=== PATIENT | male | born 1960 | race Caucasian/White ===

== ENCOUNTER 2020-05-03 20:36 | Inpatient (IN) ==
[2020-05-03] MEDS ORDERED: HYDROmorphone INJ 0.5 MG/0.5 ML SYR IV STA (21:33)
[2020-05-03] MEDS ORDERED: ONDANSETRON INJ 2 MG/ML 2 ML VIAL IV STA (21:33)
[2020-05-03] MEDS ORDERED: SODIUM CHLORIDE 0.9% 1000ML 1,000 ML IV ONE (21:33)
[2020-05-03 21:46] LABS: Appearance Urine Clear (Clear); Bilirubin Urine Negative (Negative); Blood Urine Negative (Negative); Color Urine Yellow; Glucose Urine UA 3+ (Negative); Ketones Urine Negative (Negative); Leukocyte Esterase Urine Negative (Negative); Nitrite Urine Negative (Negative); Protein Urine Negative (Negative); Specific Gravity Urine 1.018 (1.000-1.030); Urobilinogen Urine Negative (Negative)
[2020-05-03 21:47] LABS: Basophils # (auto) 0.02 K/uL (0-0.2); Basophils % (auto) 0.2 %; Eosinophils # (auto) 0.05 K/uL (0-0.5); Eosinophils % (auto) 0.5 %; Hematocrit (blood only) 40.2 % (42-52); Immature Granulocytes # (auto) 0.03 K/uL (0.00-0.02); Immature Granulocytes % (auto) 0.3 %; Lymphocytes # (auto) 0.85 K/uL (1.2-3.4); Lymphocytes % (auto) 7.7 %; Mean Corpuscular Hgb Conc 34.8 g/dL (32-36); Mean Corpuscular Volume 88.9 fL (80-100); Mean Platelet Volume 11.6 fL (7.4-10.4); Monocytes # (auto) 1.09 K/uL (0.11-0.59); Monocytes % (auto) 9.9 %; Neutrophils # (auto) 8.93 K/uL (1.4-6.5); Neutrophils % (auto) 81.4 %; Platelet Count 243 K/uL (130-400); RDW Coefficient of Variation 12.8 % (11.5-14.5); RDW Standard Deviation 41.5 fL (36.4-46.3); Red Blood Count 4.52 M/uL (4.7-6.1); White Blood Count 10.97 K/uL (4.8-10.8)
[2020-05-03 21:54] LABS: Albumin Level 3.6 gm/dl (3.4-5.0); BUN Creatinine Ratio 7.9 (10-20); Calcium 8.9 mg/dl (8.5-10.1); Creatinine Clr Calc Pharmacy 57.6 ml/min; Est GFR (African American) 40.9; Est GFR (Non-African American) 35.3; Potassium 3.7 mmol/L (3.5-5.1)
[2020-05-03 21:57] LABS: Albumin Globulin Ratio 0.8 (0.9-2); Bilirubin,Total 0.6 mg/dl (0.2-1); Globulin 4.6 gm/dl (2.5-4.0); Total Protein 8.2 gm/dl (6.4-8.2)
--- NOTE | 2020-05-03 22:27 | Emergency Department Note ---
History of Present Illness General Chief complaint: Abdominal Pain Time Seen by Provider: 05/03/20 21:26 History of Present Illness Maximum Pain Intensity: 6 59-year-old male who presents to emergency department for evaluation of persistent left lower quadrant abdominal pain that has been intermittent for the past 3 weeks, and now has become progressively more steady over the past 3 days. The patient reports that he has had some recent constipation, and did take a laxative today that provided decent stool output. The patient reports that his pain has persisted. The patient has had nausea without vomiting. He denies fever or chills. He has noticed some swelling of the abdomen. He denies any significant pain radiating into the back. He denies history of GI disease. He has not had a colonoscopy in the past. He denies any urinary symptoms. The patient was transported to the emergency department via [facility] ambulance, and received a total of fentanyl 175 mcg and Zofran 4 mg IVP en route. On my exam, the patient rated his discomfort a 6 out of 10. Home Medications Medication Instructions Recorded Confirmed Type epinephrine 0.3 mg IM ONCE PRN #1 ea 03/22/18 05/03/20 Rx Allergies Allergy/AdvReac Type Severity Reaction Status Date / Time bee venom protein (honey bee) Allergy Unknown ANAPHYLAXIS Verified 05/03/20 21:05 Past Med/Surg History Medical History (Updated 05/04/20 @ 00:19 by Troy Pastrana) BPH (benign prostatic hypertrophy) Cyst, epididymis Surgical History Previous back surgery Family History Other Family history of diabetes mellitus Social History Smoking Status: Current some day smoker Preferred Language: Pakistani Feels Safe at Home: Yes Review of Systems 10 system review was performed and was negative except for pertinent positives and negatives as indicated in history of present illness Physical Exam Vital Signs Vital Signs - 24 hr 05/03/20 20:45 05/03/20 21:38 05/03/20 22:00 Temperature 37.4 C Temperature Source Oral Pulse Rate 79 72 Pulse Rate from SpO2 Sensor 71 Respiratory Rate 16 17 Blood Pressure 181/97 H 184/103 H Blood Pressure Mean 125 130 Pulse Oximetry 88 L 99 97 Oxygen Delivery Method Room Air Room Air Nasal Cannula Oxygen Flow Rate 4 Sepsis Recent Fever Within 48 Hours No Sepsis New/Unexplained Change in Mental Status N/A Sepsis Action Taken by Nursing No Action Required 05/03/20 22:59 05/03/20 23:00 05/03/20 23:30 Temperature Temperature Source Pulse Rate 71 67 73 Pulse Rate from SpO2 Sensor 72 67 71 Respiratory Rate 16 15 16 Blood Pressure 174/95 H 179/96 H 204/111 H Blood Pressure Mean 121 123 142 Pulse Oximetry 98 98 98 Oxygen Delivery Method Nasal Cannula Nasal Cannula Nasal Cannula Oxygen Flow Rate 4 4 4 Sepsis Recent Fever Within 48 Hours Sepsis New/Unexplained Change in Mental Status Sepsis Action Taken by Nursing 05/04/20 00:00 Temperature Temperature Source Pulse Rate 73 Pulse Rate from SpO2 Sensor 73 Respiratory Rate 21 Blood Pressure 166/82 H Blood Pressure Mean 110 Pulse Oximetry 99 Oxygen Delivery Method Nasal Cannula Oxygen Flow Rate 4 Sepsis Recent Fever Within 48 Hours Sepsis New/Unexplained Change in Mental Status Sepsis Action Taken by Nursing CONSTITUTIONAL: Obese male in moderate discomfort. Patient does not appear toxic. HEENT: Normocephalic, atraumatic. Pupils equal, round and reactive. No scleral icterus or conjunctival injection. Mucous membranes are not dry. NECK: Full active range of motion without discomfort. LYMPHATICS: No cervical chain adenopathy. RESPIRATORY: Clear to auscultation bilaterally with no wheezing, crackles, rhonchi or stridor. CARDIOVASCULAR: Regular rate and rhythm with no murmurs, rubs or gallops. GASTROINTESTINAL: Bowel sounds present in all quadrants. Patient has notable abdominal guarding and rebound of the left abdomen region. The abdomen is protuberant and hypertympanic to palpation. No fluid wave appreciated. Negative McBurney's point tenderness. Negative CVA tenderness. MUSCULOSKELETAL: Full range of motion of all joints without discomfort. INTEGUMENTARY: No rash or other significant dermatologic conditions noted. HEMATOLOGIC: No ecchymosis or petechiae. PSYCHIATRIC: Positive affect. NEUROLOGIC: No focal neurologic deficits noted. Course Course Patient history and physical exam were performed. Nurses notes were reviewed. Vital signs were reviewed, showing an elevated blood pressure of 181/97. The patient is otherwise afebrile and not tachycardic. O2 saturation was 88% on room air. The patient did not require any additional O2 supplementation, with repeat O2 saturation of 99%. IV access was established, and labs were drawn. The patient was hydrated with a liter normal saline, and administered IV Dilaudid and Zofran. Review of labs shows a mild leukocytosis with white count of 10.97 with left shift and bandemia. Review of additional labs shows a mild hyponatremia of 133, creatinine 2.02 and glucose of 265. LFTs, total bilirubin and lipase are normal. Urinalysis shows 3+ glucosuria without evidence for infection or hematuria. Noncontrast CT of the abdomen and pelvis shows a large heterogenous prostate with significantly distended bladder and evidence for obstructive uropathy with hydroureteronephrosis. Findings were discussed with Dr. Song, ED attending physician, as well as the patient. The patient then admitted that he has had difficulty with urination for quite some time, and has noticed inability to urinate over the past few days. A Navarrete catheter was recommended, and was successfully inserted. After approximately 850 cc of urine was drained, the Navarrete catheter was clamped. Given his current discomfort and acute kidney injury, I did recommend observation status, and hopefully urology consultation in the morning. The patient was in agreement. The case was then discussed with Dr. Shira murguia, [facility], who evaluated the patient. Please see her dictation for further treatment and final disposition. Administered Medications Discontinued Medications Hydromorphone HCl (Hydromorphone Inj 0.5 Mg/0.5 Ml Syr) 0.5 mg IV NOW STA Stop: 05/03/20 21:34 Last Admin: 05/03/20 21:43 Dose: 0.5 mg Documented by: [id number] Hydromorphone HCl (Hydromorphone Inj 0.5 Mg/0.5 Ml Syr) 0.5 mg IV NOW STA Stop: 05/04/20 00:11 Last Admin: 05/04/20 00:18 Dose: 0.5 mg Documented by: [id number] Sodium Chloride (Nss 1000ml) 1,000 mls @ 999 mls/hr IV .Q1H1M ONE Stop: 05/03/20 22:33 Last Infusion: 05/03/20 22:56 Dose: 0 mls/hr Documented by: [id number] Admin: 05/03/20 21:41 Dose: 999 mls/hr Documented by: [id number] Ondansetron HCl (Ondansetron Inj 2 Mg/Ml 2 Ml Vial) 4 mg IV NOW STA Stop: 05/03/20 21:34 Last Admin: 05/03/20 21:42 Dose: 4 mg Documented by: [id number] Medical Decision Making Medical Records Attestation: I reviewed the patient's medical records. Home Medications Current Medication List: was personally reviewed by me Laboratory Data Attestation: I reviewed the patient's lab results. Result diagrams: 05/03/20 20:50 05/03/20 20:50 Lab Results 05/03/20 05/03/20 05/03/20 Range/Units 20:50 20:50 20:50 WBC 10.97 H (4.8-10.8) K/uL RBC 4.52 L (4.7-6.1) M/uL Hgb 14.0 (14.0-18.0) g/dL Hct 40.2 L (42-52) % MCV 88.9 (80-100) fL MCH 31.0 (25-34) pg MCHC 34.8 (32-36) g/dL RDW Std Deviation 41.5 (36.4-46.3) fL RDW Coeff of Marc 12.8 (11.5-14.5) % Plt Count 243 (130-400) K/uL MPV 11.6 H (7.4-10.4) fL Immature Gran % (Auto) 0.3 % Neut % (Auto) 81.4 % Lymph % (Auto) 7.7 % [place] % (Auto) 9.9 % Eos % (Auto) 0.5 % Baso % (Auto) 0.2 % Neut # (Auto) 8.93 H (1.4-6.5) K/uL Lymph # (Auto) 0.85 L (1.2-3.4) K/uL [place] # (Auto) 1.09 H (0.11-0.59) K/uL Eos # (Auto) 0.05 (0-0.5) K/uL Baso # (Auto) 0.02 (0-0.2) K/uL Immature Gran # (Auto) 0.03 H (0.00-0.02) K/uL Sodium 133 L (136-145) mmol/L Potassium 3.7 (3.5-5.1) mmol/L Chloride 102 (98-107) mmol/L Carbon Dioxide 24 (21-32) mmol/L Anion Gap 7.0 (3-11) BUN 16 (7-18) mg/dl Creatinine 2.02 H (0.6-1.4) mg/dl Est Cr Clr Drug Dosing 57.6 ml/min Est GFR ( Amer) 40.9 Est GFR (Non-Af Amer) 35.3 BUN/Creatinine Ratio 7.9 L (10-20) Glucose 265 H (70-99) mg/dl Calcium 8.9 (8.5-10.1) mg/dl Total Bilirubin 0.6 (0.2-1) mg/dl AST 13 L (15-37) U/L ALT 23 (12-78) U/L Alkaline Phosphatase 102 (45-117) U/L Total Protein 8.2 (6.4-8.2) gm/dl Albumin 3.6 (3.4-5.0) gm/dl Globulin 4.6 H (2.5-4.0) gm/dl Albumin/Globulin Ratio 0.8 L (0.9-2) Lipase 230 (73-393) U/L Urine Color Yellow Urine Appearance Clear (Clear) Urine pH 5.0 (4.5-7.5) Ur Specific [place] 1.018 (1.000-1.030) Urine Protein Negative (Negative) Urine Glucose (UA) 3+ H (Negative) Urine Ketones Negative (Negative) Urine Blood Negative (Negative) Urine Nitrite Negative (Negative) Urine Bilirubin Negative (Negative) Urine Urobilinogen Negative (Negative) Ur Leukocyte Esterase Negative (Negative) Urine WBC (Auto) (0-5) /hpf Urine RBC (Auto) (0-4) /hpf U Hyaline Cast (Auto) (0-5) /lpf U Epithel Cells (Auto) (0-5) /lpf Urine Bacteria (Auto) (Negative) COVID-19 Eval Order 05/03/20 05/04/20 Range/Units 23:48 00:19 WBC (4.8-10.8) K/uL RBC (4.7-6.1) M/uL Hgb (14.0-18.0) g/dL Hct (42-52) % MCV (80-100) fL MCH (25-34) pg MCHC (32-36) g/dL RDW Std Deviation (36.4-46.3) fL RDW Coeff of Marc (11.5-14.5) % Plt Count (130-400) K/uL MPV (7.4-10.4) fL Immature Gran % (Auto) % Neut % (Auto) % Lymph % (Auto) % [place] % (Auto) % Eos % (Auto) % Baso % (Auto) % Neut # (Auto) (1.4-6.5) K/uL Lymph # (Auto) (1.2-3.4) K/uL [place] # (Auto) (0.11-0.59) K/uL Eos # (Auto) (0-0.5) K/uL Baso # (Auto) (0-0.2) K/uL Immature Gran # (Auto) (0.00-0.02) K/uL Sodium (136-145) mmol/L Potassium (3.5-5.1) mmol/L Chloride (98-107) mmol/L Carbon Dioxide (21-32) mmol/L Anion Gap (3-11) BUN (7-18) mg/dl Creatinine (0.6-1.4) mg/dl Est Cr Clr Drug Dosing ml/min Est GFR ( Amer) Est GFR (Non-Af Amer) BUN/Creatinine Ratio (10-20) Glucose (70-99) mg/dl Calcium (8.5-10.1) mg/dl Total Bilirubin (0.2-1) mg/dl AST (15-37) U/L ALT (12-78) U/L Alkaline Phosphatase (45-117) U/L Total Protein (6.4-8.2) gm/dl Albumin (3.4-5.0) gm/dl Globulin (2.5-4.0) gm/dl Albumin/Globulin Ratio (0.9-2) Lipase (73-393) U/L Urine Color Yellow Urine Appearance Clear (Clear) Urine pH 5.0 (4.5-7.5) Ur Specific [place] 1.016 (1.000-1.030) Urine Protein Negative (Negative) Urine Glucose (UA) 3+ H (Negative) Urine Ketones Negative (Negative) Urine Blood Trace H (Negative) Urine Nitrite Negative (Negative) Urine Bilirubin Negative (Negative) Urine Urobilinogen Negative (Negative) Ur Leukocyte Esterase Negative (Negative) Urine WBC (Auto) 1-5 (0-5) /hpf Urine RBC (Auto) 0-4 (0-4) /hpf U Hyaline Cast (Auto) 1-5 (0-5) /lpf U Epithel Cells (Auto) 0-5 (0-5) /lpf Urine Bacteria (Auto) Negative (Negative) COVID-19 Eval Order Covid19 IDNow Replaced by [facility] Imaging Data Attestation: I personally reviewed and interpreted this imaging study as follows: My Impression: My interpretation of a noncontrast CT of the abdomen and pelvis shows significant bladder distention with obstructive uropathy with hydroureteronephrosis. A large heterogenous prostate is also noted. No obvious evidence for appendicitis, diverticulitis or ureteral calculi. [facility] report was also reviewed with concurrence. Local radiologist report is pending. Blood Pressure Blood Pressure Findings: Elevated blood pressure MDM Narrative Patient presents to emergency department for evaluation of abdominal pain. The patient admits that he has had difficulty urinating now for quite some time, and has been unable to do so over the past few days. CT imaging does show evidence for a markedly distended bladder with a large heterogenous prostate, likely the cause of his obstructive uropathy. Urinalysis does not show evidence for infection. The patient does have an acute kidney injury from the obstructive uropathy. The patient has a mild leukocytosis without fever. CT imaging does not show evidence for appendicitis, diverticulitis, bowel obstruction or free air. Impression & Plan Enlarged prostate with urinary obstruction, Acute kidney injury Discharge Plan Visit Data Chief Complaint: Abdominal Pain ED Provider: Alhaji Song ED Midlevel Provider: Troy Pastrana Discharge Problem: Enlarged prostate with urinary obstruction, Acute kidney injury Forms Stand Alone Forms: My [facility] Prescriptions Prescriptions: No Action epinephrine 0.3 mg/0.3 mL auto-injector 0.3 mg IM ONCE PRN (Reason: allergy symptoms) Qty: 1 RF: 1
[2020-05-04 00:10] LABS: Appearance Urine Clear (Clear); Bacteria Urine Automated Negative (Negative); Bilirubin Urine Negative (Negative); Blood Urine Trace (Negative); Color Urine Yellow; Epithelial Cell Urine Auto 0-5 /lpf (0-5); Glucose Urine UA 3+ (Negative); Ketones Urine Negative (Negative); Leukocyte Esterase Urine Negative (Negative); Nitrite Urine Negative (Negative); Protein Urine Negative (Negative); RBC Urine Automated 0-4 /hpf (0-4); Specific Gravity Urine 1.016 (1.000-1.030); Urobilinogen Urine Negative (Negative)
[2020-05-04] MEDS ORDERED: HYDROmorphone INJ 0.5 MG/0.5 ML SYR IV STA (00:10)
--- NOTE | 2020-05-04 01:23 | History & Physical Report ---
Date of Service May 04, 2020 Assessment & Plan Admission and Anticipated Discharge Date Admission Date: 59 yo M w/ pMHx. of Diabetes, BPH presenting with lower abdominal pain and found to have distended bladder consistent with obstructive uropathy; also found to be hypoxic with COVID exposure and 4 days of cough concerning for COVID-19 infection. Obstructive uropathy due to BPH, appears to be chronic with acute worsening CT with findings on STAT rad of: distended bladder, large heterogenous prostate, inguinal hernia, diverticula w/o diverticulitis - Navarrete placed with significant diuresis, consider clamping Navarrete if blood press ure drops - replacing fluid with LR 125 ml/H - Urology consulted - pain control with Dilaudid PRN Acute hypoxic respiratory distress potentially due to COVID-19 infection vs. other viral or bacterial infection of his lungs vs. chronic lung disease vs. obesity hypoventilation worsened due to current abdominal distension - slightly elevated WBC, normal HR, afebrile - initial COVID test negative, ordered PCR - COVID precautions - CXR to help differentiate cause - if CXR and PCR are negative, could consider discontinuing precautions Diabetes mellitus II, - A1C ordered - started on sliding scale with 10 BID of Lantus - continue to follow blood sugar discharge planning - consulted case management for discharge planning given patient does not have a PCP and has untreated diabetes and BPH - discussed going back to [facility] for management of his chronic conditions including diabetes Code: full Diet: CC w/ DMII DVT prophylaxis: Heparin History of Present Illness Chief Complaint: abdominal pain Primary Care Provider: NO PCP Mr. Kingsley Harding (Bob) is here for lower abdominal pain. His pain started 3 months ago and has been progressively worsening. He rated his pain a 15/10 prior to coming to the ER. He has had pain like this before that he related to a "bad prostate", he explained that he had seen urologist approximately 5 years ago. He was started on medication at that time but did not feel that they were working for him so he stopped them. Mr. Harding is not on oxygen at home. He denies any shortness of breath. He explained that he though the had COVID a week ago. He was around his "boy" who was positive and assumed he had COVID but recovered from it. He had a dry cough for four days that has since resolved. He does not have any other symptoms. He had diarrhea but relates that to laxatives he took for what he thought was constipation. Mr. Harding stated that he has diabetes but has not taken any medication for this. He tried to modify his diet, but noted that this has not worked well either. He does not have a PCP but did previously go to [facility] although at the time he was busy and couldn't make it to all of the follow up appointments. Allergies Allergy/AdvReac Type Severity Reaction Status Date / Time bee venom protein (honey bee) Allergy Unknown ANAPHYLAXIS Verified 05/03/20 21:05 Home Medications Medication Instructions Recorded Confirmed Type epinephrine 0.3 mg IM ONCE PRN #1 ea 03/22/18 05/03/20 Rx Past Med/Surg History Medical History BPH (benign prostatic hypertrophy) Cyst, epididymis Surgical History Previous back surgery Family History Other Family history of diabetes mellitus Social History Smoking Status: Never smoker Do You Dip or Chew Tobacco: Yes; Hx Alcohol Use: Yes Hx Substance Use: Yes Last Used Substance: Days (ago) Last Used Substance Other:: marijuana 1 day ago Preferred Language: Italian Communication Ability: Effective [employer] Lines[employer] Required: No Beliefs That Will Affect Care: None Current Living Situation: Alone Other Information That Helps Us Care for You: No Feels Safe at Home: Yes Safety Concerns: Feels Safe At This Time Assistive Devices: None Assistive Devices Comment: reading glasses Review of Systems Constitutional: no fever and no chills Respiratory: no cough, no hemoptysis and no sputum production Cardiovascular: no chest pain Gastrointestinal: + abdominal pain, + bloating and + diarrhea/loose stools; no nausea, no vomiting and no constipation Physical Exam Constitutional: WD/WN, vitals as above + obese Eyes: PERRL, conjunctivae normal, anicteric sclerae ENMT: external ear and nose normal, oropharynx normal Neck: normal visual inspection Respiratory: normal respiratory effort, lungs clear to auscultation - able to speak in full sentences - no acute respiratory distress Cardiovascular: RRR, no murmur, no edema - distant heart sounds Gastrointestinal (Abdomen): - distended abdomen - soft - no guarding - suprapubic area exquisitely tender to palpation Skin: no rashes, warm and dry Neurologic: no focal motor deficits Psychiatric: A+Ox3, euthymic affect Results & Data Results & Data ([facility]) Vital Signs (Past 12 Hours) Vital Signs Temp Pulse Resp BP Pulse Ox 05/04/20 01:02 70 14 161/91 H 98 05/04/20 00:30 73 18 167/94 H 98 05/04/20 00:00 73 21 166/82 H 99 05/03/20 23:30 73 16 204/111 H 98 05/03/20 23:00 67 15 179/96 H 98 05/03/20 22:59 71 16 174/95 H 98 05/03/20 22:00 72 17 184/103 H 97 05/03/20 21:38 99 05/03/20 20:45 37.4 C 79 16 181/97 H 88 L CBC Results Results Complete Blood Count Results: RBC 4.29 M/uL (4.7-6.1) L 05/04/20 WBC 7.71 K/uL (4.8-10.8) 05/04/20 Hgb 13.1 g/dL (14.0-18.0) L 05/04/20 Hct 37.8 % (42-52) L 05/04/20 Plt Count 247 K/uL (130-400) 05/04/20 Chemistry (BMP) Results BMP Results: Sodium 137 mmol/L (136-145) 05/04/20 Potassium 3.7 mmol/L (3.5-5.1) 05/04/20 Chloride 106 mmol/L (98-107) 05/04/20 BUN 14 mg/dl (7-18) 05/04/20 Creatinine 1.44 mg/dl (0.6-1.4) H 05/04/20 Glucose 253 mg/dl (70-99) H 05/04/20 Supervising Physician Co-Signing Physician Notes Patient seen and examined, chart reviewed, case discussed with Dr. Collins and I agree with his assessment and plan as above. Briefly, patient is a 59yo male presenting with lower abdominal pain. Found with bladder distention, urinary retention. On exam he is afebrile, HTN, otherwise stable, NAD Abd - +BS, soft, distended, tender in lower abdomen without rebound/guarding. Navarrete in place with 1000mL urine Labs and images reviewed. Assessment/Plan: Maintain Navarrete IVF Urology consultation Resident Activity Tracking Resident Involvement: Resident Care Provided Care Provided: Adult Hospital Medicine
[2020-05-04 01:49] LABS: Influenza A virus by PCR Negative (Neg); Influenza B virus by PCR Negative (Neg); RSV by PCR Negative (Neg); SARS CoV2 RNA(COVID-19) InHosp NEGATIVE (Negative)
[2020-05-04] MEDS ORDERED: PNEUMOCOCCAL POLYSACCHARIDES 25 MCG/0.5 ML VIAL/SYR IM ONE (03:22)
[2020-05-04] MEDS ORDERED: PNEUMOCOCCAL ADMINISTRATION CHARGE ONE (03:22)
[2020-05-04] MEDS ORDERED: INFLUENZA ADMINISTRATION CHARGE ONE (03:22)
[2020-05-04] MEDS ORDERED: INFLUENZA VIRUS QUAD VACCINE 0.5 ML SYR IM ONE (03:22)
[2020-05-04] MEDS ORDERED: GLUCOSE 40% GEL 15 GM TUBE PO PRN (03:25)
[2020-05-04] MEDS ORDERED: CARBOHYDRATES FOR HYPOGLYCEMIA PO PRN (03:25)
[2020-05-04] MEDS ORDERED: ACETAMINOPHEN 325 MG TAB PO PRN (03:25)
[2020-05-04] MEDS ORDERED: GLUCAGON FOR INJ 1 MG VIAL SQ PRN (03:25)
[2020-05-04] MEDS ORDERED: GLUCOSE 10 TABS/TUBE PO PRN (03:25)
[2020-05-04] MEDS ORDERED: DEXTROSE 50% 50 ML SYRINGE IV PRN (03:25)
[2020-05-04] MEDS ORDERED: POLYETHYLENE (MIRALAX) 17 GM PACK PO PRN (03:25)
[2020-05-04] MEDS: LACTATED RINGER'S 1,000 ML IV SCH ×3 (04:08→21:07)
[2020-05-04] MEDS: HEPARIN SOD 5,000 UNIT/0.5 ML VIAL SQ SCH ×3 (06:58→21:47)
[2020-05-04 07:14] LABS: Basophils # (auto) 0.01 K/uL (0-0.2); Basophils % (auto) 0.1 %; Eosinophils # (auto) 0.09 K/uL (0-0.5); Eosinophils % (auto) 1.2 %; Hematocrit (blood only) 37.8 % (42-52); Hemoglobin 13.1 g/dL (14.0-18.0); Immature Granulocytes # (auto) 0.01 K/uL (0.00-0.02); Immature Granulocytes % (auto) 0.1 %; Lymphocytes # (auto) 1.38 K/uL (1.2-3.4); Lymphocytes % (auto) 17.9 %; Mean Corpuscular Hemoglobin 30.5 pg (25-34); Mean Corpuscular Hgb Conc 34.7 g/dL (32-36); Mean Corpuscular Volume 88.1 fL (80-100); Mean Platelet Volume 10.8 fL (7.4-10.4); Monocytes # (auto) 0.83 K/uL (0.11-0.59); Monocytes % (auto) 10.8 %; Neutrophils # (auto) 5.39 K/uL (1.4-6.5); Neutrophils % (auto) 69.9 %; Platelet Count 247 K/uL (130-400); RDW Standard Deviation 41.3 fL (36.4-46.3); Red Blood Count 4.29 M/uL (4.7-6.1); White Blood Count 7.71 K/uL (4.8-10.8)
[2020-05-04 07:22] LABS: Estimated Average Glucose 289 mg/dl; Hemoglobin A1C 11.7 % (4.5-5.6)
[2020-05-04 07:31] LABS: BUN Creatinine Ratio 9.8 (10-20); Calcium 8.6 mg/dl (8.5-10.1); Creatinine Clr Calc Pharmacy 77.8 ml/min; Est GFR (African American) 61.6; Est GFR (Non-African American) 53.1; Potassium 3.7 mmol/L (3.5-5.1)
--- NOTE | 2020-05-04 07:32 | Urology Consultation ---
Date of Consultation May 04, 2020 Assessment & Plan (1) Enlarged prostate with urinary obstruction: -Maintain Navarrete catheter for the present time. Follow serial labs pain particular attention the patient's creatinine Recommend checking a PSA level May be prudent to initiate the patient on medication such as Flomax to improve his urination ATTENDING NOTE: Assessed patient. Independently interviewed, evaluated, and examined. Patient had severe retention and catheter placement. Is currently dealing with gross hematuria after catheter placement likely due to over distention of bladder. Did have bilateral hydronephrosis. Agree with above. Plan outpatient followup with catheter removal in 7-10 days. Keep flomax. Okay to discharge when stable and improved. Will need scope in office at some point and workup. History of Present Illness Reason for Consultation: Obstructive uropathy Attending Physician: Shira Freeman, History of Present Illness This is a 59-year-old male who presented to [facility] emergency department secondary to distended bladder as well as lower abdominal discomfort. The patient notes that for the past several months he has had a great difficulty urinating. He notes that when he goes to void urine merely dribbles out of his urethra. He notes that after he does this he feels as though his bladder is not empty. Looking back he notes over the past several months he has had decreased force of stream of urine. He has also had difficulty initiating urination.I asked the patient if he had any surgical procedures in the past to resolve this problem which he denied. He also notes he does not take any medications for this problem. Because of his symptoms he presented to the emergency department. CT scan of his abdomen and pelvis showed that he had an enlarged prostate. He had a Navarrete catheter placed with a diuresis of a large volume of urine and since this modality was initiated the patient notes he has had marked improvement of his symptoms. He also had labs drawn in the emergency department where his hemoglobin is noted be 13.1. His platelets and white blood cell count were noted to be within normal range. His creatinine was noted to be elevated at 2.0. He did have a Covid test performed which was negative At the time of my exam he is resting comfortably in bed in no distress. Allergies Allergy/AdvReac Type Severity Reaction Status Date / Time bee venom protein (honey bee) Allergy Unknown ANAPHYLAXIS Verified 05/03/20 21:05 Home Medications Medication Instructions Recorded Confirmed Type epinephrine 0.3 mg IM ONCE PRN #1 ea 03/22/18 05/03/20 Rx Patient History Medical History BPH (benign prostatic hypertrophy) Cyst, epididymis Surgical History Previous back surgery Family History Other Family history of diabetes mellitus Social History Smoking Status: Never smoker Do You Dip or Chew Tobacco: Yes; Hx Alcohol Use: Yes Hx Substance Use: Yes Last Used Substance: Days (ago) Last Used Substance Other:: marijuana 1 day ago Preferred Language: Bolivian Communication Ability: Effective Nurse Wound Care Required: No Beliefs That Will Affect Care: None Current Living Situation: Alone Other Information That Helps Us Care for You: No Feels Safe at Home: Yes Safety Concerns: Feels Safe At This Time Assistive Devices: Oxygen - Continuous Assistive Devices Comment: reading glasses Review of Systems Constitutional: no fever and no chills Eyes: no diplopia Ear, Nose, Mouth, Throat: no ear pain Respiratory: + cough and + dyspnea Cardiovascular: no chest pain Gastrointestinal: + abdominal pain (Lower abdomen) Genitourinary: + difficulty urinating, + urinary hesitancy and + decreased u rination Musculoskeletal: no back pain Integumentary: no rash Neurologic: no localized weakness Physical Exam Constitutional: well developed and well nourished; no acute distress Eyes: no conjunctival abnormality ENMT: Ears: no hearing impairment Neck: trachea midline Respiratory: normal respiratory effort; no respiratory distress and no labored breathing Cardiovascular: Rate/Rhythm: regular rate and regular rhythm Gastrointestinal (Abdomen): Percussion/Palpation: abdomen soft; abdomen nontender Musculoskeletal: No calf tenderness Skin: no rashes, warm and dry Neurologic: moves all extremities Psychiatric: A+Ox3, euthymic affect Genitourinary: Navarrete catheter is in place. There is blood-tinged urine noted in the collection bag Results & Data ([facility]) Vital Signs (Past 12 Hours) Vital Signs Temp Pulse Pulse Resp BP BP BP 05/04/20 07:17 36.5 C 61 16 146/84 H 03/20/21 03:00 36.5 C 16 176/104 H 05/04/20 02:00 66 14 160/99 H 05/04/20 01:30 66 12 155/101 H 05/04/20 01:02 70 14 161/91 H 05/04/20 00:30 73 18 167/94 H 05/04/20 00:00 73 21 166/82 H 05/03/20 23:30 73 16 204/111 H 05/03/20 23:00 67 15 179/96 H 05/03/20 22:59 71 16 174/95 H 05/03/20 22:00 72 17 184/103 H 05/03/20 21:38 05/03/20 20:45 37.4 C 79 16 181/97 H Pulse Ox 05/04/20 07:17 97 05/04/20 03:00 96 05/04/20 02:00 95 05/04/20 01:30 96 05/04/20 01:02 98 05/04/20 00:30 98 05/04/20 00:00 99 05/03/20 23:30 98 05/03/20 23:00 98 05/03/20 22:59 98 05/03/20 22:00 97 05/03/20 21:38 99 05/03/20 20:45 88 L PG Care Time/CCT Total # of Minutes Spent Total Time Spent with Patient: Total time spent is greater than 50% in coordination of care (as documented) at patient's floor/unit and/or counseling patient: Coding Level of Care Code 77549 Inpt Consult Level 5 Diagnoses Enlarged prostate with urinary obstruction N40.1; N13.8
--- NOTE | 2020-05-04 08:17 | CT Scan Report ---
ABDOMEN AND PELVIS CT WITHOUT CONTRAST CT DOSE: 1972.82 mGy.cm HISTORY: Left lower quadrant abdominal pain. TECHNIQUE: Multiaxial CT images of the abdomen and pelvis were performed without contrast. A dose lo wering technique was utilized adhering to the principles of ALARA. COMPARISON STUDY: Abdomen and pelvis CT 06/23/2013. FINDINGS: Calcified granuloma within the right lower lobe. L4-5 posterior decompression fusion with p edicle screws and rods. No pneumoperitoneum. No pneumatosis. The unenhanced liver, gallbladder, splee n, adrenal glands, and pancreas are unremarkable. No retroperitoneal lymphadenopathy. Normal caliber abdominal aorta. No evidence for bowel obstruction. There is a fluid-filled colon. A few colonic dive rticula. No evidence for acute diverticulitis. Normal appendix. There is mild to moderate bilateral p erinephric edema which has progressed. There is mild bilateral hydroureteronephrosis. This is seconda ry to the severely distended and thick-walled bladder with adjacent inflammatory change. There is enl arged prostate gland measuring 8 cm. Trace pelvic free fluid. IMPRESSION: 1. Severely distended bladder demonstrating a thickened wall and surrounding fat stranding suggestive of a superimposed cystitis. This could be due to an outlet obstruction given the enlarged prostate g land. Catheterization recommended for decompression. 2. Mild bilateral hydronephrosis likely secondary to the distended bladder. 3. Fluid-filled colon. This can be seen in the setting of a gastroenteritis. ACT 112: Negative or not required by law. Electronically signed by: Salvador Rodriguez M.D. 05/04/2020 8:16 AM
[2020-05-04] MEDS: INSULIN GLARGINE SOLOSTAR 100 UNITS/ML 3 ML PEN SQ SCH ×2 (08:37→20:50)
[2020-05-04] MEDS: INSULIN ASPART 100 UNITS/ML 3 ML PEN SC SCH ×4 (08:38→20:48)
--- NOTE | 2020-05-04 08:43 | XRay Report ---
XR chest 1V portable CLINICAL HISTORY: hypoxia COMPARISON STUDY: 10/13/2015 FINDINGS: The heart is mildly enlarged. There is no failure. There is no focal pulmonary consolidatio n. There are no pleural effusions.[ IMPRESSION: No active disease in the chest. ACT 112: Negative or not required by law. Electronically signed by: Jerome Huber M.D. 05/04/2020 8:42 AM
[2020-05-04] MEDS ORDERED: TAMSULOSIN HCL 0.4 MG CAP PO ONE (10:03)
--- NOTE | 2020-05-04 10:10 | Electrocardiogram Report ---
Test Reason : Blood Pressure : / mmHG Vent. Rate : 069 BPM Atrial Rate : 069 BPM P-R Int : 186 ms QRS Dur : 094 ms QT Int : 392 ms P-R-T Axes : 058 031 028 degrees QTc Int : 420 ms Normal sinus rhythm RSR' or QR pattern in V1 suggests right ventricular conduction delay Otherwise normal ECG When compared with ECG of 13-OCT-2015 16:16, No significant change was found Confirmed by Alvarez Singer ([id number]) on 05/04/2020 10:10:25 AM Referred By: REFERRED SELF Confirmed By:Alvarez Singer
[2020-05-04] MEDS: cefTRIAXone SODIUM 2,000 MG in DEXTROSE 5% 50 ML IV SCH (17:51)
[2020-05-04 18:06] LABS: Appearance Urine Cloudy (Clear); Bacteria Urine Automated Negative (Negative); Bilirubin Urine Negative (Negative); Blood Urine 3+ (Negative); Color Urine Orange; Epithelial Cell Urine Auto >30 /lpf (0-5); Glucose Urine UA Trace (Negative); Ketones Urine Negative (Negative); Leukocyte Esterase Urine Trace (Negative); Nitrite Urine Negative (Negative); Protein Urine 3+ (Negative); RBC Urine Automated >30 /hpf (0-4); Specific Gravity Urine 1.015 (1.000-1.030); Urobilinogen Urine Negative (Negative); WBC Urine Automated >30 /hpf (0-5); pH Urine 5.5 (4.5-7.5)
[2020-05-04 18:37] LABS: Mucus Urine Present (None Prsent)
[2020-05-04] MEDS: SODIUM CHLORIDE 0.9% 1000ML 1,000 ML IV SCH (20:41)
[2020-05-04] MEDS: POTASSIUM CHLORIDE CRTAB 20 MEQ TABCR PO SCH (21:01)
[2020-05-04] MEDS: HYDROmorphone INJ 0.5 MG/0.5 ML SYR IV PRN (21:46)
--- NOTE | 2020-05-04 22:42 | Hospitalist Progress Note ---
Date of Service May 04, 2020 Assessment & Plan (1) Enlarged prostate with urinary obstruction: Start flomax. Continue roberts. High concern for prostatitis given his severe scrotal/perineal/lower abdominal pain. Check PSA. Send urine culture. Start rocephin 2mg IV daily. Appreciate urology consultation. (2) Acute kidney injury: 2nd obstruction. Improving. Having copious post-obstructive diuresis. Increase fluids to 175cc/hr given his size to match UOP. BMP in am. (3) Morbid obesity with BMI of 40.0-44.9, adult: BMI 40.9 (4) Diabetes mellitus type 2, uncontrolled: Lantus 10 units BID. Novolog correction/carb coverage. A1c noted. DM education. (5) Prostatitis: Suspected. Check PSA in am. Send urine culture. Flomax. Roberts. Start rocephin 2gm daily. (6) Recent URI: Resolved 1-2 weeks ago. Doubt it was COVID, but will check COVID serum ab's in am. COVID PCR x 2 negative at time of admission. (7) DVT prophylaxis: heparin 7500 units TID Admission and Anticipated Discharge Date Admission Date: May 04, 2020 Subjective patient c/o penile pain where the roberts enters the urethra. he has minimal amount of discharge. he is quite uncomfortable just sitting in the chair -- hurts in scrotal and perineal region as well as lower abdomen. feels bloated/distended. eating ok. had a subjective fever 1-2 weeks ago along with fatigue, runny nose, and cough. all of those symptoms are gone. no dyspnea. son was sick with similar symptoms. neither got tested for COVID. Review of Systems Constitutional: no fever and no chills Respiratory: no cough, no dyspnea, no dyspnea on exertion and no wheezing Cardiovascular: no chest pain Gastrointestinal: + abdominal pain; no vomiting Genitourinary: + as per Subjective / HPI, + dysuria and + penile discharge; no flank pain Physical Exam Constitutional: + acute distress (uncomfortable due to penile pain ) and + morbidly obese; no altered mental status ENMT: external ear and nose normal, oropharynx normal Respiratory: normal respiratory effort, lungs clear to auscultation Cardiovascular: Rate/Rhythm: regular rate and regular rhythm Heart Sounds: normal S1 and normal S2; no murmur Vessels: posterior tibial pulses present and dorsalis pedis pulses present; no JVD Extremities: no edema Gastrointestinal (Abdomen): Inspection/Auscultation: + abdomen distended and normal bowel sounds Percussion/Palpation: + abdomen tender (suprapubic tenderness to palpation ) Psychiatric: A+Ox3, euthymic affect Genitourinary: buried penis, minimal amount of purulent discharge from urethral orifice Results & Data Results & Data ([facility]) Vital Signs (Past 12 Hours) Vital Signs Temp Pulse Resp BP Pulse Ox 05/04/20 22:26 36.9 C 73 18 166/72 H 97 05/04/20 15:08 36.5 C 76 16 149/76 H 97 Laboratory Results Laboratory Results - last 24 hr 05/03/20 05/04/20 05/04/20 23:48 00:19 00:19 WBC RBC Hgb Hct MCV MCH MCHC RDW Std Deviation RDW Coeff of Marc Plt Count MPV Immature Gran % (Auto) Neut % (Auto) Lymph % (Auto) Todd % (Auto) Eos % (Auto) Baso % (Auto) Neut # (Auto) Lymph # (Auto) Todd # (Auto) Eos # (Auto) Baso # (Auto) Immature Gran # (Auto) Sodium Potassium Chloride Carbon Dioxide Anion Gap BUN Creatinine Est Cr Clr Drug Dosing Est GFR ( Amer) Est GFR (Non-Af Amer) BUN/Creatinine Ratio Glucose POC Glucose Estimat Average Glucose Hemoglobin A1c Calcium Urine Color Yellow Urine Appearance Clear Urine pH 5.0 Ur Specific [place] 1.016 Urine Protein Negative Urine Glucose (UA) 3+ H Urine Ketones Negative Urine Blood Trace H Urine Nitrite Negative Urine Bilirubin Negative Urine Urobilinogen Negative Ur Leukocyte Esterase Negative Urine WBC (Auto) 1-5 Urine RBC (Auto) 0-4 U Hyaline Cast (Auto) 1-5 U Epithel Cells (Auto) 0-5 Urine Bacteria (Auto) Negative Ur Renal Epithelial Cell Urine Mucus COVID-19 Eval Order Covid19 [facility] SARS-CoV-2 (PCR) Hepatitis C Ab Screen Influenza Type A (PCR) Influenza Type B (PCR) RSV (RT-PCR) SARS-CoV-2, RNA, NAAT NEGATIVE 05/04/20 05/04/20 05/04/20 00:59 00:59 06:29 WBC RBC Hgb Hct MCV MCH MCHC RDW Std Deviation RDW Coeff of Marc Plt Count MPV Immature Gran % (Auto) Neut % (Auto) Lymph % (Auto) Todd % (Auto) Eos % (Auto) Baso % (Auto) Neut # (Auto) Lymph # (Auto) Todd # (Auto) Eos # (Auto) Baso # (Auto) Immature Gran # (Auto) Sodium Potassium Chloride Carbon Dioxide Anion Gap BUN Creatinine Est Cr Clr Drug Dosing Est GFR ( Amer) Est GFR (Non-Af Amer) BUN/Creatinine Ratio Glucose POC Glucose Estimat Average Glucose Hemoglobin A1c Calcium Urine Color Urine Appearance Urine pH Ur Specific [place] Urine Protein Urine Glucose (UA) Urine Ketones Urine Blood Urine Nitrite Urine Bilirubin Urine Urobilinogen Ur Leukocyte Esterase Urine WBC (Auto) Urine RBC (Auto) U Hyaline Cast (Auto) U Epithel Cells (Auto) Urine Bacteria (Auto) Ur Renal Epithelial Cell Urine Mucus COVID-19 Eval Order CovFluRsv at [facility] SARS-CoV-2 (PCR) NEGATIVE Hepatitis C Ab Screen Neg Influenza Type A (PCR) Negative Influenza Type B (PCR) Negative RSV (RT-PCR) Negative SARS-CoV-2, RNA, NAAT 05/04/20 05/04/20 05/04/20 06:29 06:29 06:29 WBC 7.71 RBC 4.29 L Hgb 13.1 L Hct 37.8 L MCV 88.1 MCH 30.5 MCHC 34.7 RDW Std Deviation 41.3 RDW Coeff of Marc 13.0 Plt Count 247 MPV 10.8 H Immature Gran % (Auto) 0.1 Neut % (Auto) 69.9 Lymph % (Auto) 17.9 Todd % (Auto) 10.8 Eos % (Auto) 1.2 Baso % (Auto) 0.1 Neut # (Auto) 5.39 Lymph # (Auto) 1.38 Todd # (Auto) 0.83 H Eos # (Auto) 0.09 Baso # (Auto) 0.01 Immature Gran # (Auto) 0.01 Sodium 137 Potassium 3.7 Chloride 106 Carbon Dioxide 24 Anion Gap 7.0 BUN 14 Creatinine 1.44 H D Est Cr Clr Drug Dosing 77.8 Est GFR ( Amer) 61.6 Est GFR (Non-Af Amer) 53.1 BUN/Creatinine Ratio 9.8 L Glucose 253 H POC Glucose Estimat Average Glucose 289 Hemoglobin A1c 11.7 H Calcium 8.6 Urine Color Urine Appearance Urine pH Ur Specific [place] Urine Protein Urine Glucose (UA) Urine Ketones Urine Blood Urine Nitrite Urine Bilirubin Urine Urobilinogen Ur Leukocyte Esterase Urine WBC (Auto) Urine RBC (Auto) U Hyaline Cast (Auto) U Epithel Cells (Auto) Urine Bacteria (Auto) Ur Renal Epithelial Cell Urine Mucus COVID-19 Eval Order SARS-CoV-2 (PCR) Hepatitis C Ab Screen Influenza Type A (PCR) Influenza Type B (PCR) RSV (RT-PCR) SARS-CoV-2, RNA, NAAT 05/04/20 05/04/20 05/04/20 12:17 17:10 17:35 WBC RBC Hgb Hct MCV MCH MCHC RDW Std Deviation RDW Coeff of Marc Plt Count MPV Immature Gran % (Auto) Neut % (Auto) Lymph % (Auto) Todd % (Auto) Eos % (Auto) Baso % (Auto) Neut # (Auto) Lymph # (Auto) Todd # (Auto) Eos # (Auto) Baso # (Auto) Immature Gran # (Auto) Sodium Potassium Chloride Carbon Dioxide Anion Gap BUN Creatinine Est Cr Clr Drug Dosing Est GFR ( Amer) Est GFR (Non-Af Amer) BUN/Creatinine Ratio Glucose POC Glucose 275 H 226 H Estimat Average Glucose Hemoglobin A1c Calcium Urine Color [place] Urine Appearance Cloudy A Urine pH 5.5 Ur Specific [place] 1.015 Urine Protein 3+ H Urine Glucose (UA) Trace H Urine Ketones Negative Urine Blood 3+ H Urine Nitrite Negative Urine Bilirubin Negative Urine Urobilinogen Negative Ur Leukocyte Esterase Trace H Urine WBC (Auto) >30 H Urine RBC (Auto) >30 H U Hyaline Cast (Auto) 1-5 U Epithel Cells (Auto) >30 H Urine Bacteria (Auto) Negative Ur Renal Epithelial Cell Not Reportable Urine Mucus Present A COVID-19 Eval Order SARS-CoV-2 (PCR) Hepatitis C Ab Screen Influenza Type A (PCR) Influenza Type B (PCR) RSV (RT-PCR) SARS-CoV-2, RNA, NAAT 05/04/20 20:28 WBC RBC Hgb Hct MCV MCH MCHC RDW Std Deviation RDW Coeff of Marc Plt Count MPV Immature Gran % (Auto) Neut % (Auto) Lymph % (Auto) Todd % (Auto) Eos % (Auto) Baso % (Auto) Neut # (Auto) Lymph # (Auto) Todd # (Auto) Eos # (Auto) Baso # (Auto) Immature Gran # (Auto) Sodium Potassium Chloride Carbon Dioxide Anion Gap BUN Creatinine Est Cr Clr Drug Dosing Est GFR ( Amer) Est GFR (Non-Af Amer) BUN/Creatinine Ratio Glucose POC Glucose 184 H Estimat Average Glucose Hemoglobin A1c Calcium Urine Color Urine Appearance Urine pH Ur Specific [place] Urine Protein Urine Glucose (UA) Urine Ketones Urine Blood Urine Nitrite Urine Bilirubin Urine Urobilinogen Ur Leukocyte Esterase Urine WBC (Auto) Urine RBC (Auto) U Hyaline Cast (Auto) U Epithel Cells (Auto) Urine Bacteria (Auto) Ur Renal Epithelial Cell Urine Mucus COVID-19 Eval Order SARS-CoV-2 (PCR) Hepatitis C Ab Screen Influenza Type A (PCR) Influenza Type B (PCR) RSV (RT-PCR) SARS-CoV-2, RNA, NAAT PG Care Time/CCT Total # of Minutes Spent Total Time Spent with Patient: Total time spent is greater than 50% in coordination of care (as documented) at patient's floor/unit and/or counseling patient: Coding Level of Care Code 01754 Subseq Hosp Care Lvl 3 Diagnoses Enlarged prostate with urinary obstruction N40.1; N13.8 Acute kidney injury N17.9 Morbid obesity with BMI of 40.0-44.9, adult E66.01; Z68.41 Diabetes mellitus type 2, uncontrolled E11.65 Prostatitis N41.9 Recent URI J06.9 DVT prophylaxis Z29.9
[2020-05-05] MEDS: SODIUM CHLORIDE 0.9% 1000ML 1,000 ML IV SCH ×3 (02:20→18:05)
--- NOTE | 2020-05-05 04:33 | Billing Data ---
Date of Service May 04, 2020 Coding Level of Care Code 88831 Initial Inpt Care Lvl 2
[2020-05-05] MEDS: HYDROmorphone INJ 0.5 MG/0.5 ML SYR IV PRN ×2 (05:23→17:20)
[2020-05-05] MEDS: HEPARIN SOD 5,000 UNIT/0.5 ML VIAL SQ SCH ×3 (05:24→21:12)
[2020-05-05 06:48] LABS: BUN Creatinine Ratio 10.5 (10-20); Calcium 8.1 mg/dl (8.5-10.1); Creatinine Clr Calc Pharmacy 120.5 ml/min; Est GFR (African American) 104.5; Est GFR (Non-African American) 90.2; Potassium 3.8 mmol/L (3.5-5.1)
[2020-05-05 06:52] LABS: Prostate Specific Antigen 46.3 ng/ml (0-4)
[2020-05-05] MEDS: INSULIN GLARGINE SOLOSTAR 100 UNITS/ML 3 ML PEN SQ SCH ×2 (08:39→21:01)
[2020-05-05] MEDS: INSULIN ASPART 100 UNITS/ML 3 ML PEN SC SCH ×4 (08:40→21:03)
[2020-05-05] MEDS: POTASSIUM CHLORIDE CRTAB 20 MEQ TABCR PO SCH ×2 (08:41→20:33)
[2020-05-05] MEDS: TAMSULOSIN HCL 0.4 MG CAP PO SCH (08:42)
[2020-05-05 08:43] LABS: CoV2 Total Antibody Negative (Negative)
[2020-05-05] MEDS: cefTRIAXone SODIUM 2,000 MG in DEXTROSE 5% 50 ML IV SCH (08:45)
[2020-05-05] MEDS ORDERED: HYDROmorphone INJ 0.5 MG/0.5 ML SYR IV PRN (18:03)
--- NOTE | 2020-05-05 18:41 | XRay Report ---
XR KUB/Abdomen 1 view CLINICAL HISTORY: Severe abdominal pain COMPARISON STUDY: No previous studies for comparison. FINDINGS: There is no pathologic bowel dilatation. There are postsurgical changes present within the lumbar spine. There is a calcified right lower lobe pulmonary granuloma IMPRESSION: Nonobstructive bowel gas pattern. ACT 112: Negative or not required by law. Electronically signed by: Jerome Huber M.D. 05/05/2020 6:39 PM
[2020-05-05] MEDS ORDERED: bisacodyL 5 MG TABEC PO ONE (19:04)
--- NOTE | 2020-05-05 19:57 | Hospitalist Progress Note ---
Date of Service May 05, 2020 Assessment & Plan (1) Enlarged prostate with urinary obstruction: Severe BPH with high suspicion for prostatitis. BPH leading to urinary retention and obstruction. Started flomax yesterday. Continue roberts. Urine cx negative but often is negative in setting of prostatitis. Thus, continue rocephin 2mg IV daily. Appreciate urology consultation. Elevated PSA - see below. (2) Acute kidney injury: 2nd obstruction. Resolved. Cr 0.9 today. Maintain roberts. Stop fluids. Had copious post-obstructive diuresis since admission. (3) Morbid obesity with BMI of 40.0-44.9, adult: BMI 40.9 (4) Diabetes mellitus type 2, uncontrolled: Lantus 10 units BID. Novolog correction/carb coverage. A1c of 11.7 noted. DM education requested. (5) Prostatitis: The location of his pain, the markedly elevated PSA - all in setting of severe BPH - are concerning for prostatitis. Urine cx is negative but can be neg in setting of prostatitis. Continue IV rocephin. At discharge would use oral cephalosporin; Rx for 4 weeks. Defer on rectal exam - suspect it would cause severe pain. Maintain roberts. Pain meds. Will add toradol 30mg IV x 3 doses for addidtional pain relief now that creatinine is normal. Appreciate urology assistance. (6) Recent URI: Resolved 1-2 weeks ago. COVID PCR x 2 negative at time of admission. COVID serum ab's negative - certainly IgM can be falsely negative this soon after the illness, but still highly unlikely he had COVID. (7) Elevated PSA: 46.3 Suspect SEVERE BPH and concern for prostatitis have contributed to elevated PSA. No TOLU done to exclude a nodule. No prior h/o prostate cancer. Treat for prostatitis. Treat BPH. Urology to follow. (8) Constipation: KUB x-ray today with copious stool. miralax BID dulcolax PO x 1 now then start senna in am in addition to miralax (9) DVT prophylaxis: heparin 7500 units TID given morbid obesity making slow/steady progress can d/c home w/ roberts once pain is controlled and off IV meds Admission and Anticipated Discharge Date Admission Date: May 04, 2020 Subjective continues with severe pain from his scrotum all the way towards the rectum. also with suprapubic pain. where catheter enters the urethra he also has pain in that location. eating fine. no fevers. c/o constipation for several months associated with firm, hard stool and straining. Review of Systems Constitutional: no fever, no fatigue and no anorexia Respiratory: no dyspnea and no dyspnea on exertion Cardiovascular: no chest pain Gastrointestinal: as per Subjective / HPI and + abdominal pain; no nausea and no vomiting Physical Exam Constitutional: + acute distress (uncomfortable due to penile pain ) and + morbidly obese; no altered mental status ENMT: external ear and nose normal, oropharynx normal Respiratory: normal respiratory effort, lungs clear to auscultation Cardiovascular: Rate/Rhythm: regular rate and regular rhythm Heart Sounds: normal S1 and normal S2; no murmur Vessels: posterior tibial pulses present and dorsalis pedis pulses present; no JVD Extremities: no edema Gastrointestinal (Abdomen): Inspection/Auscultation: + abdomen distended and normal bowel sounds Percussion/Palpation: + abdomen tender (suprapubic tenderness to palpation ) Psychiatric: A+Ox3, euthymic affect Genitourinary: + external exam abnormal (Buried penis; tenderness to palpation where roberts enters urethra ) Results & Data Results & Data ([facility]) Vital Signs (Past 12 Hours) Vital Signs Temp Pulse Resp BP Pulse Ox 05/05/20 14:41 36.6 C 73 17 137/75 96 Laboratory Results Laboratory Results - last 24 hr 05/04/20 05/05/20 05/05/20 20:28 06:06 06:06 Sodium 137 Potassium 3.8 Chloride 106 Carbon Dioxide 26 Anion Gap 5.0 BUN 10 Creatinine 0.93 D Est Cr Clr Drug Dosing 120.5 Est GFR ( Amer) 104.5 Est GFR (Non-Af Amer) 90.2 BUN/Creatinine Ratio 10.5 Glucose 148 H POC Glucose 184 H Calcium 8.1 L Prostate Specific Ag 46.300 H SARS-CoV-2 IgG & IgM Ab Negative 05/05/20 05/05/20 05/05/20 08:07 12:00 16:41 Sodium Potassium Chloride Carbon Dioxide Anion Gap BUN Creatinine Est Cr Clr Drug Dosing Est GFR ( Amer) Est GFR (Non-Af Amer) BUN/Creatinine Ratio Glucose POC Glucose 134 H 183 H 110 H Calcium Prostate Specific Ag SARS-CoV-2 IgG & IgM Ab urine cx neg PG Care Time/CCT Total # of Minutes Spent Total Time Spent with Patient: Total time spent is greater than 50% in coordination of care (as documented) at patient's floor/unit and/or counseling patient: Coding Level of Care Code 93429 Subseq Hosp Care Lvl 3 Diagnoses Enlarged prostate with urinary obstruction N40.1; N13.8 Acute kidney injury N17.9 Morbid obesity with BMI of 40.0-44.9, adult E66.01; Z68.41 Diabetes mellitus type 2, uncontrolled E11.65 Prostatitis N41.9 Recent URI J06.9 Elevated PSA R97.20 Constipation K59.00 DVT prophylaxis Z29.9
[2020-05-05] MEDS: POLYETHYLENE (MIRALAX) 17 GM PACK PO SCH ×2 (20:24→22:09)
[2020-05-05] MEDS: KETOROLAC 30 MG/ML VIAL IV SCH (20:25)
[2020-05-06] MEDS: KETOROLAC 30 MG/ML VIAL IV SCH ×2 (01:45→07:35)
[2020-05-06] MEDS: HEPARIN SOD 5,000 UNIT/0.5 ML VIAL SQ SCH ×3 (06:16→20:56)
[2020-05-06 06:32] LABS: BUN Creatinine Ratio 13.2 (10-20); Calcium 8.1 mg/dl (8.5-10.1); Creatinine Clr Calc Pharmacy 140.1 ml/min; Est GFR (African American) 114.1; Est GFR (Non-African American) 98.5; Potassium 3.9 mmol/L (3.5-5.1)
[2020-05-06] MEDS: POTASSIUM CHLORIDE CRTAB 20 MEQ TABCR PO SCH ×2 (07:35→20:56)
[2020-05-06] MEDS: TAMSULOSIN HCL 0.4 MG CAP PO SCH (07:35)
[2020-05-06] MEDS: POLYETHYLENE (MIRALAX) 17 GM PACK PO SCH ×2 (07:36→20:56)
[2020-05-06] MEDS: SENNA 8.6 MG TAB PO SCH (08:00)
[2020-05-06] MEDS: cefTRIAXone SODIUM 2,000 MG in DEXTROSE 5% 50 ML IV SCH (08:01)
[2020-05-06] MEDS: INSULIN ASPART 100 UNITS/ML 3 ML PEN SC SCH ×4 (08:29→21:04)
[2020-05-06] MEDS: INSULIN GLARGINE SOLOSTAR 100 UNITS/ML 3 ML PEN SQ SCH ×2 (08:29→21:00)
--- NOTE | 2020-05-06 09:33 | Hospitalist Progress Note ---
Date of Service May 06, 2020 Assessment & Plan (1) Enlarged prostate with urinary obstruction: * Severe BPH with high suspicion for prostatitis. PSA 46.3 * BPH leading to urinary retention and obstruction. * Placement of roberts -- continue at d/c * Started flomax 05/04 -- continue at d/c. * Urology consulted -- f/u with them in 7-10 days * Urine cx negative but often is negative in setting of prostatitis. * Thus, continue rocephin 2mg IV daily -- transition to PO x 4 week course (2) Acute kidney injury: * 2nd obstruction. * Resolved. * Cr 0.8 today. * Maintain roberts. * Stopped fluids previously * Had copious post-obstructive diuresis since admission. (3) Morbid obesity with BMI of 40.0-44.9, adult: * BMI 40.9 (4) Diabetes mellitus type 2, uncontrolled: * Lantus 10 units BID. * Novolog correction/carb coverage. * A1c of 11.7 noted -- discussed with patient * DM education requested * Plans to start metformin 500mg BID at discharge * No PCP and was provided info from CM regarding [facility] (5) Prostatitis: * The location of his pain, the markedly elevated PSA - all in setting of severe BPH - are concerning for prostatitis. * Urine cx is negative but can be neg in setting of prostatitis. * Continue IV rocephin. * At discharge would use oral cephalosporin; Rx for 4 weeks. * Defer on rectal exam - suspect it would cause severe pain. * Maintain roberts. * Pain meds -- added toradol 30mg IV x 3 doses for additional pain relief now that creatinine is normal -- HELPED and didn't need 3rd dose reported * Appreciate urology assistance. (6) Recent URI: * Resolved 1-2 weeks ago. * COVID PCR x 2 negative at time of admission. * COVID serum ab's negative - certainly IgM can be falsely negative this soon after the illness, but still highly unlikely he had COVID. (7) Elevated PSA: * 46.3 * Suspect SEVERE BPH and concern for prostatitis have contributed to elevated PSA. * No TOLU done to exclude a nodule. * No prior h/o prostate cancer. * Treat for prostatitis. * Treat BPH. * Urology to follow. (8) Constipation: * KUB x-ray with copious stool. * miralax BID * dulcolax PO x 1 * Senna started this morning * Add mag citrate if no BM * Continue to monitor -- likely worsening pain this afternoon (9) DVT prophylaxis: * heparin 7500 units TID given morbid obesity * making slow/steady progress Dispo: can d/c home w/ roberts once pain is controlled and off IV meds --> d/c hopefully tomorrow Will need f/u with [facility] as patient without PCP Admission and Anticipated Discharge Date Admission Date: May 04, 2020 Supervising Physician Co-Signing Physician Notes PA Supervision Note: I did not personally see or examine the patient today, but I verified all kendall points of KAMILLA Casillas's assessment and plan with the following exceptions/additions: None Subjective Patient evaluated this afternoon. Rectal pain significantly improved this morning but worsened this afternoon as he is attempting to have a BM. Pain from perineal region. Took senna this morning with the miralax so he was holding off on the mag citrate as ordered this morning. Discussed elevated PSA and continuing abx for 4 weeks for prostatitis and continuing roberts at discharge. Patient agreeable to current plan and will continue to monitor until +BM. Continues to pass. No fever, chills, chest pain, shortness of breath, abdominal pain, nausea at this time. Plans for d/c in AM if pain remains controlled once he has bowel movement. Was getting up to take a walk to help with BM as I was leaving room. Review of Systems Review of Systems: All systems reviewed & are unremarkable except as noted in HPI & below Physical Exam Constitutional: well developed, well nourished and + morbidly obese; no acute distress, no altered mental status and + uncomfortable (uncomfortable due to penile pain , improved) Eyes: + anicteric sclerae and PERRL ENMT: external ear and nose normal, oropharynx normal Neck: normal visual inspection and trachea midline Respiratory: normal respiratory effort, lungs clear to auscultation normal respiratory effort; no respiratory distress and no labored breathing Cardiovascular: RRR, no murmur, no edema Rate/Rhythm: regular rate and regular rhythm Heart Sounds: normal S1 and normal S2; no murmur Vessels: posterior tibial pulses present and dorsalis pedis pulses present; no JVD Extremities: no edema Gastrointestinal (Abdomen): Inspection/Auscultation: + abdomen distended and normal bowel sounds Percussion/Palpation: + abdomen tender (suprapubic tenderness to palpation ) and abdomen soft Skin: no rashes, warm and dry Neurologic: moves all extremities; no focal motor deficits Psychiatric: A+Ox3, euthymic affect Genitourinary: + external exam abnormal (Buried penis; tenderness to palpation where roberts enters urethra ) Results & Data Results & Data ([facility]) Vital Signs (Past 12 Hours) Vital Signs Temp Pulse Resp BP BP Pulse Ox 05/06/20 07:24 36.5 C 60 16 132/80 97 05/05/20 22:41 36.9 C 69 20 130/73 96 Laboratory Results 05/06/20 05/06/20 05/05/20 Range/Units 08:07 05:43 20:37 Sodium 135 L (136-145) mmol/L Potassium 3.9 (3.5-5.1) mmol/L Chloride 104 (98-107) mmol/L Carbon Dioxide 27 (21-32) mmol/L Anion Gap 4.0 (3-11) BUN 11 (7-18) mg/dl Creatinine 0.80 (0.6-1.4) mg/dl Est Cr Clr Drug Dosing 140.1 ml/min Est GFR ( Amer) 114.1 Est GFR (Non-Af Amer) 98.5 BUN/Creatinine Ratio 13.2 (10-20) Glucose 126 H (70-99) mg/dl POC Glucose 125 H 206 H (70-99) mg/dl Calcium 8.1 L (8.5-10.1) mg/dl 05/05/20 05/05/20 Range/Units 16:41 12:00 Sodium (136-145) mmol/L Potassium (3.5-5.1) mmol/L Chloride (98-107) mmol/L Carbon Dioxide (21-32) mmol/L Anion Gap (3-11) BUN (7-18) mg/dl Creatinine (0.6-1.4) mg/dl Est Cr Clr Drug Dosing ml/min Est GFR ( Amer) Est GFR (Non-Af Amer) BUN/Creatinine Ratio (10-20) Glucose (70-99) mg/dl POC Glucose 110 H 183 H (70-99) mg/dl Calcium (8.5-10.1) mg/dl PG Care Time/CCT Total # of Minutes Spent Total Time Spent with Patient: Total time spent is greater than 50% in coordination of care (as documented) at patient's floor/unit and/or counseling patient: Coding Level of Care Code 48380 Subseq Hosp Care Lvl 2 Diagnoses Enlarged prostate with urinary obstruction N40.1; N13.8 Acute kidney injury N17.9 Morbid obesity with BMI of 40.0-44.9, adult E66.01; Z68.41 Diabetes mellitus type 2, uncontrolled E11.65 Prostatitis N41.9 Recent URI J06.9 Elevated PSA R97.20 Constipation K59.00 DVT prophylaxis Z29.9
[2020-05-06] MEDS ORDERED: MAGNESIUM CITRATE 296 ML/BTL PO ONE (11:48)
[2020-05-06] MEDS ORDERED: KETOROLAC 30 MG/ML VIAL IV PRN (14:14)
[2020-05-06] MEDS: oxyCODONE HCL IR 5 MG TAB (IMMEDIATE RELEASE) PO PRN (20:54)
[2020-05-07] MEDS: HEPARIN SOD 5,000 UNIT/0.5 ML VIAL SQ SCH ×3 (05:43→21:17)
[2020-05-07] MEDS: SENNA 8.6 MG TAB PO SCH (08:30)
[2020-05-07] MEDS: POTASSIUM CHLORIDE CRTAB 20 MEQ TABCR PO SCH ×2 (08:31→20:54)
[2020-05-07] MEDS: TAMSULOSIN HCL 0.4 MG CAP PO SCH (08:31)
[2020-05-07] MEDS: INSULIN GLARGINE SOLOSTAR 100 UNITS/ML 3 ML PEN SQ SCH ×2 (08:34→20:53)
[2020-05-07] MEDS: INSULIN ASPART 100 UNITS/ML 3 ML PEN SC SCH ×4 (08:35→20:52)
[2020-05-07] MEDS: cefTRIAXone SODIUM 2,000 MG in DEXTROSE 5% 50 ML IV SCH (08:49)
[2020-05-07] MEDS: POLYETHYLENE (MIRALAX) 17 GM PACK PO SCH ×2 (08:50→20:53)
[2020-05-07 10:37] LABS: BUN Creatinine Ratio 6.7 (10-20); Creatinine Clr Calc Pharmacy 98.3 ml/min; Est GFR (African American) 81.7; Est GFR (Non-African American) 70.5; Potassium 4.5 mmol/L (3.5-5.1)
[2020-05-07] MEDS ORDERED: KETOROLAC TROMETHAMINE 10 MG TABLET PO PRN (10:40)
[2020-05-07] MEDS ORDERED: MAGNESIUM CITRATE 296 ML/BTL PO ONE (12:00)
--- NOTE | 2020-05-07 12:29 | XRay Report ---
KUB HISTORY: Acute generalized abdominal pain with distention abd distention, constipation COMPARISON: KUB 05/05/2020, CT abdomen and pelvis 05/03/2020 FINDINGS: Bowel gas pattern is nonobstructive. Colonic stool volume appears to be mild and within nor mal limits. Calcified granuloma of the right lung base. No renal calculi. No ureteral calculi. No pn eumoperitoneum or pneumatosis. Posterior rm and screw fusion with discectomy changes at L4-L5. Lucen cy surrounding the L4 pedicle screws may reflect hardware loosening. No fracture. IMPRESSION: Nonobstructive bowel gas pattern. ACT 112: Negative or not required by law. The above report was generated using voice recognition software. It may contain grammatical, syntax o r spelling errors. Electronically signed by: Mickey Frost M.D. 05/07/2020 12:28 PM
[2020-05-07] MEDS: LIDOCAINE 2% JELLY 5 ML TUBE EXT PRN (14:21)
[2020-05-07] MEDS: diazePAM 2 MG TABLET PO PRN (22:07)
[2020-05-08] MEDS: HEPARIN SOD 5,000 UNIT/0.5 ML VIAL SQ SCH ×3 (05:56→21:59)
--- NOTE | 2020-05-08 08:21 | Hospitalist Progress Note ---
Date of Service Late entry for May 07, 2020 Assessment & Plan (1) Enlarged prostate with urinary obstruction: * Severe BPH with high suspicion for prostatitis. PSA 46.3 * BPH leading to urinary retention and obstruction. * Placement of roberts -- continue at d/c * Started flomax 05/04 -- continue at d/c. * Urology consulted -- f/u with them in 7-10 days * Urine cx negative but often is negative in setting of prostatitis. * Thus, continue rocephin 2mg IV daily -- transition to PO x 4 week course --> transitioning toomorrow (2) Acute kidney injury: * 2nd obstruction. * Resolved. * Cr up to 1.14 and encouraged to push oral fluids * Maintain roberts. * Stopped fluids previously * Had copious post-obstructive diuresis since admission. (3) Morbid obesity with BMI of 40.0-44.9, adult: * BMI 40.9 (4) Diabetes mellitus type 2, uncontrolled: * Lantus 10 units BID. * Novolog correction/carb coverage. * A1c of 11.7 noted -- discussed with patient * DM education requested * Plans to start metformin 500mg BID at discharge * No PCP and was provided info from CM regarding [facility] (5) Prostatitis: * The location of his pain, the markedly elevated PSA - all in setting of severe BPH - are concerning for prostatitis. * Urine cx is negative but can be neg in setting of prostatitis. * Continue IV rocephin. * At discharge would use oral cephalosporin; Rx for 4 weeks. * Defer on rectal exam - suspect it would cause severe pain. * Maintain roberts. * Pain meds -- added toradol 30mg IV x 3 doses for additional pain relief now that creatinine is normal -- HELPED and didn't need 3rd dose reported * Appreciate urology assistance. (6) Recent URI: * Resolved 1-2 weeks ago. * COVID PCR x 2 negative at time of admission. * COVID serum ab's negative - certainly IgM can be falsely negative this soon after the illness, but still highly unlikely he had COVID. (7) Elevated PSA: * 46.3 * Suspect SEVERE BPH and concern for prostatitis have contributed to elevated PSA. * No TOLU done to exclude a nodule. * No prior h/o prostate cancer. * Treat for prostatitis. * Treat BPH. * Urology to follow. (8) Constipation: * KUB x-ray with copious stool. * miralax BID * dulcolax PO x 1 * Senna started this morning * Add mag citrate added with small BM --> repeated today and will continue to monitor (9) DVT prophylaxis: * heparin 7500 units TID given morbid obesity * making slow/steady progress Valium x 1 added to sleep/spasm discomfort Dispo: can d/c home w/ roberts once pain is controlled and off IV meds --> d/c hopefully tomorrow Will need f/u with [facility] as patient without PCP Admission and Anticipated Discharge Date Admission Date: May 04, 2020 Supervising Physician Co-Signing Physician Notes PA Supervision Note: I did not personally see or examine the patient today, but I verified all kendall points of KAMILLA Casillas's assessment and plan with the following exceptions/additions: None Subjective Patient evaluated in morning. Stil with rectal pain. Did not get much sleep. Small BM but will try extra mag citrate and add something for pain. No fever, chills, chest pain, shortness of breath at this time. Review of Systems Review of Systems: All systems reviewed & are unremarkable except as noted in HPI & below Physical Exam Constitutional: well developed, well nourished and + morbidly obese; no acute distress, no altered mental status and + uncomfortable (uncomfortable due to penile pain , improved) Eyes: + anicteric sclerae and PERRL ENMT: external ear and nose normal, oropharynx normal Neck: normal visual inspection and trachea midline Respiratory: normal respiratory effort, lungs clear to auscultation normal respiratory effort; no respiratory distress and no labored breathing Cardiovascular: RRR, no murmur, no edema Rate/Rhythm: regular rate and regular rhythm Heart Sounds: normal S1 and normal S2; no murmur Vessels: posterior tibial pulses present and dorsalis pedis pulses present; no JVD Extremities: no edema Gastrointestinal (Abdomen): Inspection/Auscultation: + abdomen distended and normal bowel sounds Percussion/Palpation: + abdomen tender (suprapubic tenderness to palpation ) and abdomen soft Skin: no rashes, warm and dry Neurologic: moves all extremities; no focal motor deficits Psychiatric: A+Ox3, euthymic affect Genitourinary: + external exam abnormal (Buried penis; tenderness to palpation where roberts enters urethra ) Results & Data Results & Data ([facility]) Vital Signs (Past 12 Hours) Vital Signs Temp Pulse Pulse Resp BP Pulse Ox Pulse Ox 05/08/20 03:36 67 93 05/07/20 23:05 36.6 C 82 24 153/70 H 95 05/07/20 22:00 95 H 97 Laboratory Results 05/07/20 05/07/20 05/07/20 Range/Units 20:50 17:16 12:02 Sodium (136-145) mmol/L Potassium (3.5-5.1) mmol/L Chloride (98-107) mmol/L Carbon Dioxide (21-32) mmol/L Anion Gap (3-11) BUN (7-18) mg/dl Creatinine (0.6-1.4) mg/dl Est Cr Clr Drug Dosing ml/min Est GFR ( Amer) Est GFR (Non-Af Amer) BUN/Creatinine Ratio (10-20) Glucose (70-99) mg/dl POC Glucose 203 H 97 165 H (70-99) mg/dl Calcium (8.5-10.1) mg/dl 05/07/20 05/07/20 Range/Units 09:48 08:29 Sodium 132 L (136-145) mmol/L Potassium 4.5 D (3.5-5.1) mmol/L Chloride 101 (98-107) mmol/L Carbon Dioxide 26 (21-32) mmol/L Anion Gap 5.0 (3-11) BUN 8 (7-18) mg/dl Creatinine 1.14 D (0.6-1.4) mg/dl Est Cr Clr Drug Dosing 98.3 ml/min Est GFR ( Amer) 81.7 Est GFR (Non-Af Amer) 70.5 BUN/Creatinine Ratio 6.7 L (10-20) Glucose 237 H (70-99) mg/dl POC Glucose 133 H (70-99) mg/dl Calcium 9.0 (8.5-10.1) mg/dl PG Care Time/CCT Total # of Minutes Spent Total Time Spent with Patient: Total time spent is greater than 50% in coordination of care (as documented) at patient's floor/unit and/or counseling patient: Coding Level of Care Code 55719 Subseq Hosp Care Lvl 2 Diagnoses Enlarged prostate with urinary obstruction N40.1; N13.8 Acute kidney injury N17.9 Morbid obesity with BMI of 40.0-44.9, adult E66.01; Z68.41 Diabetes mellitus type 2, uncontrolled E11.65 Prostatitis N41.9 Recent URI J06.9 Elevated PSA R97.20 Constipation K59.00 DVT prophylaxis Z29.9
--- NOTE | 2020-05-08 08:25 | Hospitalist Progress Note ---
Date of Service May 08, 2020 Assessment & Plan (1) Enlarged prostate with urinary obstruction: * Severe BPH with high suspicion for prostatitis. PSA 46.3 * BPH leading to urinary retention and obstruction. * Placement of roberts -- continue at d/c * Started flomax 05/04 -- continue at d/c. * Urology consulted -- f/u with them in 7-10 days * Urine cx negative but often is negative in setting of prostatitis. * Thus, continue rocephin 2mg IV daily --->continuing IV while inpatient with plans for PO x 4 weeks at d/c * UO acceptable, making good urine * Cr stable at 0.88 * Will have Urology re-eval patient due to continued pain, increased rectal discomfort (2) Acute kidney injury: * 2nd obstruction. * Resolved. * Cr back to baseline, 0.88 * Maintain roberts as above * Stopped fluids previously * Had copious post-obstructive diuresis since admission. (3) Morbid obesity with BMI of 40.0-44.9, adult: * BMI 40.9 (4) Diabetes mellitus type 2, uncontrolled: * Lantus 10 units BID. * Novolog correction/carb coverage. * A1c of 11.7 noted -- discussed with patient * DM education requested * Plans to start metformin 500mg BID at discharge --> per pharmacy rec Metformin XR 500mg daily with increase to BID if tolerated * No PCP and was provided info from CM regarding [facility] (5) Prostatitis: * The location of his pain, the markedly elevated PSA - all in setting of severe BPH - are concerning for prostatitis. * Urine cx is negative but can be neg in setting of prostatitis. * Continue IV rocephin for now as above * At discharge would use oral cephalosporin; Rx for 4 weeks. * Defer on rectal exam - suspect it would cause severe pain. * Maintain roberst. * Pain meds -- added toradol 30mg IV x 3 doses for additional pain relief now that creatinine is normal -- HELPED and didn't need 3rd dose reported * Utilized dilaudid and oral pain medications on 05/08 --?help with possible BD suppositories --> will ask Urology for re-eval * Appreciate urology assistance. (6) Recent URI: * Resolved 1-2 weeks ago. * COVID PCR x 2 negative at time of admission. * COVID serum ab's negative - certainly IgM can be falsely negative this soon after the illness, but still highly unlikely he had COVID. (7) Elevated PSA: * 46.3 * Suspect SEVERE BPH and concern for prostatitis have contributed to elevated PSA. * No TOLU done to exclude a nodule. * No prior h/o prostate cancer. * Treat for prostatitis. * Treat BPH. * Urology to re-eval today as above and will need f/u at discharge (8) Constipation: * KUB x-ray with copious stool. * miralax BID * dulcolax PO x 1 * Senna started * Add mag citrate x2 with multiple BMs * Continue bowel regimen * KUB with non-obstructive pattern * Continue to monitor (9) DVT prophylaxis: * heparin 7500 units TID given morbid obesity * making slow/steady progress Valium x 1 added to sleep/spasm discomfort -- addition dose today at request of patient ADRIANA * -- Suspected, poor sleep reported * --Overnight Pox with need for supplemental O2 HS --> discussed with CM and working on MA# * Will order for tonight while inpatient * Need formal sleep study outpatient -- will need f/u with [facility] as patient without insurance Back Pain * hx lumbar surgery by Dr Sofia * KUB with concerning for loosening hardware * Will obtain Lumbar CT -- consult based on results if needed Abdominal Pain * -- likely combination of constipation/prostatitis/back pain * --Lumbar CT as above * -- Will repeat Abd imaging * -- Stool studies -- patient reports family "genetic condition" that affects bowels and had uncle whom people thought were crazy and considered a bowel obstruction but was not. Denied knowing UC or Crohns. * Consider f/u with GI at d/c or sooner based on CT AP Dispo: continued inpatient stay Admission and Anticipated Discharge Date Admission Date: May 04, 2020 Supervising Physician Co-Signing Physician Notes KAMILLA Supervision Note: I did not personally see or examine the patient today, but I verified all kendall points of KAMILLA Casillas's assessment and plan with the following exceptions/additions: None Subjective Patient evaluated this morning. Increased low back pain today compared to usual. Hx back surgery by Dr. Sofia who "fucked my back up" and "is a lan support specialist". Discussed loosening of hardware on KUB yesterday and will obtain back imaging. Also with increased abdominal pain this morning despite multiple small bowel movements. Some liquid and some smaller formed stool. No blood. He does report family history of unknown name, genetic disorder, that affects bowels and did not occur in relatives until later in life. Will repeat abd imaging as well and obtain stool studies. Discussed overnight pulse ox - will discuss with CM -- they are awaiting MA number but if obtained and attempt getting covered with services at discharge. No fevr, chills, chest pain, shortness of breath, nausea reported. Did not get good sleep last night ---will order trazodone for tonight. Also discussed with have Urology re-eval about possible further medications to help with prostatic discomfort. Questions//concerns addressed at this time. Review of Systems Review of Systems: All systems reviewed & are unremarkable except as noted in HPI & below Physical Exam Constitutional: well developed, well nourished and + morbidly obese; no acute distress, no altered mental status and + uncomfortable (uncomfortable due to back/rectal pain, worsening) Eyes: + anicteric sclerae and PERRL ENMT: external ear and nose normal, oropharynx normal Neck: normal visual inspection and trachea midline Respiratory: normal respiratory effort, lungs clear to auscultation normal respiratory effort; no respiratory distress and no labored breathing Cardiovascular: RRR, no murmur, no edema Rate/Rhythm: regular rate and regular rhythm Heart Sounds: normal S1 and normal S2; no murmur Vessels: posterior tibial pulses present and dorsalis pedis pulses present; no JVD Extremities: no edema Gastrointestinal (Abdomen): Inspection/Auscultation: + abdomen distended and normal bowel sounds Percussion/Palpation: + abdomen tender (suprapubic tenderness to palpation ); no guarding and abdomen not rigid Musculoskeletal: no cyanosis or clubbing, extremities motor strength 5/5 Skin: no rashes, warm and dry Neurologic: moves all extremities; no focal motor deficits Psychiatric: Orientation: alert and oriented x 3 Speech: + loud speech Affect: + irritable affect Genitourinary: + external exam abnormal (Buried penis; tenderness to palpation where roberts enters urethra ) Results & Data Results & Data ([facility]) Vital Signs (Past 12 Hours) Vital Signs Temp Pulse Pulse Resp BP BP Pulse Ox 05/08/20 08:20 36.4 C L 64 18 144/85 H 94 05/08/20 03:36 67 05/07/20 23:05 36.6 C 82 24 153/70 H 95 05/07/20 22:00 95 H Pulse Ox 05/08/20 08:20 05/08/20 03:36 93 05/07/20 23:05 05/07/20 22:00 97 Laboratory Results 05/08/20 05/08/20 05/07/20 Range/Units 08:30 08:14 20:50 Sodium 136 (136-145) mmol/L Potassium 4.1 (3.5-5.1) mmol/L Chloride 104 (98-107) mmol/L Carbon Dioxide 30 (21-32) mmol/L Anion Gap 1.0 L (3-11) BUN 11 (7-18) mg/dl Creatinine 0.88 (0.6-1.4) mg/dl Est Cr Clr Drug Dosing 127.4 ml/min Est GFR ( Amer) 109.7 Est GFR (Non-Af Amer) 94.7 BUN/Creatinine Ratio 12.1 (10-20) Glucose 161 H (70-99) mg/dl POC Glucose 174 H 203 H (70-99) mg/dl Calcium 8.6 (8.5-10.1) mg/dl 05/07/20 05/07/20 Range/Units 17:16 12:02 Sodium (136-145) mmol/L Potassium (3.5-5.1) mmol/L Chloride (98-107) mmol/L Carbon Dioxide (21-32) mmol/L Anion Gap (3-11) BUN (7-18) mg/dl Creatinine (0.6-1.4) mg/dl Est Cr Clr Drug Dosing ml/min Est GFR ( Amer) Est GFR (Non-Af Amer) BUN/Creatinine Ratio (10-20) Glucose (70-99) mg/dl POC Glucose 97 165 H (70-99) mg/dl Calcium (8.5-10.1) mg/dl Diagnostic Findings KUB HISTORY: Acute generalized abdominal pain with distention abd distention, constipation COMPARISON: KUB 05/05/2020, CT abdomen and pelvis 05/03/2020 FINDINGS: Bowel gas pattern is nonobstructive. Colonic stool volume appears to be mild and within normal limits. Calcified granuloma of the right lung base. No renal calculi. No ureteral calculi. No pneumoperitoneum or pneumatosis. Posterior rm and screw fusion with discectomy changes at L4-L5. Lucency surrounding the L4 pedicle screws may reflect hardware loosening. No fracture. IMPRESSION: Nonobstructive bowel gas pattern. PG Care Time/CCT Total # of Minutes Spent Total Time Spent with Patient: Total time spent is greater than 50% in coordination of care (as documented) at patient's floor/unit and/or counseling patient: Coding Level of Care Code 35877 Subseq Hosp Care Lvl 3 Diagnoses Enlarged prostate with urinary obstruction N40.1; N13.8 Acute kidney injury N17.9 Morbid obesity with BMI of 40.0-44.9, adult E66.01; Z68.41 Diabetes mellitus type 2, uncontrolled E11.65 Prostatitis N41.9 Recent URI J06.9 Elevated PSA R97.20 Constipation K59.00 DVT prophylaxis Z29.9
[2020-05-08] MEDS: POTASSIUM CHLORIDE CRTAB 20 MEQ TABCR PO SCH ×2 (09:00→21:58)
[2020-05-08] MEDS: SENNA 8.6 MG TAB PO SCH (09:00)
[2020-05-08] MEDS: TAMSULOSIN HCL 0.4 MG CAP PO SCH (09:01)
[2020-05-08] MEDS: POLYETHYLENE (MIRALAX) 17 GM PACK PO SCH ×2 (09:01→21:58)
[2020-05-08] MEDS: INSULIN ASPART 100 UNITS/ML 3 ML PEN SC SCH ×4 (09:04→21:57)
[2020-05-08] MEDS: INSULIN GLARGINE SOLOSTAR 100 UNITS/ML 3 ML PEN SQ SCH ×2 (09:06→21:58)
[2020-05-08 09:14] LABS: BUN Creatinine Ratio 12.1 (10-20); Calcium 8.6 mg/dl (8.5-10.1); Creatinine Clr Calc Pharmacy 127.4 ml/min; Est GFR (African American) 109.7; Est GFR (Non-African American) 94.7; Potassium 4.1 mmol/L (3.5-5.1)
[2020-05-08] MEDS: cefTRIAXone SODIUM 2,000 MG in DEXTROSE 5% 50 ML IV SCH (10:21)
[2020-05-08] MEDS ORDERED: diazePAM 2 MG TABLET PO ONE (11:02)
[2020-05-08] MEDS ORDERED: OPTIRAY 320 100ml IV ONE (12:55)
--- NOTE | 2020-05-08 13:11 | CT Scan Report ---
CT abd pelvis IV con only CLINICAL HISTORY: Diffuse abdominal and back pain COMPARISON STUDY: May 03, 2020 TECHNIQUE: The patient was scanned in a dynamic helical fashion during intravenous administration of 94 cc of Optiray 320 A dose lowering technique was utilized adhering to the principles of ALARA. CT DOSE: FINDINGS: Lower chest: There is a calcified right lower lobe granuloma. There are calcified mediastinal lymph n odes. There are no significant pleural effusions. Liver: The contrast-enhanced liver is normal in size, contour, and attenuation. There is no intrahepa tic biliary ductal dilatation. The hepatic veins and portal veins are patent. Gallbladder: Contracted Spleen: Normal in size and attenuation. Pancreas: Unremarkable. Adrenal glands: Unremarkable. Kidneys: No solid renal masses are visualized. There is bilateral hydronephrosis and hydroureter. No obstructing calculi are visualized. Bowel: There are no transition zones to indicate bowel obstruction. There is no evidence of acute div erticulitis. The appendix appears normal. Peritoneum: There is no intraperitoneal free air or abdominal ascites. There are small fat-containing inguinal hernias. Vasculature: The abdominal aorta is normal in course and caliber. Adenopathy: None. Pelvic viscera: There is marked prostatomegaly. There is marked bladder wall thickening with perivesi eddie stranding. Clinical correlation with regards to a cystitis is recommended. There is an indwelling Navarrete catheter. Skeletal structures: Postsurgical changes are present within the lumbar spine. IMPRESSION: 1. No evidence of bowel obstruction. No evidence of free air 2. Normal appendix. No evidence of acute diverticulitis 3. Persistent bilateral hydronephrosis and hydroureter. No obstructing calculi identified 4. Marked bladder wall thickening and perivesical stranding. Clinical correlation with regards to a c ystitis is recommended 5. Marked prostatomegaly 6. Small fat-containing bilateral inguinal hernias ACT 112: Negative or not required by law. Electronically signed by: Jerome Huber M.D. 05/08/2020 1:09 PM
--- NOTE | 2020-05-08 13:18 | CT Scan Report ---
CT lumbar spine w con CT DOSE: 1730.02 mGy.cm CLINICAL HISTORY: Low back and abdominal pain. TECHNIQUE: Helical images were acquired in the transverse plane. Sagittal and coronal reformatted roib ges were acquired. Images were acquired following administration of 94 cc of Optiray 320 A dose lower ing technique was utilized adhering to the principles of ALARA. COMPARISON STUDY: MRI performed December 2009, x-ray performed June 2014 FINDINGS: There is a transitional vertebra. The numbering scheme utilized assumes that the first nonrib-bearing vertebra is L1. L1-2 level: There is a minor circumferential disc bulge. There is no significant spinal or foraminal stenosis L2-3 level: There is a mild circumferential disc bulge. There is mild spinal stenosis. There is no si gnificant foraminal narrowing L 3-4 level: There is circumferential disc bulge. There is mild spinal stenosis. There is facet joint arthropathy. L4-5 level: There are postsurgical changes of discectomy and interbody fusion. There is posterior ped icle screw fixation. There are postlaminectomy changes. There is no significant spinal stenosis. Ther e is mild right-sided foraminal narrowing. L5-S1 level: There is a circumferential disc bulge. There is no significant spinal stenosis. There is mild bilateral foraminal narrowing. No acute fractures are visualized. There are no pathologically enhancing masses. IMPRESSION: 1. No acute fractures or traumatic subluxations 2. Postsurgical and degenerative change. Multilevel mild spinal stenosis. ACT 112: Negative or not required by law. Electronically signed by: Jerome Huber M.D. 05/08/2020 1:16 PM
[2020-05-08] MEDS: LIDOCAINE 2% JELLY 5 ML TUBE EXT PRN (13:20)
--- NOTE | 2020-05-08 13:39 | Urology Progress Note ---
Date of Service May 08, 2020 Assessment & Plan (1) Enlarged prostate with urinary obstruction: -Asked to reevaluate patient today due to rectal pain -Plan of care reviewed with Dr. Bui -Continue roberts catheter -Will plan for outpatient follow-up with urology for voiding trial and cy stoscopy -Recommend 4 weeks of antibiotics for suspected prostatitis -If rectal pain is problematic, consider GI consult. -Thank you for allowing us to participate in the acute care of Mr. Harding. Brooke dawnadriana reconsult us with additional questions, concerns or changes in patient status. Admission and Anticipated Discharge Date Admission Date: May 04, 2020 Subjective Pt evaluated this afternoon at bedside. Awake, alert, no acute distress. Patient reports rectal pain, states this has been ongoing for >2 years. He reports prior evaluation of rectal pain with no findings. Roberts catheter intact, draining clear, yellow urine. Also having occasional bladder spasms. Having issues with constipation, on bowel regimen per primary team. Review of Systems Constitutional: as per Subjective / HPI Gastrointestinal: as per Subjective / HPI Genitourinary: + as per Subjective / HPI Physical Exam Constitutional: well developed and well nourished; no acute distress Respiratory: normal respiratory effort and able to speak in complete sentences Gastrointestinal (Abdomen): Inspection/Auscultation: abdomen normal to inspection Neurologic: awake Psychiatric: Orientation: alert, oriented x 3 and cooperative Genitourinary: Roberts catheter intact Results & Data ([facility]) Vital Signs (Past 12 Hours) Vital Signs Temp Pulse Pulse Resp BP Pulse Ox Pulse Ox 05/08/20 08:20 36.4 C L 64 18 144/85 H 94 05/08/20 03:36 67 93 PG Care Time/CCT Total # of Minutes Spent Total Time Spent with Patient: Total time spent is greater than 50% in coordination of care (as documented) at patient's floor/unit and/or counseling patient: Coding Level of Care Code 86658 Subseq Hosp Care Lvl 2 Diagnoses Enlarged prostate with urinary obstruction N40.1; N13.8
[2020-05-08] MEDS ORDERED: NITROGLYCERIN 2% 7.5 INCH, AQUAPHOR 67.5 GM, BARCODE IDENTIFIER 1 EA EXT ONE (13:48)
[2020-05-08] MEDS: oxyCODONE HCL IR 5 MG TAB (IMMEDIATE RELEASE) PO PRN ×2 (15:44→22:13)
[2020-05-08 23:13] LABS: Appearance Urine Cloudy (Clear); Bacteria Urine Automated Negative (Negative); Bilirubin Urine Negative (Negative); Blood Urine 2+ (Negative); Color Urine Yellow; Glucose Urine UA Negative (Negative); Ketones Urine Negative (Negative); Leukocyte Esterase Urine Negative (Negative); Nitrite Urine Negative (Negative); Protein Urine 1+ (Negative); RBC Urine Automated 0-4 /hpf (0-4); Specific Gravity Urine 1.009 (1.000-1.030); Urobilinogen Urine Negative (Negative)
[2020-05-08] MEDS: diazePAM 2 MG TABLET PO PRN (23:25)
[2020-05-09] MEDS: HEPARIN SOD 5,000 UNIT/0.5 ML VIAL SQ SCH (05:45)
[2020-05-09 06:20] LABS: Basophils # (auto) 0.03 K/uL (0-0.2); Basophils % (auto) 0.6 %; Eosinophils # (auto) 0.33 K/uL (0-0.5); Eosinophils % (auto) 6.7 %; Hematocrit (blood only) 35.4 % (42-52); Hemoglobin 12.2 g/dL (14.0-18.0); Immature Granulocytes # (auto) 0.02 K/uL (0.00-0.02); Immature Granulocytes % (auto) 0.4 %; Lymphocytes % (auto) 36.7 %; Mean Corpuscular Hemoglobin 30.4 pg (25-34); Mean Corpuscular Hgb Conc 34.5 g/dL (32-36); Mean Corpuscular Volume 88.3 fL (80-100); Mean Platelet Volume 10.4 fL (7.4-10.4); Monocytes # (auto) 0.51 K/uL (0.11-0.59); Monocytes % (auto) 10.4 %; Neutrophils # (auto) 2.21 K/uL (1.4-6.5); Neutrophils % (auto) 45.2 %; Platelet Count 304 K/uL (130-400); RDW Coefficient of Variation 12.5 % (11.5-14.5); RDW Standard Deviation 40.4 fL (36.4-46.3); Red Blood Count 4.01 M/uL (4.7-6.1)
[2020-05-09 07:05] LABS: Albumin Globulin Ratio 0.7 (0.9-2); Albumin Level 2.7 gm/dl (3.4-5.0); BUN Creatinine Ratio 12.6 (10-20); Bilirubin,Total 0.2 mg/dl (0.2-1); Calcium 8.7 mg/dl (8.5-10.1); Creatinine Clr Calc Pharmacy 116.8 ml/min; Est GFR (African American) 100.6; Est GFR (Non-African American) 86.8; Globulin 4.1 gm/dl (2.5-4.0); Potassium 4.2 mmol/L (3.5-5.1); Total Protein 6.8 gm/dl (6.4-8.2)
[2020-05-09] MEDS: POTASSIUM CHLORIDE CRTAB 20 MEQ TABCR PO SCH (09:08)
[2020-05-09] MEDS: POLYETHYLENE (MIRALAX) 17 GM PACK PO SCH (09:09)
[2020-05-09] MEDS: INSULIN GLARGINE SOLOSTAR 100 UNITS/ML 3 ML PEN SQ SCH (09:09)
[2020-05-09] MEDS: TAMSULOSIN HCL 0.4 MG CAP PO SCH (09:10)
[2020-05-09] MEDS: SENNA 8.6 MG TAB PO SCH (09:11)
[2020-05-09] MEDS: cefTRIAXone SODIUM 2,000 MG in DEXTROSE 5% 50 ML IV SCH (09:19)
--- NOTE | 2020-05-09 09:22 | Hospitalist Progress Note ---
Date of Service May 09, 2020 Assessment & Plan Admission and Anticipated Discharge Date Admission Date: May 04, 2020 Results & Data Results & Data ([facility]) Vital Signs (Past 12 Hours) Vital Signs Temp Pulse Pulse Resp BP BP Pulse Ox 05/09/20 07:39 36.7 C 57 L 16 134/78 95 05/09/20 04:37 65 162/82 H 05/09/20 01:12 97 05/08/20 22:22 36.7 C 77 18 167/89 H 95 Laboratory Results 05/09/20 05/09/20 05/09/20 Range/Units 08:09 05:35 05:35 WBC 4.90 (4.8-10.8) K/uL RBC 4.01 L (4.7-6.1) M/uL Hgb 12.2 L (14.0-18.0) g/dL Hct 35.4 L (42-52) % MCV 88.3 (80-100) fL MCH 30.4 (25-34) pg MCHC 34.5 (32-36) g/dL RDW Std Deviation 40.4 (36.4-46.3) fL RDW Coeff of Marc 12.5 (11.5-14.5) % Plt Count 304 (130-400) K/uL MPV 10.4 (7.4-10.4) fL Immature Gran % (Auto) 0.4 % Neut % (Auto) 45.2 % Lymph % (Auto) 36.7 % Gila % (Auto) 10.4 % Eos % (Auto) 6.7 % Baso % (Auto) 0.6 % Neut # (Auto) 2.21 (1.4-6.5) K/uL Lymph # (Auto) 1.80 (1.2-3.4) K/uL Gila # (Auto) 0.51 (0.11-0.59) K/uL Eos # (Auto) 0.33 (0-0.5) K/uL Baso # (Auto) 0.03 (0-0.2) K/uL Immature Gran # (Auto) 0.02 (0.00-0.02) K/uL Sodium 136 (136-145) mmol/L Potassium 4.2 (3.5-5.1) mmol/L Chloride 105 (98-107) mmol/L Carbon Dioxide 28 (21-32) mmol/L Anion Gap 3.0 (3-11) BUN 12 (7-18) mg/dl Creatinine 0.96 (0.6-1.4) mg/dl Est Cr Clr Drug Dosing 116.8 ml/min Est GFR ( Amer) 100.6 Est GFR (Non-Af Amer) 86.8 BUN/Creatinine Ratio 12.6 (10-20) Glucose 169 H (70-99) mg/dl POC Glucose 124 H (70-99) mg/dl Calcium 8.7 (8.5-10.1) mg/dl Total Bilirubin 0.2 (0.2-1) mg/dl AST 58 H (15-37) U/L ALT 69 (12-78) U/L Alkaline Phosphatase 96 (45-117) U/L Total Protein 6.8 (6.4-8.2) gm/dl Albumin 2.7 L (3.4-5.0) gm/dl Globulin 4.1 H (2.5-4.0) gm/dl Albumin/Globulin Ratio 0.7 L (0.9-2) Specimen Hemolysis Urine Color Urine Appearance (Clear) Urine pH (4.5-7.5) Ur Specific [place] (1.000-1.030) Urine Protein (Negative) Urine Glucose (UA) (Negative) Urine Ketones (Negative) Urine Blood (Negative) Urine Nitrite (Negative) Urine Bilirubin (Negative) Urine Urobilinogen (Negative) Ur Leukocyte Esterase (Negative) Urine WBC (Auto) (0-5) /hpf Urine RBC (Auto) (0-4) /hpf U Hyaline Cast (Auto) (0-5) /lpf U Epithel Cells (Auto) (0-5) /lpf Urine Bacteria (Auto) (Negative) 05/08/20 05/08/20 05/08/20 Range/Units 23:00 20:35 17:06 WBC (4.8-10.8) K/uL RBC (4.7-6.1) M/uL Hgb (14.0-18.0) g/dL Hct (42-52) % MCV (80-100) fL MCH (25-34) pg MCHC (32-36) g/dL RDW Std Deviation (36.4-46.3) fL RDW Coeff of Marc (11.5-14.5) % Plt Count (130-400) K/uL MPV (7.4-10.4) fL Immature Gran % (Auto) % Neut % (Auto) % Lymph % (Auto) % Gila % (Auto) % Eos % (Auto) % Baso % (Auto) % Neut # (Auto) (1.4-6.5) K/uL Lymph # (Auto) (1.2-3.4) K/uL Gila # (Auto) (0.11-0.59) K/uL Eos # (Auto) (0-0.5) K/uL Baso # (Auto) (0-0.2) K/uL Immature Gran # (Auto) (0.00-0.02) K/uL Sodium (136-145) mmol/L Potassium (3.5-5.1) mmol/L Chloride (98-107) mmol/L Carbon Dioxide (21-32) mmol/L Anion Gap (3-11) BUN (7-18) mg/dl Creatinine (0.6-1.4) mg/dl Est Cr Clr Drug Dosing ml/min Est GFR ( Amer) Est GFR (Non-Af Amer) BUN/Creatinine Ratio (10-20) Glucose (70-99) mg/dl POC Glucose 148 H 242 H (70-99) mg/dl Calcium (8.5-10.1) mg/dl Total Bilirubin (0.2-1) mg/dl AST (15-37) U/L ALT (12-78) U/L Alkaline Phosphatase (45-117) U/L Total Protein (6.4-8.2) gm/dl Albumin (3.4-5.0) gm/dl Globulin (2.5-4.0) gm/dl Albumin/Globulin Ratio (0.9-2) Specimen Hemolysis Urine Color Yellow Urine Appearance Cloudy A (Clear) Urine pH 5.0 (4.5-7.5) Ur Specific [place] 1.009 (1.000-1.030) Urine Protein 1+ H (Negative) Urine Glucose (UA) Negative (Negative) Urine Ketones Negative (Negative) Urine Blood 2+ H (Negative) Urine Nitrite Negative (Negative) Urine Bilirubin Negative (Negative) Urine Urobilinogen Negative (Negative) Ur Leukocyte Esterase Negative (Negative) Urine WBC (Auto) 1-5 (0-5) /hpf Urine RBC (Auto) 0-4 (0-4) /hpf U Hyaline Cast (Auto) 5-10 H (0-5) /lpf U Epithel Cells (Auto) 10-20 H (0-5) /lpf Urine Bacteria (Auto) Negative (Negative) 05/08/20 Range/Units 12:12 WBC (4.8-10.8) K/uL RBC (4.7-6.1) M/uL Hgb (14.0-18.0) g/dL Hct (42-52) % MCV (80-100) fL MCH (25-34) pg MCHC (32-36) g/dL RDW Std Deviation (36.4-46.3) fL RDW Coeff of Marc (11.5-14.5) % Plt Count (130-400) K/uL MPV (7.4-10.4) fL Immature Gran % (Auto) % Neut % (Auto) % Lymph % (Auto) % Gila % (Auto) % Eos % (Auto) % Baso % (Auto) % Neut # (Auto) (1.4-6.5) K/uL Lymph # (Auto) (1.2-3.4) K/uL Gila # (Auto) (0.11-0.59) K/uL Eos # (Auto) (0-0.5) K/uL Baso # (Auto) (0-0.2) K/uL Immature Gran # (Auto) (0.00-0.02) K/uL Sodium (136-145) mmol/L Potassium (3.5-5.1) mmol/L Chloride (98-107) mmol/L Carbon Dioxide (21-32) mmol/L Anion Gap (3-11) BUN (7-18) mg/dl Creatinine (0.6-1.4) mg/dl Est Cr Clr Drug Dosing ml/min Est GFR ( Amer) Est GFR (Non-Af Amer) BUN/Creatinine Ratio (10-20) Glucose (70-99) mg/dl POC Glucose 126 H (70-99) mg/dl Calcium (8.5-10.1) mg/dl Total Bilirubin (0.2-1) mg/dl AST (15-37) U/L ALT (12-78) U/L Alkaline Phosphatase (45-117) U/L Total Protein (6.4-8.2) gm/dl Albumin (3.4-5.0) gm/dl Globulin (2.5-4.0) gm/dl Albumin/Globulin Ratio (0.9-2) Specimen Hemolysis Urine Color Urine Appearance (Clear) Urine pH (4.5-7.5) Ur Specific [place] (1.000-1.030) Urine Protein (Negative) Urine Glucose (UA) (Negative) Urine Ketones (Negative) Urine Blood (Negative) Urine Nitrite (Negative) Urine Bilirubin (Negative) Urine Urobilinogen (Negative) Ur Leukocyte Esterase (Negative) Urine WBC (Auto) (0-5) /hpf Urine RBC (Auto) (0-4) /hpf U Hyaline Cast (Auto) (0-5) /lpf U Epithel Cells (Auto) (0-5) /lpf Urine Bacteria (Auto) (Negative) PG Care Time/CCT Total # of Minutes Spent Total Time Spent with Patient: Total time spent is greater than 50% in coordination of care (as documented) at patient's floor/unit and/or counseling patient: Coding
[2020-05-09] MEDS: INSULIN ASPART 100 UNITS/ML 3 ML PEN SC SCH (10:05)
[2020-05-09 10:42] LABS: Thyroid Stimulating Hormone 3.34 uIu/ml (0.300-4.500)
--- NOTE | 2020-05-09 11:04 | Gastrointestinal Consultation ---
Date of Consultation May 09, 2020 Assessment & Plan (1) Rectal pain: Patient reports improvement/near resolution of symptoms this morning. Discussed the nature of prostatitis and impact on defecation. -Okay to continue Miralax on d/c 1-2 times daily if needed. Okay to use Colace 100 mg BID. Patient denies previous history of chronic constipation, so once prostatitis resolves he may not need to take a bowel regimen routinely. -64 oz water daily -High fiber diet -Discussed with patient that he is overdue for colorectal cancer screening. Advised him to address as an outpatient, once acute urological issues improve. Supervising Physician Co-Signing Physician Notes Agree with LIDIA Soares as above Patient was discharged to home prior to my evaluation. History of Present Illness Reason for Consultation: Rectal pain Attending Physician: Belén Fairchild MD History of Present Illness Patient is a 59 yo male with a PMH of DM2, morbid obesity, chronic back issues, BPH, & inguinal hernia who is hospitalized with prostatitis with urinary obstruction. GI has been consulted for rectal pain. The patient notes that over the past several months, he has noted worsening urinary symptoms. He notes that he progressively began noting that his bowel frequency was decreasing. Since admission, he has been treated for prostatitis under the guidance of urology and will be on antibiotics for [address] abdomen/pelvis on 05/08 was unremarkable from a GI standpoint. Abdominal xray on 05/07 indicates that stool burden is within expected limits. He reports he was given Miralax & Magnesium Citrate. He notes that though this made him have loose stool, it did not change his rectal pain. He notes that today, however, he feels improved and is ready to go home. He has never had a screening colonoscopy. He reports a vague story about a re lative with a bowel obstruction requiring surgery and isn't really sure if this was something others in the family had as well. He reports he wouldn't be able to find out any more family history because his uncles have since . He denies any rectal bleeding. No further complaints at this time. Allergies Allergy/AdvReac Type Severity Reaction Status Date / Time bee venom protein (honey bee) Allergy Unknown ANAPHYLAXIS Verified 05/03/20 21:05 Home Medications Medication Instructions Recorded Confirmed Type epinephrine 0.3 mg IM ONCE PRN #1 ea 03/22/18 05/03/20 Rx cephalexin 500 mg PO QID 24 Days #96 cap 05/07/20 Rx metformin [Glucophage XR] 500 mg PO BID #60 tab 05/07/20 Rx polyethylene glycol 3350 [Miralax] 17 g PO DAILY PRN 7 Days ea 05/07/20 Rx sennosides [Senokot] 17.2 mg PO QAM 30 Days #60 tab 05/07/20 Rx tamsulosin 0.4 mg PO QAM #30 cap 05/07/20 Rx finasteride 5 mg PO DAILY #30 tab 05/09/20 Rx nitroglycerin 1 inch [place] BID 7 Days #30 g 05/09/20 Rx oxycodone 5 mg PO Q6H PRN #10 cap 05/09/20 Rx Patient History Medical History (Updated 05/09/20 @ 11:10 by Sherine Santacruz PA-C) BPH (benign prostatic hypertrophy) Cyst, epididymis Surgical History Previous back surgery Family History Other Family history of diabetes mellitus Social History Smoking Status: Never smoker Hx Alcohol Use: Yes Hx Substance Use: Yes Last Used Substance: Days (ago) Last Used Substance Other:: marijuana 1 day ago Preferred Language: Bulgarian Communication Ability: Effective Teacher Lip Reading Required: No Beliefs That Will Affect Care: None Current Living Situation: Alone Feels Safe at Home: Yes Assistive Devices: None Review of Systems Constitutional: no fever and no chills Respiratory: no cough and no dyspnea Cardiovascular: no chest pain Gastrointestinal: rectal pain improved; Now with loose stools after laxatives Integumentary: no problem reported Physical Exam Constitutional: well developed and well nourished Neck: normal visual inspection Respiratory: normal respiratory effort Cardiovascular: Extremities: no edema Gastrointestinal (Abdomen): normal bowel sounds, soft, nontender, no hepatosplenomegaly Musculoskeletal: Head/Neck/Chest: normocephalic Psychiatric: A+Ox3, euthymic affect Results & Data ([facility]) Vital Signs (Past 12 Hours) Vital Signs Temp Pulse Pulse Resp BP BP Pulse Ox 05/09/20 07:39 36.7 C 57 L 16 134/78 95 05/09/20 04:37 65 162/82 H 05/09/20 01:12 97 PG Care Time/CCT Total # of Minutes Spent Total Time Spent with Patient: Total time spent is greater than 50% in coordination of care (as documented) at patient's floor/unit and/or counseling patient: Coding Level of Care Code 44530 Inpt Consult Level 4 Diagnoses Rectal pain K62.89
--- NOTE | 2020-05-09 12:41 | Discharge Summary ---
Date of Service May 09, 2020 Admission HPI Per Admitting Provider Mr. Kingsley Harding (Bob) is here for lower abdominal pain. His pain started 3 months ago and has been progressively worsening. He rated his pain a 15/10 prior to coming to the ER. He has had pain like this before that he related to a "bad prostate", he explained that he had seen urologist approximately 5 years ago. He was started on medication at that time but did not feel that they were working for him so he stopped them. Mr. Harding is not on oxygen at home. He denies any shortness of breath. He explained that he though the had COVID a week ago. He was around his "boy" who was positive and assumed he had COVID but recovered from it. He had a dry cough for four days that has since resolved. He does not have any other symptoms. He had diarrhea but relates that to laxatives he took for what he thought was c onstipation. Mr. Harding stated that he has diabetes but has not taken any medication for this. He tried to modify his diet, but noted that this has not worked well either. He does not have a PCP but did previously go to [facility] although at the time he was busy and couldn't make it to all of the follow up appointments. Admission Exam Per Admitting Provider Constitutional: WD/WN, vitals as above + obese Eyes: PERRL, conjunctivae normal, anicteric sclerae ENMT: external ear and nose normal, oropharynx normal Neck: normal visual inspection Respiratory: normal respiratory effort, lungs clear to auscultation - able to speak in full sentences - no acute respiratory distress Cardiovascular: RRR, no murmur, no edema - distant heart sounds Gastrointestinal (Abdomen): - distended abdomen - soft - no guarding - suprapubic area exquisitely tender to palpation Skin: no rashes, warm and dry Neurologic: no focal motor deficits Psychiatric: A+Ox3, euthymic affect Principal Diagnosis Enlarged prostate with outlet obstruction, suspected prostatitis Discharge Exam Constitutional well developed, well nourished, + morbidly obese and comfortable; no acute distress and no altered mental status Eyes + anicteric sclerae and PERRL ENMT external ear and nose normal, oropharynx normal Mallampati Class: III Neck normal visual inspection and trachea midline thick neck Respiratory normal respiratory effort, lungs clear to auscultation no respiratory distress and no labored breathing Cardiovascular Rate/Rhythm: regular rate and regular rhythm Heart Sounds: normal S1 and normal S2; no murmur Vessels: posterior tibial pulses present and dorsalis pedis pulses present; no JVD Extremities: no edema Gastrointestinal (Abdomen) Inspection/Auscultation: normal bowel sounds Percussion/Palpation: + abdomen tender (suprapubic (decreased)); no guarding and abdomen not rigid obese Musculoskeletal no cyanosis or clubbing, extremities motor strength 5/5 lumbar incision well healed, non-tender Skin no rashes, warm and dry Neurologic moves all extremities; no focal motor deficits Psychiatric Orientation: alert and oriented x 3 Speech: + loud speech Genitourinary + external exam abnormal (Buried penis; Price catheter present with yellow urine draining) Pt continued to decline TOLU Discharge Data Allergies Allergy/AdvReac Type Severity Reaction Status Date / Time bee venom protein (honey bee) Allergy Severe ANAPHYLAXIS Verified 05/14/20 19:36 grape Allergy Severe Anaphylaxis Verified 05/14/20 19:36 Consultations 05/04/20 00:13 ED Decision to Admit Stat 05/04/20 03:25 Consult Urology Routine 05/08/20 13:46 Consult Gastroenterology Routine Ordered Studies 05/03/20 21:59 CT abd pelvis wo con Urgent 05/05 KUB 05/07 KUB 05/08/20 11:58 CT abd pelvis IV con only Urgent CT lumbar spine w con Urgent Diabetes Follow up Diabetes Follow-up Needed for HgbA1c >9% Hospital Course (1) Enlarged prostate with urinary obstruction: * Severe enlarged prostate with high suspicion for prostatitis. PSA 46.3 * enlarged prostate leading to urinary retention and obstruction. * Urology consulted * IVF provided, pain control electrolyte replacement * Placement of price -- continued at d/c at to have f/u with Urology in 7-10 days * Started flomax 05/04 and continued at discharge in addition to finasteride daily to help intermodal customer service * Urine cx negative but often is negative in setting of prostatitis. * Continued rocephin 2mg IV daily while inpatient and transitioned to Keflex QID for 4 weeks * UO acceptable --> documented 22L fluid. Cr elevated to 2 on admission, and now normal 0.8. * GI consulted for rectal pain --> ?prostalgia fugax vs other. Rec bowel regimen and will need colonoscopy screening outpatient. * I sent rx for topical nitro to use if patient agreeable --> discussed prior to discharge * will need Urology f/u and will need prostate biopsy Discharged with pain medication (short course), Flomax, Finasteride, Keflex x 4 weeks Pt without insurance --> CM assisted patient in applying for MA and provided information for [facility] (2) Acute kidney injury: * 2nd obstruction. * Resolved. * Cr back to baseline * Maintain price as above * Had copious post-obstructive diuresis since admission. (3) Morbid obesity with BMI of 40.0-44.9, adult: * BMI 40.9 (4) Diabetes mellitus type 2, uncontrolled: * Lantus 10 units BID. * Novolog correction/carb coverage. * A1c of 11.7 noted -- discussed with patient * Sent rx for Metformin XR 500mg BID and instructed patient he could try daily and then increase to 500mg BID. He states he plans on additionally making dietary changes as well. * To have f/u with [facility] for further management/treatment (5) Prostatitis: * The location of his pain, the markedly elevated PSA - all in setting of severe enlarged prostate - are concerning for prostatitis. * Urine cx is negative but can be neg in setting of prostatitis. * Continued IV rocephin with transition to keflex for total 4 weeks at discharge * Patient declined TOLU * Pain controlled with opiates and toradol initially once Cr stabilized * Given rx for topical nitro rectal to use for spasm/sphincter issues whch he reports have been occurring for previous 2 years * Urology as above with plans for follow up (6) Recent URI: * Resolved 1-2 weeks ago. * COVID PCR x 2 negative at time of admission. * COVID serum ab's negative - certainly IgM can be falsely negative this soon after the illness, but still highly unlikely he had COVID. (7) Elevated PSA: * 46.3 * Suspect SEVERE BPH vs prostate CA and concern for prostatitis have contributed to elevated PSA. * No TOLU done to exclude a nodule. * No prior h/o prostate cancer. * Treat for prostatitis/BPH as above Will likely need further evaluation/biopsy to r/o malignancy in future (8) Constipation: * KUB x-ray with copious stool. From pain medication and not ambulating much initially * Rigorous bowel regimen with miralax, dulcolax, senna, and mag citrate with resolution in constipation. KUBs without obstructive pattern and improved * Instructed to continue bowel regimen at discharge and increase fluids to prevent constipation (9) DVT prophylaxis: * heparin 7500 units TID given morbid obesity ADRIANA * -- Suspected, poor sleep reported * --Overnight Pox with need for supplemental O2 HS --> discussed with CM and w orking on MA# * Patient declined overnight oxygen --> will need continued discussion with provider once established with CV. Discussed poor sleep and benefits from CPAP as well as consequences like HTN/etc from on controlled sleep apnea Back Pain * hx lumbar surgery by Dr Sofia * KUB with concerning for loosening hardware * Lumbar Spine CT without acute findings, does note some bulging discs which are chronic and patient states he wouldn't want further eval/intervention at this time * Pain better controlled prior to discharge Abdominal Pain * likely combination of constipation/prostatitis/back pain * Lumbar CT as above * Repeat CTAP with continued b/l hydro (suspect some time to resolve given size of prostate), no stones. Continued bladder wall thickening and perivesical stranding --> will need f/u with Urology as above for both BPH and bladder * Small b/l inguinal hernias noted but no evidence of strangulation/incarceration * -- Stool studies -- patient reports family "genetic condition" that affects bowels and had uncle whom people thought were crazy and considered a bowel obstruction but was not. Denied knowing UC or Crohns. * Stool studies pending at discharge * GI consulted --> rec'd bowel regimen and colonoscopy screening at discharge Patient feeling better on day of discharge and comfortable with maintaining price at discharge and will have follow up with Urology. Medications sent as above. No insurance and CM assisted with contacting [facility] and provided all info for our community hospital resources. MA number obtained: MA # is [id number] Total Time Total Time Spent Total Time Spent (In Minutes): 80 Discharge Plan Discharge Items Patient Disposition: Home - Self-Care Reason For Visit: OBSTRUCTIVE UROPATHY Discharge Diagnosis: Obstructive Uropathy Goals: You have been hospitalized for an acute medical problem. During your stay at [facility], we have made an effort to correct the problem that brought you to the hospital while keeping you as comfortable as possible. Medications were used to bring your condition under control and your discharge instructions will include directions for any medications you should take after leaving the hospital. Please make sure you see your Primary Care Provider as part of your follow up plan. Activity: Resume your previous activity Non-emergency contact: Primary Care Provider and Urologist Call non-emergency contact if: you have any medication questions, your symptoms worsen and your pain is concerning for you Follow-up/Referrals: Shawn Brock, [Physician] - 05/22/20 8:45 am (1 week re: BPH, price, elevated PSA CAMACHO WILL TALK TO HIS NURSES TO SEE IF THEY CAN SEE HIM SOONER; THE OFFICE WILL CALL PATIENT IF THAT'S POSSIBLE) PCP,NO [Primary Care Provider] - Diet: Carb Consistent or DM2 Addtl Attending Provider Instructions: You have been hospitalized for abdominal pain. You were found to have a severely enlarged prostate and a PSA was checked which was also elevated. This can be because of it being enlarged but is also concerning for malignancy and will need follow up with Urology for further evaluation as an outpatient. You have had a Price placed and this will remain in place until follow up next week with Urology. You are to continue Flomax once daily to help with symptoms. Urology may add on additional medications at follow up. You have also been sent a prescription for proscar (finasteride). This will help to shrink the size of the prostate but takes several weeks to begin to see effects. You have been continued on antibiotics for suspected prostatitis and this will continue for a total of 4 weeks of treatment. You have been sent a prescription for Keflex 500mg to be taken FOUR TIMES DAILY. Your A1c was also found to be elevated and you are considered diabetic. You have been sent prescription for Metformin to take 500mg by mouth twice daily. This may be increased as needed for better control once repeat A1c in three months obtained to see how your levels have been effected by treatment. It is also strongly encouraged to watch your dietary intake and increase activity/exercise. You have been given a prescription for pain medication to take as needed for breakthrough pain but should utilize Tylenol for all non-severe pain. You can take occasional ibuprofen but this should be avoided to avoid worsening kidney function which has remained stable. You can continue over the counter Miralax and Colace as needed for constipation as constipation can worsen your pain. Please continue to drink lots of water and increase your dietary fiber. You have also been sent topical nitroglycerin to use to your rectum for discomfort if you would like to try. Case management has sent your information to [place] for application of assistance. You have been provided information for [place] [facility] and should contact them about getting an appointment to establish care. You should further discuss underlying sleep apnea as this can also lead to other intermodal customer service complications and may help with your sleeping if treated. You will need to have follow up with Urology in 1 week. You will also need to have follow up with GI in the future for colonoscopy once this acute prostatitis is improved. Please return to the emergency department with any worsening pain, chest pain, shortness of breath, bleeding, or for any other symptoms that are concerning for you. It has been a pleasure being a part of the medical team providing for you while you have been in the hospital. Take care! Pending Studies at Discharge: No Stand-Alone Forms: My [facility], Opioid Pain Management Medications and DC Order Prescriptions: New tamsulosin 0.4 mg Capsule 0.4 mg PO QAM Qty: 30 RF: 0 sennosides [Senokot] 8.6 mg Tablet 17.2 mg PO QAM 30 Days Qty: 60 RF: 0 metformin [Glucophage XR] 500 mg tablet extended release 24 hr 500 mg PO BID Qty: 60 RF: 0 cephalexin 500 mg capsule 500 mg PO QID 24 Days Qty: 96 RF: 0 finasteride 5 mg tablet 5 mg PO DAILY Qty: 30 RF: 0 nitroglycerin 0.4 % (w/w) ointment 1 inch CA BID 7 Days Qty: 30 RF: 0 oxycodone 5 mg capsule 5 mg PO Q6H PRN (Reason: pain) Qty: 10 RF: 0 No Action epinephrine 0.3 mg/0.3 mL auto-injector 0.3 mg IM ONCE PRN (Reason: Allergic Reaction) RF: 0 Discharge Orders: Discharge Order (Routine); Ordered 05/09/20 Ordered By: Opal Beauchamp/Other Patient Handouts: High Blood Sugar (Hyperglycemia), Hypoglycemia (Low Blood Sugar), Managing Type 2 Diabetes, 5 Steps for Eating Healthier, Managing Diabetes: The A1C Test Admission Data Admit Date/Time: 05/04/20 01:36 Attending Provider: Tussey,Belén B. Admit Provider: Rupert Collins Primary Care Provider: PCP,NO Other Providers: Rupert Collins ; Shawn Brock ; Baron,Zackary Sheldon Other Interventions: Discharge Summary Assessment (RN) Last Done: 05/09/20 12:29 Supervising Physician Co-Signing Physician Notes PA Supervision Note: I personally saw and examined the patient. I verified all kendall points and agree with KAMILLA Casillas with the following exceptions and/or additions: Pt feeling much better, pain controlled, Price in place, ready for dc. Denies CP or SOB. Vitals reviewed NAD,obese RRR no mgr CTAB no wcr Abd +BS soft NT ND Ext no edema SKin no rashes 59 yo male here with urinary retention, enlarged prostate, suspected prostatitis -continue abx, prostate meds as above, Price. Close f/[facility] Urology and will need TURP and prostate biopsy Coding Level of Care Code D/C Day Management >30 mins Diagnoses Enlarged prostate with urinary obstruction N40.1; N13.8 Acute kidney injury N17.9 Morbid obesity with BMI of 40.0-44.9, adult E66.01; Z68.41 Diabetes mellitus type 2, uncontrolled E11.65 Prostatitis N41.9 Recent URI J06.9 Elevated PSA R97.20 Constipation K59.00 DVT prophylaxis Z29.9
[2020-05-09] MEDS: oxyCODONE HCL IR 5 MG TAB (IMMEDIATE RELEASE) PO PRN (13:42)
== END 2020-05-09 14:36 | disposition home or self-care (01) | DRG 726 ==
LOC: ED 20:36 → 3W 05-04 01:36 → SUATTDRO 05-04 01:36 → 3W 05-04 02:41

== ENCOUNTER 2020-06-10 07:34 | Observation (INO) ==
--- NOTE | 2020-05-31 10:29 | Anesthesiology Consultation ---
Date of Service May 31, 2020 Assessment & Plan (1) Encounter for pre-operative examination: Chart Review Chart Review: Acceptable Risk for Surgery (pending preop Covid testing results ) and Patient NOT seen in Pre Admission Testing - Check BSG AM DOS. Will repeat PRP DOS secondary to hyponatremia on 05/14/20 labs Per nursing assessment May 30, 2020, patient denies any recent travel. No known Covid infection in the past 90 days. No known Covid positive contacts or Covid related symptoms. Pt aware of need of preop Covid testing and will follow up with surgeon's office= will await results. Pt admitted to [facility] from 05/04/20 to 05/09/20= admitted for enlarged prostate with outlet obstruction, suspected prostatitis. Urology consulted. Navarrete placed/medication started. Treated with antibiotics. Patient without insurance centimeters assisted patient in applying for MA provided information for [facility]. AKIsecondary to obstructionresolved. Diabetesuncontrolledmanaged on insulin while admitted. Patient discharged on Metformin and discussed dietary changes. Will follow up with [facility] for further management. Recent URIresolved. Covid negative x2 while admitted. OSAsuspected, poor sleep reported. Patient declined overnight oxygenwe will need to discuss when established with primary care provider. Decompressive laminectomy, PSF L4-5 12/25/09= Mujica #3 unable, with MAC #3 Grade IV view. Easy mask vent. Atraumtic. No other anesthesia issues noted per anesthesia record. History Surgery Operation Date: 06/10/20 07:15 Proposed Procedures p Transurethral Resection Prostate - Shawn Brock, Height/Weight Height: 6 ft Weight: 132.903 kg Allergies Allergy/AdvReac Type Severity Reaction Status Date / Time bee venom protein (honey bee) Allergy Severe ANAPHYLAXIS Verified 05/30/20 16:36 grape Allergy Severe Anaphylaxis Verified 05/30/20 16:36 Medications Home Medications Medication Instructions Recorded Confirmed Last Taken metformin [Glucophage XR] 500 mg PO BID #60 tab 05/07/20 05/30/20 05/14/20 08:00 tamsulosin 0.4 mg PO QAM #30 cap 05/07/20 05/30/20 05/14/20 epinephrine 0.3 mg IM ONCE PRN 05/14/20 05/30/20 Unknown ciprofloxacin HCl 500 mg tablet 500 mg PO BID #40 tab 05/22/20 05/30/20 Unknown finasteride 5 mg PO QAM 05/30/20 05/30/20 Unknown Past Medical History Medical History BPH (benign prostatic hypertrophy) DDD (degenerative disc disease) DM type 2 (diabetes mellitus, type 2) NIDDM Nocturnal hypoxia reports he was told his oxygen saturation dropped into the 70s while sleeping during his hospital stay 04/2020 [place] Per 05/09/20 Discharge Summary: ADRIANA suspected, poor sleep reported. Overnight pulse ox with need for supplemental O2 HS- pt declined overnight O2- pt will need to follow up as outpatient Umbilical hernia Past Family History Family History Aunt History of anesthesia reaction "I had an aunt that from anesthesia." -- pt unable to provide specifics; unsure of MH, PD diagnosis; pt denies personal hx of issues with anesthesia Other Family history of diabetes mellitus Past Surgical History Surgical History History of lumbar surgery History of wisdom tooth extraction Social History Smoking Status: Never smoker tobacco type: smokeless tobacco Do You Dip or Chew Tobacco: Yes (1 can every 4-5 days) Hx Alcohol Use: No alcohol intake frequency: a few times a month Hx Substance Use: Yes substance use type: marijuana Last Used Substance: Days (ago) Lab Results Anesthesia Preop Results Results Anesthesia Widget: WBC 10.16 K/uL (4.8-10.8) 05/14/20 Hgb 13.7 g/dL (14.0-18.0) L 05/14/20 Hct 38.8 % (42-52) L 05/14/20 Plt 304 K/uL (130-400) 05/14/20 Na 131 mmol/L (136-145) L 05/14/20 K 3.7 mmol/L (3.5-5.1) 05/14/20 Cl 99 mmol/L (98-107) 05/14/20 CO2 24 mmol/L (21-32) 05/14/20 BUN 20 mg/dl (7-18) H 05/14/20 Creat 1.27 mg/dl (0.6-1.4) 05/14/20 Glucose Level 182 mg/dl (70-99) H 05/14/20 TSH 3.340 uIu/ml (0.300-4.500) 05/09/20 HA1c 11.7 % (4.5-5.6) H 05/04/20 Urine Color Yellow 05/14/20 Urine Appearance Clear (Clear) 05/14/20 Urine pH 5.0 (4.5-7.5) 05/14/20 Urine Specific [place] 1.013 (1.000-1.030) 05/14/20 Urine Protein Negative (Negative) 05/14/20 Urine Glucose (UA) 3+ (Negative) H 05/14/20 Urine Ketones Negative (Negative) 05/14/20 Urine Blood 2+ (Negative) H 05/14/20 Urine Nitrite Negative (Negative) 05/14/20 Urine Bilirubin Negative (Negative) 05/14/20 Urine Urobilinogen Negative (Negative) 05/14/20 Urine Leukocyte Esterase Negative (Negative) 05/14/20 Urine WBC (Auto) 1-5 /hpf (0-5) 05/14/20 Urine RBC (Auto) 0-4 /hpf (0-4) 05/14/20 Urine Hyaline Casts (Auto) 1-5 /lpf (0-5) 05/14/20 Urine Epithelial Cells (Auto) 10-20 /lpf (0-5) H 05/14/20 Urine Bacteria (Auto) Negative (Negative) 05/14/20 Lab Comments: Surgeon's office made aware of elevated Hgb A1C results - will leave to surgeon's discretion on how to proceed Testing Electrocardiogram Date: 05/03/20 Findings: + NSR @ (69 bpm) RSR' or QR pattern in V1 suggest right ventricular conduction delay. Otherwise normal EKG. When compared to EKG from October 13, 2015no significant changes found per cardio. Chest X-Ray Date: 05/04/20 Findings: + NAD and + cardiomegaly (Mild)
[~2020-06-10 07:34] MED LIST: LR 15ML/HR IV SCH
[2020-06-10] MEDS ORDERED: MoRPHine SULFATE 2 MG/ML CARP IV PRN (08:28)
[2020-06-10] MEDS ORDERED: BELLADONNA/OPIUM SUPP 60 MG SUPP PR PRN (08:28)
[2020-06-10] MEDS ORDERED: MoRPHine SULFATE 4 MG/ML 1 ML CARP\\VIAL IV PRN (08:28)
[2020-06-10] MEDS ORDERED: PHENAZOPYRIDINE HCL 200 MG TAB PO PRN (08:28)
--- NOTE | 2020-06-10 08:28 | History & Physical Bridge Note ---
Date of Service June 10, 2020 History & Physical Bridge Note I have examined the patient, reviewed the History & Physical and in the interval since the performance of the History & Physical I have noted the following changes of clinical significance: no changes noted
[2020-06-10] MEDS ORDERED: EPINEPHrine ADULT AUTO-INJECT 0.3 MG SYR IM PRN (08:34)
[2020-06-10 09:15] LABS: BUN Creatinine Ratio 15.3 (10-20); Calcium 9.3 mg/dl (8.5-10.1); Creatinine Clr Calc Pharmacy 121.9 ml/min; Est GFR (African American) 103.2; Potassium 3.9 mmol/L (3.5-5.1)
[2020-06-10] MEDS ORDERED: fentaNYL citrate 100 MCG/2 ML VIAL ONE ×3 (09:50→14:29)
[2020-06-10] MEDS ORDERED: MIDAZOLAM HCL 1 MG/ML 2ML VIAL ONE (09:50)
[2020-06-10] MEDS ORDERED: ROCURONIUM BROMIDE 10 MG/ML 5 ML VIAL IV ONE (10:47)
[2020-06-10] MEDS ORDERED: PROPOFOL IV EMULSION 10 MG/ML 20 ML VIAL IV ONE (10:47)
[2020-06-10] MEDS ORDERED: LIDOCAINE HCL 2% 2 ML VIAL/AMP(20MG/ML) INFIL ONE (10:47)
[2020-06-10] MEDS ORDERED: SUCCINYLCHOLINE 100MG/5ML SYR IV ONE (10:47)
[2020-06-10] MEDS ORDERED: ONDANSETRON INJ 2 MG/ML 2 ML VIAL ONE ×2 (10:47→14:29)
[2020-06-10] MEDS ORDERED: PHENYLEPHRINE HCL 10 MG/ML VIAL ONE (11:26)
[2020-06-10] MEDS ORDERED: BELLADONNA/OPIUM SUPP 60 MG SUPP PR ONE (13:09)
--- NOTE | 2020-06-10 13:15 | Operative Report ---
PG Post Operative Report Pre & Post Diagnosis Operation Date: 06/10/20 09:50 Pre-Op Diagnosis: Elevated Prostate Specific Antigen, Acute Urinary Retention Post-Op Diagnosis: Elevated Prostate Specific Antigen, Acute Urinary Retention I identified the patient and participated in the time-out.: Yes Procedure Operation Date: 06/10/20 09:50 Actual Procedures p Transurethral Resection Prostate(Not Applicable) - Shawn Brock DO Surgeon Shawn Brock, II, DO First Calender Worker None Estimated Blood Loss 30 Findings Consistent with Post-Op Diagnosis Massive Prostate with obstruction. Large median lobes with severe projection of prostate lateral lobes into bladder. Multiple pockets of purulent material. Specimens Prostate adenoma. Drains [address] 24Fr Catheter Anesthesia Type General Complications none Disposition Disposition: Recovery Room Indications Patient with obstruction due to prostate enlargement. Risks and benefits discussed at length. Description of Procedure Patient was consented and brought back to the operating room. Patient was placed under anesthesia in the supine position and moved to the dorsal lithotomy position. Patient was prepped and draped in the regular sterile fashion. A time out was completed. A 30degree Cystoscope was placed into the bladder and the entire bladder was examined. The UO's were identified as well as the bladder neck, trigone, dome, and the other important landmarks. The prostatic urethra and large lobes/adenoma was assessed and the veru and bladder neck identified and area/size was assessed. The prostate was found to be massive and easily bleeding from large varicosity. The resection scope was placed and the fine bipolar loop was selected. Starting at the 5 and 7 o'clock positions, a channel was created from bladder neck to the veru. This improved flow. The left and right lateral lobes were resected from the bladder neck to region near the veru starting at the 1 and 11 o'clock and moving towards the channel. A severe amount of prostate at the bladder neck at the anterior portion caused some issues through the process due to obstruction of flow, bleeding, and irrigating. These were then resected and allowed better access to the irrigation. The Specimen was removed and sent for analysis. The resection bed and any b leeding areas were fulgurated/cauterized and the entire area inspected. All bleeding was controlled. The bladder was inspected a final time. The bladder was emptied and irrigated. All specimen and debris was removed. The scope was removed with the bladder partially full. A catheter was placed and balloon elevated and overfilled. This was easily irrigated. The patient was cleaned, aroused from anesthesia, and transferred to the pacu in stable condition having tolerated the procedure well with no complications. I was present and participated in all aspects of the procedure. The patient will be monitored in the PACU until transferred. Monitor patient overnight and plan to maintain catheter for likely 2 weeks. I attest to the content of the Intraoperative Record and any orders documented therein. Any exceptions are noted below.
[2020-06-10] MEDS ORDERED: INSULIN ASPART PER UNIT SC STA ×2 (13:50→15:00)
[2020-06-10 13:57] LABS: Basophils # (auto) 0.02 K/uL (0-0.2); Basophils % (auto) 0.2 %; Eosinophils # (auto) 0.13 K/uL (0-0.5); Eosinophils % (auto) 1.6 %; Hematocrit (blood only) 36.6 % (42-52); Hemoglobin 12.9 g/dL (14.0-18.0); Immature Granulocytes # (auto) 0.01 K/uL (0.00-0.02); Immature Granulocytes % (auto) 0.1 %; Lymphocytes # (auto) 1.83 K/uL (1.2-3.4); Lymphocytes % (auto) 21.9 %; Mean Corpuscular Hemoglobin 30.9 pg (25-34); Mean Corpuscular Hgb Conc 35.2 g/dL (32-36); Mean Corpuscular Volume 87.6 fL (80-100); Mean Platelet Volume 10.1 fL (7.4-10.4); Monocytes # (auto) 0.66 K/uL (0.11-0.59); Monocytes % (auto) 7.9 %; Neutrophils % (auto) 68.3 %; Platelet Count 286 K/uL (130-400); RDW Coefficient of Variation 12.7 % (11.5-14.5); Red Blood Count 4.18 M/uL (4.7-6.1); White Blood Count 8.35 K/uL (4.8-10.8)
[2020-06-10] MEDS ORDERED: INSULIN ASPART PER UNIT ONE (13:59)
[2020-06-10] MEDS ORDERED: HYDROmorphone INJ 1 MG/ML SYRINGE IV PRN (14:18)
[2020-06-10] MEDS ORDERED: ATROPINE SULFATE 0.1 MG/ML 10ML SYR IV PRN (14:18)
[2020-06-10] MEDS ORDERED: ePHEDrine sulfate 50 MG/ML AMP IV PRN (14:18)
[2020-06-10] MEDS ORDERED: ONDANSETRON INJ 2 MG/ML 2 ML VIAL IV PRN (14:18)
[2020-06-10] MEDS: fentaNYL citrate 100 MCG/2 ML VIAL IV PRN ×2 (14:32→15:08)
--- NOTE | 2020-06-10 14:38 | Anesthesiology Progress Note ---
Date of Service June 10, 2020 Anesthesia Post Procedure Vital Signs Vital Signs: Temp Pulse Pulse Resp BP BP Pulse Ox 06/10/20 14:15 76 12 139/74 99 06/10/20 14:05 36.4 C L 77 15 138/80 99 06/10/20 13:55 76 15 117/60 95 06/10/20 13:45 87 12 101/80 95 06/10/20 13:35 84 17 123/79 95 06/10/20 13:26 36.1 C L 80 18 137/79 97 06/10/20 08:12 36.8 C 77 18 175/97 H 96 Pain Intensity Other: Pain Intensity: 4 Transfer of Care Handoff Completed per policy Notes Mental Status: alert / awake / arousable and participated in evaluation Patient Amnestic to Procedure: Yes Nausea / Vomiting: adequately controlled Pain: adequately controlled Airway Patency, RR, SpO2: stable & adequate BP & HR: stable & adequate Hydration State: stable & adequate Anesthetic Complications: no major complications apparent and Pt Satisfied with anesthetic care
[2020-06-10] MEDS ORDERED: DEXTROSE 50% 50 ML SYRINGE IV PRN (14:44)
[2020-06-10] MEDS ORDERED: GLUCOSE 10 TABS/TUBE PO PRN (14:44)
[2020-06-10] MEDS ORDERED: GLUCAGON FOR INJ 1 MG VIAL SQ PRN (14:44)
[2020-06-10] MEDS ORDERED: GLUCOSE 40% GEL 15 GM TUBE PO PRN (14:44)
[2020-06-10] MEDS ORDERED: CARBOHYDRATES FOR HYPOGLYCEMIA PO PRN (14:44)
--- NOTE | 2020-06-10 14:59 | Hospitalist Consultation ---
Date of Consultation June 10, 2020 Assessment & Plan (1) BPH (benign prostatic hypertrophy): S/p transurethral resection of prostate 06/10/2020 Will defer need antibiotics to primary urology team - cefazolin perioperatively. Patient is non-septic Continue finasteride 5mg PO QAM, tamsulosin 0.4mg PO QAM Continue roberts cath per urology recommendations (2) Diabetes mellitus type 2, uncontrolled: HbA1C 11.7 - would suggest patient is started on Lantus on discharge given A1C > 9. Can continue metformin 500mg PO BID Restart previous inpatient dose lantus 10 units BID Novolog: Goal BSG Range: Low 110 mg/dL, High 140mg/dL Correction Factor: 20 mg/dL/unit INS:CHO Ratio: 1unit per 7 gms CHO consumed BSGs ACHS if eating, q6h if npo (3) DVT prophylaxis: Will defer to primary urology team History of Present Illness Reason for Consultation: Diabetes Requesting Physician: Dr Brock Attending Physician: Shawn Brock, II, DO History of Present Illness Kingsley Harding is a 59-year-old male who presents for transurethral resection of the prostate due to massive prostate with obstruction performed 06/10. He was hospitalized from May 04-2020 due to enlarged prostate with outlet obstruction and prostatitis. This was treated with IV ceftriaxone and patient discharged on cephalexin. BPH treated with tamsulosin. He was followed up in urology clinic on May 22 at which point he failed a voiding trial. Therefore transurethral resection of his prostate was performed today by Dr. Brock. Type 2 diabetes with HbA1c 11.7 on last admission. Patient reports he has had this for around 15 years but he tries to treat it with diet and has poor outpatient medical care. This was treated during his last admission with Lantus 10 units twice daily and NovoLog sliding scale to good effect. He was only started on Metformin on discharge although reports running out of this 48 hours ago as he is yet to follow up or get an appointment with [facility] (reports calling all last week and they have not called him back). Allergies Allergy/AdvReac Type Severity Reaction Status Date / Time bee venom protein (honey bee) Allergy Severe ANAPHYLAXIS Verified 06/10/20 08:24 grape Allergy Severe Anaphylaxis Verified 06/10/20 08:24 Home Medications Medication Instructions Recorded Confirmed Type metformin [Glucophage XR] 500 mg PO BID #60 tab 05/07/20 06/10/20 Rx tamsulosin 0.4 mg PO QAM #30 cap 05/07/20 06/10/20 Rx epinephrine 0.3 mg IM ONCE PRN 05/14/20 06/10/20 History finasteride 5 mg PO QAM 05/30/20 06/10/20 History ciprofloxacin HCl 500 mg tablet 500 mg PO BID #40 tab 06/03/20 06/10/20 Rx Patient History Medical History BPH (benign prostatic hypertrophy) DDD (degenerative disc disease) DM type 2 (diabetes mellitus, type 2) NIDDM Nocturnal hypoxia reports he was told his oxygen saturation dropped into the 70s while sleeping during his hospital stay 04/2020 [place] Per 05/09/20 Discharge Summary: ADRIANA suspected, poor sleep reported. Overnight pulse ox with need for supplemental O2 HS- pt declined overnight O2- pt will need to follow up as outpatient Umbilical hernia Surgical History (Updated 06/10/20 @ 14:55 by De Weston MD) History of lumbar surgery History of transurethral prostatectomy 05/2020 History of wisdom tooth extraction Family History Aunt History of anesthesia reaction "I had an aunt that from anesthesia." -- pt unable to provide specifics; unsure of MH, PD diagnosis; pt denies personal hx of issues with anesthesia Other Family history of diabetes mellitus Social History Smoking Status: Never smoker Tobacco Type: Cigarettes Second Hand Exposure: Yes; Do You Dip or Chew Tobacco: Yes (1 can every 4-5 days); Tobacco Cessation Education Requested by Patient: No Hx Alcohol Use: No Hx Substance Use: Yes Last Used Substance: Days (ago) Preferred Language: Romansh Communication Ability: Effective Environmental Services Aide Required: No Beliefs That Will Affect Care: None Current Living Situation: Family Feels Safe at Home: Yes Safety Concerns: Feels Safe At This Time Assistive Devices: None Review of Systems Review of Systems: All systems reviewed & are unremarkable except as noted in HPI & below Physical Exam Constitutional: well developed, well nourished and + obese; no acute distress Eyes: + anicteric sclerae; normal pupil size Respiratory: normal respiratory effort, lungs clear to auscultation Cardiovascular: Rate/Rhythm: regular rate and regular rhythm Extremities: normal capillary refill and + pedal edema (1+ pre-tibial) Gastrointestinal (Abdomen): normal bowel sounds, soft, nontender, no hepatosplenomegaly (roberts catheter in place) Musculoskeletal: no cyanosis or clubbing, extremities motor strength 5/5 Skin: no rashes, warm and dry Neurologic: moves all extremities and awake; not confused Psychiatric: A+Ox3, euthymic affect Results & Data Results & Data ([facility]) Vital Signs (Past 12 Hours) Vital Signs Temp Pulse Pulse Resp BP BP Pulse Ox 06/10/20 14:45 36.5 C 80 19 154/82 H 99 06/10/20 14:35 81 13 137/74 99 06/10/20 14:25 77 14 147/75 H 99 06/10/20 14:15 76 12 139/74 99 06/10/20 14:05 36.4 C L 77 15 138/80 99 06/10/20 13:55 76 15 117/60 95 06/10/20 13:45 87 12 101/80 95 06/10/20 13:35 84 17 123/79 95 06/10/20 13:26 36.1 C L 80 18 137/79 97 06/10/20 08:12 36.8 C 77 18 175/97 H 96 PG Care Time/CCT Total # of Minutes Spent Total Time Spent with Patient: Total time spent is greater than 50% in coordination of care (as documented) at patient's floor/unit and/or counseling patient: Coding Level of Care Code 60739 Inpt Consult Level 4 Diagnoses BPH (benign prostatic hypertrophy) N40.0 Diabetes mellitus type 2, uncontrolled E11.65 DVT prophylaxis Z29.9
[2020-06-10] MEDS: oxyCODONE/ACETAMINOPHEN 5mg/325mg TAB PO PRN ×2 (16:39→20:34)
[2020-06-10] MEDS: TAMSULOSIN HCL 0.4 MG CAP PO SCH (18:44)
[2020-06-10] MEDS: DOCUSATE SODIUM 100 MG CAP PO SCH ×2 (18:44→20:21)
[2020-06-10] MEDS: FINASTERIDE 5 MG TAB PO SCH (18:44)
[2020-06-10] MEDS: INSULIN ASPART 100 UNITS/ML 3 ML PEN SC SCH ×2 (18:45→20:33)
[2020-06-10] MEDS: INSULIN GLARGINE SOLOSTAR 100 UNITS/ML 3 ML PEN SC SCH ×2 (18:45→20:22)
[2020-06-10] MEDS: SODIUM CHLORIDE 0.9% 1000ML 1,000 ML IV SCH ×2 (18:47→23:03)
[2020-06-10] MEDS: ceFAZolin 2000MG 2,000 MG/15 ML SYR IV SCH (20:20)
[2020-06-11] MEDS: ceFAZolin 2000MG 2,000 MG/15 ML SYR IV SCH ×2 (01:33→10:32)
[2020-06-11] MEDS: oxyCODONE/ACETAMINOPHEN 5mg/325mg TAB PO PRN ×5 (01:33→17:33)
[2020-06-11] MEDS: SODIUM CHLORIDE 0.9% 1000ML 1,000 ML IV SCH (05:31)
--- NOTE | 2020-06-11 07:50 | Urology Progress Note ---
Date of Service June 11, 2020 Assessment & Plan (1) Enlarged prostate with urinary obstruction: 59 yo M POD#1 s/p TURP with Dr. Brock. - Doing well, progressing as expected - 3-way Navarrete intact, patent, and draining clear yellow urine with CBI on slow - CBI clamped at 0825 during exam, RN made aware, will reassess later this AM - Maintain Navarrete catheter - Tolerating regular diet - Encourage OOB ambulation, incentive spirometer - BSGs elevated during admission, appreciate hospital medicine input - Anticipate home later today if continues to progress and medically stable - Consult case management to assist in discharge planning, f/u with [facility]/PCP for diabetes management - Expected clinical course reviewed, all questions answered - Will arrange appropriate outpatient follow-up with our service Pt reassessed at 10:30 - Navarrete is draining clear yellow urine with CBI clamped. Will discontinue CBI set up and maintain Navarrete catheter. Patient complains of intermittent bladder spasms, but not at present. RN administered prn Pyridium. Will add Oxybutynin prn for bladder spasms. Encourage OOB ambulation now. Will plan for discharge this afternoon if he continues to progress and discharge planning and follow-up diabetes management in place. Admission and Anticipated Discharge Date Admission Date: June 10, 2020 Subjective 59 yo M POD#1 s/p TURP with Dr. Brock. Pt awake and sitting up in bed. Doing well, no acute issues overnight. Tolerating PO diet, no nausea or vomiting. +Flatus 3-way Navarrete catheter intact, patent, and draining clear yellow urine with CBI on slow. CBI clamped at 0825 during exam. Tolerating catheter within minimal bother, he notes some discomfort at tip of penis. No abdominal, flank or suprapubic pain. No fever or chills. He follows with [facility] for primary care. He expresses concern about obtaining post-op medications. Chart review: Afebrile, lab work: creatinine 1.10, WBC 8.68, Hgb 11.1. Pathology pending. On Ancef post-op. Bsgs [id number]. No additional concerns today. Review of Systems Constitutional: as per Subjective / HPI Gastrointestinal: as per Subjective / HPI Genitourinary: + as per Subjective / HPI Physical Exam Constitutional: well developed, well nourished and + obese; no acute distress and not ill appearing Neck: normal visual inspection Respiratory: normal respiratory effort and able to speak in complete sentences; no respiratory distress and no labored breathing Cardiovascular: Extremities: no pedal edema Gastrointestinal (Abdomen): Inspection/Auscultation: abdomen normal to inspection; abdomen not distended Percussion/Palpation: abdomen soft; abdomen nontender and no guarding Musculoskeletal: Head/Neck/Chest: normocephalic and head atraumatic Skin: no rashes, warm and dry Neurologic: moves all extremities and awake Psychiatric: Orientation: alert and oriented x 3 Genitourinary: no CVA tenderness 3-way Navarrete catheter intact, patent and draining clear yellow urine with CBI on slow. CBI clamped at time of exam, RN made aware Results & Data ([facility]) Vital Signs (Past 12 Hours) Vital Signs Temp Pulse Resp BP Pulse Ox 06/11/20 07:03 36.8 C 91 H 18 159/90 H 95 06/11/20 03:05 36.4 C L 104 H 18 129/75 94 06/10/20 22:08 36.8 C 104 H 18 116/73 94 PG Care Time/CCT Total # of Minutes Spent Total Time Spent with Patient: Total time spent is greater than 50% in coordination of care (as documented) at patient's floor/unit and/or counseling patient: Coding Level of Care Code 79714 Subseq Hosp Care Lvl 2 Diagnoses Enlarged prostate with urinary obstruction N40.1; N13.8
[2020-06-11 07:58] LABS: Basophils # (auto) 0.03 K/uL (0-0.2); Basophils % (auto) 0.3 %; Eosinophils # (auto) 0.13 K/uL (0-0.5); Eosinophils % (auto) 1.5 %; Hematocrit (blood only) 32.1 % (42-52); Hemoglobin 11.1 g/dL (14.0-18.0); Immature Granulocytes # (auto) 0.02 K/uL (0.00-0.02); Immature Granulocytes % (auto) 0.2 %; Lymphocytes # (auto) 1.84 K/uL (1.2-3.4); Lymphocytes % (auto) 21.2 %; Mean Corpuscular Hemoglobin 30.2 pg (25-34); Mean Corpuscular Hgb Conc 34.6 g/dL (32-36); Mean Corpuscular Volume 87.5 fL (80-100); Mean Platelet Volume 10.4 fL (7.4-10.4); Monocytes # (auto) 0.82 K/uL (0.11-0.59); Monocytes % (auto) 9.4 %; Neutrophils # (auto) 5.84 K/uL (1.4-6.5); Neutrophils % (auto) 67.4 %; Platelet Count 287 K/uL (130-400); RDW Coefficient of Variation 12.7 % (11.5-14.5); RDW Standard Deviation 41.3 fL (36.4-46.3); Red Blood Count 3.67 M/uL (4.7-6.1); White Blood Count 8.68 K/uL (4.8-10.8)
[2020-06-11] MEDS: metFORMIN HCL ER 500 MG TABCR PO SCH ×2 (08:17→17:34)
[2020-06-11 08:28] LABS: BUN Creatinine Ratio 17.5 (10-20); Calcium 8.6 mg/dl (8.5-10.1); Creatinine Clr Calc Pharmacy 104.1 ml/min; Est GFR (African American) 85.3; Est GFR (Non-African American) 73.6; Potassium 3.8 mmol/L (3.5-5.1)
[2020-06-11] MEDS: INSULIN ASPART 100 UNITS/ML 3 ML PEN SC SCH ×3 (08:39→17:34)
[2020-06-11 08:40] LABS: Beta-Hydroxybutyrate 0.77 mg/dl (0.2-2.81)
[2020-06-11] MEDS: FINASTERIDE 5 MG TAB PO SCH (08:46)
[2020-06-11] MEDS: DOCUSATE SODIUM 100 MG CAP PO SCH (08:46)
[2020-06-11] MEDS: INSULIN GLARGINE SOLOSTAR 100 UNITS/ML 3 ML PEN SC SCH (08:46)
[2020-06-11] MEDS: TAMSULOSIN HCL 0.4 MG CAP PO SCH (08:46)
[2020-06-11] MEDS ORDERED: OXYBUTYNIN CHLORIDE 5 MG TAB PO PRN (11:11)
--- NOTE | 2020-06-14 07:05 | Discharge Summary ---
Date of Service June 14, 2020 Admission HPI Per Admitting Provider See H&P Admission Exam Per Admitting Provider See H&P Principal Diagnosis Bladder outlet obstruction Discharge Exam General: Alert in no acute distress. HEENT: Normocephalic Atraumatic. Inspection normal. Psychologic: Normal affect. Skin: [place] and Dry. No rashes or visible lesions. Abdomen: Soft Non-distended. No rebound or guarding. Discharge Data Allergies Allergy/AdvReac Type Severity Reaction Status Date / Time bee venom protein (honey bee) Allergy Severe ANAPHYLAXIS Verified 06/10/20 08:24 grape Allergy Severe Anaphylaxis Verified 06/10/20 08:24 Consultations 06/10/20 08:32 Consult Hospitalist Routine Procedures Performed Operation Date: 06/10/20 09:50 Actual Procedures p Transurethral Resection Prostate(Not Applicable) - Shawn Brock, DO Hospital Course (1) Enlarged prostate with urinary obstruction: 59 yo M POD#1 s/p TURP with Dr. Brock. - Doing well, progressing as expected - 3-way Navarrete intact, patent, and draining clear yellow urine with CBI on slow - CBI clamped at 0825 during exam, RN made aware, will reassess later this AM - Maintain Navarrete catheter - Tolerating regular diet - Encourage OOB ambulation, incentive spirometer - BSGs elevated during admission, appreciate hospital medicine input - Anticipate home later today if continues to progress and medically stable - Consult case management to assist in discharge planning, f/u with [facility]/PCP for diabetes management - Expected clinical course reviewed, all questions answered - Will arrange appropriate outpatient follow-up with our service Pt reassessed at 10:30 - Navarrete is draining clear yellow urine with CBI clamped. Will discontinue CBI set up and maintain Navarrete catheter. Patient complains of intermittent bladder spasms, but not at present. RN administered prn Pyridium. Will add Oxybutynin prn for bladder spasms. Encourage OOB ambulation now. Will plan for discharge this afternoon if he continues to progress and discharge planning and follow-up diabetes management in place. Total Time Total Time Spent Total Time Spent (In Minutes): 10 minutes Total Time Includes: Examination of the Patient, Discharge Planning, Medication Reconciliation and Communication With Other Providers Discharge Plan Discharge Items Patient Disposition: Home - Self-Care Reason For Visit: Elevated PSA, Acute Urinary Retention Discharge Diagnosis: Elevated PSA, Acute Urinary Retention Activity: Per Instructions section Lifting: No more than 25 pounds Bathing Comment: Okay to shower in 1 day, no tub bath or soaking Sexual Activity: Wait until after follow-up appointment Exercise/Sports: Wait until after follow-up appointment Driving/Machine Use: No driving while taking prescription medication Non-emergency contact: Surgeon and Urologist Call non-emergency contact if: you have any medication questions, your pain is not controlled, your pain is worsening, your pain is concerning for you, you have a fever and your temperature is above 101 Follow-up/Referrals: Getachew Weber III, CRNP [Nurse Practitioner] - 06/18/20 (You have an appointment scheduled with Getachew at 3:45 wednesdayJune 18. They will be sending you a pre visit form to fill out, please complete it. Take the form as well as your insurance card and drivers license to the visit. If you need to reshcudule call [phone] ) Shawn Brock DO [Physician] - 06/25/20 9:30 am (Virtual phone call visit with Dr. Brock between 9:30 am and 4 pm) PCP,NO [Primary Care Provider] - [facility],Nurse [FAKE FOR SCHEDULES] - 06/24/20 9:00 am Diet: Carb Consistent or DM2 Addtl Attending Provider Instructions: Please take all medications as prescribed and keep all follow-ups as scheduled. Please call our office at [phone] with any questions, concerns or need to reschedule appointments for any reason. We are happy to assist you. Tips for your recovery at home: Dont be alarmed by brownish or reddish blood or clots in your urine. This is a result of the procedure. This may occur off and on for weeks to months after the procedure but should continue to improve. Drink plenty of fluids during the day (enough to keep your urine very light colored). This will help keep a healthy flow of urine. Do not lift >25 lbs until your followup Avoid constipation. Please use a stool softener (Colace) for the first two weeks after your procedure Be sure to finish the antibiotics as prescribed. If you go home with a catheter, please wash tubing where it enters your body twice daily with mild soap (Dove or Dial). Once your catheter is removed, expect some blood in your urine and some burning when you urinate. You should have an appointment to have this removed, if you do not please call our office to arrange. Pending Studies at Discharge: Yes Stand-Alone Forms: My [facility], Smoking Cessation Medications and DC Order Prescriptions: New oxycodone-acetaminophen [Percocet] 5-325 mg tablet 1 tab PO TID PRN (Reason: pain) Qty: 10 RF: 0 docusate sodium [Colace] 100 mg capsule 100 mg PO BID Qty: 60 RF: 0 phenazopyridine [Pyridium] 200 mg tablet 200 mg PO TID PRN (Reason: pain) Qty: 9 RF: 0 oxybutynin chloride 5 mg tablet 5 mg PO BID PRN (Reason: bladder spasms) Qty: 14 RF: 0 Continued ciprofloxacin HCl [Cipro] 500 mg tablet 500 mg PO BID Qty: 40 RF: 0 tamsulosin 0.4 mg Capsule 0.4 mg PO QAM Qty: 30 RF: 0 epinephrine 0.3 mg/0.3 mL auto-injector 0.3 mg IM ONCE PRN (Reason: Allergic Reaction) RF: 0 finasteride 5 mg tablet 5 mg PO QAM RF: 0 metformin [Glucophage XR] 500 mg tablet extended release 24 hr 500 mg PO BID 30 Days Qty: 60 RF: 3 Discharge Orders: Discharge Order (Routine); Ordered 06/11/20 Ordered By: Saundra Luevano Admission Data Admit Date/Time: 06/10/20 08:28 Attending Provider: Shawn Brock Admit Provider: Shawn Brock Primary Care Provider: PCP,NO Other Providers: Cain Jean Baptiste ; Opal Casillas ; De Isidro ; Kingsley Paris ; Rick Simpson ; Bill Zambrano ; Ady Cabrera ; Belén Fairchild ; Trista Huynh ; Kuldip Lloyd ; Shelly Suárez ; Shira Freeman ; Estuardo Mujica ; Ra Basilio ; Salma Villa ; Hiram Martin ; Noah Michele ; Melo Wheatley ; Blayne Carl ; De Weston ; Alhaji Gonzalez ; Aisha Matos ; Gilberto Olson ; Leonard Ayala Other Interventions: Discharge Summary Assessment (RN) Last Done: 06/11/20 15:57 Coding Level of Care Code D/C Day Management <30 mins Diagnoses Enlarged prostate with urinary obstruction N40.1; N13.8
== END 2020-06-11 20:07 | disposition home or self-care (01) ==
LOC: 3N 07:34 → ASU 07:34

== ENCOUNTER 2020-09-02 04:41 | Inpatient (IN) ==
--- NOTE | 2020-09-02 05:23 | Emergency Department Note ---
History of Present Illness General Chief complaint: Back Injury/Pain Stated complaint: BACK PAIN Time Seen by Provider: 09/02/20 04:45 Source: patient Mode of arrival: EMS Limitations: no limitations History of Present Illness Maximum Pain Intensity: 1 This patient is a 59-year-old male who presents to the emergency department complaining of severe back pain. Patient states that his pain has been ongoing for greater than [address] Patterson with [facility]. He is states that his back feels okay when he lays on his back, but he has a lot of difficulty getting up and walking. He states that a few days ago, he had pain so severe that for 12 hours straight, he was not able to get out of bed and urinated himself several times. He has been missing physical therapy appointments due to this. He was supposed to follow-up with pain management but states that his son's truck broke down and he was not able to make the appointment. He has been wearing a back brace which seems to help, but his pain worsens after taking it off. He applies ice occasionally. He just finished a prednisone taper. He states that tonight, he went to lay down on the couch, rolled over and was then unable to get back up. He slid to the floor and called his sons for help. They were also unable to get him up. He states that while he is laying down, his pain is a 1/10, however when he tries to stand or walk it is a 9/10. He states he is unable to walk due to the pain. He reports some weakness in the legs, denies numbness. He has been urinating himself but states this is because he is not able to make it to the bathroom. He denies any fevers. He had lumbar surgery by Dr. Sofia in 2007. Home Medications Medication Instructions Recorded Confirmed Type epinephrine 0.3 mg/0.3 mL 0.3 mg IM DIRECTED PRN 05/14/20 09/02/20 History injection, auto-injector lisinopril 5 mg tablet 5 mg PO QAM 08/19/20 09/02/20 History meloxicam 7.5 mg tablet 7.5 mg PO QAM 08/19/20 09/02/20 History pantoprazole 20 mg tablet,delayed 20 mg PO QAM 08/19/20 09/02/20 History release baclofen 10 mg tablet 10 mg PO BID PRN #60 tab 09/03/20 Rx blood sugar diagnostic (OneTouch #100 ea 09/03/20 Rx Verio test strips) insulin aspart U-100 100 unit/mL 22 unit SC AC #15 ml 09/03/20 Rx (3 mL) subcutaneous pen (Novolog Flexpen U-100 Insulin aspart) insulin glargine 100 unit/mL (3 30 unit SC QAM #15 ml 09/03/20 Rx mL) subcutaneous pen (Lantus Solostar U-100 Insulin) lancets 30 gauge (OneTouch Delica #100 ea 09/03/20 Rx Lancets) pen needle, diabetic, safety 29 #100 ea 09/03/20 Rx gauge x 1/2" methylprednisolone 4 mg tablets in See Rx Instructions .ROUTE 09/05/20 Rx a dose pack (Medrol (Silver)) .COMPLEX #21 ea metformin 500 mg tablet 500 mg PO BID #180 tab 09/06/20 Rx tamsulosin 0.4 mg capsule 0.4 mg PO QPM #30 cap 09/06/20 Rx Allergies Allergy/AdvReac Type Severity Reaction Status Date / Time bee venom protein (honey bee) Allergy Severe ANAPHYLAXIS Verified 09/02/20 14:46 grape Allergy Severe Anaphylaxis Verified 09/02/20 14:46 Past Med/Surg History Medical History (Updated 09/09/20 @ 07:34 by Shala Wakefield PA-C) Acute kidney injury Back pain BPH (benign prostatic hypertrophy) DDD (degenerative disc disease) DM type 2 (diabetes mellitus, type 2) NIDDM Lumbar degenerative disc disease Nocturnal hypoxia reports he was told his oxygen saturation dropped into the 70s while sleeping during his hospital stay 04/2020 [place] Per 05/09/20 Discharge Summary: ADRIANA suspected, poor sleep reported. Overnight pulse ox with need for supplemental O2 HS- pt declined overnight O2- pt will need to follow up as outpatient Tobacco abuse Umbilical hernia Surgical History (Updated 09/04/20 @ 00:09 by Pietro Delgadillo) History of lumbar surgery History of transurethral prostatectomy 05/2020 History of wisdom tooth extraction Family History Aunt History of anesthesia reaction "I had an aunt that from anesthesia." -- pt unable to provide specifics; unsure of MH, PD diagnosis; pt denies personal hx of issues with anesthesia Other Family history of diabetes mellitus Social History Smoking Status: Unknown if ever smoked Tobacco Type: Cigarettes Age Started Using Tobacco: 10; Second Hand Exposure: Yes; Hx Alcohol Use: No Preferred Language: Wallisian Communication Ability: Effective Visual Impairment: No Limitations Hearing Ability: Normal Financial Recruiter Required: No Beliefs That Will Affect Care: None Current Living Situation: Alone current occupational status: unemployed How many Children do You have: 2 Feels Safe at Home: Yes Childhood Exposure to Second-Hand Smoke: Yes caffeine: Yes during the past year weight has: remained stable Dental Care, Regularly: No Physical Activity Frequency: Does not Exercise Seatbelt Use: always Sunscreen Use: Yes Assistive Devices: None Review of Systems A total of 10 systems reviewed and were otherwise negative Physical Exam Vital Signs Vital Signs - 24 hr 09/02/20 04:46 Temperature 36.5 C Temperature Source Oral Pulse Rate 79 Respiratory Rate 18 Respiratory Effort / Characteristics Non-Labored Spontaneous Respiratory Depth Normal Blood Pressure 175/88 H Blood Pressure Mean 117 Blood Pressure Position Lying Pulse Oximetry 96 Oxygen Delivery Method Room Air Sepsis Recent Fever Within 48 Hours No Sepsis New/Unexplained Change in Mental Status N/A Sepsis Action Taken by Nursing No Action Required Course Administered Medications Discontinued Medications Baclofen (Baclofen 10 Mg Tab) 10 mg PO BID PRN PRN Reason: spasm Stop: 10/03/20 08:59 Last Admin: 09/03/20 17:48 Dose: 10 mg Documented by: [id number] Enoxaparin Sodium (Enoxaparin Inj 40 Mg/0.4 Ml Syr) [address] [facility] Stop: 10/02/20 12:40 Last Admin: 09/03/20 00:07 Dose: 40 mg Documented by: [id number] Admin: 09/02/20 13:56 Dose: 40 mg Documented by: [id number] Hydromorphone HCl (Hydromorphone Inj 1 Mg/Ml Syringe) 1 mg IV NOW STA Stop: 09/02/20 05:43 Last Admin: 09/02/20 05:48 Dose: 1 mg Documented by: [id number] Insulin Aspart (Insulin Aspart 100 Units/Ml 3 Ml Pen) 0 units SC ACHS [facility]EEP[facility] Stop: 10/02/20 16:29 Last Admin: 09/03/20 17:46 Dose: 14 units Documented by: [id number] Cosigned by: [id number] Admin: 09/03/20 12:54 Dose: 22 units Documented by: [id number] Cosigned by: [id number] Admin: 09/03/20 09:05 Dose: 34 units Documented by: [id number] Cosigned by: [id number] Admin: 09/02/20 21:22 Dose: 32 units Documented by: [id number] Cosigned by: [id number] Admin: 09/02/20 18:14 Dose: 22 units Documented by: [id number] Cosigned by: [id number] Insulin Aspart (Insulin Aspart 100 Units/Ml 3 Ml Pen) 0 units SC 0000,0400 [facility]; Protocol Stop: 09/03/20 04:01 Last Admin: 09/03/20 04:04 Dose: 6 units Documented by: [id number] Cosigned by: [id number] Admin: 09/03/20 00:06 Dose: 7 units Documented by: [id number] Cosigned by: [id number] Insulin Glargine (Insulin Glargine Solostar 100 Units/Ml 3 Ml Pen) [address] [facility] Stop: 10/02/20 14:59 Last Admin: 09/02/20 16:16 Dose: 25 units Documented by: [id number] Cosigned by: [id number] Insulin Glargine (Insulin Glargine Solostar 100 Units/Ml 3 Ml Pen) [address] [facility] Stop: 10/03/20 08:59 Last Admin: 09/03/20 09:06 Dose: 23 units Documented by: [id number] Cosigned by: [id number] Ketorolac Tromethamine (Ketorolac Tromethamine 15 Mg/Ml Vial) 15 mg IV NOW STA Stop: 09/02/20 07:40 Last Admin: 09/02/20 08:06 Dose: 15 mg Documented by: [id number] Ketorolac Tromethamine (Ketorolac Tromethamine 15 Mg/Ml Vial) 15 mg IV Q6H PRN PRN Reason: Pain Stop: 09/07/20 12:54 Last Admin: 09/03/20 17:49 Dose: 15 mg Documented by: [id number] Admin: 09/02/20 18:01 Dose: 15 mg Documented by: [id number] [facility]inopril ([facility] 5 Mg Tab) [facility] Stop: 10/02/20 12:40 Last Admin: 09/03/20 07:44 Dose: 5 mg Documented by: [id number] Admin: 09/02/20 13:55 Dose: 5 mg Documented by: [id number] Meloxicam (Meloxicam 7.5 Mg Tab) [facility] [place] Stop: 10/02/20 12:40 Last Admin: 09/03/20 07:44 Dose: 7.5 mg Documented by: [id number] Admin: 09/02/20 13:55 Dose: 7.5 mg Documented by: [id number] Methylprednisolone (Methylprednisolone 4 Mg Tab) [address] [facility] Stop: 09/03/20 21:01 Last Admin: 09/02/20 21:24 Dose: 8 mg Documented by: [id number] Methylprednisolone (Methylprednisolone 4 Mg Tab) [address] [facility] Stop: 09/02/20 18:01 Last Admin: 09/02/20 18:15 Dose: 4 mg Documented by: [id number] Methylprednisolone (Methylprednisolone 4 Mg Tab) 4 mg PO 0700,1300,1800 [facility] Stop: 09/03/20 18:01 Last Admin: 09/03/20 17:48 Dose: 4 mg Documented by: [id number] Admin: 09/03/20 12:57 Dose: 4 mg Documented by: [id number] Admin: 09/03/20 05:55 Dose: 4 mg Documented by: [id number] Methylprednisolone (Methylprednisolone 4 Mg Tab) [address] [facility] Stop: 09/02/20 13:31 Last Admin: 09/02/20 14:11 Dose: 12 mg Documented by: [id number] Pantoprazole Sodium (Pantoprazole 40 Mg Tab) [facility] [place] Stop: 10/02/20 12:40 Last Admin: 09/03/20 07:43 Dose: 40 mg Documented by: [id number] Admin: 09/02/20 13:58 Dose: 40 mg Documented by: [id number] Tamsulosin HCl (Tamsulosin Hcl 0.4 Mg Cap) 0.4 mg PO [facility] Stop: 10/02/20 12:40 Last Admin: 09/03/20 07:44 Dose: 0.4 mg Documented by: [id number] Admin: 09/02/20 13:55 Dose: 0.4 mg Documented by: [id number] Medical Decision Making Differential Diagnosis Differential diagnosis includes cauda equina syndrome, cord compression, disc herniation, muscle spasm, lumbar strain, epidural abscess, malignancy, transverse myelitis, urinary tract infection, colitis, diverticulitis, kidney stone, among others. Medical Records Attestation: I reviewed the patient's medical records. Home Medications Current Medication List: was personally reviewed by me Laboratory Data Result diagrams: 09/02/20 13:11 09/03/20 10:01 Lab Results 09/02/20 09/02/20 Range/Units 05:10 05:10 COVID-19 Eval Order Covid19 at [facility] SARS-CoV-2 (PCR) NEGATIVE (Negative) Imaging Data Attestation: I personally reviewed and interpreted this imaging study as follows: Radiologist's Impression: MRI OF THE LUMBAR SPINE WITHOUT IV CONTRAST Lumbar spine: Vertebral body height and alignment are maintained throughout the lumbar spine. There is straightening of the lumbar lordosis. Small anterior osteophytes are seen throughout. There is postoperative change from laminectomy and posterior fusion seen at L3-L4. Intrapedicular screws are in place. The transverse processes appear intact. There is no MRI evidence of spondylolysis. No destructive bony lesion is seen. Advanced chronic degenerative endplate change is seen at L3-L4. Minimal endplate edema is noted at L1-L2. Intervertebral discs: There has been discectomy at L3-L4. Degenerative disc desiccation and mild loss of height is seen at the remaining lumbar levels. Spinal cord: The visualized spinal cord is normal in morphology and signal intensity. The conus medullaris terminates at the level of L1. The nerve roots of the cauda equina are normal in morphology. L1-L2: There is broad-based posterior disc bulge with annular fissure. In conjunction with hypertrophy of the ligamentum flavum there is moderate central canal stenosis of this level with a minimum AP diameter of 5 mm. This abuts the transiting nerve roots. There is bilateral subarticular stenosis. This contributes to mild bilateral neural foraminal narrowing. L2-L3: There is right lateral disc bulge. This causes subarticular stenosis and impinges on the exiting right L2 nerve root. This also abuts the transiting nerve roots. There is mild acquired compromise of the central canal at this level with a minimum AP diameter of 8 mm. There is moderate bilateral neural foraminal stenosis, right greater than left. L3-L4: The central canal and neural foramen are grossly clear. L4-L5: There is posterior disc bulge with annular fissure. There is mild central canal stenosis which is likely on a congenital basis. The minimum AP diameter measures 8 mm. There is right greater than left side subarticular stenosis. This may impinge on the exiting bilateral L4 nerve roots. There is moderate to severe right greater than left neural foraminal stenosis in conjunction with facet arthropathy. L5-S1: The central canal is clear. Facet arthropathy contributes to mild bilateral neural foraminal narrowing. Sacrum: The visualized sacrum is normal in morphology and signal intensity. Soft tissues: There is mild fatty atrophy of the paraspinous soft tissues musculature. Postoperative change is noted at the operative levels. The retroperitoneal structures are grossly unremarkable but incompletely imaged. IMPRESSION: 1. Postoperative and spondylotic change as above. See discussion for detailed level by level analysis. 2. No destructive bony process is identified. 3. Degenerative endplate change as above. MDM Narrative This patient is a 59-year-old male who presents to the emergency department for evaluation of severe low back pain. Patient has had back pain for some time but states it has been getting worse. He has had a lot of difficulty ambulating at home and states there have been times that he is stuck in bed for several hours, unable to get up and care for himself. Apparently he has been urinating himself because he is not able to get up and go to the bathroom. An MRI of the lumbar spine was performed and does not show any acute concerning findings. Patient was treated with Dilaudid in the emergency department. On assessment, he felt better while lying down, but was still unable to stand. I did attempt to help the patient out of bed and was physically unable to get him to stand up. Given his ambulatory dysfunction, patient may benefit from a stay at a rehabilitation facility. I spoke with case management who recommended the patient be admitted as they would not be able to arrange this this morning. [facility] the patient for further care. Impression & Plan Intractable back pain, Ambulatory dysfunction Discharge Plan Visit Data Chief Complaint: Back Injury/Pain Stated Complaint: BACK PAIN ED Provider: Mayo Cook ED Midlevel Provider: Shala Wakefield Discharge Problem: Intractable back pain, Ambulatory dysfunction Patient Disposition: Admitted As Inpatient Discharge Instructions Interventions: ED Discharge Assessment Last Done: 09/02/20 12:57
[2020-09-02] MEDS ORDERED: HYDROmorphone INJ 1 MG/ML SYRINGE IV STA (05:42)
[2020-09-02] MEDS ORDERED: KETOROLAC TROMETHAMINE 15 MG/ML VIAL IV STA (07:39)
--- NOTE | 2020-09-02 07:41 | Magnetic Resonance Report ---
MRI OF THE LUMBAR SPINE WITHOUT IV CONTRAST CLINICAL HISTORY: Low back pain. COMPARISON STUDY: CT of the lumbar spine dated 05/08/2020. TECHNIQUE: MRI of the lumbar spine is performed utilizing various T1 and T2-weighted sequences in the axial and sagittal planes. IV contrast was not administered for this examination. The examination is modestly degraded by motion artifact. FINDINGS: Lumbar spine: Vertebral body height and alignment are maintained throughout the lumbar spine. There i s straightening of the lumbar lordosis. Small anterior osteophytes are seen throughout. There is post operative change from laminectomy and posterior fusion seen at L3-L4. Intrapedicular screws are in pl sharlene. The transverse processes appear intact. There is no MRI evidence of spondylolysis. No destructiv e bony lesion is seen. Advanced chronic degenerative endplate change is seen at L3-L4. Minimal endpla te edema is noted at L1-L2. Intervertebral discs: There has been discectomy at L3-L4. Degenerative disc desiccation and mild loss of height is seen at the remaining lumbar levels. Spinal cord: The visualized spinal cord is normal in morphology and signal intensity. The conus medul sue terminates at the level of L1. The nerve roots of the cauda equina are normal in morphology. L1-L2: There is broad-based posterior disc bulge with annular fissure. In conjunction with hypertroph y of the ligamentum flavum there is moderate central canal stenosis of this level with a minimum AP d iameter of 5 mm. This abuts the transiting nerve roots. There is bilateral subarticular stenosis. Thi s contributes to mild bilateral neural foraminal narrowing. L2-L3: There is right lateral disc bulge. This causes subarticular stenosis and impinges on the exiti ng right L2 nerve root. This also abuts the transiting nerve roots. There is mild acquired compromise of the central canal at this level with a minimum AP diameter of 8 mm. There is moderate bilateral n eural foraminal stenosis, right greater than left. L3-L4: The central canal and neural foramen are grossly clear. L4-L5: There is posterior disc bulge with annular fissure. There is mild central canal stenosis which is likely on a congenital basis. The minimum AP diameter measures 8 mm. There is right greater than left side subarticular stenosis. This may impinge on the exiting bilateral L4 nerve roots. There is m oderate to severe right greater than left neural foraminal stenosis in conjunction with facet arthrop athy. L5-S1: The central canal is clear. Facet arthropathy contributes to mild bilateral neural foraminal n arrowing. Sacrum: The visualized sacrum is normal in morphology and signal intensity. Soft tissues: There is mild fatty atrophy of the paraspinous soft tissues musculature. Postoperative change is noted at the operative levels. The retroperitoneal structures are grossly unremarkable but incompletely imaged. IMPRESSION: 1. Postoperative and spondylotic change as above. See discussion for detailed level by level analysis . 2. No destructive bony process is identified. 3. Degenerative endplate change as above. Dictated: 09/02/2020 7:09 AM Transcribed: 09/02/2020 7:37 AM Dannielle [id number] [email or web address] Electronically signed by: Jaycob Ken M.D. 09/02/2020 7:39 AM
[2020-09-02] MEDS ORDERED: ONDANSETRON INJ 2 MG/ML 2 ML VIAL IV PRN (12:41)
[2020-09-02] MEDS ORDERED: oxyCODONE/ACETAMINOPHEN 5mg/325mg TAB PO PRN (12:41)
[2020-09-02] MEDS ORDERED: ACETAMINOPHEN 325 MG TAB PO PRN (12:41)
--- NOTE | 2020-09-02 12:54 | History & Physical Report ---
Date of Service September 02, 2020 Assessment & Plan (1) Acute exacerbation of chronic low back pain: Plan: Attending: Dr. Cabrera Patient previously seen Dr. Patterson MRI today with no significant change from prior I did speak with Dr. Patterson and there is no surgical option at this time Consult placed with pain management for consideration of injection In the meantime, patient had no result with prednisone. We will start a Medrol Dosepak and see if that helps Dilaudid as needed for pain Toradol as needed for pain Oxycodone as needed for pain Patient has been undergoing physical therapy as an outpatient. Continue this on discharge (2) Status post spinal surgery: Plan: No indication for surgical consult at this time. I did speak with Dr. Patterson and reviewed his outpatient notes. Consult pain management for consideration of spinal injection (3) Essential hypertension: Plan: Continue usual home medications No chest pain or tightness (4) BPH (benign prostatic hypertrophy): Plan: Recent prostatectomy for prostatitis with Dr. Shawn Brock Continue tamsulosin Further management per outpatient urology (5) Diabetes mellitus type 2, uncontrolled: Plan: Poorly controlled Most recent hemoglobin A1c is greater than 11 Patient reports that he is only on Metformin 500 mg p.o. twice daily at home Would most likely benefit from insulin Checking hemoglobin A1c with a.m. labs We will start the patient on Lantus twice daily as well as an aggressive sliding scale insulin with NovoLog Afternoon BSG was over 400 If no improvement with Lantus administration, may need to consider insulin drip We will also consult diabetic education (6) DVT prophylaxis: Plan: Patient with limited ambulation secondary to pain Lovenox started May need to hold Lovenox if pain management chooses to do spinal injection Ambulate as tolerated (7) Tobacco abuse: Plan: Discussed need for abstinence Patient does not feel that he needs a nicotine patch at this time Admission and Anticipated Discharge Date Admission Date: September 02, 2020 History of Present Illness Chief Complaint: Back pain Primary Care Provider: Getachew Weber III, ELIZABETH This is a 59-year-old male with a past medical history of prostatitis, hypertension, city, BPH, diabetes mellitus type 2 on oral agents, and tobacco abuse. The patient reports that he has had significant back pain for approximate last month. He has been on oxycodone as well as prednisone at home with limited relief. He previously had an appointment with pain clinic but had to cancel secondary to transportation issues. He presents today with increased pain and states he is unable to sleep for several days as pain just getting out of bed. Sitting upright in the chair, the pain tends to lighten but is soon as he stands to walk he experiences crippling spasm. He states that the Toradol and the Dilaudid given to him in the emergency department had no effect. Patient denies any trauma or acute injury to the back. He has no fever or chills. He has no incontinence of urine or stool. He has no recent travel. He has no recent illness. He denies nausea or vomiting or diarrhea. Aside from the pain, he has no acute complaints. Allergies Allergy/AdvReac Type Severity Reaction Status Date / Time bee venom protein (honey bee) Allergy Severe ANAPHYLAXIS Verified 09/02/20 14:46 grape Allergy Severe Anaphylaxis Verified 09/02/20 14:46 Home Medications Medication Instructions Recorded Confirmed Type tamsulosin 0.4 mg capsule 0.4 mg PO QAM #30 cap 05/07/20 09/02/20 Rx epinephrine 0.3 mg/0.3 mL 0.3 mg IM DIRECTED PRN 05/14/20 09/02/20 History injection, auto-injector lisinopril 5 mg tablet 5 mg PO QAM 08/19/20 09/02/20 History meloxicam 7.5 mg tablet 7.5 mg PO QAM 08/19/20 09/02/20 History pantoprazole 20 mg tablet,delayed 20 mg PO QAM 08/19/20 09/02/20 History release metformin 500 mg tablet 500 mg PO BID 09/02/20 09/02/20 History Past Med/Surg History Medical History (Updated 09/02/20 @ 16:03 by Jaycob Reaves PA-C) Acute kidney injury Back pain BPH (benign prostatic hypertrophy) DDD (degenerative disc disease) DM type 2 (diabetes mellitus, type 2) NIDDM Lumbar degenerative disc disease Nocturnal hypoxia reports he was told his oxygen saturation dropped into the 70s while sleeping during his hospital stay 04/2020 [place] Per 05/09/20 Discharge Summary: ADRIANA suspected, poor sleep reported. Overnight pulse ox with need for supplemental O2 HS- pt declined overnight O2- pt will need to follow up as outpatient Tobacco abuse Umbilical hernia Surgical History History of lumbar surgery History of transurethral prostatectomy 05/2020 History of wisdom tooth extraction Family History Aunt History of anesthesia reaction "I had an aunt that from anesthesia." -- pt unable to provide specifics; unsure of MH, PD diagnosis; pt denies personal hx of issues with anesthesia Other Family history of diabetes mellitus Social History Smoking Status: Unknown if ever smoked Tobacco Type: Cigarettes Age Started Using Tobacco: 10; Second Hand Exposure: Yes; Hx Alcohol Use: No Preferred Language: Sami Communication Ability: Effective Visual Impairment: No Limitations Hearing Ability: Normal Census Clerk Required: No Beliefs That Will Affect Care: None Current Living Situation: Alone current occupational status: unemployed How many Children do You have: 2 Feels Safe at Home: Yes Childhood Exposure to Second-Hand Smoke: Yes caffeine: Yes during the past year weight has: remained stable Dental Care, Regularly: No Physical Activity Frequency: Does not Exercise Seatbelt Use: always Sunscreen Use: Yes Assistive Devices: None Review of Systems Review of Systems: 12 systems were reviewed and all are negative other than as listed in the HPI Physical Exam Physical Exam: GENERAL : No acute distress. Sitting in bedside chair EYES: No icterus, gaze conjugate. Pupils equal round and reactive to light NOSE: No evidence of epistaxis. MOUTH: No lesions or candidiasis. Mucosa is moist NECK: Supple. No evidence of carotid bruits LUNGS: CTA B/L, no wheezes, rales or rhonchi HEART: Regular, rate controlled. No appreciation of murmurs gallops or rubs ABDOMEN: Soft, NT, ND, BS Present EXTREMITIES: No LE edema, pedal pulses intact. Poor hygiene of nails NEURO: A&OX3 Results & Data Results & Data ([facility]) Vital Signs (Past 12 Hours) Vital Signs Temp Pulse Pulse Resp BP BP Pulse Ox 09/02/20 10:30 90 18 179/97 H 09/02/20 08:30 72 16 148/86 H 96 09/02/20 06:30 87 20 153/107 H 98 09/02/20 04:46 36.5 C 79 18 175/88 H 96 Laboratory Results No labs drawn. Will check PT/INR, APTT, CBC COVID-19 negative Diagnostic Findings MRI OF THE LUMBAR SPINE WITHOUT IV CONTRAST CLINICAL HISTORY: Low back pain. COMPARISON STUDY: CT of the lumbar spine dated 05/08/2020. TECHNIQUE: MRI of the lumbar spine is performed utilizing various T1 and T2- weighted sequences in the axial and sagittal planes. IV contrast was not administered for this examination. The examination is modestly degraded by motion artifact. FINDINGS: Lumbar spine: Vertebral body height and alignment are maintained throughout the lumbar spine. There is straightening of the lumbar lordosis. Small anterior osteophytes are seen throughout. There is postoperative change from laminectomy and posterior fusion seen at L3-L4. Intrapedicular screws are in place. The transverse processes appear intact. There is no MRI evidence of spondylolysis. No destructive bony lesion is seen. Advanced chronic degenerative endplate change is seen at L3-L4. Minimal endplate edema is noted at L1-L2. Intervertebral discs: There has been discectomy at L3-L4. Degenerative disc desiccation and mild loss of height is seen at the remaining lumbar levels. Spinal cord: The visualized spinal cord is normal in morphology and signal intensity. The conus medullaris terminates at the level of L1. The nerve roots of the cauda equina are normal in morphology. L1-L2: There is broad-based posterior disc bulge with annular fissure. In conjunction with hypertrophy of the ligamentum flavum there is moderate central canal stenosis of this level with a minimum AP diameter of 5 mm. This abuts the transiting nerve roots. There is bilateral subarticular stenosis. This contributes to mild bilateral neural foraminal narrowing. L2-L3: There is right lateral disc bulge. This causes subarticular stenosis and impinges on the exiting right L2 nerve root. This also abuts the transiting nerve roots. There is mild acquired compromise of the central canal at this level with a minimum AP diameter of 8 mm. There is moderate bilateral neural foraminal stenosis, right greater than left. L3-L4: The central canal and neural foramen are grossly clear. L4-L5: There is posterior disc bulge with annular fissure. There is mild central canal stenosis which is likely on a congenital basis. The minimum AP diameter measures 8 mm. There is right greater than left side subarticular stenosis. This may impinge on the exiting bilateral L4 nerve roots. There is moderate to severe right greater than left neural foraminal stenosis in conjunction with facet arthropathy. L5-S1: The central canal is clear. Facet arthropathy contributes to mild bilateral neural foraminal narrowing. Sacrum: The visualized sacrum is normal in morphology and signal intensity. Soft tissues: There is mild fatty atrophy of the paraspinous soft tissues musculature. Postoperative change is noted at the operative levels. The ret roperitoneal structures are grossly unremarkable but incompletely imaged. IMPRESSION: 1. Postoperative and spondylotic change as above. See discussion for detailed level by level analysis. 2. No destructive bony process is identified. 3. Degenerative endplate change as above. Dictated: 09/02/2020 7:09 AM Transcribed: 09/02/2020 7:37 AM Dannielle [id number] HARI_Denise Electronically signed by: Jaycob Ken M.D. 09/02/2020 7:39 AM Code Status & VTE Plan Code Status Full code, resuscitation level I VTE Prophylaxis Plan VTE Prophylaxis will be ordered: Yes Supervising Physician Co-Signing Physician Notes Patient seen and examined with Jaycob KOHLI. I agree with his exam findings, review of systems, assessment and plan. I personally reviewed the lab work and imaging as well. patient in severe low back pain, has been on the couch for weeks now, pain did not improve with Prednisone taper, Oxycodone at home he has followed with Dr Hall, images reviewed with him, nothing surgical, he recommends pain management consultation - Severe low back pain, h/o radicular lumbar pain, s/p surgery consult pain management PT/OT Medrol dose pack - DM type II: poorly controlled, he admits that all he does is sit on the couch and eat he has very little else to do difficult to lose weight when you cannot exercise will start on Lantus and Novolog SS, monitor for hyperglycemia or hypoglycemia, he is new to insulin diabetic diet PG Care Time/CCT Total # of Minutes Spent Total Time Spent with Patient: Total time spent is greater than 50% in coordination of care (as documented) at patient's floor/unit and/or counseling patient: 60 Coding Level of Care Code 88329 Initial Inpt Care Lvl 3 Diagnoses Acute exacerbation of chronic low back pain M54.5; G89.29 Status post spinal surgery Z98.890 Essential hypertension I10 BPH (benign prostatic hypertrophy) N40.0 Diabetes mellitus type 2, uncontrolled E11.65 DVT prophylaxis Z29.9 Tobacco abuse Z72.0 Time Spent (min) 60
[2020-09-02] MEDS ORDERED: HYDROmorphone INJ 0.5 MG/0.5 ML SYR IV PRN (12:55)
[2020-09-02] MEDS ORDERED: methylPREDNISolone 4 MG TAB, 6 DAY TAPER PO SCH (13:00)
[2020-09-02 13:23] LABS: Basophils # (auto) 0.01 K/uL (0-0.2); Basophils % (auto) 0.1 %; Eosinophils # (auto) 0.08 K/uL (0-0.5); Hematocrit (blood only) 42.1 % (42-52); Hemoglobin 14.3 g/dL (14.0-18.0); Immature Granulocytes # (auto) 0.03 K/uL (0.00-0.02); Immature Granulocytes % (auto) 0.4 %; Lymphocytes # (auto) 1.73 K/uL (1.2-3.4); Lymphocytes % (auto) 22.1 %; Mean Corpuscular Volume 88.4 fL (80-100); Mean Platelet Volume 11.2 fL (7.4-10.4); Monocytes # (auto) 0.66 K/uL (0.11-0.59); Monocytes % (auto) 8.4 %; Neutrophils # (auto) 5.31 K/uL (1.4-6.5); Platelet Count 267 K/uL (130-400); Red Blood Count 4.76 M/uL (4.7-6.1); White Blood Count 7.82 K/uL (4.8-10.8)
[2020-09-02] MEDS ORDERED: methylPREDNISolone 4 MG TAB PO SCH ×3 (13:30→21:00)
[2020-09-02 13:35] LABS: Partial Thromboplastin Ratio 0.9; Partial Thromboplastin Time 23.1 Seconds (21.0-31.0); Prothrombin Time 9.9 Seconds (9.0-12.0)
[2020-09-02] MEDS: TAMSULOSIN HCL 0.4 MG CAP PO SCH (13:55)
[2020-09-02] MEDS: MELOXICAM 7.5 MG TAB PO SCH (13:55)
[2020-09-02] MEDS: lisinopril 5 MG TAB PO SCH (13:55)
[2020-09-02] MEDS: ENOXAPARIN INJ 40 MG/0.4 ML SYR SQ SCH (13:56)
[2020-09-02] MEDS: PANTOprazole 40 MG TAB PO SCH (13:58)
[2020-09-02 14:01] LABS: BUN Creatinine Ratio 24.8 (10-20); Calcium 8.7 mg/dl (8.5-10.1); Creatinine Clr Calc Pharmacy 110.6 ml/min; Est GFR (African American) 93.5 ml/min; Est GFR (Non-African American) 80.6 ml/min; Potassium 3.8 mmol/L (3.5-5.1)
[2020-09-02 14:28] LABS: Beta-Hydroxybutyrate 1.55 mg/dl (0.2-2.81)
[2020-09-02] MEDS ORDERED: CARBOHYDRATES FOR HYPOGLYCEMIA PO PRN (14:50)
[2020-09-02] MEDS ORDERED: GLUCOSE 40% GEL 15 GM TUBE PO PRN (14:50)
[2020-09-02] MEDS ORDERED: DEXTROSE 50% 50 ML SYRINGE IV PRN (14:50)
[2020-09-02] MEDS ORDERED: GLUCAGON FOR INJ 1 MG VIAL SQ PRN (14:50)
[2020-09-02] MEDS ORDERED: GLUCOSE 10 TABS/TUBE PO PRN (14:50)
[2020-09-02] MEDS ORDERED: INSULIN GLARGINE SOLOSTAR 100 UNITS/ML 3 ML PEN SC SCH (15:00)
[2020-09-02] MEDS: KETOROLAC TROMETHAMINE 15 MG/ML VIAL IV PRN (18:01)
[2020-09-02] MEDS: INSULIN ASPART 100 UNITS/ML 3 ML PEN SC SCH ×2 (18:14→21:22)
[2020-09-02] MEDS ORDERED: PHARMACY GLYCEMIC MGMT CONSULT PRN (21:09)
--- NOTE | 2020-09-03 00:02 | Pharmacy Report ---
Pharmacy Glycemic Short Note 2 - Date of Service September 02, 2020 - Glycemic Short BSG Results (Last 24 hours): 09/02/20 09/02/20 09/02/20 13:09 16:11 17:52 Glucose 422 H* POC Glucose 348 H* 399 H* 09/02/20 09/02/20 20:43 20:45 Glucose POC Glucose 399 H* 343 H* OUTPATIENT ANTIDIABETIC REGIMEN: * Metformin 500 mg PO BIDM * HbA1c pending ASSESSMENT: * 59 yo M admitted secondary to intractable back pain. Pharmacy has been consulted to assist with inpatient glycemic management. * Admission BSG was 422 mg/dL. Patient was started on a Medrol Dose Silver, received 12 mg at lunch, 4 mg at dinner and 8 mg at bedtime today. Will continue to follow dosing to help manage steroid-induced hyperglycemia. * BSG was 399 mg/dL at dinner and 343 mg/dL at bedtime. * Tightened carb ratio upon pharmacy consult. Patient received 25 units of Lantus at ~1830 this evening. Will defer further basal dosing until tomorrow morning. Plan to correct patient this evening with aggressive bolus parameter s. * Tightened goal range as well PLAN FOR INPATIENT GLYCEMIC CONTROL: * Hold outpatient oral diabetes medications * Basal insulin * Lantus 25 units SQ x 1 * Bolus insulin * NovoLog per scale ACHS or Q6hrs while NPO * Goal Range: Low 110 mg/dL - High 140 mg/dL * Correction Factor: 10 mg/dL/unit * Nutritional / Prandial insulin per carb ratio of 1 unit per 3 grams CHO consumed PLAN FOR DISCHARGE: * To be determined
[2020-09-03] MEDS: INSULIN ASPART 100 UNITS/ML 3 ML PEN SC SCH ×5 (00:06→17:46)
[2020-09-03] MEDS: ENOXAPARIN INJ 40 MG/0.4 ML SYR SQ SCH (00:07)
[2020-09-03] MEDS: methylPREDNISolone 4 MG TAB PO SCH ×3 (05:55→17:48)
[2020-09-03] MEDS: PANTOprazole 40 MG TAB PO SCH (07:43)
[2020-09-03] MEDS: TAMSULOSIN HCL 0.4 MG CAP PO SCH (07:44)
[2020-09-03] MEDS: lisinopril 5 MG TAB PO SCH (07:44)
[2020-09-03] MEDS: MELOXICAM 7.5 MG TAB PO SCH (07:44)
[2020-09-03 08:17] LABS: Estimated Average Glucose 303 mg/dl; Hemoglobin A1C 12.2 % (4.5-5.6)
[2020-09-03] MEDS ORDERED: BACLOFEN 10 MG TAB PO PRN (08:45)
--- NOTE | 2020-09-03 08:50 | Pain Management Consultation ---
Date of Consultation September 03, 2020 Assessment & Plan (1) DDD (degenerative disc disease), lumbar: (2) Morbid obesity with BMI of 40.0-44.9, adult: Patient states that his pain has significantly improved since yesterday. He thinks either the Toradol last night or the Medrol pack has provided the relief. He is able to get out of bed and ambulate today. He has not required any of the Percocet or Dilaudid that has been ordered for him. I would recommend discharge to home with Medrol Silver and an NSAID. Continue physical therapy. He can follow up with our office as scheduled on 09/20/20 at 10:45. He may be a candidate for outpatient left sided medial branch block and radiofrequency ablation if pain continues. Thank you for the consultation. Please call with any questions or concerns. History of Present Illness Reason for Consultation: Back pain Attending Physician: Ady Cabrera DO History of Present Illness Mr. Harding is a 59 year old obese male that has been admitted for intractable low back pain. He does have a prior history of L3-[address] Sofia in 2007. Patient states that the pain has been ongoing for 1 month and has worsened over the last 4 days to where he was unable to get out of bed or couch due to the pain for 12 + hours at a time. He was urinating himself not due to incontinence but because it was increasingly painful to get off of the couch/bed. Outpatient he has tried Physical therapy, Percocet and Prednisone without relief. He was prescribed an NSAID but did not pick it up. He has seen Dr. Patterson for evaluation and referred to pain management for possible i njections. He is scheduled for consultation in the pain clinic on 09/20/2020. He will occasionally experience a sharp pain along the lateral thigh. He has been given Medrol silver and one dose of Toradol since admission yesterday and states that this pain has significantly improved. He has not utilized any Percocet or IV Dilaudid since admission. No bowel/bladder incontinence, saddle anesthesia, foot drop, or falls. Pain Assessment Full Body Front + Back: 1. Allergies Allergy/AdvReac Type Severity Reaction Status Date / Time bee venom protein (honey bee) Allergy Severe ANAPHYLAXIS Verified 09/02/20 14:46 grape Allergy Severe Anaphylaxis Verified 09/02/20 14:46 Home Medications Medication Instructions Recorded Confirmed Type tamsulosin 0.4 mg capsule 0.4 mg PO QAM #30 cap 05/07/20 09/02/20 Rx epinephrine 0.3 mg/0.3 mL 0.3 mg IM DIRECTED PRN 05/14/20 09/02/20 History injection, auto-injector lisinopril 5 mg tablet 5 mg PO QAM 08/19/20 09/02/20 History meloxicam 7.5 mg tablet 7.5 mg PO QAM 08/19/20 09/02/20 History pantoprazole 20 mg tablet,delayed 20 mg PO QAM 08/19/20 09/02/20 History release metformin 500 mg tablet 500 mg PO BID 09/02/20 09/02/20 History Patient History Medical History (Updated 09/03/20 @ 00:08 by Pietro Delgadillo) Acute kidney injury Back pain BPH (benign prostatic hypertrophy) DDD (degenerative disc disease) DM type 2 (diabetes mellitus, type 2) NIDDM Lumbar degenerative disc disease Nocturnal hypoxia reports he was told his oxygen saturation dropped into the 70s while sleeping during his hospital stay 04/2020 [place] Per 05/09/20 Discharge Summary: ADRIANA suspected, poor sleep reported. Overnight pulse ox with need for supplemental O2 HS- pt declined overnight O2- pt will need to follow up as outpatient Tobacco abuse Umbilical hernia Surgical History History of lumbar surgery History of transurethral prostatectomy 05/2020 History of wisdom tooth extraction Family History Aunt History of anesthesia reaction "I had an aunt that from anesthesia." -- pt unable to provide specifics; unsure of MH, PD diagnosis; pt denies personal hx of issues with anesthesia Other Family history of diabetes mellitus Social History Smoking Status: Unknown if ever smoked Tobacco Type: Cigarettes Age Started Using Tobacco: 10; Second Hand Exposure: Yes; Hx Alcohol Use: No Preferred Language: Icelandic Communication Ability: Effective Visual Impairment: No Limitations Hearing Ability: Normal Senior Accounts Payable Specialist Required: No Beliefs That Will Affect Care: None Current Living Situation: Alone current occupational status: unemployed How many Children do You have: 2 Feels Safe at Home: Yes Childhood Exposure to Second-Hand Smoke: Yes caffeine: Yes during the past year weight has: remained stable Dental Care, Regularly: No Physical Activity Frequency: Does not Exercise Seatbelt Use: always Sunscreen Use: Yes Assistive Devices: None Physical Exam Physical Exam: GENERAL: This is a morbidly obese 59 year old male. Poor hygiene. Does not appear in any acute distress. HEAD/FACE: Normocephalic and atraumatic. EYES: No drainage or conjunctival injection. ENT: Nose without bleeding or discharge. Oral mucosa moist. NECK: Full ROM without apparent pain. No swelling or masses noted. RESPIRATORY: Patient with unlabored breathing. No signs of respiratory distress. CHEST/AXILLA: Chest movement symmetrical. No deformities noted. ABDOMEN/GI: No distension BACK: Well healed surgical incision along the lumbar midline. Decreased ROM. There is focal tenderness along the left L4-S1 facet joints with mild overlying muscle spasm. No SI joint tenderness. SKIN: [place], warm and dry. No rash noted. MS/EXTREMITY: No swelling, no deformities. Moving extremities appropriately. NEURO: Alert and appears oriented. Speech is fluent. Cranial Nerves are grossly intact. PSYCH: Alert, pleasant, affect is calm Results (Pain Clinic) Diagnostic Review MRI Findings: MRI OF THE LUMBAR SPINE WITHOUT IV CONTRAST CLINICAL HISTORY: Low back pain. COMPARISON STUDY: CT of the lumbar spine dated 05/08/2020. TECHNIQUE: MRI of the lumbar spine is performed utilizing various T1 and T2- weighted sequences in the axial and sagittal planes. IV contrast was not administered for this examination. The examination is modestly degraded by motion artifact. FINDINGS: Lumbar spine: Vertebral body height and alignment are maintained throughout the lumbar spine. There is straightening of the lumbar lordosis. Small anterior osteophytes are seen throughout. There is postoperative change from laminectomy and posterior fusion seen at L3-L4. Intrapedicular screws are in place. The transverse processes appear intact. There is no MRI evidence of spondylolysis. No destructive bony lesion is seen. Advanced chronic degenerative endplate change is seen at L3-L4. Minimal endplate edema is noted at L1-L2. Intervertebral discs: There has been discectomy at L3-L4. Degenerative disc desiccation and mild loss of height is seen at the remaining lumbar levels. Spinal cord: The visualized spinal cord is normal in morphology and signal intensity. The conus medullaris terminates at the level of L1. The nerve roots of the cauda equina are normal in morphology. L1-L2: There is broad-based posterior disc bulge with annular fissure. In conjunction with hypertrophy of the ligamentum flavum there is moderate central canal stenosis of this level with a minimum AP diameter of 5 mm. This abuts the transiting nerve roots. There is bilateral subarticular stenosis. This c ontributes to mild bilateral neural foraminal narrowing. L2-L3: There is right lateral disc bulge. This causes subarticular stenosis and impinges on the exiting right L2 nerve root. This also abuts the transiting nerve roots. There is mild acquired compromise of the central canal at this level with a minimum AP diameter of 8 mm. There is moderate bilateral neural foraminal stenosis, right greater than left. L3-L4: The central canal and neural foramen are grossly clear. L4-L5: There is posterior disc bulge with annular fissure. There is mild central canal stenosis which is likely on a congenital basis. The minimum AP diameter measures 8 mm. There is right greater than left side subarticular stenosis. This may impinge on the exiting bilateral L4 nerve roots. There is moderate to severe right greater than left neural foraminal stenosis in conjunction with facet arthropathy. L5-S1: The central canal is clear. Facet arthropathy contributes to mild bilateral neural foraminal narrowing. Sacrum: The visualized sacrum is normal in morphology and signal intensity. Soft tissues: There is mild fatty atrophy of the paraspinous soft tissues musculature. Postoperative change is noted at the operative levels. The retroperitoneal structures are grossly unremarkable but incompletely imaged. IMPRESSION: 1. Postoperative and spondylotic change as above. See discussion for detailed level by level analysis. 2. No destructive bony process is identified. 3. Degenerative endplate change as above. Dictated: 09/02/2020 7:09 AM Transcribed: 09/02/2020 7:37 AM Dannielle [id number] HARI_Denise Electronically signed by: Jaycob Ken M.D. 09/02/2020 7:[address] Findings: CT lumbar spine w con CT DOSE: 1730.02 mGy.cm CLINICAL HISTORY: Low back and abdominal pain. TECHNIQUE: Helical images were acquired in the transverse plane. Sagittal and coronal reformatted images were acquired. Images were acquired following administration of 94 cc of Optiray 320 A dose lowering technique was utilized adhering to the principles of ALARA. COMPARISON STUDY: MRI performed December 2009, x-ray performed June 2014 FINDINGS: There is a transitional vertebra. The numbering scheme utilized assumes that the first nonrib-bearing vertebra is L1. L1-2 level: There is a minor circumferential disc bulge. There is no significant spinal or foraminal stenosis L2-3 level: There is a mild circumferential disc bulge. There is mild spinal stenosis. There is no significant foraminal narrowing L 3-4 level: There is circumferential disc bulge. There is mild spinal stenosis. There is facet joint arthropathy. L4-5 level: There are postsurgical changes of discectomy and interbody fusion. There is posterior pedicle screw fixation. There are postlaminectomy changes. There is no significant spinal stenosis. There is mild right-sided foraminal narrowing. L5-S1 level: There is a circumferential disc bulge. There is no significant spinal stenosis. There is mild bilateral foraminal narrowing. No acute fractures are visualized. There are no pathologically enhancing masses. IMPRESSION: 1. No acute fractures or traumatic subluxations 2. Postsurgical and degenerative change. Multilevel mild spinal stenosis. ACT 112: Negative or not required by law. Electronically signed by: Jerome Huber M.D. 05/08/2020 1:16 PM
[2020-09-03] MEDS ORDERED: INSULIN GLARGINE SOLOSTAR 100 UNITS/ML 3 ML PEN SC SCH ×2 (09:00→21:00)
--- NOTE | 2020-09-03 09:02 | Pharmacy Report ---
Pharmacy Glycemic Short Note 2 - Date of Service September 03, 2020 - Glycemic Short BSG Results (Last 24 hours): 09/02/20 09/02/20 09/02/20 13:09 16:11 17:52 Glucose 422 H* POC Glucose 348 H* 399 H* 09/02/20 09/02/20 09/03/20 20:43 20:45 00:04 Glucose POC Glucose 399 H* 343 H* 209 H 09/03/20 09/03/20 03:54 07:39 Glucose POC Glucose 199 H 222 H OUTPATIENT ANTIDIABETIC REGIMEN: * Metformin 500 mg PO BIDM * HbA1c: 12.2% (09/02/20) ASSESSMENT: 09/03: * BSGs corrected overnight, 343 -> 209 -> 199 mg/dL with overnight checks * Given elevated A1c, ongoing Medrol Dose Silver taper, and AM fasting BSG of 222 mg/dL - will plan on full weight-based stress of 2 Lantus with continued aggressive Novolog parameters 09/02: * 59 yo M admitted secondary to intractable back pain. Pharmacy has been consulted to assist with inpatient glycemic management. * Admission BSG was 422 mg/dL. Patient was started on a Medrol Dose Silver, received 12 mg at lunch, 4 mg at dinner and 8 mg at bedtime today. Will continue to follow dosing to help manage steroid-induced hyperglycemia. * BSG was 399 mg/dL at dinner and 343 mg/dL at bedtime. * Tightened carb ratio upon pharmacy consult. Patient received 25 units of Lantus at ~1830 this evening. Will defer further basal dosing until tomorrow morning. Plan to correct patient this evening with aggressive bolus parameters. * Tightened goal range as well PLAN FOR INPATIENT GLYCEMIC CONTROL: * Hold outpatient oral diabetes medications * Basal insulin * Lantus 23 units SC this morning * Lantus 23-34 units SC BID starting this evening * Reassess in AM * Bolus insulin * NovoLog per scale ACHS or Q6hrs while NPO * Goal Range: Low 110 mg/dL - High 140 mg/dL * Correction Factor: 8 mg/dL/unit * Nutritional / Prandial insulin per carb ratio of 1 unit per 3 grams CHO consumed PLAN FOR DISCHARGE: * HbA1c of 12.2% is significantly above goal of less than 7% * Based on A1c greater than 10%, triple therapy should be considered * Patient is currently not on maximum dose of metformin - continue to titrate outpatient metformin dosing upwards as recommended. Dosage increases should be made in increments of 500 mg weekly, up to 2,000 mg/day PO, given in divided doses. * Initiate basal insulin (Glargine/Detemir/Degludec) - dose to be determined * Consider addition of GLP-1RA or prandial insulin (Novolog/Humalog/regular insulin)
[2020-09-03 10:40] LABS: BUN Creatinine Ratio 20.6 (10-20); Calcium 8.4 mg/dl (8.5-10.1); Creatinine Clr Calc Pharmacy 110.6 ml/min; Est GFR (African American) 93.5 ml/min; Est GFR (Non-African American) 80.6 ml/min; Potassium 4.2 mmol/L (3.5-5.1)
--- NOTE | 2020-09-03 17:35 | Discharge Summary ---
Date of Service September 03, 2020 Admission HPI Per Admitting Provider This is a 59-year-old male with a past medical history of prostatitis, hypertension, city, BPH, diabetes mellitus type 2 on oral agents, and tobacco abuse. The patient reports that he has had significant back pain for approximate last month. He has been on oxycodone as well as prednisone at home with limited relief. He previously had an appointment with pain clinic but had to cancel secondary to transportation issues. He presents today with increased pain and states he is unable to sleep for several days as pain just getting out of bed. Sitting upright in the chair, the pain tends to lighten but is soon as he stands to walk he experiences crippling spasm. He states that the Toradol and the Dilaudid given to him in the emergency department had no effect. Patient denies any trauma or acute injury to the back. He has no fever or chills. He has no incontinence of urine or stool. He has no recent travel. He has no recent illness. He denies nausea or vomiting or diarrhea. Aside from the pain, he has no acute complaints. Admission Exam Per Admitting Provider GENERAL : No acute distress. Sitting in bedside chair EYES: No icterus, gaze conjugate. Pupils equal round and reactive to light NOSE: No evidence of epistaxis. MOUTH: No lesions or candidiasis. Mucosa is moist NECK: Supple. No evidence of carotid bruits LUNGS: CTA B/L, no wheezes, rales or rhonchi HEART: Regular, rate controlled. No appreciation of murmurs gallops or rubs ABDOMEN: Soft, NT, ND, BS Present EXTREMITIES: No LE edema, pedal pulses intact. Poor hygiene of nails NEURO: A&OX3 Principal Diagnosis Intractable back pain Discharge Exam GENERAL : No acute distress. Sitting in bedside chair. Talkative. Pleasant EYES: No icterus, gaze conjugate. NOSE: No evidence of epistaxis. MOUTH: No lesions or candidiasis. Mucosa is moist NECK: Supple. LUNGS: CTA B/L, no wheezes, rales or rhonchi HEART: Regular, rate controlled. No appreciation of murmurs gallops or rubs ABDOMEN: Soft, NT, ND, BS Present EXTREMITIES: No LE edema, pedal pulses intact. Sensation to bilateral feet and toes intact. NEURO: A&OX3 Discharge Data Allergies Allergy/AdvReac Type Severity Reaction Status Date / Time bee venom protein (honey bee) Allergy Severe ANAPHYLAXIS Verified 09/02/20 14:46 grape Allergy Severe Anaphylaxis Verified 09/02/20 14:46 Consultations 09/02/20 07:45 ED Decision to Admit Stat 09/02/20 13:00 Consult Pain Management Routine Ordered Studies 09/02/20 05:00 MR lumbar spine wo con Stat MRI OF THE LUMBAR SPINE WITHOUT IV CONTRAST CLINICAL HISTORY: Low back pain. COMPARISON STUDY: CT of the lumbar spine dated 05/08/2020. TECHNIQUE: MRI of the lumbar spine is performed utilizing various T1 and T2- weighted sequences in the axial and sagittal planes. IV contrast was not administered for this examination. The examination is modestly degraded by motion artifact. FINDINGS: Lumbar spine: Vertebral body height and alignment are maintained throughout the lumbar spine. There is straightening of the lumbar lordosis. Small anterior osteophytes are seen throughout. There is postoperative change from laminectomy and posterior fusion seen at L3-L4. Intrapedicular screws are in place. The transverse processes appear intact. There is no MRI evidence of spondylolysis. No destructive bony lesion is seen. Advanced chronic degenerative endplate change is seen at L3-L4. Minimal endplate edema is noted at L1-L2. Intervertebral discs: There has been discectomy at L3-L4. Degenerative disc desiccation and mild loss of height is seen at the remaining lumbar levels. Spinal cord: The visualized spinal cord is normal in morphology and signal intensity. The conus medullaris terminates at the level of L1. The nerve roots of the cauda equina are normal in morphology. L1-L2: There is broad-based posterior disc bulge with annular fissure. In conjunction with hypertrophy of the ligamentum flavum there is moderate central canal stenosis of this level with a minimum AP diameter of 5 mm. This abuts the transiting nerve roots. There is bilateral subarticular stenosis. This contributes to mild bilateral neural foraminal narrowing. L2-L3: There is right lateral disc bulge. This causes subarticular stenosis and impinges on the exiting right L2 nerve root. This also abuts the transiting nerve roots. There is mild acquired compromise of the central canal at this level with a minimum AP diameter of 8 mm. There is moderate bilateral neural foraminal stenosis, right greater than left. L3-L4: The central canal and neural foramen are grossly clear. L4-L5: There is posterior disc bulge with annular fissure. There is mild central canal stenosis which is likely on a congenital basis. The minimum AP diameter measures 8 mm. There is right greater than left side subarticular stenosis. This may impinge on the exiting bilateral L4 nerve roots. There is moderate to severe right greater than left neural foraminal stenosis in conjunction with facet arthropathy. L5-S1: The central canal is clear. Facet arthropathy contributes to mild bilateral neural foraminal narrowing. Sacrum: The visualized sacrum is normal in morphology and signal intensity. Soft tissues: There is mild fatty atrophy of the paraspinous soft tissues musculature. Postoperative change is noted at the operative levels. The retroperitoneal structures are grossly unremarkable but incompletely imaged. IMPRESSION: 1. Postoperative and spondylotic change as above. See discussion for detailed level by level analysis. 2. No destructive bony process is identified. 3. Degenerative endplate change as above. Dictated: 09/02/2020 7:09 AM Transcribed: 09/02/2020 7:37 AM Dannielle [id number] [email or web address]_Denise Electronically signed by: Jaycob Ken M.D. 09/02/2020 7:39 AM Diabetes Follow up Diabetes Follow-up Needed for HgbA1c >9% Hospital Course (1) Status post spinal surgery: No indication for surgical consult at this time. I did speak with Dr. Patterson and reviewed his outpatient notes. Consulted pain management for consideration of spinal injection. They will see him as an outpatient Significant improvement with Toradol and steroids Baclofen prescribed by pain team. He will be discharged with a prescription Continue to ambulate as tolerated at home Follow-up with pain clinic Minimize heavy lifting Discussed good ergonomics for lifting and pulling (2) Essential hypertension: Continue usual home medications No chest pain or tightness (3) BPH (benign prostatic hypertrophy): Recent prostatectomy for prostatitis with Dr. Shawn Brock Continue tamsulosin Further management per outpatient urology (4) Diabetes mellitus type 2, uncontrolled: Poorly controlled Most recent hemoglobin A1c is greater than 11 Patient reports that he is only on Metformin 500 mg p.o. twice daily at home Would most likely benefit from insulin Elevated hemoglobin A1c Diabetic education consulted. Appreciate their input Discharge home on Lantus and NovoLog sliding scale Patient educated on use by beef breaker Outpatient follow-up (5) Tobacco abuse: Discussed need for abstinence Patient does not feel that he needs a nicotine patch at this time He will continue to try to cut back on discharge Total Time Total Time Spent Total Time Spent (In Minutes): 35 minutes Discharge Plan Discharge Items Patient Disposition: Home - Home Health Services Reason For Visit: INTRACTABLE LOW BACK PAIN Discharge Diagnosis: Back pain Uncontrolled Diabetes Activity: Resume your previous activity Bathing: No limitations Exercise/Sports: Gradually increase as tolerated Driving/Machine Use: Resume 1 day after discharge Weightbearing: Full weightbearing Non-emergency contact: Primary Care Provider Call non-emergency contact if: you have any medication questions Follow-up/Referrals: Getachew Weber III, CRNP [Primary Care Provider] - Diet: Carb Consistent or DM2 Addtl Attending Provider Instructions: You were admitted for intractable back pain. An MRI of your back was completed and shows no acute changes. There are not any surgical options based on imaging. You were started on Medrol Dosepak (methylprednisolone) which seemed to help. You are being discharged on this to complete the steroid taper. You are encouraged to follow-up with the pain clinic 09/20/2020 as scheduled for evaluation for possible spinal injection to help with your pain. You are also found to have extremely high sugars as result of your poorly controlled diabetes mellitus like type II. Your hemoglobin A1c was 12.2 which reflects poor control over the last 3 months. Do not take metformin. You are being discharged home on Lantus which is a long-acting insulin to be taken once a day. You are also being sent home on Novolog which is a short acting insulin which you will take 3 times daily. It is important that you have regular meals and avoid "junk food" as much as possible. You should see a metal furniture assembly supervisor for toenail care and foot care at least twice a year. You should also see an eye doctor at least once per year. You are advised to completely quit smoking and avoid all tobacco products. Pending Studies at Discharge: No Stand-Alone Forms: [email or web address], Smoking Cessation Medications and DC Order Prescriptions: New baclofen 10 mg Tablet 10 mg PO BID PRN (Reason: back pain) Qty: 60 RF: 0 insulin aspart U-100 [Novolog Flexpen U-100 Insulin] 100 unit/mL (3 mL) Insulin Pen 22 unit SC AC Qty: 15 RF: 0 Lantus Solostar U-100 Insulin 100 unit/mL (3 mL) Insulin Pen 30 unit SC QAM Qty: 15 RF: 0 (DME) pen needle, diabetic, safety 29 gauge x 1/2" needle See Rx Instructions .Route Qty: 100 RF: 0 (DME) OneTouch Verio test strips Strip See Rx Instructions .Route Qty: 100 RF: 0 (DME) lancets [OneTouch Delica Lancets] 30 gauge misc See Rx Instructions .Route Qty: 100 RF: 0 Continued epinephrine 0.3 mg/0.3 mL auto-injector 0.3 mg IM DIRECTED PRN (Reason: Allergic Reaction) RF: 0 pantoprazole 20 mg tablet,delayed release (DR/EC) 20 mg PO QAM RF: 0 meloxicam 7.5 mg tablet 7.5 mg PO QAM RF: 0 lisinopril 5 mg tablet 5 mg PO QAM RF: 0 Discontinued metformin 500 mg Tablet 500 mg PO BID RF: 0 No Action methylprednisolone [Medrol (Silver)] 4 mg tablets,dose pack See Rx Instructions .Route .COMPLEX Qty: 21 RF: 0 metformin 500 mg tablet 500 mg PO BID Qty: 180 RF: 3 tamsulosin 0.4 mg capsule 0.4 mg PO QPM Qty: 30 RF: 0 Discharge Orders: Discharge Order (Routine); Ordered 09/03/20 Ordered By: Jaycob Beauchamp/Other Patient Handouts: How to Check Your Blood Sugar, Insulin How to Use and Where to Inject, Diabetes: Keeping Feet Healthy, Glucose Check Steps, Insulin Injection Steps Admission Data Admit Date/Time: 09/02/20 07:56 Attending Provider: Ady Cabrera Admit Provider: Ady Cabrera Primary Care Provider: Getachew Weber III Other Providers: Lyndon Huynh Other Interventions: Discharge Summary Assessment (RN) Last Done: 09/03/20 17:39 Supervising Physician Co-Signing Physician Notes Patient seen and examined with Jaycob KOHLI. I agree with his discharge summary patient feeling better, anxious about going home but has a good plan for follow up - Severe low back pain, h/o radicular lumbar pain, s/p surgery consult pain management - see as outpatient for injection Baclofen PT/OT steroids - DM type II: poorly controlled, he admits that all he does is sit on the couch and eat he has very little else to do difficult to lose weight when you cannot exercise continue Metformin, started on Lantus and Novolog Coding Level of Care Code D/C DAY MANAGEMENT >30 MINS Diagnoses Status post spinal surgery Z98.890 Essential hypertension I10 BPH (benign prostatic hypertrophy) N40.0 Diabetes mellitus type 2, uncontrolled E11.65 Tobacco abuse Z72.0 Time Spent (min) 35 Home Health Attestation I certify that this patient is under my care and that I, or a physicians retirement assistant working with me, had a face to-face encounter that meets the home health [id number] encounter requirements with this patient. The encounter with the patient was in whole, or in part, for the following medical condition, which is the primary reason for home health care (list medical condition): PT/OT due to Severe Back Pain I certify that, based on my findings, the following services are medically necessary home health services: My clinical findings support the need for the above services because: OT Assess ADL Status and Restore Function w ADLs PT Assessment for Endurance / Balance / Strength PT Eval for Safety and Mobility PT Eval for Safety, Gait Training, Assistive Devices PT Gait and Balance Training, Strengthening and Safety Safety Further, I certify that my clinical findings support that this patient is homebound (i.e. absences from home require considerable and taxing effort and are for medical reasons or christianity services or infrequently or of short duration when for other reasons) because: Assistance of 1 Person for Ambulation/Activities Poor Endurance; SOB Minimal Exertion Transportation Assistance/Unable to Leave Home Unassisted Certification for Home Health Services: Based on the above findings, I certify that this patient is confined to the home and needs intermittent fdc care, physical therapy and/or speech therapy or continues to need occupational therapy. The patient is under my care, and I have initiated the establishment of the plan of care. This patient will be followed by a physician who will periodically review the plan of care.
[2020-09-03] MEDS: KETOROLAC TROMETHAMINE 15 MG/ML VIAL IV PRN (17:49)
[2020-09-03] MEDS ORDERED: methylPREDNISolone 4 MG TAB PO SCH (21:00)
[2020-09-04] MEDS ORDERED: methylPREDNISolone 4 MG TAB PO SCH (07:00)
[2020-09-05] MEDS ORDERED: methylPREDNISolone 4 MG TAB PO SCH (07:00)
[2020-09-06] MEDS ORDERED: methylPREDNISolone 4 MG TAB PO SCH (07:00)
[2020-09-07] MEDS ORDERED: methylPREDNISolone 4 MG TAB PO SCH (07:00)
[2020-09-07] MEDS ORDERED: LIDOCAINE 2% 2 ML VIAL/AMP(20MG/ML) INFIL ONE (07:37)
[2020-09-07] MEDS ORDERED: DEXAMETHASONE SOD INJ 4 MG/ML VIAL ONE (07:37)
[2020-09-07] MEDS ORDERED: PROPOFOL IV EMULSION 10 MG/ML 20 ML VIAL IV ONE (07:37)
[2020-09-07] MEDS ORDERED: MIDAZOLAM HCL 1 MG/ML 2ML VIAL ONE (07:37)
[2020-09-07] MEDS ORDERED: fentaNYL citrate 100 MCG/2 ML VIAL ONE ×2 (07:37→08:48)
[2020-09-07] MEDS ORDERED: ONDANSETRON INJ 2 MG/ML 2 ML VIAL ONE (07:37)
[2020-09-07] MEDS ORDERED: PHENYLEPHRINE HCL 10 MG/ML VIAL ONE (09:03)
[2020-09-07] MEDS ORDERED: ePHEDrine sulfate 50 MG/ML SYR ONE (09:03)
== END 2020-09-03 19:06 | disposition home health service (06) | DRG 552 ==
LOC: ED 04:41 → EDINP 07:56 → 3N 12:57
DX: Z79.899 Other long term (current) drug therapy; Z83.3 Family history of diabetes mellitus; M51.86 Other intervertebral disc disorders, lumbar region; Z98.1 Arthrodesis status; Z51.81 Encounter for therapeutic drug level monitoring; Z79.4 Long term (current) use of insulin; N40.0 Benign prostatic hyperplasia without lower urinary tract symptoms; E66.01 Morbid (severe) obesity due to excess calories; Z91.018 Allergy to other foods; E11.65 Type 2 diabetes mellitus with hyperglycemia; M54.5 Low back pain; Z79.1 Long term (current) use of non-steroidal anti-inflammatories (NSAID); F17.210 Nicotine dependence, cigarettes, uncomplicated; G89.29 Other chronic pain; Z91.030 Bee allergy status; R26.2 Difficulty in walking, not elsewhere classified; I10 Essential (primary) hypertension; Z68.41 Body mass index [BMI] 40.0-44.9, adult

== ENCOUNTER 2022-04-12 17:51 | Inpatient (IN) ==
--- NOTE | 2022-04-12 17:50 | Emergency Department Note ---
Impression & Plan Cardiac arrest, Pulmonary edema, Acute hyperglycemia, Acute hypoxemic respiratory failure ED Provider Note NAME: STEPHEN ROSS AGE: 61 SEX: M : 1960 ARRIVES VIA: Ambulance INFORMANT: Patient, ED PROVIDER(S): Eliazar Sanchez MD CHIEF COMPLAINT: Postarrest MEDICAL DECISION MAKING: Patient did present as a postarrest. I did receive a phone call prior to arrival and given the unknown etiology of the patient's arrest heart alert was initiated and I did speak with Dr. Vasquez. I did also notify the intensive care team Dr. Grover. Patient intubated IV was established. Blood work was obtained along with a stat chest x-ray. Patient did have blood work completed which showed white count of 25 with a normal H&H and platelet count. The patient's kidney function shows normal kidney function with elevated blood sugar greater than 500 on the [id number]. Patient was ordered 10 of IV insulin. The patient's initial lactate was 4.8. Patient had received some initial IV fluids at the patient was given Lasix due to concern for the patient's pulmonary edema. Troponin is slightly elevated at 34. BNP is not elevated. Procalcitonin is not elevated. Urinalysis without signs of obvious infection. COVID-negative. The patient did have a cooling catheter that was placed and the patient did have a chest x-ray completed. patient's ABG did show acidosis and hypercarbia. I did ask for respiratory to increase the patient's rate. Patient was suctioned by respiratory several times and did help improve his oxygenation. The patient's initial EKGs did not show any evidence of obvious STEMI but the heart alert had been called given the patient's postarrest status. Dr. Vasquez also did evaluate the patient's. He has not believe that the patient requires going to the Rheumatology Nurse at this time. The patient's chest x-ray does show likely pulmonary edema. The patient has negative CT of the cervical spine. CT of the chest shows no PEs there is some dependent consolidation within the lungs as well as some pulmonary edema. CT head is negative. Was also noticed the patient does have some rib fractures but no pneumothorax. CT of the abdomen pelvis shows no acute traumatic process within the abdomen or pelvis. Critical Care: I have personally spent 125 minutes of critical care time in direct management of this patient. This includes bedside care, interpretation of diagnostic studies, and testing, discussion with consultants, patient, and family members, and other require inpatient management activities. This 125 minutes is in excess of all separately billable procedures. Procedures: Central Venous Catheter placed by Dr. Sanchez Indication: Cooling, medication administration Catheter type: Cooling catheter Location: Right groin Verbal consent was obtained after the risks and benefits were explained, including but not limited to pneumothorax, hemothorax, vessel injury, bleeding, scarring, infection, pain, and bone/joint/nerve damage. At this time, the risks of the procedure are less than the risks of NOT performing the procedure. A time out was taken and the correct patient and site identified. The patient was placed in the supine position and the skin was prepped in the standard fashion with chlorhexidine and full sterile drapes applied. The proper landmarks were identified with ultrasound and the needle was inserted through the skin in the standard fashion. The needle was carefully advanced into blood vessel lumen under ultrasound guidance. The guidewire was placed uneventfully. The vessel is dilated and the catheter was placed. It was sutured into position. There was good blood return from all ports. The patient tolerated the procedure well and there were no complications. Prior /Outside records reviewed: Did review the patient's most recent pain management note Lemuel Del Cid. Differential diagnosis: Cardiac arrest, respiratory arrest, flash pulmonary edema, hypertensive emergency, hypoglycemia among others were considered Diagnostics, as interpreted by me: ECG: Normal sinus rhythm, rate 84, normal AL and QRS, normal axis prolonged QTc, no obvious ST elevations. Cardiac monitoring: An order was placed for continuous cardiac monitoring. The monitor shows a rate of 88 with sinus rhythm. Patient was placed on pulse oximetry Medical decision rules: None Imaging studies: See below HPI: History was limited to what EMS could provide but they were unsure as to whether the patient had a witnessed arrest or not but was found in a field and CPR bystander was initiated and EMS arrived noticed the patient to have agonal breathing. No shocks or epi's and the patient did have a pulse. The patient was intubated and brought in. Patient does have a history of diabetes and the blood sugar read high. Prior to arrival the patient's oxygen saturations were in the 80s. There was no report of any respiratory difficulty prior to the patient being found but again history is limited. PAST MEDICAL HISTORY: See Below PAST SURGICAL HISTORY: See Below SOCIAL HISTORY: See Below HOME MEDICATIONS: See Below ALLERGIES: See Below VITALS: See Below PHYSICAL EXAMINATION: GENERAL: Intubated, severe distress. EYE EXAM: Normal conjunctiva. PERRL, no anisocoria and EOM's grossly intact w/o pain. NECK: Supple, no nuchal rigidity, no adenopathy, non-tender. No signs of meningismus. FROM of the neck with good chin to chest and neck extension. No stridor. Trachea midline. LUNGS: Diffuse crackles throughout. Bilateral breath sounds noted. HEART: NSR, no MRG. ABDOMEN: Abdomen soft, non-tender, normo-active bowel sounds, no masses, no re bound or guarding. BACK: No CVA TTP. SKIN: No rashes and no bruising. UPPER EXTREMITIES: Upper extremities are grossly normal. LOWER EXTREMITIES: Grossly normal, no edema. NEURO EXAM: Intubated, pupils equally round, does move all 4 extremities. Past Med/Surg History Medical History Acute kidney injury Back pain BPH (benign prostatic hypertrophy) Constipation DDD (degenerative disc disease) DM type 2 (diabetes mellitus, type 2) NIDDM Lumbar degenerative disc disease Lumbar facet joint syndrome Myofascial pain Nocturnal hypoxia reports he was told his oxygen saturation dropped into the 70s while sleeping during his hospital stay 04/2020 [place] Per 05/09/20 Discharge Summary: ADRIANA suspected, poor sleep reported. Overnight pulse ox with need for supplemental O2 HS- pt declined overnight O2- pt will need to follow up as outpatient Postlaminectomy syndrome of lumbosacral region Right ankle pain Right fibular fracture Tobacco abuse Umbilical hernia Surgical History History of lumbar surgery History of transurethral prostatectomy 05/2020 History of wisdom tooth extraction Status post spinal surgery Family History Aunt History of anesthesia reaction "I had an aunt that from anesthesia." -- pt unable to provide specifics; unsure of MH, PD diagnosis; pt denies personal hx of issues with anesthesia Father Myocardial infarction Other Family history of diabetes mellitus Denies family history of Ovarian cancer Prostate cancer Breast cancer Colorectal cancer Social History Smoking Status: Former smoker Tobacco Type: Cigarettes Age Started Using Tobacco: 10; Second Hand Exposure: No; Do You Dip or Chew Tobacco: Yes; Hx Alcohol Use: Yes Alcohol type: beer Hx Substance Use: Yes Preferred Language: Greek Communication Ability: Effective Visual Impairment: No Limitations Hearing Ability: Normal Operating Room Manager Required: No Beliefs That Will Affect Care: None Current Living Situation: Family current occupational status: unemployed How many Children do You have: 2 Feels Safe at Home: Yes Safety Concerns: Feels Safe At This Time Childhood Exposure to Second-Hand Smoke: Yes caffeine: Yes during the past year weight has: remained stable Dental Care, Regularly: No Physical Activity Frequency: Does not Exercise Seatbelt Use: always Sunscreen Use: Yes Assistive Devices: None Allergies Allergies Allergy/AdvReac Type Severity Reaction Status Date / Time bee venom protein (honey bee) Allergy Severe ANAPHYLAXIS Verified 01/30/22 08:57 grape Allergy Severe Anaphylaxis Verified 01/30/22 08:57 Home Meds Previous Rx's Medication Instructions Recorded epinephrine 0.3 mg/0.3 mL 0.3 mg (0.3 mL) IM DIRECTED PRN 09/25/20 injection, auto-injector Allergic Reaction #2 ea blood sugar diagnostic (OneTouch #100 ea 02/25/21 Verio test strips) insulin aspart U-100 100 unit/mL 22 unit (0.22 mL) SC AC #45 mL 02/25/21 (3 mL) subcutaneous pen (Novolog FlexPen U-100 Insulin aspart) insulin glargine 100 unit/mL (3 30 unit (0.3 mL) SC QAM #45 mL 02/25/21 mL) subcutaneous pen (Lantus Solostar U-100 Insulin) lancets 30 gauge (OneTouch Delica #100 ea 02/25/21 Lancets) lisinopril 5 mg tablet 5 mg PO QAM #90 tabs 02/25/21 metformin 500 mg tablet 500 mg PO BID #180 tabs 02/25/21 pen needle, diabetic, safety 29 #100 ea 02/25/21 gauge x 1/2" Wheeled Walker #1 ea 03/19/21 cyclobenzaprine 5 mg tablet 5 mg PO BID PRN muscle spasm #30 01/30/22 tabs Results & Data (ED) Vital Signs Vital Signs - 24 hr 04/12/22 17:50 04/12/22 18:01 04/12/22 17:59 Temperature Pulse Rate 86 86 86 Pulse Rate from SpO2 Sensor 87 Respiratory Rate 22 16 Blood Pressure 107/75 107/75 Blood Pressure Mean 85 85 Pulse Oximetry 62 L 63 L Oxygen Delivery Method Mechanical Vent Mechanical Vent Fraction of Inspired Oxygen Sepsis Recent Fever Within 48 Hours No Sepsis New/Unexplained Change in Mental Status Yes Sepsis Action Taken by Nursing Physician Notified End-Tidal CO2 54 04/12/22 18:00 04/12/22 18:05 04/12/22 18:10 Temperature Pulse Rate 85 81 81 Pulse Rate from SpO2 Sensor 86 81 81 Respiratory Rate 20 20 22 Blood Pressure 108/68 Blood Pressure Mean 81 Pulse Oximetry 64 L 79 L 82 L Oxygen Delivery Method Mechanical Vent Ambu-Bag Ambu-Bag Fraction of Inspired Oxygen Sepsis Recent Fever Within 48 Hours Sepsis New/Unexplained Change in Mental Status Sepsis Action Taken by Nursing End-Tidal CO2 45 04/12/22 18:15 04/12/22 18:20 04/12/22 18:25 Temperature Pulse Rate 79 78 79 Pulse Rate from SpO2 Sensor 79 78 78 Respiratory Rate 22 20 20 Blood Pressure 109/68 116/72 124/75 Blood Pressure Mean 81 86 91 Pulse Oximetry 83 L 83 L 82 L Oxygen Delivery Method Ambu-Bag Ambu-Bag Ambu-Bag Fraction of Inspired Oxygen Sepsis Recent Fever Within 48 Hours Sepsis New/Unexplained Change in Mental Status Sepsis Action Taken by Nursing End-Tidal CO2 04/12/22 18:35 04/12/22 18:40 04/12/22 18:45 Temperature Pulse Rate 82 85 85 Pulse Rate from SpO2 Sensor 82 85 85 Respiratory Rate 20 22 20 Blood Pressure 128/83 127/77 150/74 H Blood Pressure Mean 98 93 99 Pulse Oximetry 81 L 82 L 86 L Oxygen Delivery Method Ambu-Bag Fraction of Inspired Oxygen Sepsis Recent Fever Within 48 Hours Sepsis New/Unexplained Change in Mental Status Sepsis Action Taken by Nursing End-Tidal CO2 04/12/22 18:50 04/12/22 19:05 04/12/22 19:11 Temperature 32.9 C L Pulse Rate 86 87 85 Pulse Rate from SpO2 Sensor 87 87 Respiratory Rate 20 20 28 H Blood Pressure 140/95 131/71 Blood Pressure Mean 110 91 Pulse Oximetry 92 88 L 89 L Oxygen Delivery Method Ambu-Bag Mechanical Vent Fraction of Inspired Oxygen 100 Sepsis Recent Fever Within 48 Hours Sepsis New/Unexplained Change in Mental Status Sepsis Action Taken by Nursing End-Tidal CO2 40 04/12/22 19:49 04/12/22 19:42 04/12/22 19:43 Temperature Pulse Rate 84 83 Pulse Rate from SpO2 Sensor 83 Respiratory Rate 29 H 18 Blood Pressure 125/83 Blood Pressure Mean 97 Pulse Oximetry 93 94 Oxygen Delivery Method Fraction of Inspired Oxygen 70 Sepsis Recent Fever Within 48 Hours Sepsis New/Unexplained Change in Mental Status Sepsis Action Taken by Nursing End-Tidal CO2 46 04/12/22 19:43 04/12/22 19:45 04/12/22 19:45 Temperature Pulse Rate 85 84 Pulse Rate from SpO2 Sensor 84 84 Respiratory Rate 16 14 Blood Pressure 129/76 Blood Pressure Mean 93 Pulse Oximetry 95 96 Oxygen Delivery Method Fraction of Inspired Oxygen Sepsis Recent Fever Within 48 Hours Sepsis New/Unexplained Change in Mental Status Sepsis Action Taken by Nursing End-Tidal CO2 04/12/22 19:50 04/12/22 19:50 Temperature 34.6 C L Pulse Rate 84 Pulse Rate from SpO2 Sensor 84 Respiratory Rate 15 Blood Pressure 141/88 H Blood Pressure Mean 105 Pulse Oximetry 91 Oxygen Delivery Method Fraction of Inspired Oxygen Sepsis Recent Fever Within 48 Hours Sepsis New/Unexplained Change in Mental Status Sepsis Action Taken by Nursing End-Tidal CO2 48 Home Medications Current Medication List: was personally reviewed by me Laboratory Data Attestation: I reviewed the patient's lab results. 04/12/22 18:44 04/12/22 21:19 Lab Results 04/12/22 04/12/22 04/12/22 Range/Units 18:03 18:12 18:17 WBC (4.8-10.8) K/ul RBC (4.70-6.10) M/uL Hgb (14.0-18.0) g/dl POC Hgb 15.6 (14.0-18.0) g/dl Hct (42.0-52.0) % POC Hct 46 (42-52) % MCV (80.0-100.0) fL MCH (25.0-34.0) pg MCHC (32.0-36.0) g/dL RDW Std Deviation (36.4-46.3) fL RDW Coeff of Marc (11.5-14.5) % Plt Count (130-400) K/uL MPV (9.4-12.4) fL Immature Gran % (Auto) % Neut % (Auto) % Lymph % (Auto) % [place] % (Auto) % Eos % (Auto) % Baso % (Auto) % Neut # (Auto) (1.40-6.50) K/uL Lymph # (Auto) (1.2-3.4) K/uL [place] # (Auto) (0.11-0.59) K/uL Eos # (Auto) (0-0.50) K/uL Baso # (Auto) (0-0.2) K/uL Immature Gran # (Auto) (0.01-0.20) K/uL Echinocytes PT 11.6 (9.0-12.0) Seconds INR 1.1 (0.9-1.1) POC pH 7.13 L* (7.35-7.45) POC pCO2 74 H (35-46) mmHg POC pO2 43 L (80-95) mmHg POC HCO3 25 H (19-24) nasir/L POC Total CO2 27 (24-31) mmol/L POC Base Excess -5.0 (-9-1.8) nasir/L POC ABG O2 Sat 62.0 L (90-95) % POC Sodium 132 L (135-144) mmol/L Sodium POC Potassium 4.4 (3.3-5.0) mmol/L Potassium Chloride Carbon Dioxide Anion Gap BUN Creatinine Est Cr Clr Drug Dosing Est GFR ( Amer) Est GFR (Non-Af Amer) BUN/Creatinine Ratio Glucose Lactate (0.4-2.0) mmol/L Calcium Phosphorus Magnesium Total Bilirubin AST ALT Alkaline Phosphatase Total Creatine Kinase Troponin I High Sens B-Natriuretic Peptide (0-100) pg/ml Total Protein Albumin Globulin Albumin/Globulin Ratio TSH (0.300-4.500) uIu/ml Urine Color Urine Appearance (Clear) Urine pH (4.5-7.5) Ur Specific [place] (1.000-1.030) Urine Protein (Negative) Urine Glucose (UA) (Negative) Urine Ketones (Negative) Urine Blood (Negative) Urine Nitrite (Negative) Urine Bilirubin (Negative) Urine Urobilinogen (Negative) Ur Leukocyte Esterase (Negative) Urine WBC (Auto) (0-5) /hpf Urine RBC (Auto) (0-4) /hpf U Hyaline Cast (Auto) (0-5) /lpf U Epithel Cells (Auto) (0-5) /lpf Urine Bacteria (Auto) (Negative) SARS-CoV-2, RNA, NAAT NEGATIVE (NEGATIVE) 04/12/22 04/12/22 04/12/22 Range/Units 18:17 18:17 18:17 WBC (4.8-10.8) K/ul RBC (4.70-6.10) M/uL Hgb (14.0-18.0) g/dl POC Hgb (14.0-18.0) g/dl Hct (42.0-52.0) % POC Hct (42-52) % MCV (80.0-100.0) fL MCH (25.0-34.0) pg MCHC (32.0-36.0) g/dL RDW Std Deviation (36.4-46.3) fL RDW Coeff of Marc (11.5-14.5) % Plt Count (130-400) K/uL MPV (9.4-12.4) fL Immature Gran % (Auto) % Neut % (Auto) % Lymph % (Auto) % [place] % (Auto) % Eos % (Auto) % Baso % (Auto) % Neut # (Auto) (1.40-6.50) K/uL Lymph # (Auto) (1.2-3.4) K/uL [place] # (Auto) (0.11-0.59) K/uL Eos # (Auto) (0-0.50) K/uL Baso # (Auto) (0-0.2) K/uL Immature Gran # (Auto) (0.01-0.20) K/uL Echinocytes PT (9.0-12.0) Seconds INR (0.9-1.1) POC pH (7.35-7.45) POC pCO2 (35-46) mmHg POC pO2 (80-95) mmHg POC HCO3 (19-24) nasir/L POC Total CO2 (24-31) mmol/L POC Base Excess (-9-1.8) nasir/L POC ABG O2 Sat (90-95) % POC Sodium (135-144) mmol/L Sodium Cancelled POC Potassium (3.3-5.0) mmol/L Potassium Cancelled Chloride Cancelled Carbon Dioxide Cancelled Anion Gap Cancelled BUN Cancelled Creatinine Cancelled Est Cr Clr Drug Dosing Cancelled Est GFR ( Amer) Cancelled Est GFR (Non-Af Amer) Cancelled BUN/Creatinine Ratio Cancelled Glucose Cancelled Lactate 4.8 H* (0.4-2.0) mmol/L Calcium Cancelled Phosphorus Cancelled Magnesium Cancelled Total Bilirubin Cancelled AST Cancelled ALT Cancelled Alkaline Phosphatase Cancelled Total Creatine Kinase Cancelled Troponin I High Sens Cancelled B-Natriuretic Peptide 17 (0-100) pg/ml Total Protein Cancelled Albumin Cancelled Globulin Cancelled Albumin/Globulin Ratio Cancelled TSH (0.300-4.500) uIu/ml Urine Color Urine Appearance (Clear) Urine pH (4.5-7.5) Ur Specific [place] (1.000-1.030) Urine Protein (Negative) Urine Glucose (UA) (Negative) Urine Ketones (Negative) Urine Blood (Negative) Urine Nitrite (Negative) Urine Bilirubin (Negative) Urine Urobilinogen (Negative) Ur Leukocyte Esterase (Negative) Urine WBC (Auto) (0-5) /hpf Urine RBC (Auto) (0-4) /hpf U Hyaline Cast (Auto) (0-5) /lpf U Epithel Cells (Auto) (0-5) /lpf Urine Bacteria (Auto) (Negative) SARS-CoV-2, RNA, NAAT (NEGATIVE) 04/12/22 04/12/22 04/12/22 Range/Units 18:17 18:37 18:44 WBC 25.02 H (4.8-10.8) K/ul RBC 4.90 (4.70-6.10) M/uL Hgb 15.3 (14.0-18.0) g/dl POC Hgb (14.0-18.0) g/dl Hct 45.4 (42.0-52.0) % POC Hct (42-52) % MCV 92.7 (80.0-100.0) fL MCH 31.2 (25.0-34.0) pg MCHC 33.7 (32.0-36.0) g/dL RDW Std Deviation 42.6 (36.4-46.3) fL RDW Coeff of Marc 12.4 (11.5-14.5) % Plt Count 254 (130-400) K/uL MPV 10.4 (9.4-12.4) fL Immature Gran % (Auto) 0.9 % Neut % (Auto) 87.1 % Lymph % (Auto) 7.7 % [place] % (Auto) 3.8 % Eos % (Auto) 0.2 % Baso % (Auto) 0.3 % Neut # (Auto) 21.78 H (1.40-6.50) K/uL Lymph # (Auto) 1.92 (1.2-3.4) K/uL [place] # (Auto) 0.96 H (0.11-0.59) K/uL Eos # (Auto) 0.06 (0-0.50) K/uL Baso # (Auto) 0.08 (0-0.2) K/uL Immature Gran # (Auto) 0.22 H (0.01-0.20) K/uL Echinocytes 1+ PT (9.0-12.0) Seconds INR (0.9-1.1) POC pH (7.35-7.45) POC pCO2 (35-46) mmHg POC pO2 (80-95) mmHg POC HCO3 (19-24) nasir/L POC Total CO2 (24-31) mmol/L POC Base Excess (-9-1.8) nasir/L POC ABG O2 Sat (90-95) % POC Sodium (135-144) mmol/L Sodium POC Potassium (3.3-5.0) mmol/L Potassium Chloride Carbon Dioxide Anion Gap BUN Creatinine Est Cr Clr Drug Dosing Est GFR ( Amer) Est GFR (Non-Af Amer) BUN/Creatinine Ratio Glucose Lactate (0.4-2.0) mmol/L Calcium Phosphorus Magnesium Total Bilirubin AST ALT Alkaline Phosphatase Total Creatine Kinase Troponin I High Sens B-Natriuretic Peptide (0-100) pg/ml Total Protein Albumin Globulin Albumin/Globulin Ratio TSH 2.538 (0.300-4.500) uIu/ml Urine Color Yellow Urine Appearance Cloudy A (Clear) Urine pH 5.0 (4.5-7.5) Ur Specific [place] 1.027 (1.000-1.030) Urine Protein 2+ H (Negative) Urine Glucose (UA) 3+ H (Negative) Urine Ketones Negative (Negative) Urine Blood 2+ H (Negative) Urine Nitrite Negative (Negative) Urine Bilirubin Negative (Negative) Urine Urobilinogen Negative (Negative) Ur Leukocyte Esterase Negative (Negative) Urine WBC (Auto) 5-10 H (0-5) /hpf Urine RBC (Auto) 0-4 (0-4) /hpf U Hyaline Cast (Auto) 10-30 H (0-5) /lpf U Epithel Cells (Auto) >30 H (0-5) /lpf Urine Bacteria (Auto) Negative (Negative) SARS-CoV-2, RNA, NAAT (NEGATIVE) Administered Medications Fentanyl Citrate (Fentanyl Citrate) 2,500 mcg in 250 mls @ 5 mls/hr IV .Q50H [facility]; Protocol Stop: 04/26/22 18:44 Last Titration: 04/12/22 19:44 Dose: 50 mcg/hr, 5 mls/hr Documented By: GREG Co-signed By: MERRILL Admin: 04/12/22 18:44 Dose: 25 mcg/hr, 2.5 mls/hr Documented By: WHIT Co-signed By: KILLIAN Propofol (Diprivan) 1,000 mg in 100 mls @ 14.58 mls/hr IV .Q6H52M [facility]; Protocol Stop: 04/15/22 20:59 Last Admin: 04/12/22 22:02 Dose: 10 mcg/kg/min, 7.3 mls/hr Documented By: DONALDO Co-signed By: SG Parenteral Electrolytes (Normosol-R) 1,000 mls @ 80 mls/hr IV .[id number] [facility] Stop: 05/12/22 20:59 Last Admin: 04/12/22 22:01 Dose: 80 mls/hr Documented By: DONALDO Miscellaneous (Icu Protocol For Hyperglycemia) 1 each N/A ACHS [facility] Stop: 04/14/22 20:59 Last Admin: 04/12/22 22:14 Dose: 1 each Documented By: DONALDO Discontinued Medications Fentanyl Citrate (Fentanyl Citrate 100 Mcg/2 Ml Vial) Confirm Administered Dose 100 mcg .ROUTE .STK-MED ONE Stop: 04/12/22 17:57 Last Increment: 04/12/22 17:59 Dose: 75 mcg Documented By: RICHIE Fentanyl Citrate (Fentanyl Citrate 100 Mcg/2 Ml Vial) Confirm Administered Dose 100 mcg .ROUTE .STK-MED ONE Stop: 04/12/22 17:59 Last Admin: 04/12/22 21:55 Dose: Not Given Documented By: Y Fentanyl Citrate (Fentanyl Citrate 100 Mcg/2 Ml Vial) Confirm Administered Dose 100 mcg .ROUTE .STK-MED ONE Stop: 04/12/22 18:32 Last Increment: 04/12/22 18:32 Dose: 75 mcg Documented By: RICHIE Fentanyl Citrate (Fentanyl Bolus From Bag) 50 mcg IV Q60M PRN PRN Reason: Pain or Agitation Stop: 04/26/22 18:33 Last Admin: 04/12/22 18:53 Dose: 100 mcg Documented By: MT Co-signed By: KILLIAN Furosemide (Furosemide 40 Mg/4 Ml Vial) Confirm Administered Dose 40 mg IV .STK- MED ONE Stop: 04/12/22 18:06 Last Admin: 04/12/22 18:06 Dose: 40 mg Documented By: WHIT Heparin Sodium (Porcine) (Heparin (Porcine) 1000 Unit/Ml 10 Ml (Rheumatology Nurse Use Only)) Confirm Administered Dose 10,000 units .ROUTE .STK-MED ONE Stop: 04/12/22 17:59 Last Admin: 04/12/22 21:56 Dose: Not Given Documented By: BPY Heparin Sodium/Sodium Chloride (Heparin In Nss Infusion 1000 Unit/500 Ml (2 U/Ml) Bag) Confirm Administered Dose 3,000 units IV .STK-MED ONE Stop: 04/12/22 17:59 Last Admin: 04/12/22 21:56 Dose: Not Given Documented By: DONALDO Midazolam HCl (Versed) 125 mg in 250 mls @ 2 mls/hr IV .Q96H [facility]; Protocol Stop: 04/16/22 18:33 Last Admin: 04/12/22 19:51 Dose: 1 mg/hr, 2 mls/hr Documented By: GREG Co-signed By: Insulin Human Regular (Novolin-R Insulin Per Unit Charge) 10 units IV NOW STA Stop: 04/12/22 18:40 Last Admin: 04/12/22 18:45 Dose: 10 units Documented By: MT Co-signed By: KILLIAN Ioversol (Optiray 320 500ml) 110 ml IV ONCE ONE Stop: 04/12/22 19:35 Last Admin: 04/12/22 19:34 Dose: 110 ml Documented By: MIAN Midazolam HCl (Midazolam Hcl 1 Mg/Ml 2ml Vial) Confirm Administered Dose 2 mg .ROUTE .STK-MED ONE Stop: 04/12/22 17:59 Last Admin: 04/12/22 19:45 Dose: Not Given Documented By: GREG Midazolam HCl (Midazolam Hcl 1 Mg/Ml 2ml Vial) Confirm Administered Dose 2 mg .ROUTE .STK-MED ONE Stop: 04/12/22 18:52 Last Admin: 04/12/22 18:55 Dose: 2 mg Documented By: WHIT Miscellaneous (Stat Iv Infusion Titration Per Protocol) 1 each N/A NOW STA Stop: 04/12/22 18:35 Last Admin: 04/12/22 21:56 Dose: Not Given Documented By: DONALDO Nicardipine HCl (Nicardipine Hcl Inj 2.5 Mg/Ml 10 Ml Amp) Confirm Administered Dose 25 mg .ROUTE .STK-MED ONE Stop: 04/12/22 17:59 Last Admin: 04/12/22 21:56 Dose: Not Given Documented By: DONALDO Nitroglycerin/Dextrose (Nitroglycerin/D5w 100mcg/Ml 20ml Syr) Confirm Administered Dose 2,000 mcg .ROUTE .STK-MED ONE Stop: 04/12/22 17:59 Last Admin: 04/12/22 21:56 Dose: Not Given Documented By: DONALDO Norepinephrine Bitartrate (Norepinephrine/D5w 4 Mg/250 Ml) Confirm Administered Dose 4 mg IV .STK-MED ONE Stop: 04/12/22 17:39 Last Admin: 04/12/22 21:55 Dose: Not Given Documented By: DONALDO Propofol (Propofol Iv Emulsion 10 Mg/Ml 100 Ml Vial) Confirm Administered Dose 1,000 mg IV .STK-MED ONE Stop: 04/12/22 20:41 Last Admin: 04/12/22 21:57 Dose: Not Given Documented By: DONALDO Imaging Data Radiologist's Impression: Chest X-Ray 04/12/22 17:44 XR chest 1V portable HISTORY: post cardiac arrest, intubated COMPARISON: Chest 05/04/2020. FINDINGS: No pneumothorax. No pleural effusions. Calcified granuloma within the right middle lobe. Upper lobe predominant perihilar airspace opacities which favors pulmonary edema. The heart is mildly enlarged. Nasogastric tube terminates below the diaphragm. The tip is not included on this study. Endotracheal tube terminates 3.6 cm from the mil. IMPRESSION: 1. Satisfactory support line placement. 2. Upper lobe predominant perihilar hazy airspace opacities. This favors pulmon lucila edema. 3. Mild cardiomegaly. ACT 112: Negative or not required by law. Electronically signed by: Salvador Rodriguez M.D. 04/12/2022 7:[address] 04/12/22 18:00 CT OF THE CERVICAL SPINE WITHOUT CONTRAST CLINICAL HISTORY: found down COMPARISON STUDY: No previous studies for comparison. TECHNIQUE: Helical axial images of the cervical spine were obtained without IV contrast. Sagittal and coronal reconstructions were viewed. Automated exposure control was utilized for the study. A dose lowering technique was utilized adhering to the principles of ALARA. FINDINGS: Alignment of the cervical spine is anatomic. Vertebral body heights are maintained. No acute cervical spine fracture or subluxation is present. There is no prevertebral edema. Facet joints are intact. Endotracheal and nasogastric tubes are partially imaged. Mild multilevel degenerative changes within the cervical spine are present. Extensive airspace opacities and interlobular septal thickening within the lung apices are noted. These findings are better depicted on the chest CT. IMPRESSION: No acute cervical spine fracture or subluxation. ACT 112: Negative or not required by law. Electronically signed by: Camacho White M.D. 04/12/2022 7:44 PM Chest CTA 04/12/22 18:00 CT ANGIOGRAPHY OF THE CHEST, PULMONARY EMBOLUS PROTOCOL CLINICAL HISTORY: Found down. COMPARISON STUDY: Chest radiograph performed earlier today. TECHNIQUE: Following IV administration of 110 mL of Optiray, helical axial images of the chest were obtained utilizing the pulmonary embolus protocol. Maximal intensity projections and sagittal and coronal reformats were viewed on an independent 3D workstation. IV contrast was administered without complication. Automated exposure control was utilized for the study. A dose lowering technique was utilized adhering to the principles of ALARA. FINDINGS: No pulmonary emboli are identified although the segmental and subsegmental pulmonary arteries within the lower lobes are suboptimally assessed due to respiratory motion. There is no thoracic aortic dissection. Mild cardiomegaly is noted. There is no pericardial effusion. Tip of endotracheal tube is 3.1 cm above the mil. Tip of nasogastric tube is within the proximal body of the stomach. There is no pneumothorax. There are acute fractures of the anterior left second through sixth ribs. There are acute fractures through the right second and third costal cartilages. There is no pneumothorax. No pleural effusion. There is extensive dependent consolidation within the lungs. In addition, interlobular septal thickening is noted with extensive alveolar opacities within the lungs, with upper lobe predominance. Central airways are patent. There is no acute thoracic spine fracture. Abdomen and pelvis CT will be reported separately. Calcified right infrahilar nodes as well as a calcified granuloma within the right lower lobe are present. IMPRESSION: 1. No pulmonary emboli identified although lower lobe segmental and subsegmental pulmonary arteries suboptimally assessed due to respiratory motion. 2. Satisfactory positioning of the endotracheal and nasogastric tubes. 3. Extensive dependent consolidation within the lungs. This may reflect aspiration pneumonia. 4. Interlobular septal thickening suggestive of interstitial pulmonary edema. Alveolar opacities within lungs favor alveolar pulmonary edema. 5. Bilateral anterior rib/costal cartilage fractures. No pneumothorax. ACT 112: Negative or not required by law. Electronically signed by: Camacho White M.D. 04/12/2022 7:[address] 04/12/22 18:00 CT OF THE HEAD WITHOUT CONTRAST CLINICAL HISTORY: post arrest COMPARISON STUDY: No previous studies for comparison. TECHNIQUE: Helical axial images of the head were obtained without IV contrast. Automated exposure control was utilized for the study. A dose lowering technique was utilized adhering to the principles of ALARA. FINDINGS: No acute intracranial hemorrhage, midline shift or mass effect is present. The ventricular system is unremarkable. The basal cisterns are patent. No extra-axial collections are present. There are no findings to suggest acute dural sinus thrombosis or acute territorial infarct. No significant calvarial abnormalities are present. Visualized portions of the sinuses and mastoid air cells are clear. IMPRESSION: No acute intracranial findings. ACT 112: Negative or not required by law. Electronically signed by: Camacho White M.D. 04/12/2022 7:41 PM Abdomen/Pelvis CT 04/12/22 18:[address] WITH IV CONTRAST CT DOSE: 4662.08 mGy.cm HISTORY: found down, post arrest TECHNIQUE: Multiaxial CT images of the abdomen and pelvis were performed following the use of intravenous contrast. A dose lowering technique was utilized adhering to the principles of ALARA. COMPARISON STUDY: Abdomen and pelvis CT 05/08/2020. FINDINGS: Bilateral lower lobe consolidation. Additional groundglass airspace opacities within the lungs which favor pulmonary edema. This is better appreciated on the same day chest CT. Nasogastric tube terminates in the stomach. No pneumoperitoneum. No pneumatosis. L4-5 posterior decompression and fusion with pedicle screws and rods. Left anterior rib fractures are partially visualized on this study. The heart is normal in size. Small fat-containing bila teral inguinal hernias. There are also small fat-containing bilateral lower quadrant/spigelian hernias. A right common femoral catheter terminates in the IVC. The bladder is decompressed by Navarrete catheter. The prostate gland is enlarged. The liver, gallbladder, pancreas, spleen, adrenal glands, and kidneys are unremarkable. The main portal vein is patent. No retroperitoneal hematoma or lymphadenopathy. Calcified plaque within the normal caliber abdominal aorta. No pelvic free fluid or pelvic lymphadenopathy. No bowel wall thickening or obstruction. A few colonic diverticula. No evidence for acute diverticulitis. Normal appendix. IMPRESSION: 1. Left anterior rib fractures which are better appreciated on the same day chest CT. 2. Bilateral lower lobe airspace opacities with pulmonary edema. 3. No acute traumatic process within the abdomen or pelvis. 4. Satisfactory support line placement. 5. Additional findings as described above. ACT 112: Negative or not required by law. Electronically signed by: Salvador Rodriguez M.D. 04/12/2022 7:58 PM Discharge Plan Visit Data Chief Complaint: Cardiac Arrest/CPR Stated Complaint: POST CARDIAC ARREST ED Provider: Eliazar Sanchez Discharge Problem: Cardiac arrest, Pulmonary edema, Acute hyperglycemia, Acute hypoxemic r espiratory failure Patient Disposition: Admitted As Inpatient Discharge Instructions Interventions: ED Discharge Assessment Last Done: 04/12/22 21:00
[~2022-04-12 17:51] MED LIST changes: -LR 15ML/HR IV SCH; +NOREPINEPHRINE/D5W 4 MG/250 ML IV ONE
[2022-04-12] MEDS ORDERED: fentaNYL citrate 100 MCG/2 ML VIAL ONE ×3 (17:56→18:31)
[2022-04-12] MEDS ORDERED: NITROGLYCERIN/D5W 100MCG/ML 20ML SYR ONE (17:58)
[2022-04-12] MEDS ORDERED: MIDAZOLAM HCL 1 MG/ML 2ML VIAL ONE ×2 (17:58→18:51)
[2022-04-12] MEDS ORDERED: HEPARIN (PORCINE) 1000 UNIT/ML 10 ML (CATH LAB USE ONLY) ONE (17:58)
[2022-04-12] MEDS ORDERED: niCARdipine HCL INJ 2.5 MG/ML 10 ML AMP ONE (17:58)
[2022-04-12] MEDS ORDERED: FUROSEMIDE 40 MG/4 ML VIAL IV ONE (18:05)
[2022-04-12 18:18] LABS: iSTAT Arterial Blood Gas HCO3 25 meg/L (19-24); iSTAT Arterial Blood Gas pCO2 74 mmHg (35-46); iSTAT Arterial Blood Gas pH 7.13 (7.35-7.45); iSTAT Arterial Blood Gas pO2 43 mmHg (80-95); iSTAT Carbon Dioxide 27 mmol/L (24-31); iSTAT Hematocrit 46 % (42-52); iSTAT Hemoglobin 15.6 g/dl (14.0-18.0); iSTAT Potassium 4.4 mmol/L (3.3-5.0); iSTAT Sodium 132 mmol/L (135-144)
[2022-04-12] MEDS ORDERED: STAT IV Infusion **Titration per Protocol STA ×2 (18:34→20:48)
[2022-04-12] MEDS ORDERED: MIDAZOLAM HCL 125 MG/250 ML BAG IV STA (18:34)
[2022-04-12] MEDS ORDERED: MIDAZOLAM BOLUS FROM BAG IV PRN (18:34)
[2022-04-12] MEDS ORDERED: fentaNYL BOLUS from BAG IV PRN (18:34)
[2022-04-12] MEDS ORDERED: NovoLIN-R INSULIN PER UNIT CHARGE IV STA (18:39)
[2022-04-12] MEDS ORDERED: fentaNYL citrate 2,500 MCG/250 ML BAG IV SCH (18:45)
[2022-04-12 18:55] LABS: Hematocrit (blood only) 45.4 % (42.0-52.0); Hemoglobin 15.3 g/dl (14.0-18.0); Mean Corpuscular Hemoglobin 31.2 pg (25.0-34.0); Mean Corpuscular Hgb Conc 33.7 g/dL (32.0-36.0); Mean Corpuscular Volume 92.7 fL (80.0-100.0); Mean Platelet Volume 10.4 fL (9.4-12.4); Platelet Count 254 K/uL (130-400); RDW Coefficient of Variation 12.4 % (11.5-14.5); RDW Standard Deviation 42.6 fL (36.4-46.3); White Blood Count 25.02 K/ul (4.8-10.8)
[2022-04-12 18:58] LABS: INR 1.1 (0.9-1.1); Prothrombin Time 11.6 Seconds (9.0-12.0)
[2022-04-12 19:00] LABS: Appearance Urine Cloudy (Clear); Bacteria Urine Automated Negative (Negative); Bilirubin Urine Negative (Negative); Blood Urine 2+ (Negative); Color Urine Yellow; Epithelial Cell Urine Auto >30 /lpf (0-5); Glucose Urine UA 3+ (Negative); Ketones Urine Negative (Negative); Leukocyte Esterase Urine Negative (Negative); Nitrite Urine Negative (Negative); Protein Urine 2+ (Negative); RBC Urine Automated 0-4 /hpf (0-4); Specific Gravity Urine 1.027 (1.000-1.030); Urobilinogen Urine Negative (Negative)
[2022-04-12 19:14] LABS: Basophils # (auto) 0.08 K/uL (0-0.2); Basophils % (auto) 0.3 %; Echinocytes 1+; Eosinophils # (auto) 0.06 K/uL (0-0.50); Eosinophils % (auto) 0.2 %; Immature Granulocytes # (auto) 0.22 K/uL (0.01-0.20); Immature Granulocytes % (auto) 0.9 %; Lymphocytes # (auto) 1.92 K/uL (1.2-3.4); Lymphocytes % (auto) 7.7 %; Monocytes # (auto) 0.96 K/uL (0.11-0.59); Monocytes % (auto) 3.8 %; Neutrophils # (auto) 21.78 K/uL (1.40-6.50); Neutrophils % (auto) 87.1 %
--- NOTE | 2022-04-12 19:26 | XRay Report ---
XR chest 1V portable HISTORY: post cardiac arrest, intubated COMPARISON: Chest 05/04/2020. FINDINGS: No pneumothorax. No pleural effusions. Calcified granuloma within the right middle lobe. Up per lobe predominant perihilar airspace opacities which favors pulmonary edema. The heart is mildly e nlarged. Nasogastric tube terminates below the diaphragm. The tip is not included on this study. Endo tracheal tube terminates 3.6 cm from the mil. IMPRESSION: 1. Satisfactory support line placement. 2. Upper lobe predominant perihilar hazy airspace opacities. This favors pulmonary edema. 3. Mild cardiomegaly. ACT 112: Negative or not required by law. Electronically signed by: Salvador Rodriguez M.D. 04/12/2022 7:25 PM
[2022-04-12] MEDS ORDERED: OPTIRAY 320 500ml IV ONE (19:34)
--- NOTE | 2022-04-12 19:45 | CT Scan Report ---
CT OF THE HEAD WITHOUT CONTRAST CLINICAL HISTORY: post arrest COMPARISON STUDY: No previous studies for comparison. TECHNIQUE: Helical axial images of the head were obtained without IV contrast. Automated exposure con trol was utilized for the study. A dose lowering technique was utilized adhering to the principles o f ALARA. FINDINGS: No acute intracranial hemorrhage, midline shift or mass effect is present. The ventricular system is unremarkable. The basal cisterns are patent. No extra-axial collections are present. There are no findings to suggest acute dural sinus thrombosis or acute territorial infarct. No significant calvarial abnormalities are present. Visualized portions of the sinuses and mastoid air cells are diana ar. IMPRESSION: No acute intracranial findings. ACT 112: Negative or not required by law. Electronically signed by: Camacho White M.D. 04/12/2022 7:41 PM
--- NOTE | 2022-04-12 19:46 | CT Scan Report ---
CT OF THE CERVICAL SPINE WITHOUT CONTRAST CLINICAL HISTORY: found down COMPARISON STUDY: No previous studies for comparison. TECHNIQUE: Helical axial images of the cervical spine were obtained without IV contrast. Sagittal a nd coronal reconstructions were viewed. Automated exposure control was utilized for the study. A do se lowering technique was utilized adhering to the principles of ALARA. FINDINGS: Alignment of the cervical spine is anatomic. Vertebral body heights are maintained. No acut e cervical spine fracture or subluxation is present. There is no prevertebral edema. Facet joints are intact. Endotracheal and nasogastric tubes are partially imaged. Mild multilevel degenerative chandra es within the cervical spine are present. Extensive airspace opacities and interlobular septal thicke gar[place] within the lung apices are noted. These findings are better depicted on the chest CT. IMPRESSION: No acute cervical spine fracture or subluxation. ACT 112: Negative or not required by law. Electronically signed by: Camacho White M.D. 04/12/2022 7:44 PM
--- NOTE | 2022-04-12 19:59 | CT Scan Report ---
ABDOMEN AND PELVIS CT WITH IV CONTRAST CT DOSE: 4662.08 mGy.cm HISTORY: found down, post arrest TECHNIQUE: Multiaxial CT images of the abdomen and pelvis were performed following the use of intrave nous contrast. A dose lowering technique was utilized adhering to the principles of ALARA. COMPARISON STUDY: Abdomen and pelvis CT 05/08/2020. FINDINGS: Bilateral lower lobe consolidation. Additional groundglass airspace opacities within the halley ngs which favor pulmonary edema. This is better appreciated on the same day chest CT. Nasogastric tub e terminates in the stomach. No pneumoperitoneum. No pneumatosis. L4-5 posterior decompression and fu kala with pedicle screws and rods. Left anterior rib fractures are partially visualized on this study . The heart is normal in size. Small fat-containing bilateral inguinal hernias. There are also small fat-containing bilateral lower quadrant/spigelian hernias. A right common femoral catheter terminates in the IVC. The bladder is decompressed by Navarrete catheter. The prostate gland is enlarged. The liver , gallbladder, pancreas, spleen, adrenal glands, and kidneys are unremarkable. The main portal vein i s patent. No retroperitoneal hematoma or lymphadenopathy. Calcified plaque within the normal caliber abdominal aorta. No pelvic free fluid or pelvic lymphadenopathy. No bowel wall thickening or obstruct ion. A few colonic diverticula. No evidence for acute diverticulitis. Normal appendix. IMPRESSION: 1. Left anterior rib fractures which are better appreciated on the same day chest CT. 2. Bilateral lower lobe airspace opacities with pulmonary edema. 3. No acute traumatic process within the abdomen or pelvis. 4. Satisfactory support line placement. 5. Additional findings as described above. ACT 112: Negative or not required by law. Electronically signed by: Salvador Rodriguez M.D. 04/12/2022 7:58 PM
--- NOTE | 2022-04-12 19:59 | CT Scan Report ---
CT ANGIOGRAPHY OF THE CHEST, PULMONARY EMBOLUS PROTOCOL CLINICAL HISTORY: Found down. COMPARISON STUDY: Chest radiograph performed earlier today. TECHNIQUE: Following IV administration of 110 mL of Optiray, helical axial images of the chest were o btained utilizing the pulmonary embolus protocol. Maximal intensity projections and sagittal and cor onal reformats were viewed on an independent 3D workstation. IV contrast was administered without co mplication. Automated exposure control was utilized for the study. A dose lowering technique was ut ilized adhering to the principles of ALARA. FINDINGS: No pulmonary emboli are identified although the segmental and subsegmental pulmonary arter ies within the lower lobes are suboptimally assessed due to respiratory motion. There is no thoracic aortic dissection. Mild cardiomegaly is noted. There is no pericardial effusion. Tip of endotracheal tube is 3.1 cm above the mil. Tip of nasogastric tube is within the proximal body of the stomach. There is no pneumothorax. There are acute fractures of the anterior left second through sixth ribs. T here are acute fractures through the right second and third costal cartilages. There is no pneumothor ax. No pleural effusion. There is extensive dependent consolidation within the lungs. In addition, in terlobular septal thickening is noted with extensive alveolar opacities within the lungs, with upper lobe predominance. Central airways are patent. There is no acute thoracic spine fracture. Abdomen and pelvis CT will be reported separately. Calcified right infrahilar nodes as well as a calcified granu carol within the right lower lobe are present. IMPRESSION: 1. No pulmonary emboli identified although lower lobe segmental and subsegmental pulmonary arteries s uboptimally assessed due to respiratory motion. 2. Satisfactory positioning of the endotracheal and nasogastric tubes. 3. Extensive dependent consolidation within the lungs. This may reflect aspiration pneumonia. 4. Interlobular septal thickening suggestive of interstitial pulmonary edema. Alveolar opacities with in lungs favor alveolar pulmonary edema. 5. Bilateral anterior rib/costal cartilage fractures. No pneumothorax. ACT 112: Negative or not required by law. Electronically signed by: Camacho White M.D. 04/12/2022 7:57 PM
--- NOTE | 2022-04-12 20:19 | History & Physical Report ---
Date of Service April 12, 2022 Assessment & Plan (1) Cardiac arrest with successful resuscitation: (2) BPH (benign prostatic hypertrophy): (3) Diabetes mellitus type 2, uncontrolled: (4) Essential hypertension: Plan 61-year-old male with history of poorly controlled diabetes presents with out of hospital cardiac arrest. Patient was working with his son earlier today. He had an unwitnessed event and was found down, pulseless, cyanotic with agonal respirations. Unknown downtimeson reports that the most would be 40 minutes. Son immediately initiated CPR and EMS was called. ROSC attained. No shocks or medications delivered. Patient intubated in the ER and placed on mechanical ventilation. 1. Neuropatient moving all extremities prior to sedation. CT of the head with no acute intracranial findings. CT of the cervical spine with no acute fracture or subluxation. Patient intubated and sedated Continue sedation, pain control with propofol and fentanyl Goal RASS score of 0 to -1 2. Pulmonaryintubated and sedated. Initially hypoxic. Now improved. He is on AC/VC rate 24, tidal volume 500, 75% FiO2, PEEP of 10 CTA of the chest with no pulmonary emboli. Satisfactory positioning of the endotracheal tube. Extensive dependent consolidation in the lungs which may reflect aspiration pneumonia as well as interlobular septal thickening suggestive of interstitial pulmonary edema and alveolar opacities within the lungs favoring alveolar pulmonary edema. Elevated WBC = 25.02 with neutrophil predominance, possibly reactive in the setting of cardiac arrest resuscitation. Procalcitonin is negative. Monitor ABG Ventilator management Empiric Zosyn 3.375 g IV every 8 hours 3. Cardiovascularpatient status post cardiac arrest with ROSC. Etiology of arrest uncertain Admit to MICU Check 2D echo Therapeutic hypothermia to be managed per ICU Trend troponin 4. Gastrointestinalno acute issues Protonix 40 mg p.o. daily for GI prophylaxis 5. Genitourinaryno acute issues. Patient with history of BPH but does not seem to be on any medications. Navarrete in place. Routine care every shift Monitor urine output Renal function intact BUN = 22, creatinine = 0.95 6. Hematologypatient with neutrophil predominant leukocytosis WBC = 25.02. No anemia. Platelets are within normal limits. Coagulation panel PT/INR is normal as well. Continue to monitor 7. IDpatient afebrile. Elevated WBC = 25.02. Normal procalcitonin = 0.09. Elevated lactate on arrival at 4.8 which is improving with IV fluids. Most recent lactate = 2.7 Empiric Zosyn Follow cultures 8. Endocrinepatient with poorly controlled diabetes. Elevated blood sugar today = 397. No anion gap. Last hemoglobin A1c on 09/02/2020 = 12.2. Son reports the patient does not take anything for his diabetes Hyperglycemia protocol per ICU Repeat hemoglobin A1c F/E/NNormosol 80 mL/h maintenance, electrolyte repletion per protocol, n.p.o. for now ProphylaxisSCDs to bilateral lower extremities, Protonix 40 mg p.o. Codefull Dispositionadmit to MICU History of Present Illness Chief Complaint: Status post cardiac arrest Primary Care Provider: Getachew Weber III, ELIZABETH Kingsley Harding is a 61-year-old male with history of poorly controlled diabetes presenting postcardiac arrest. Patient intubated and sedated during my encounter. History obtained through chart review, discussion with ER staff and discussion with patient's sons at bedside. 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 Son reports that patient was moving slowly today, but was overall in his usual state of health. The son drove to the other field and left the patient alone. When the son returned he found the patient laying in the field, unresponsive. Son states that he was blue in color and agonal breathing. No pulse was felt so his son started CPR and called 911. EMS arrived approximately 10 minutes later and continued CPR. AED was placed "no shock advised". ROSC attained in the field. Patient was intubated in the ER and placed on mechanical ventilation. Some hypoxia with saturations 62 to 64%. Ambu bag ventilation initiated for short time with improvement in saturation. Patient now on mechanical ventilation with SPO2 consistently in the 90s. Per report, patient was moving all extremities with equal strength prior to sedation. Movements seem to be purposeful, patient reaching for the endotracheal tube. ER course: Fentanyl 75 mcg IV +75 mcg IV +100 mcg IV + drip Lasix 40 mg IV Insulin 10 units IV Midazolam 2 mg IV + drip Allergies Allergy/AdvReac Type Severity Reaction Status Date / Time bee venom protein (honey bee) Allergy Severe ANAPHYLAXIS Verified 01/30/22 08:57 grape Allergy Severe Anaphylaxis Verified 01/30/22 08:57 Home Medications Medication Instructions Recorded Confirmed Type epinephrine 0.3 mg/0.3 mL 0.3 mg (0.3 mL) IM DIRECTED PRN 09/25/20 04/12/22 Rx injection, auto-injector Allergic Reaction #2 ea blood sugar diagnostic (OneTouch #100 ea 02/25/21 01/30/22 Rx Verio test strips) insulin aspart U-100 100 unit/mL 22 unit (0.22 mL) SC AC #45 mL 02/25/21 04/12/22 Rx (3 mL) subcutaneous pen (Novolog FlexPen U-100 Insulin aspart) insulin glargine 100 unit/mL (3 30 unit (0.3 mL) SC QAM #45 mL 02/25/21 04/12/22 Rx mL) subcutaneous pen (Lantus Solostar U-100 Insulin) lancets 30 gauge (OneTouch Delica #100 ea 02/25/21 01/30/22 Rx Lancets) lisinopril 5 mg tablet 5 mg PO QAM #90 tabs 02/25/21 04/12/22 Rx metformin 500 mg tablet 500 mg PO BID #180 tabs 02/25/21 04/12/22 Rx pen needle, diabetic, safety 29 #100 ea 02/25/21 01/30/22 Rx gauge x 1/2" Wheeled Walker #1 ea 03/19/21 01/30/22 Rx cyclobenzaprine 5 mg tablet 5 mg PO BID PRN muscle spasm #30 01/30/22 04/12/22 Rx tabs Past Med/Surg History Medical History Acute kidney injury Back pain BPH (benign prostatic hypertrophy) Constipation DDD (degenerative disc disease) DM type 2 (diabetes mellitus, type 2) NIDDM Lumbar degenerative disc disease Lumbar facet joint syndrome Myofascial pain Nocturnal hypoxia reports he was told his oxygen saturation dropped into the 70s while sleeping during his hospital stay 04/2020 [place] Per 05/09/20 Discharge Summary: ADRIANA suspected, poor sleep reported. Overnight pulse ox with need for supplemental O2 HS- pt declined overnight O2- pt will need to follow up as outpatient Postlaminectomy syndrome of lumbosacral region Right ankle pain Right fibular fracture Tobacco abuse Umbilical hernia Surgical History History of lumbar surgery History of transurethral prostatectomy 05/2020 History of wisdom tooth extraction Status post spinal surgery Family History Aunt History of anesthesia reaction "I had an aunt that from anesthesia." -- pt unable to provide specifics; unsure of MH, PD diagnosis; pt denies personal hx of issues with anesthesia Father Myocardial infarction Other Family history of diabetes mellitus Denies family history of Ovarian cancer Prostate cancer Breast cancer Colorectal cancer Social History Smoking Status: Former smoker Tobacco Type: Cigarettes Age Started Using Tobacco: 10; Second Hand Exposure: No; Do You Dip or Chew Tobacco: Yes; Hx Alcohol Use: Yes Alcohol type: beer Hx Substance Use: Yes Preferred Language: Syriac Communication Ability: Effective Visual Impairment: No Limitations Hearing Ability: Normal Sushi Chef Required: No Beliefs That Will Affect Care: None Current Living Situation: Family current occupational status: unemployed How many Children do You have: 2 Feels Safe at Home: Yes Safety Concerns: Feels Safe At This Time Childhood Exposure to Second-Hand Smoke: Yes caffeine: Yes during the past year weight has: remained stable Dental Care, Regularly: No Physical Activity Frequency: Does not Exercise Seatbelt Use: always Sunscreen Use: Yes Assistive Devices: None Review of Systems Review of Systems: Unobtainable due to endotracheal tube Physical Exam Physical Exam: General: patient intubated and sedated, withdraws from painful stimuli Skin: warm, dry, intact, no rashes or lesions HEENT: NC/AT, pupils small, equally round and sluggishly reactive to light, anicteric sclera, conjunctiva without injection, external ear normal to inspection and nontender, nares patent, moist mucus membranes, dentition intact, neck supple, trachea midline, no LAD, no thyromegaly, no JVD, endotracheal tube in place Heart: +S1/S2, regular, no m/r/g Lungs: equal air entry bilaterally, coarse breath sounds Abd: +BS, soft, NT/ND, no masses/organomegaly/ascites, Navarrete catheter in place Ext: warm, 2+ pulses in UE/LE bilaterally, no clubbing/cyanosis or edema, cooling catheter placed right femoral Neuro: Intubated and sedated Results & Data Results & Data ([facility]) Vital Signs (Past 12 Hours) Vital Signs Temp Pulse Resp BP Pulse Ox O2 Del Method 04/12/22 20:10 Mechanical Vent 04/12/22 19:05 32.9 C L 87 20 131/71 88 L Mechanical Vent 04/12/22 18:50 86 20 140/95 92 Ambu-Bag 04/12/22 18:45 85 20 150/74 H 86 L 04/12/22 18:40 85 22 127/77 82 L 04/12/22 18:35 82 20 128/83 81 L Ambu-Bag 04/12/22 18:25 79 20 124/75 82 L Ambu-Bag 04/12/22 18:20 78 20 116/72 83 L Ambu-Bag 04/12/22 18:15 79 22 109/68 83 L Ambu-Bag 04/12/22 18:10 81 22 108/68 82 L Ambu-Bag 04/12/22 18:05 81 20 79 L Ambu-Bag 04/12/22 18:00 85 20 64 L Mechanical Vent 04/12/22 17:59 86 16 107/75 63 L Mechanical Vent 04/12/22 18:01 86 04/12/22 17:50 86 22 107/75 62 L Mechanical Vent Laboratory Results Laboratory Results WBC 25.02 K/ul (4.8-10.8) H 04/12/22 18:44 RBC 4.90 M/uL (4.70-6.10) 04/12/22 18:44 Hgb 15.3 g/dl (14.0-18.0) 04/12/22 18:44 POC Hgb 16.0 g/dl (14.0-18.0) 04/12/22 21:14 Hct 45.4 % (42.0-52.0) 04/12/22 18:44 POC Hct 47 % (42-52) 04/12/22 21:14 MCV 92.7 fL (80.0-100.0) 04/12/22 18:44 MCH 31.2 pg (25.0-34.0) 04/12/22 18:44 MCHC 33.7 g/dL (32.0-36.0) 04/12/22 18:44 RDW Std Deviation 42.6 fL (36.4-46.3) 04/12/22 18:44 RDW Coeff of Marc 12.4 % (11.5-14.5) 04/12/22 18:44 Plt Count 254 K/uL (130-400) 04/12/22 18:44 MPV 10.4 fL (9.4-12.4) 04/12/22 18:44 Immature Gran % (Auto) 0.9 % 04/12/22 18:44 Neut % (Auto) 87.1 % 04/12/22 18:44 Lymph % (Auto) 7.7 % 04/12/22 18:44 [place] % (Auto) 3.8 % 04/12/22 18:44 Eos % (Auto) 0.2 % 04/12/22 18:44 Baso % (Auto) 0.3 % 04/12/22 18:44 Neut # (Auto) 21.78 K/uL (1.40-6.50) H 04/12/22 18:44 Lymph # (Auto) 1.92 K/uL (1.2-3.4) 04/12/22 18:44 [place] # (Auto) 0.96 K/uL (0.11-0.59) H 04/12/22 18:44 Eos # (Auto) 0.06 K/uL (0-0.50) 04/12/22 18:44 Baso # (Auto) 0.08 K/uL (0-0.2) 04/12/22 18:44 Immature Gran # (Auto) 0.22 K/uL (0.01-0.20) H 04/12/22 18:44 Echinocytes 1+ 04/12/22 18:44 PT 11.6 Seconds (9.0-12.0) 04/12/22 18:17 INR 1.1 (0.9-1.1) 04/12/22 18:17 Sample Site R Radial 04/12/22 21:14 POC pH 7.21 (7.35-7.45) L 04/12/22 21:14 POC pCO2 62 mmHg (35-46) H 04/12/22 21:14 POC pO2 99 mmHg (80-95) H 04/12/22 21:14 POC HCO3 25 nasir/L (19-24) H 04/12/22 21:14 POC Total CO2 27 mmol/L (24-31) 04/12/22 21:14 POC Base Excess -3.0 nasir/L (-9-1.8) 04/12/22 21:14 ABG pH (Temp Correct) 7.229 (7.35-7.45) L 04/12/22 21:14 ABG pCO2 (Temp Corrct 58 mmHg (35-46) H 04/12/22 21:14 POC ABG pO2 at Pt Temp 90 04/12/22 21:14 POC ABG O2 Sat 96.0 % (90-95) H 04/12/22 21:14 Willard Test Pass 04/12/22 21:14 O2 Delivery Device Ventilator 04/12/22 21:14 POC O2 Rate 24 04/12/22 21:14 POC FiO2 80 % 04/12/22 21:14 Tidal Volume 500 04/12/22 21:14 PEEP 10 04/12/22 21:14 POC Sodium 133 mmol/L (135-144) L 04/12/22 21:14 Sodium 132 mmol/L (136-145) L 04/12/22 20:03 POC Potassium 4.0 mmol/L (3.3-5.0) 04/12/22 21:14 Potassium 4.3 mmol/L (3.5-5.1) 04/12/22 20:03 Chloride 100 mmol/L (98-107) 04/12/22 20:03 Carbon Dioxide 24 mmol/L (21-32) 04/12/22 20:03 Anion Gap 8 (3-11) 04/12/22 20:03 BUN 21 mg/dl (6-23) 04/12/22 20:03 Creatinine 1.13 mg/dl (0.6-1.4) 04/12/22 20:03 Est Cr Clr Drug Dosing 96.3 ml/min 04/12/22 20:03 Est GFR ( Amer) 81.4 ml/min 04/12/22 20:03 Est GFR (Non-Af Amer) 70.3 ml/min 04/12/22 20:03 BUN/Creatinine Ratio 18.6 (10-20) 04/12/22 20:03 Glucose 394 mg/dl (70-99(Fasting)) H* 04/12/22 20:03 Lactate 2.7 mmol/L (0.4-2.0) H* 04/12/22 20:03 Calcium 8.2 mg/dl (8.5-10.1) L 04/12/22 20:03 Phosphorus 5.2 mg/dl (2.5-4.9) H 04/12/22 20:03 Magnesium 2.0 mg/dl (1.7-2.4) 04/12/22 20:03 Total Bilirubin 0.4 mg/dl (0.2-1.0) 04/12/22 20:03 AST 80 U/L (13-39) H 04/12/22 20:03 ALT 68 U/L (7-52) H 04/12/22 20:03 Alkaline Phosphatase 113 U/L (34-104) H 04/12/22 20:03 Total Creatine Kinase 489 U/L (30-223) H 04/12/22 20:03 Troponin I High Sens 34.4 pg/ml (0-20) H 04/12/22 20:03 B-Natriuretic Peptide 17 pg/ml (0-100) 04/12/22 18:17 Total Protein 7.6 gm/dl (6.0-8.3) 04/12/22 20:03 Albumin 3.9 gm/dl (3.4-5.0) 04/12/22 20:03 Globulin 3.7 gm/dl (2.5-4.0) 04/12/22 20:03 Albumin/Globulin Ratio 1.1 (0.9-2) 04/12/22 20:03 TSH 2.538 uIu/ml (0.300-4.500) 04/12/22 18:17 Urine Color Yellow 04/12/22 18:37 Urine Appearance Cloudy (Clear) A 04/12/22 18:37 Urine pH 5.0 (4.5-7.5) 04/12/22 18:37 Ur Specific [place] 1.027 (1.000-1.030) 04/12/22 18:37 Urine Protein 2+ (Negative) H 04/12/22 18:37 Urine Glucose (UA) 3+ (Negative) H 04/12/22 18:37 Urine Ketones Negative (Negative) 04/12/22 18:37 Urine Blood 2+ (Negative) H 04/12/22 18:37 Urine Nitrite Negative (Negative) 04/12/22 18:37 Urine Bilirubin Negative (Negative) 04/12/22 18:37 Urine Urobilinogen Negative (Negative) 04/12/22 18:37 Ur Leukocyte Esterase Negative (Negative) 04/12/22 18:37 Urine WBC (Auto) 5-10 /hpf (0-5) H 04/12/22 18:37 Urine RBC (Auto) 0-4 /hpf (0-4) 04/12/22 18:37 U Hyaline Cast (Auto) 10-30 /lpf (0-5) H 04/12/22 18:37 U Epithel Cells (Auto) >30 /lpf (0-5) H 04/12/22 18:37 Urine Bacteria (Auto) Negative (Negative) 04/12/22 18:37 Ethyl Alcohol mg/dL < 10.0 mg/dl (<10.0) 04/12/22 21:19 SARS-CoV-2, RNA, NAAT NEGATIVE (NEGATIVE) 04/12/22 18:12 Impressions Chest X-Ray 04/12/22 17:44 XR chest 1V portable HISTORY: post cardiac arrest, intubated COMPARISON: Chest 05/04/2020. FINDINGS: No pneumothorax. No pleural effusions. Calcified granuloma within the right middle lobe. Upper lobe predominant perihilar airspace opacities which favors pulmonary edema. The heart is mildly enlarged. Nasogastric tube terminates below the diaphragm. The tip is not included on this study. Endotracheal tube terminates 3.6 cm from the mil. IMPRESSION: 1. Satisfactory support line placement. 2. Upper lobe predominant perihilar hazy airspace opacities. This favors pulmonary edema. 3. Mild cardiomegaly. ACT 112: Negative or not required by law. Electronically signed by: Salvador Rodriguez M.D. 04/12/2022 7:[address] 04/12/22 18:00 CT OF THE CERVICAL SPINE WITHOUT CONTRAST CLINICAL HISTORY: found down COMPARISON STUDY: No previous studies for comparison. TECHNIQUE: Helical axial images of the cervical spine were obtained without IV contrast. Sagittal and coronal reconstructions were viewed. Automated exposure control was utilized for the study. A dose lowering technique was utilized adhering to the principles of ALARA. FINDINGS: Alignment of the cervical spine is anatomic. Vertebral body heights are maintained. No acute cervical spine fracture or subluxation is present. There is no prevertebral edema. Facet joints are intact. Endotracheal and nasogastric tubes are partially imaged. Mild multilevel degenerative changes within the cervical spine are present. Extensive airspace opacities and interlobular septal thickening within the lung apices are noted. These findings are better depicted on the chest CT. IMPRESSION: No acute cervical spine fracture or subluxation. ACT 112: Negative or not required by law. Electronically signed by: Camacho White M.D. 04/12/2022 7:44 PM Chest CTA 04/12/22 18:00 CT ANGIOGRAPHY OF THE CHEST, PULMONARY EMBOLUS PROTOCOL CLINICAL HISTORY: Found down. COMPARISON STUDY: Chest radiograph performed earlier today. TECHNIQUE: Following IV administration of 110 mL of Optiray, helical axial images of the chest were obtained utilizing the pulmonary embolus protocol. Maximal intensity projections and sagittal and coronal reformats were viewed on an independent 3D workstation. IV contrast was administered without complication. Automated exposure control was utilized for the study. A dose lowering technique was utilized adhering to the principles of ALARA. FINDINGS: No pulmonary emboli are identified although the segmental and subsegmental pulmonary arteries within the lower lobes are suboptimally assessed due to respiratory motion. There is no thoracic aortic dissection. Mild cardiomegaly is noted. There is no pericardial effusion. Tip of endotracheal tube is 3.1 cm above the mil. Tip of nasogastric tube is within the proximal body of the stomach. There is no pneumothorax. There are acute fractures of the anterior left second through sixth ribs. There are acute fractures through the right second and third costal cartilages. There is no pneumothorax. No pleural effusion. There is extensive dependent consolidation within the lungs. In addition, interlobular septal thickening is noted with extensive alveolar opacities within the lungs, with upper lobe predominance. Central airways are patent. There is no acute thoracic spine fracture. Abdomen and pelvis CT will be reported separately. Calcified right infrahilar nodes as well as a calcified granuloma within the right lower lobe are present. IMPRESSION: 1. No pulmonary emboli identified although lower lobe segmental and subsegmental pulmonary arteries suboptimally assessed due to respiratory motion. 2. Satisfactory positioning of the endotracheal and nasogastric tubes. 3. Extensive dependent consolidation within the lungs. This may reflect aspiration pneumonia. 4. Interlobular septal thickening suggestive of interstitial pulmonary edema. Alveolar opacities within lungs favor alveolar pulmonary edema. 5. Bilateral anterior rib/costal cartilage fractures. No pneumothorax. ACT 112: Negative or not required by law. Electronically signed by: Camacho White M.D. 04/12/2022 7:[address] 04/12/22 18:00 CT OF THE HEAD WITHOUT CONTRAST CLINICAL HISTORY: post arrest COMPARISON STUDY: No previous studies for comparison. TECHNIQUE: Helical axial images of the head were obtained without IV contrast. Automated exposure control was utilized for the study. A dose lowering technique was utilized adhering to the principles of ALARA. FINDINGS: No acute intracranial hemorrhage, midline shift or mass effect is present. The ventricular system is unremarkable. The basal cisterns are patent. No extra-axial collections are present. There are no findings to suggest acute dural sinus thrombosis or acute territorial infarct. No significant calvarial abnormalities are present. Visualized portions of the sinuses and mastoid air cells are clear. IMPRESSION: No acute intracranial findings. ACT 112: Negative or not required by law. Electronically signed by: Camacho White M.D. 04/12/2022 7:41 PM - Abdomen/Pelvis CT 04/12/22 18:[address] WITH IV CONTRAST CT DOSE: 4662.08 mGy.cm HISTORY: found down, post arrest TECHNIQUE: Multiaxial CT images of the abdomen and pelvis were performed following the use of intravenous contrast. A dose lowering technique was utilized adhering to the principles of ALARA. COMPARISON STUDY: Abdomen and pelvis CT 05/08/2020. FINDINGS: Bilateral lower lobe consolidation. Additional groundglass airspace opacities within the lungs which favor pulmonary edema. This is better appreciated on the same day chest CT. Nasogastric tube terminates in the stomach. No pneumoperitoneum. No pneumatosis. L4-5 posterior decompression and fusion with pedicle screws and rods. Left anterior rib fractures are partially visualized on this study. The heart is normal in size. Small fat-containing bilateral inguinal hernias. There are also small fat-containing bilateral lower quadrant/spigelian hernias. A right common femoral catheter terminates in the IVC. The bladder is decompressed by Navarrete catheter. The prostate gland is enlarged. The liver, gallbladder, pancreas, spleen, adrenal glands, and kidneys are unremarkable. The main portal vein is patent. No retroperitoneal hematoma or lymphadenopathy. Calcified plaque within the normal caliber abdominal aorta. No pelvic free fluid or pelvic lymphadenopathy. No bowel wall thickening or obstruction. A few colonic diverticula. No evidence for acute diverticulitis. Normal appendix. IMPRESSION: 1. Left anterior rib fractures which are better appreciated on the same day chest CT. 2. Bilateral lower lobe airspace opacities with pulmonary edema. 3. No acute traumatic process within the abdomen or pelvis. 4. Satisfactory support line placement. 5. Additional findings as described above. ACT 112: Negative or not required by law. Electronically signed by: Salvador Rodriguez M.D. 04/12/2022 7:58 PM ECG Additional Comments: EKG with normal sinus rhythm at 84 bpm, right axis deviation, incomplete right bundle branch block, KS = 178, QRS = 116, QTc prolonged at 491, no acute ischemic findings Code Status & VTE Plan VTE Prophylaxis Plan VTE Prophylaxis will be ordered: Yes Critical Care Time 45 minutes PG Care Time/CCT Total # of Minutes Spent Total Time Spent with Patient: Total time spent is greater than 50% in coordination of care (as documented) at patient's floor/unit and/or counseling patient: Coding Level of Care Code None Diagnoses Cardiac arrest with successful resuscitation I46.9 BPH (benign prostatic hypertrophy) N40.0 Diabetes mellitus type 2, uncontrolled E11.65 Essential hypertension I10
[2022-04-12] MEDS ORDERED: PROPOFOL IV EMULSION 10 MG/ML 100 ML VIAL IV ONE (20:40)
[2022-04-12 20:46] LABS: Albumin Globulin Ratio 1.1 (0.9-2); Albumin Level 3.9 gm/dl (3.4-5.0); BUN Creatinine Ratio 18.6 (10-20); Bilirubin,Total 0.4 mg/dl (0.2-1.0); Calcium 8.2 mg/dl (8.5-10.1); Creatinine Clr Calc Pharmacy 96.3 ml/min; Est GFR (African American) 81.4 ml/min; Est GFR (Non-African American) 70.3 ml/min; Globulin 3.7 gm/dl (2.5-4.0); Phosphorus 5.2 mg/dl (2.5-4.9); Potassium 4.3 mmol/L (3.5-5.1); Total Protein 7.6 gm/dl (6.0-8.3)
[2022-04-12] MEDS ORDERED: PROPOFOL BOLUS FROM BAG IV PRN (20:48)
--- NOTE | 2022-04-12 20:50 | Critical Care Consultation ---
Date of Consultation April 12, 2022 Assessment & Plan (1) Cardiac arrest: Reason Critically Ill: 61-year-old male presents to the ICU following cardiac arrest where he received CPR in field and ROSC achieved after approximately 20 minutes of being down. Not candidate for therapeutic hypothermia as he is now following commands on the ventilator. Neuro - Anoxic injury?Following cardiac arrest patient was initially unresponsive and plan was to undergo therapeutic hypothermia for 24 hours. However on arrival to the ICU the patient is now following commands and will hold on therapeutic hypothermia as benefits do not exceed risk at this point. -CT head and cervical spine without acute findings -Sedated on fentanyl and propofol -RASS every 4 hours -We will reassess cognitive ability more accurately once the patient is weaned from the vent Cardiac - Cardiac arrestunsure of cause at this time. ROSC achieved following 20 minutes CPR and no shock advised on defibrillator. -Mention of possible nonprescribed opioid use by the patient's family, could consider overdose?. UDS pending -EKG without ischemic changes and normal QTc. Initial troponin 34, trend -Cardiology reviewed case and did not feel patient would need catheterization -No significant electrolyte abnormalities. Will monitor with routine BMPs and optimize -Continuous monitoring on telemetry -Pacer pads in place if needed Respiratory - Acute hypoxic respiratory failuresuspect this is likely multifactorial in the setting of cardiopulmonary edema following cardiac arrest and aspiration pneumonitis given CT findings -CTA negative for PE -Continue with empiric Zosyn -Mechanically ventilated, wean vent as tolerated. Follow-up ABG and chest x- ray in a.m. -Patient does have rib fractures and would likely benefit from lidocaine patch once extubated -Continuous end-tidal and pulse ox monitoring GI - N.p.o. RENAL/LYTES - Creatinine within normal limits, no electrolyte abnormalities Normosol at 80 mL/h Routine BMPs - Foleystrict I's and O's ENDO - DM type II (uncontrolled)holding metformin, continue with sliding scale. May need to transition to insulin drip if hyperglycemia does not improve. No anion gap to suggest DKA -Hemoglobin A1c pending -ICU hyperglycemic protocol HEME - H&H stable, monitor routine CBCs ID - Suspect leukocytosis likely due to cardiac arrest versus pneumonitis. Is likely patient aspirated during this event given CT findings. Will put on empiric Zosyn for pulmonary coverage. No other evidence of other infectious processes LINES/IV ACCESS - Peripheral IVs, right femoral cooling cath with central access DVT PROPHYLAXIS - SCDs, subcu heparin I have personally spent 70 minutes of critical care time in the direct management of this patient. This is a life/limb threatening event. This includes time spent evaluating patient, direct bedside care, chart review, placing orders, interpretation of diagnostic studies, discussion with consultants, patient, and family members, as well as other required patient management activities. This time is exclusive of all separately billable procedures, and teaching time and separate from and in addition to any other critical care service time. Thank you for allowing us to participate in the care of this patient. Please refer to my attending physician's documentation for any further recommendations. (2) Pulmonary edema: (3) Acute respiratory failure with hypoxia: (4) Acute hyperglycemia: (5) Diabetes mellitus type 2, uncontrolled: (6) DDD (degenerative disc disease), lumbar: (7) Rib fractures: History of Present Illness Attending Physician: Shira Freeman DO History of Present Illness Patient is a 61-year-old male with past medical history of diabetes, medical n oncompliance, degenerative disc disease who presented to the emergency department following a cardiac arrest in field. The patient was working with his son in the field and was found down by the son with blue color and agonal breathing. The son did not feel a pulse and started CPR and called 911 who arrived approximately 10 minutes later and continued CPR. AED was placed on the patient did not advise shock. ROSC was obtained with CPR in field after approximately 20 minutes. Patient was taken to the emergency department where he was intubated and was noted to be significantly hypoxic. Initially the patient was not following commands and a plan was made to transfer to ICU for therapeutic hypothermia. EKG without ischemic changes reviewed by cardiology and patient was determined to not need catheterization. CT head negative for acute intracranial findings. CT abdomen and pelvis and cervical spine were also unremarkable. CTA chest was negative for PE but did show bilateral infiltration consistent with aspiration, and interstitial pulmonary edema with bilateral anterior rib/costal cartilage fractures but no pneumothorax. On arrival to the ICU the patient was intubated on Versed and fentanyl drips. He did however began to arouse and was able to follow commands and will hold on therapeutic hypothermia as patient does not meet criteria at this time. I did speak with the patient's 2 sons at the bedside. Apparently patient may have been taking nonprescribed fentanyl, UDS and EtOH sent. No electrolyte abnormalities noted and lactate appears to be improving. Antibiotics started for aspiration. We will continue with supportive care and mechanical ventilation and continue to wean vent as tolerated. Allergies Allergy/AdvReac Type Severity Reaction Status Date / Time bee venom protein (honey bee) Allergy Severe ANAPHYLAXIS Verified 01/30/22 08:57 grape Allergy Severe Anaphylaxis Verified 01/30/22 08:57 Home Medications Medication Instructions Recorded Confirmed Type epinephrine 0.3 mg/0.3 mL 0.3 mg (0.3 mL) IM DIRECTED PRN 09/25/20 04/12/22 Rx injection, auto-injector Allergic Reaction #2 ea blood sugar diagnostic (OneTouch #100 ea 02/25/21 01/30/22 Rx Verio test strips) lancets 30 gauge (OneTouch Delica #100 ea 02/25/21 01/30/22 Rx Lancets) lisinopril 5 mg tablet 5 mg PO QAM #90 tabs 02/25/21 04/12/22 Rx pen needle, diabetic, safety 29 #100 ea 02/25/21 01/30/22 Rx gauge x 1/2" Wheeled Walker #1 ea 03/19/21 01/30/22 Rx cyclobenzaprine 5 mg tablet 5 mg PO BID PRN muscle spasm #30 01/30/22 04/12/22 Rx tabs metformin 500 mg tablet 500 mg PO BID #60 tabs 04/20/22 Rx oxycodone 5 mg tablet 5 mg PO Q6H PRN pain #14 tabs 04/20/22 Rx Patient History Medical History Acute kidney injury Back pain BPH (benign prostatic hypertrophy) Constipation DDD (degenerative disc disease) DM type 2 (diabetes mellitus, type 2) NIDDM Lumbar degenerative disc disease Lumbar facet joint syndrome Myofascial pain Nocturnal hypoxia reports he was told his oxygen saturation dropped into the 70s while sleeping during his hospital stay 04/2020 [place] Per 05/09/20 Discharge Summary: ADRIANA suspected, poor sleep reported. Overnight pulse ox with need for supplemental O2 HS- pt declined overnight O2- pt will need to follow up as outpatient Postlaminectomy syndrome of lumbosacral region Right ankle pain Right fibular fracture Tobacco abuse Umbilical hernia Surgical History History of lumbar surgery History of transurethral prostatectomy 05/2020 History of wisdom tooth extraction Status post spinal surgery Family History Aunt History of anesthesia reaction "I had an aunt that from anesthesia." -- pt unable to provide specifics; unsure of MH, PD diagnosis; pt denies personal hx of issues with anesthesia Father Myocardial infarction Other Family history of diabetes mellitus Denies family history of Ovarian cancer Prostate cancer Breast cancer Colorectal cancer Social History Smoking Status: Former smoker Tobacco Type: Cigarettes Age Started Using Tobacco: 10; Second Hand Exposure: No; Hx Alcohol Use: Yes Alcohol type: beer Hx Substance Use: Yes Preferred Language: [place] Communication Ability: Effective Visual Impairment: No Limitations Hearing Ability: Normal Critical Care Technician Required: No Beliefs That Will Affect Care: None Current Living Situation: Family current occupational status: unemployed How many Children do You have: 2 Feels Safe at Home: Yes Childhood Exposure to Second-Hand Smoke: Yes caffeine: Yes during the past year weight has: remained stable Dental Care, Regularly: No Physical Activity Frequency: Does not Exercise Seatbelt Use: always Sunscreen Use: Yes Assistive Devices: None Review of Systems Review of Systems: Unobtainable due to cognitive status and Unobtainable due to endotracheal tube Physical Exam Constitutional: + mechanically ventilated; + not well groomed Eyes: PERRL, conjunctivae normal, anicteric sclerae ENMT: external ear and nose normal, oropharynx normal Neck: trachea midline, no thyromegaly Respiratory: symmetric chest movement; no labored breathing Auscultation: + rhonchi; no crackles and no wheezes Cardiovascular: Rate/Rhythm: regular rate and regular rhythm Heart Sounds: normal S1 and normal S2; no murmur Extremities: normal capillary refill; no edema Gastrointestinal (Abdomen): normal bowel sounds, soft, nontender, no hepatosplenomegaly Musculoskeletal: no cyanosis or clubbing, extremities motor strength 5/5 Skin: no rashes, warm and dry Neurologic: Follows commands, PERRLA. Exam limited due to sedation and endotracheal intubation Psychiatric: Unable to assess due to sedation, endotracheal intubation Genitourinary: Indwelling Navarrete catheter present, inguinal hernia noted Results & Data Results & Data ([facility]) Vital Signs (Past 12 Hours) Vital Signs Temp Pulse Resp BP Pulse Ox O2 Del Method 04/12/22 20:10 Mechanical Vent 04/12/22 19:05 32.9 C L 87 20 131/71 88 L Mechanical Vent 04/12/22 18:50 86 20 140/95 92 Ambu-Bag 04/12/22 18:45 85 20 150/74 H 86 L 04/12/22 18:40 85 22 127/77 82 L 04/12/22 18:35 82 20 128/83 81 L Ambu-Bag 04/12/22 18:25 79 20 124/75 82 L Ambu-Bag 04/12/22 18:20 78 20 116/72 83 L Ambu-Bag 04/12/22 18:15 79 22 109/68 83 L Ambu-Bag 04/12/22 18:10 81 22 108/68 82 L Ambu-Bag 04/12/22 18:05 81 20 79 L Ambu-Bag 04/12/22 18:00 85 20 64 L Mechanical Vent 04/12/22 17:59 86 16 107/75 63 L Mechanical Vent 04/12/22 18:01 86 04/12/22 17:50 86 22 107/75 62 L Mechanical Vent Coding Level of Care Code 84424 CRITICAL CARE 1ST 30-74M Diagnoses Cardiac arrest I46.9 Pulmonary edema J81.0 Chronicity: acute Acute respiratory failure with hypoxia J96.01 Acute hyperglycemia R73.9 Diabetes mellitus type 2, uncontrolled E11.65 DDD (degenerative disc disease), lumbar M51.36 Rib fractures S22.49XA (2) Pulmonary edema Chronicity: acute Qualified Code(s): J81.0 - Acute pulmonary edema
[2022-04-12 20:53] LABS: Troponin I High Sensitivity 34.4 pg/ml (0-20)
[2022-04-12] MEDS ORDERED: ICU Protocol for HYPERglycemia SCH (21:00)
[2022-04-12 21:28] LABS: iSTAT Allen Test Pass; iSTAT Art Bld Gas pCO2 Correct 58 mmHg (35-46); iSTAT Art Bld Gas pH Corrected 7.229 (7.35-7.45); iSTAT Arterial Blood Gas HCO3 25 meg/L (19-24); iSTAT Arterial Blood Gas pCO2 62 mmHg (35-46); iSTAT Arterial Blood Gas pH 7.21 (7.35-7.45); iSTAT Arterial Blood Gas pO2 99 mmHg (80-95); iSTAT Arterial Blood Gas pO2 C 90; iSTAT Carbon Dioxide 27 mmol/L (24-31); iSTAT FiO2 80 %; iSTAT Hematocrit 47 % (42-52); iSTAT Site R Radial; iSTAT Sodium 133 mmol/L (135-144)
[2022-04-12] MEDS: NORMOSOL-R 1,000 ML IV SCH (22:01)
[2022-04-12] MEDS: propofoL 1,000 MG/100 ML VIAL IV SCH (22:02)
[2022-04-12 22:13] LABS: Albumin Level 3.8 gm/dl (3.4-5.0); BUN Creatinine Ratio 23.2 (10-20); Bilirubin,Total 0.4 mg/dl (0.2-1.0); Calcium 8.1 mg/dl (8.5-10.1); Creatinine Clr Calc Pharmacy 41.5 ml/min; Est GFR (African American) 100.4 ml/min; Est GFR (Non-African American) 86.7 ml/min; Potassium 4.2 mmol/L (3.5-5.1); Total Protein 7.5 gm/dl (6.0-8.3); Troponin I High Sensitivity 38.4 pg/ml (0-20)
[2022-04-12] MEDS ORDERED: GLUCAGON FOR INJ 1 MG VIAL SQ PRN (22:16)
[2022-04-12] MEDS ORDERED: GLUCOSE 10 TAB/TUBE PO PRN (22:16)
[2022-04-12] MEDS ORDERED: CARBOHYDRATES FOR HYPOGLYCEMIA PO PRN (22:16)
[2022-04-12] MEDS ORDERED: GLUCOSE 40% GEL 15 GM TUBE PO PRN (22:16)
[2022-04-12] MEDS ORDERED: PHARMACY GLYCEMIC MGMT CONSULT PRN (22:16)
[2022-04-12] MEDS ORDERED: DEXTROSE 50% 50 ML SYRINGE IV PRN (22:16)
[2022-04-12] MEDS ORDERED: PIPERACILLIN/TAZOBACTAM 4.5 GM in DEXTROSE 5% 100 ML IV ONE (22:30)
[2022-04-13] MEDS: INSULIN ASPART PER UNIT SC SCH ×5 (00:19→20:22)
[2022-04-13 00:24] LABS: Amphetamines+Metham, Urine Pos (Neg); Barbiturates, Urine Neg (Neg); Benzodiazepine, Urine Pos (Neg); Cocaine, Urine Neg (Neg); MDMA (Ecstacy), Urine Neg (Neg); Methadone, Urine Neg (Neg); Opiate, Urine Neg (Neg); Phencyclidine, Urine Neg (Neg)
[2022-04-13] MEDS ORDERED: LANTUS PER UNIT CHARGE SQ ONE (02:00)
[2022-04-13] MEDS: PIPERACILLIN/TAZOBACTAM 4.5 GM in DEXTROSE 5% 100 ML IV SCH ×3 (04:47→19:56)
[2022-04-13] MEDS: propofoL 1,000 MG/100 ML VIAL IV SCH ×3 (04:53→14:03)
[2022-04-13 05:08] LABS: iSTAT Allen Test Pass; iSTAT Art Bld Gas pCO2 Correct 37 mmHg (35-46); iSTAT Art Bld Gas pH Corrected 7.405 (7.35-7.45); iSTAT Arterial Blood Gas HCO3 23 meg/L (19-24); iSTAT Arterial Blood Gas pCO2 36 mmHg (35-46); iSTAT Arterial Blood Gas pH 7.42 (7.35-7.45); iSTAT Arterial Blood Gas pO2 80 mmHg (80-95); iSTAT Arterial Blood Gas pO2 C 84; iSTAT Carbon Dioxide 24 mmol/L (24-31); iSTAT FiO2 50 %; iSTAT Hematocrit 41 % (42-52); iSTAT Hemoglobin 13.9 g/dl (14.0-18.0); iSTAT Potassium 4.8 mmol/L (3.3-5.0); iSTAT Site R Radial; iSTAT Sodium 134 mmol/L (135-144)
[2022-04-13 05:28] LABS: iSTAT Creatinine 1.1 mg/dl (0.6-1.3); iSTAT Hemoglobin 15.6 g/dl (14.0-18.0); iSTAT Ionized Calcium 1.09 mmol/l (1.12-1.32); iSTAT Potassium 5.5 mmol/L (3.3-5.0)
[2022-04-13 05:54] LABS: BUN Creatinine Ratio 19.2 (10-20); Calcium 7.9 mg/dl (8.5-10.1); Creatinine Clr Calc Pharmacy 73.3 ml/min; Est GFR (African American) 59.7 ml/min; Est GFR (Non-African American) 51.5 ml/min; Magnesium 1.8 mg/dl (1.7-2.4); Phosphorus 3.3 mg/dl (2.5-4.9); Potassium 4.6 mmol/L (3.5-5.1)
[2022-04-13] MEDS ORDERED: STAT IV STA (05:54)
[2022-04-13] MEDS ORDERED: INSULIN PROTOCOL GOAL RANGE ONE (05:54)
[2022-04-13] MEDS ORDERED: NovoLIN-R BOLUS FROM BAG IV ONE (06:00)
[2022-04-13] MEDS ORDERED: INSULIN REGULAR 250 UNITS in SODIUM CHLORIDE 0.9% 247.5 ML IV SCH (06:00)
[2022-04-13] MEDS: ICU ELECTROLYTE REPLACEMENT PROTOCOL SCH ×2 (06:08→16:08)
[2022-04-13] MEDS: MAGNESIUM SULFATE / D5W 1 GM/100 ML BAG IV SCH ×2 (06:20→08:47)
[2022-04-13 06:36] LABS: Basophils # (auto) 0.03 K/uL (0-0.2); Basophils % (auto) 0.2 %; Hematocrit (blood only) 40.4 % (42.0-52.0); Hemoglobin 13.9 g/dl (14.0-18.0); Immature Granulocytes # (auto) 0.06 K/uL (0.01-0.20); Immature Granulocytes % (auto) 0.4 %; Lymphocytes # (auto) 0.88 K/uL (1.2-3.4); Lymphocytes % (auto) 6.3 %; Mean Corpuscular Hemoglobin 30.5 pg (25.0-34.0); Mean Corpuscular Hgb Conc 34.4 g/dL (32.0-36.0); Mean Corpuscular Volume 88.8 fL (80.0-100.0); Mean Platelet Volume 10.3 fL (9.4-12.4); Monocytes # (auto) 0.45 K/uL (0.11-0.59); Monocytes % (auto) 3.2 %; Neutrophils # (auto) 12.61 K/uL (1.40-6.50); Neutrophils % (auto) 89.9 %; Platelet Count 217 K/uL (130-400); RDW Coefficient of Variation 12.7 % (11.5-14.5); RDW Standard Deviation 41.4 fL (36.4-46.3); Red Blood Count 4.55 M/uL (4.70-6.10); White Blood Count 14.03 K/ul (4.8-10.8)
--- NOTE | 2022-04-13 07:24 | XRay Report ---
XR chest 1V portable CLINICAL HISTORY: Respiratory failure. COMPARISON STUDY: Chest radiograph and chest CT April 12, 2022. FINDINGS: Tip of endotracheal tube is 5.9 cm above the mil. Tip of nasogastric tube is within the gastric cardia. There is no pneumothorax or pleural effusion. Interstitial thickening and bilateral p erihilar airspace opacities persist. IMPRESSION: 1. Tip of endotracheal tube 5.9 cm above the mil. Tip of nasogastric tube within the gastric cardi a. The nasogastric tube could be advanced 3 cm. 2. Persistent interstitial thickening and bilateral opacities. The findings favor pulmonary edema wit h possible superimposed aspiration pneumonitis/pneumonia. ACT 112: Negative or not required by law. Electronically signed by: Camacho White M.D. 04/13/2022 7:23 AM
[2022-04-13] MEDS ORDERED: INSULIN ASPART PER UNIT SC SCH (07:30)
[2022-04-13 07:32] LABS: Estimated Average Glucose 292 mg/dl; Hemoglobin A1C 11.8 % (4.5-5.6)
[2022-04-13] MEDS: HEPARIN SOD 5,000 UNIT/0.5 ML VIAL SQ SCH ×2 (07:34→19:57)
[2022-04-13] MEDS ORDERED: PANTOprazole 40 MG TAB PO SCH (09:00)
--- NOTE | 2022-04-13 09:22 | Critical Care Progress Note ---
Date of Service April 13, 2022 Assessment & Plan (1) Cardiac arrest: Plan: Reason Critically Ill: 61-year-old male presents to the ICU following cardiac arrest where he received CPR in field and ROSC achieved after approximately 20 minutes of being down. Not candidate for therapeutic hypothermia as he is now following commands on the ventilator. Neuro - Anoxic injury?Following commands, unlikely to represent significant anoxic injury. -CT head and cervical spine without acute findings -Sedated on fentanyl and propofol -RASS every 4 hours -We will reassess cognitive ability more accurately once the patient is weaned from the vent Cardiac - Cardiac arrestunsure of cause at this time. ROSC achieved following 20 minutes CPR and no shock advised on defibrillator. -Mention of possible nonprescribed opioid use by the patient's family, could consider overdose?. UDS pending -Formal cardiology consultation - notes indicate emergent intervention deferred yesterday -No significant electrolyte abnormalities. Will monitor with routine BMPs and optimize -Continuous monitoring on telemetry Respiratory - Acute hypoxic respiratory failuresuspect this is likely multifactorial in the setting of cardiopulmonary edema following cardiac arrest and aspiration pneumonitis given CT findings -CTA negative for PE -Continue with empiric Zosyn -Mechanically ventilated, wean vent as tolerated. -Patient does have rib fractures and would likely benefit from lidocaine patch once extubated -Continuous end-tidal and pulse ox monitoring -Biofire exclude additional infectious causes GI - Transaminitis - Recheck and trend labs - Probable shock liver secondary to arrest RENAL/LYTES - Acute kidney injury - presumptive pre-renal in origin - continue to monitor Normosol at 80 mL/h Routine BMPs - Foleystrict I's and O's ENDO - DM type II (uncontrolled)holding metformin, continue with sliding scale. May need to transition to insulin drip if hyperglycemia does not improve. No anion gap to suggest DKA -Hemoglobin A1c pending -ICU hyperglycemic protocol HEME - H&H stable, monitor routine CBCs ID - Suspect leukocytosis likely due to cardiac arrest versus pneumonitis. Is likely patient aspirated during this event given CT findings. Will put on empiric Zosyn for pulmonary coverage. No other evidence of other infectious processes LINES/IV ACCESS - Peripheral IVs, right femoral cooling cath with central access DVT PROPHYLAXIS - SCDs, subcu heparin I have personally spent 60 minutes of critical care time in the direct management of this patient. This is a life/limb threatening event. This includes time spent evaluating patient, direct bedside care, chart review, placing orders, interpretation of diagnostic studies, discussion with consultants, patient, and family members, as well as other required patient management activities. This time is exclusive of all separately billable procedures, and teaching time and separate from and in addition to any other critical care service time. (2) Pulmonary edema: (3) Acute respiratory failure with hypoxia: (4) Acute hyperglycemia: (5) Diabetes mellitus type 2, uncontrolled: (6) DDD (degenerative disc disease), lumbar: (7) Rib fractures: Admission and Anticipated Discharge Date Admission Date: April 12, 2022 Subjective No overnight events. Patient follows commands with weaning of sedation Review of Systems Review of Systems: Unobtainable due to endotracheal tube Physical Exam Physical Exam: General: Sedated. nontoxic. Skin: Warm, dry, Head: Atraumatic Ears, nose, mouth and throat: airway obscured by endotracheal tube Cardiovascular: Normal peripheral perfusion Respiratory: Ventilator settings reviewed Gastrointestinal: Non distended Musculoskeletal: No deformity Results & Data Results & Data ([facility]) Vital Signs (Past 12 Hours) Vital Signs Temp Pulse Pulse Resp BP BP Pulse Ox 04/13/22 08:00 37.9 C H 86 28 H 91 04/13/22 08:00 92/60 L 04/13/22 07:30 37.9 C H 84 28 H 93 04/13/22 07:00 37.8 C H 86 28 H 92 04/13/22 07:00 94/64 L 04/13/22 06:45 37.8 C H 86 28 H 92 04/13/22 09:07 04/13/22 08:00 84 04/13/22 08:00 04/13/22 08:13 04/13/22 07:23 84 29 H 93 04/13/22 04:00 04/13/22 03:20 83 28 H 97 04/13/22 00:00 04/12/22 23:15 88 04/12/22 23:09 86 28 H 97 04/12/22 22:00 35.8 C L 90 28 H 97 04/12/22 22:00 83/61 L 04/12/22 21:30 35.5 C L 89 28 H 96 04/12/22 21:30 91/64 L 04/12/22 21:46 04/12/22 21:26 35.5 C L 88 28 H 107/73 96 O2 Del Method O2 Flow Rate FiO2 04/13/22 08:00 Mechanical Vent 40 04/13/22 08:00 04/13/22 07:30 04/13/22 07:00 04/13/22 07:00 04/13/22 06:45 Mechanical Vent 50 04/13/22 09:07 Mechanical Vent 40 04/13/22 08:00 04/13/22 08:00 40 04/13/22 08:13 40 04/13/22 07:23 50 04/13/22 04:00 60 04/13/22 03:20 60 04/13/22 00:00 60 04/12/22 23:15 04/12/22 23:09 80 04/12/22 22:00 Mechanical Vent 80 04/12/22 22:00 04/12/22 21:30 04/12/22 21:30 04/12/22 21:46 Mechanical Vent 04/12/22 21:26 Mechanical Vent Critical Care Results & Data Vital Signs (Past 12 Hours) Vital Signs Temp Pulse Resp BP Pulse Ox O2 Del Method O2 Flow Rate 04/13/22 08:00 37.9 C H 86 28 H 91 Mechanical Vent 04/13/22 08:00 92/60 L 04/13/22 07:30 37.9 C H 84 28 H 93 04/13/22 07:00 37.8 C H 86 28 H 92 04/13/22 07:00 94/64 L 04/13/22 06:45 37.8 C H 86 28 H 92 Mechanical Vent 04/13/22 09:07 Mechanical Vent 04/13/22 08:00 84 04/13/22 08:00 04/13/22 08:13 04/13/22 07:23 84 29 H 93 04/13/22 04:00 04/13/22 03:20 83 28 H 97 04/13/22 00:00 04/12/22 23:15 88 04/12/22 23:09 86 28 H 97 04/12/22 22:00 35.8 C L 90 28 H 97 Mechanical Vent 80 04/12/22 22:00 83/61 L 04/12/22 21:46 Mechanical Vent FiO2 04/13/22 08:00 40 04/13/22 08:00 04/13/22 07:30 04/13/22 07:00 04/13/22 07:00 04/13/22 06:45 50 04/13/22 09:07 40 04/13/22 08:00 04/13/22 08:00 40 04/13/22 08:13 40 04/13/22 07:23 50 04/13/22 04:00 60 04/13/22 03:20 60 04/13/22 00:00 60 04/12/22 23:15 04/12/22 23:09 80 04/12/22 22:00 04/12/22 22:00 04/12/22 21:46 Lab & Micro Results (Past 24 Hours) RBC 4.55 M/uL (4.70-6.10) L 04/13/22 WBC 14.03 K/ul (4.8-10.8) H 04/13/22 Hgb 13.9 g/dl (14.0-18.0) L 04/13/22 Hct 40.4 % (42.0-52.0) L 04/13/22 MCV 88.8 fL (80.0-100.0) 04/13/22 MCH 30.5 pg (25.0-34.0) 04/13/22 MCHC 34.4 g/dL (32.0-36.0) 04/13/22 RDW Standard Deviation 41.4 fL (36.4-46.3) 04/13/22 RDW Coefficient of Variation 12.7 % (11.5-14.5) 04/13/22 Plt Count 217 K/uL (130-400) 04/13/22 MPV 10.3 fL (9.4-12.4) 04/13/22 Neutrophils (%) (Auto) 89.9 % 04/13/22 Lymphocytes (%) (Auto) 6.3 % 04/13/22 Monocytes # (Auto) 0.45 K/uL (0.11-0.59) 04/13/22 Eosinophils # (Auto) 0.00 K/uL (0-0.50) 04/13/22 Immature Granulocyte % (Auto) 0.4 % 04/13/22 Neutrophils # (Auto) 12.61 K/uL (1.40-6.50) H 04/13/22 Lymphocytes # (Auto) 0.88 K/uL (1.2-3.4) L 04/13/22 Monocytes # (Auto) 0.45 K/uL (0.11-0.59) 04/13/22 Eosinophils # (Auto) 0.00 K/uL (0-0.50) 04/13/22 Basophils # (Auto) 0.03 K/uL (0-0.2) 04/13/22 Immature Granulocyte # (Auto) 0.06 K/uL (0.01-0.20) 3 Echinocytes 1+ 04/12/22 Na 132 mmol/L (136-145) L 04/13/22 K 4.6 mmol/L (3.5-5.1) 04/13/22 Cl 102 mmol/L (98-107) 04/13/22 CO2 23 mmol/L (21-32) 04/13/22 Anion Gap 7 (3-11) 04/13/22 BUN 28 mg/dl (6-23) H 04/13/22 Creatinine 1.46 mg/dl (0.6-1.4) H 04/13/22 Estimated GFR ( Amer) 59.7 ml/min 04/13/22 Estimated GFR (Non-Af Amer) 51.5 ml/min 04/13/22 BUN/Creatinine Ratio 19.2 (10-20) 04/13/22 Glu 311 mg/dl (70-99(Fasting)) H* 04/13/22 Ca 7.9 mg/dl (8.5-10.1) L 04/13/22 Phosphorus Level 3.3 mg/dl (2.5-4.9) 04/13/22 Total Bilirubin 0.4 mg/dl (0.2-1.0) 04/12/22 Direct Bilirubin 0.0 mg/dl (0-0.2) 04/12/22 AST 76 U/L (13-39) H 04/12/22 ALT 66 U/L (7-52) H 04/12/22 Alkaline Phosphatase 106 U/L (34-104) H 04/12/22 TP 7.5 gm/dl (6.0-8.3) 04/12/22 Albumin 3.8 gm/dl (3.4-5.0) 04/12/22 Globulin 3.7 gm/dl (2.5-4.0) 04/12/22 Albumin/Globulin Ratio 1.1 (0.9-2) 04/12/22 Mg 1.8 mg/dl (1.7-2.4) 04/13/22 05:12 Calcium Level 7.9 mg/dl (8.5-10.1) L 04/13/22 05:12 Prothromb Time International Ratio 1.1 (0.9-1.1) 04/12/22 18:1 7 Willard Test Pass 04/13/22 04:54 Diagnostic Findings (Past 24 Hours) Chest X-Ray 04/12/22 17:44 XR chest 1V portable HISTORY: post cardiac arrest, intubated COMPARISON: Chest 05/04/2020. FINDINGS: No pneumothorax. No pleural effusions. Calcified granuloma within the right middle lobe. Upper lobe predominant perihilar airspace opacities which favors pulmonary edema. The heart is mildly enlarged. Nasogastric tube terminates below the diaphragm. The tip is not included on this study. Endotracheal tube terminates 3.6 cm from the mil. IMPRESSION: 1. Satisfactory support line placement. 2. Upper lobe predominant perihilar hazy airspace opacities. This favors pulmonary edema. 3. Mild cardiomegaly. ACT 112: Negative or not required by law. Electronically signed by: Salvador Rodriguez M.D. 04/12/2022 7:[address] 04/12/22 18:00 CT OF THE CERVICAL SPINE WITHOUT CONTRAST CLINICAL HISTORY: found down COMPARISON STUDY: No previous studies for comparison. TECHNIQUE: Helical axial images of the cervical spine were obtained without IV contrast. Sagittal and coronal reconstructions were viewed. Automated exposure control was utilized for the study. A dose lowering technique was utilized a dhering to the principles of ALARA. FINDINGS: Alignment of the cervical spine is anatomic. Vertebral body heights are maintained. No acute cervical spine fracture or subluxation is present. There is no prevertebral edema. Facet joints are intact. Endotracheal and nasogastric tubes are partially imaged. Mild multilevel degenerative changes within the cervical spine are present. Extensive airspace opacities and interlobular septal thickening within the lung apices are noted. These findings are better depicted on the chest CT. IMPRESSION: No acute cervical spine fracture or subluxation. ACT 112: Negative or not required by law. Electronically signed by: Camacho White M.D. 04/12/2022 7:44 PM Chest CTA 04/12/22 18:00 CT ANGIOGRAPHY OF THE CHEST, PULMONARY EMBOLUS PROTOCOL CLINICAL HISTORY: Found down. COMPARISON STUDY: Chest radiograph performed earlier today. TECHNIQUE: Following IV administration of 110 mL of Optiray, helical axial images of the chest were obtained utilizing the pulmonary embolus protocol. Maximal intensity projections and sagittal and coronal reformats were viewed on an independent 3D workstation. IV contrast was administered without complication. Automated exposure control was utilized for the study. A dose lowering technique was utilized adhering to the principles of ALARA. FINDINGS: No pulmonary emboli are identified although the segmental and subsegmental pulmonary arteries within the lower lobes are suboptimally assessed due to respiratory motion. There is no thoracic aortic dissection. Mild cardiomegaly is noted. There is no pericardial effusion. Tip of endotracheal tube is 3.1 cm above the mil. Tip of nasogastric tube is within the proximal body of the stomach. There is no pneumothorax. There are acute fractures of the anterior left second through sixth ribs. There are acute fractures through the right second and third costal cartilages. There is no pneumothorax. No pleural effusion. There is extensive dependent consolidation within the lungs. In addition, interlobular septal thickening is noted with extensive alveolar opacities within the lungs, with upper lobe predominance. Central airways are patent. There is no acute thoracic spine fracture. Abdomen and pelvis CT will be reported separately. Calcified right infrahilar nodes as well as a calcified granuloma within the right lower lobe are present. IMPRESSION: 1. No pulmonary emboli identified although lower lobe segmental and subsegmental pulmonary arteries suboptimally assessed due to respiratory motion. 2. Satisfactory positioning of the endotracheal and nasogastric tubes. 3. Extensive dependent consolidation within the lungs. This may reflect aspiration pneumonia. 4. Interlobular septal thickening suggestive of interstitial pulmonary edema. Alveolar opacities within lungs favor alveolar pulmonary edema. 5. Bilateral anterior rib/costal cartilage fractures. No pneumothorax. ACT 112: Negative or not required by law. Electronically signed by: Camacho White M.D. 04/12/2022 7:[address] 04/12/22 18:00 CT OF THE HEAD WITHOUT CONTRAST CLINICAL HISTORY: post arrest COMPARISON STUDY: No previous studies for comparison. TECHNIQUE: Helical axial images of the head were obtained without IV contrast. Automated exposure control was utilized for the study. A dose lowering technique was utilized adhering to the principles of ALARA. FINDINGS: No acute intracranial hemorrhage, midline shift or mass effect is present. The ventricular system is unremarkable. The basal cisterns are patent. No extra-axial collections are present. There are no findings to suggest acute dural sinus thrombosis or acute territorial infarct. No significant calvarial abnormalities are present. Visualized portions of the sinuses and mastoid air cells are clear. IMPRESSION: No acute intracranial findings. ACT 112: Negative or not required by law. Electronically signed by: Camacho White M.D. 04/12/2022 7:41 PM Abdomen/Pelvis CT 04/12/22 18:[address] WITH IV CONTRAST CT DOSE: 4662.08 mGy.cm HISTORY: found down, post arrest TECHNIQUE: Multiaxial CT images of the abdomen and pelvis were performed following the use of intravenous contrast. A dose lowering technique was utilized adhering to the principles of ALARA. COMPARISON STUDY: Abdomen and pelvis CT 05/08/2020. FINDINGS: Bilateral lower lobe consolidation. Additional groundglass airspace opacities within the lungs which favor pulmonary edema. This is better ap preciated on the same day chest CT. Nasogastric tube terminates in the stomach. No pneumoperitoneum. No pneumatosis. L4-5 posterior decompression and fusion with pedicle screws and rods. Left anterior rib fractures are partially visualized on this study. The heart is normal in size. Small fat-containing bilateral inguinal hernias. There are also small fat-containing bilateral lower quadrant/spigelian hernias. A right common femoral catheter terminates in the IVC. The bladder is decompressed by Navarrete catheter. The prostate gland is enlarged. The liver, gallbladder, pancreas, spleen, adrenal glands, and kidneys are unremarkable. The main portal vein is patent. No retroperitoneal hematoma or lymphadenopathy. Calcified plaque within the normal caliber abdominal aorta. No pelvic free fluid or pelvic lymphadenopathy. No bowel wall thickening or obstruction. A few colonic diverticula. No evidence for acute diverticulitis. Normal appendix. IMPRESSION: 1. Left anterior rib fractures which are better appreciated on the same day chest CT. 2. Bilateral lower lobe airspace opacities with pulmonary edema. 3. No acute traumatic process within the abdomen or pelvis. 4. Satisfactory support line placement. 5. Additional findings as described above. ACT 112: Negative or not required by law. Electronically signed by: Salvador Rodriguez M.D. 04/12/2022 7:58 PM Chest X-Ray 04/13/22 07:00 XR chest 1V portable CLINICAL HISTORY: Respiratory failure. COMPARISON STUDY: Chest radiograph and chest CT April 12, 2022. FINDINGS: Tip of endotracheal tube is 5.9 cm above the mil. Tip of nasogastric tube is within the gastric cardia. There is no pneumothorax or pleural effusion. Interstitial thickening and bilateral perihilar airspace opacities persist. IMPRESSION: 1. Tip of endotracheal tube 5.9 cm above the mil. Tip of nasogastric tube within the gastric cardia. The nasogastric tube could be advanced 3 cm. 2. Persistent interstitial thickening and bilateral opacities. The findings favor pulmonary edema with possible superimposed aspiration pneumonitis/pneumonia. ACT 112: Negative or not required by law. Electronically signed by: Camacho White M.D. 04/13/2022 7:23 AM I & O Totals 24 Hours 04/12/22 04/13/22 04/14/22 06:59 06:59 06:59 Intake Total 222.498 / 965.295 8088.300 / 1139.300 Output Total 700 / 700 Balance -477.502 / -403.277 2282.300 / 1139.300 Cumulative 04/12/22 17:21 thru 04/13/22 08:48 Intake Total 1361.798 Output Total 700 Balance 661.798 RT Ventilator Mngmt (Last Documented) Ventilator Ordered Settings Ventilator Support Mode Assist Control 04/13/22 08:00 Respiratory Rate 28 04/13/22 08:00 Ventilator Tidal Volume 500 04/13/22 08:00 Setting Minute Ventilation 14.0 04/13/22 07:23 Positive End Expiratory 5 04/13/22 08:13 Pressure Fraction of Inspired Oxygen 40 04/13/22 09:07 Ventilator - PT Measurements Respiratory Rate 28 Exhaled Tidal Volume 500 Minute Ventilation 14.0 Peak Inspiratory Airway 23 Pressure Plateau Pressure 19 Respiratory Cycle Inspiratory: 1:1.4 Expiratory Ratio Inspiratory Phase Time 0.90 End-Tidal CO2 25 Static Lung Compliance 45.45 Dynamic Lung Compliance 33.33 Normal Static Lung Compliance 47.00 Patient Measurements Comment Decreased FIO2 to 50% and peep to 8 Coding Level of Care Code Critical Care 1st 30-74 mins Diagnoses Cardiac arrest I46.9 Pulmonary edema J81.0 Chronicity: acute Acute respiratory failure with hypoxia J96.01 Acute hyperglycemia R73.9 Diabetes mellitus type 2, uncontrolled E11.65 DDD (degenerative disc disease), lumbar M51.36 Rib fractures S22.49XA (2) Pulmonary edema Chronicity: acute Qualified Code(s): J81.0 - Acute pulmonary edema
[2022-04-13] MEDS: NORMOSOL-R 1,000 ML IV SCH ×2 (10:10→20:55)
--- NOTE | 2022-04-13 10:32 | Pharmacy Report ---
Pharmacy Glycemic Short Note 2 - Date of Service April 13, 2022 - Glycemic Short BSG Results (Last 24 hours): 04/12/22 04/12/22 04/12/22 18:17 18:36 20:03 Glucose Cancelled 394 H* POC Glucose POC Glucose (other) 509 H* 04/12/22 04/12/22 04/13/22 21:19 22:11 00:14 Glucose 397 H* POC Glucose 358 H* 354 H* POC Glucose (other) 04/13/22 04/13/22 04/13/22 04:32 05:12 07:48 Glucose 311 H* POC Glucose 286 H 156 H POC Glucose (other) 04/13/22 08:42 Glucose POC Glucose 134 H POC Glucose (other) OUTPATIENT ANTIDIABETIC REGIMEN: * Lantus 30 units SQ daily * Novolog 22 unit SQ AC * metformin 500mg PO BID HbA1C: 11.8% ASSESSMENT: * Patient is a 61 year old male who presents after ROSC achieved following cardiac arrest in the field. History of DM2, non-compliant. Currently critically ill, intubated and sedated. Insulin infusion initiated for hyperglycemia in setting of critical illness. * BSGs [phone]/dL since admission last night. Insulin drip started ~ 0600 this AM and BSGs have declined rapidly. Pt also received Lantus 20 units X1 ~0300. * Remains NPO and on Zosyn. * Will transition to SQ insulin. Novolog q4 while NPO. Will add Lantus HS scale depending on BSG. PLAN FOR INPATIENT GLYCEMIC CONTROL: * Hold outpatient oral diabetes medications * Basal insulin * Lantus 20 units SQ X 1 + HS scale * Bolus insulin * NovoLog per scale ACHS or Q4hrs while NPO * Goal Range: Low 110 mg/dL - High 140 mg/dL * Correction Factor: 20mg/dL/unit * Nutritional / Prandial insulin per carb ratio of 1 unit per 7 grams CHO consumed
[2022-04-13] MEDS ORDERED: LIDOCAINE 1% LOCAL 20 ML VIAL ONE ×2 (10:36→11:35)
--- NOTE | 2022-04-13 10:41 | Cardiology Progress Note ---
Date of Service April 13, 2022 Assessment & Plan (1) Cardiac arrest with successful resuscitation: Plan: -etiology of the arrest uncertain. -fortunately, initial troponins relatively low. -echocardiogram notes normal systolic function without wall motion abnormality. -EKG without acute findings. -case discussed with Dr. Foy. Will proceed with cardiac catheterization. Admission and Anticipated Discharge Date Admission Date: April 12, 2022 Subjective The patient is currently sedated and intubated in the intensive care. Physical Exam Physical Exam: In general this is well-developed well-nourished male intubated in the ICU. HEENT exam notes an endotracheal tube to be in place. Neck is supple a with full carotid upstrokes. Jugular is pressure cannot be assessed. Cardiovascular exam reveals a regular rhythm with distant heart sounds. No obvious murmurs. Lungs note coarse breath sounds throughout. Abdomen is soft. Extremities reveal intact radial artery pulses bilaterally. No peripheral edema. Results & Data ([facility]) Vital Signs (Past 12 Hours) Vital Signs Temp Pulse Resp BP Pulse Ox O2 Del Method FiO2 04/13/22 10:30 108/70 04/13/22 10:30 81 28 H 89 L 04/13/22 10:00 37.5 C 80 28 H 91 Mechanical Vent 40 04/13/22 10:00 115/73 04/13/22 09:30 111/75 04/13/22 09:30 37.5 C 83 28 H 91 04/13/22 09:11 37.6 C H 82 28 H 91 04/13/22 10:15 79 30 H 96 40 04/13/22 08:00 37.9 C H 86 28 H 91 Mechanical Vent 40 04/13/22 08:00 92/60 L 04/13/22 07:30 37.9 C H 84 28 H 93 04/13/22 07:00 37.8 C H 86 28 H 92 04/13/22 07:00 94/64 L 04/13/22 06:45 37.8 C H 86 28 H 92 Mechanical Vent 50 04/13/22 09:07 Mechanical Vent 40 04/13/22 08:00 84 04/13/22 08:00 40 04/13/22 08:13 40 04/13/22 07:23 84 29 H 93 50 04/13/22 04:00 60 04/13/22 03:20 83 28 H 97 60 04/13/22 00:00 60 04/12/22 23:15 88 04/12/22 23:09 86 28 H 97 80 Diagnostic Findings nurse monitoring is benign. Echocardiogram notes normal left ventricular systolic function without wall motion abnormalities. PG Care Time/CCT Total # of Minutes Spent Total Time Spent with Patient: Total time spent is greater than 50% in coordination of care (as documented) at patient's floor/unit and/or counseling patient: Coding Level of Care Code 04779 SUB INP/OBS CARE 3/50MIN Diagnoses Cardiac arrest with successful resuscitation I46.9
[2022-04-13] MEDS: HEPARIN (PORCINE) 1000 UNIT/ML 10 ML (CATH LAB USE ONLY) ONE ×2 (11:00→11:45)
[2022-04-13] MEDS: niCARdipine HCL INJ 2.5 MG/ML 10 ML AMP ONE ×2 (11:00→11:45)
[2022-04-13] MEDS ORDERED: PANTOprazole 40 MG in SYRINGE 0 ML IV SCH (11:00)
[2022-04-13] MEDS: NITROGLYCERIN/D5W 100MCG/ML 20ML SYR ONE ×2 (11:00→11:45)
--- NOTE | 2022-04-13 11:21 | Hospitalist Progress Note ---
Date of Service April 13, 2022 Assessment & Plan (1) Cardiac arrest with successful resuscitation: Plan: 61-year-old male with history of poorly controlled diabetes presents with out of hospital cardiac arrest. Patient was working with his son earlier in the day. He had an unwitnessed event and was found down, pulseless, cyanotic with agonal respirations. Unknown downtimeson reports that the most would be 40 minutes. Son immediately initiated CPR and EMS was called. ROSC attained. No shocks or medications delivered. -Patient intubated in the ER and placed on mechanical ventilation. Was said to be following commands before intubation, therapeutic hypothermia not initiated -CT head did not show any acute pathology -2 D ECHO did not show any wall motion abnormality -Plan is for cardiac cath today by cardiology (2) Acute respiratory failure with hypoxia: Plan: Currently intubated and ventilated Chest x ray showed some evidence of pulmonary edema Critical care on consult Vent management per critical care Continue empiric antibiotics (3) Diabetes mellitus type 2, uncontrolled: Plan: patient with poorly controlled diabetes. Elevated glucose on admission,. Last hemoglobin A1c on 09/02/2020 = 12.2. - Son reports the patient does not take anything for his diabetes Hyperglycemia protocol per ICU Repeat hemoglobin A1c (4) Essential hypertension: Plan: BP is under good control (5) Pulmonary edema: Plan: He was given a dose of lasix in the ED Continue to monitor (6) BPH (benign prostatic hypertrophy): Plan F/E/NNormosol 80 mL/h maintenance, electrolyte repletion per protocol, n.p.o. for now ProphylaxisSCDs to bilateral lower extremities, Protonix 40 mg p.o. Codefull DispositionMonitor in MICU Admission and Anticipated Discharge Date Admission Date: April 12, 2022 Subjective patient seen in the ICU, Intubated ,sedated and ventilated Review of Systems Review of Systems: unable to obtain Physical Exam Physical Exam: The patient is intubated, ventilated and sedated HEENT--PERRL, EOMI, mucous membranes and oropharynx mildly dry Neck--supple. No JVD. No bruits. Thyroid normal, trachea midline, no adenopathy. Heart--normal S1 and S2. No murmurs, rubs or gallops. Lungs--clear bilaterally, no respiratory distress, no accessory muscle use. Abdomen--normal bowel sounds and soft. Extremities--no cyanosis or clubbing. No edema. Dermatologic--normal skin turgor, normal color, no abnormal lymph nodes, no rash. Neurologic--Intuabted and dedated Rheumatologic--normal range of motion. Psychiatric--normal affect. Results & Data Results & Data ([facility]) Vital Signs (Past 12 Hours) Vital Signs Temp Pulse Resp BP Pulse Ox O2 Del Method FiO2 04/13/22 10:30 108/70 04/13/22 10:30 81 28 H 89 L 04/13/22 10:00 99.5 F 80 28 H 91 Mechanical Vent 40 04/13/22 10:00 115/73 04/13/22 09:30 111/75 04/13/22 09:30 99.5 F 83 28 H 91 04/13/22 09:11 99.7 F H 82 28 H 91 04/13/22 10:15 79 30 H 96 40 04/13/22 08:00 100.2 F H 86 28 H 91 Mechanical Vent 40 04/13/22 08:00 92/60 L 04/13/22 07:30 100.2 F H 84 28 H 93 04/13/22 07:00 100.0 F H 86 28 H 92 04/13/22 07:00 94/64 L 04/13/22 06:45 100.0 F H 86 28 H 92 Mechanical Vent 50 04/13/22 09:07 Mechanical Vent 40 04/13/22 08:00 84 04/13/22 08:00 40 04/13/22 08:13 40 04/13/22 07:23 84 29 H 93 50 04/13/22 04:00 60 04/13/22 03:20 83 28 H 97 60 04/13/22 00:00 60 04/12/22 23:15 88 PG Care Time/CCT Total # of Minutes Spent Total Time Spent with Patient: Total time spent is greater than 50% in coordination of care (as documented) at patient's floor/unit and/or counseling patient: Coding Level of Care Code 54086 SUB INP/OBS CARE 2/35MIN Diagnoses Cardiac arrest with successful resuscitation I46.9 Acute respiratory failure with hypoxia J96.01 Diabetes mellitus type 2, uncontrolled E11.65 Essential hypertension I10 Pulmonary edema J81.0 Chronicity: acute BPH (benign prostatic hypertrophy) N40.0 Time Spent (min) 35 (5) Pulmonary edema Chronicity: acute Qualified Code(s): J81.0 - Acute pulmonary edema
--- NOTE | 2022-04-13 11:29 | Cardiac Catheterization ---
[facility] Data: Solder Sprayer Cardiac Status Clinical evaluation leading to the procedure CAD Presenation: Sx unlikely to be ischemic (Cardiac arrest) Diagnostic Physicians Name: Anoop Foy MD Closure Device Recommendations: Medical Therapy and/or Counseling Cardiac Cath Procedure Full Procedure Date April 13, 2022 Pre-Procedure Diagnosis Pre-Procedure Diagnosis: Cardiothoracic Symptom (Cardiac arrest) AUC Score AUC Score: 7 Post-Procedure Diagnosis Post-Procedure Diagnosis: Normal Coronary Arteries and Normal Intracardiac Pressures Procedure(s) Performed Procedure(s) Performed: Coronary Angiography and Left Heart Cath Shaper Machine Hand Anoop Foy MD Property Claim Rep(s) Luis Estimated Blood Loss Estimated Blood Loss: 5 Medication(s) Medication(s): Heparin, Lidocaine 1%, Nicardipine and Nitroglycerin Summary of Findings Indication: Out of hospital cardiac arrest post ROSC Access: 6 Fr right radial artery Catheters: Sparks Findings: LM -normal caliber, no significant disease LAD -medium caliber, no significant disease, distal vessel wraps around apex. S mall D1, D2 without disease. Circumflex -medium caliber, no significant disease RCA -dominant, medium caliber, distal luminal regularities. RPDA without significant disease LVEDP -12 Arterial Closure: TR band Summary: 1. Essentially normal coronary arteries angiographically 2. Normal intracardiac filling pressure Recommendations: Further evaluation for nonischemic causes of cardiac arrest Continued ASCVD risk factor modification Hemodynamics Rest Ao:: 79/57/66 Final Ao: 83/60/69 LV: 84/12 Recommendations Recommendations: Medical Therapy and/or Counseling Specimens Specimens: None Radiation Exposure (mGy) 608 Contrast (mls) 25 Anesthesia ICU sedation on propofol Procedural Complication(s) None Disposition ICU I attest to the content of the Intraoperative Record and any orders documented therein. Any exceptions are noted below. [facility] Card Cath Procedure Codes Cardiac Catheterization Procedure 1: Cardiovascular Cath Procedures: 80151 Coronaries and LHC (+/-LV) PG Care Time/CCT Total # of Minutes Spent Total Time Spent with Patient: Total time spent is greater than 50% in coordination of care (as documented) at patient's floor/unit and/or counseling patient:
[2022-04-13 11:34] LABS: Adenovirus PCR Not Detected (NotDetected); Bordetella parapertussis PCR Not Detected (NotDetected); Bordetella pertussis PCR Not Detected (NotDetected); Chlamydia pneumoniae PCR Not Detected (NotDetected); Coronavirus 229E PCR Not Detected (NotDetected); Coronavirus CoV-2 (COVID19)PCR Not Detected (NotDetected); Coronavirus HKU1 PCR Not Detected (NotDetected); Coronavirus NL63 PCR Not Detected (NotDetected); Coronavirus OC43PCR Not Detected (NotDetected); Human Metapneumovirus PCR Not Detected (NotDetected); Influenza A PCR Not Detected (NotDetected); Influenza B PCR Not Detected (NotDetected); Mycoplasma pneumoniae PCR Not Detected (NotDetected); Parainfluenza Virus 1 PCR Not Detected (NotDetected); Parainfluenza Virus 2 PCR Not Detected (NotDetected); Parainfluenza Virus 3 PCR Not Detected (NotDetected); Parainfluenza Virus 4 PCR Not Detected (NotDetected); Respiratory Syncytial VirusPCR Not Detected (NotDetected); Rhinovirus/Enterovirus PCR Not Detected (NotDetected)
--- NOTE | 2022-04-13 11:50 | XCELERA ---
[id number]
--- NOTE | 2022-04-13 12:33 | Electrocardiogram Report ---
Test Reason : Blood Pressure : / mmHG Vent. Rate : 084 BPM Atrial Rate : 084 BPM P-R Int : 178 ms QRS Dur : 116 ms QT Int : 416 ms P-R-T Axes : 058 107 020 degrees QTc Int : 491 ms Normal sinus rhythm Possible Left atrial enlargement Rightward axis Incomplete right bundle branch block Prolonged QT Abnormal ECG When compared with ECG of 03-MAY-2020 21:19, Incomplete right bundle branch block is now Present Criteria for Septal infarct are no longer Present Confirmed by Paul Underwood ([id number]) on 04/13/2022 12:33:09 PM Referred By: REFERRED SELF Confirmed By:Paul Underwood
--- NOTE | 2022-04-13 12:47 | Electrocardiogram Report ---
Test Reason : Blood Pressure : / mmHG Vent. Rate : 080 BPM Atrial Rate : 080 BPM P-R Int : 164 ms QRS Dur : 092 ms QT Int : 394 ms P-R-T Axes : 046 073 059 degrees QTc Int : 454 ms Normal sinus rhythm Septal infarct , age undetermined Abnormal ECG When compared with ECG of 12-APR-2022 17:59, (unconfirmed) Questionable change in QRS duration Septal infarct is now Present Confirmed by Paul Underwood ([id number]) on 04/13/2022 12:46:44 PM Referred By: REFERRED SELF Confirmed By:Paul Underwood
[2022-04-13] MEDS ORDERED: oxyCODONE HCL IR 5 MG TAB (IMMEDIATE RELEASE) PO PRN (14:27)
[2022-04-13] MEDS ORDERED: ACETAMINOPHEN 325 MG TAB PO PRN (14:30)
[2022-04-13] MEDS ORDERED: ACETAMINOPHEN 1,000 MG/100 ML VIAL IV STA (14:32)
[2022-04-13] MEDS ORDERED: HYDROmorphone INJ 0.5 MG/0.5 ML SYR IV STA (14:33)
[2022-04-13 15:27] LABS: Albumin Level 3.3 gm/dl (3.4-5.0); BUN Creatinine Ratio 20.4 (10-20); Bilirubin,Total 0.7 mg/dl (0.2-1.0); Calcium 8.5 mg/dl (8.5-10.1); Creatinine Clr Calc Pharmacy 70.4 ml/min; Est GFR (African American) 56.9 ml/min; Est GFR (Non-African American) 49.1 ml/min; Globulin 3.4 gm/dl (2.5-4.0); Total Protein 6.7 gm/dl (6.0-8.3)
[2022-04-13] MEDS: LIDOCAINE 5% 1 PATCH TD SCH (15:43)
[2022-04-13] MEDS: oxyCODONE HCL IR 5 MG TAB (IMMEDIATE RELEASE) PO PRN (19:56)
[2022-04-13] MEDS ORDERED: LANTUS PER UNIT CHARGE SQ SCH (21:00)
[2022-04-14] MEDS: INSULIN ASPART PER UNIT SC SCH ×6 (00:38→19:50)
[2022-04-14] MEDS: oxyCODONE HCL IR 5 MG TAB (IMMEDIATE RELEASE) PO PRN ×4 (01:50→23:56)
[2022-04-14] MEDS: PIPERACILLIN/TAZOBACTAM 4.5 GM in DEXTROSE 5% 100 ML IV SCH (04:35)
[2022-04-14 06:08] LABS: Albumin Level 3.3 gm/dl (3.4-5.0); BUN Creatinine Ratio 22.5 (10-20); Bilirubin Direct 0.1 mg/dl (0-0.2); Bilirubin,Total 0.6 mg/dl (0.2-1.0); Calcium 7.8 mg/dl (8.5-10.1); Creatinine Clr Calc Pharmacy 96.2 ml/min; Est GFR (African American) 83.2 ml/min; Est GFR (Non-African American) 71.8 ml/min; Magnesium 2.4 mg/dl (1.7-2.4); Phosphorus 3.7 mg/dl (2.5-4.9); Potassium 3.6 mmol/L (3.5-5.1); Total Protein 6.4 gm/dl (6.0-8.3)
[2022-04-14 06:18] LABS: Basophils # (auto) 0.03 K/uL (0-0.2); Basophils % (auto) 0.3 %; Eosinophils # (auto) 0.09 K/uL (0-0.50); Hematocrit (blood only) 35.8 % (42.0-52.0); Immature Granulocytes # (auto) 0.02 K/uL (0.01-0.20); Immature Granulocytes % (auto) 0.2 %; Lymphocytes # (auto) 1.31 K/uL (1.2-3.4); Lymphocytes % (auto) 15.2 %; Mean Corpuscular Hemoglobin 30.2 pg (25.0-34.0); Mean Corpuscular Hgb Conc 33.5 g/dL (32.0-36.0); Mean Corpuscular Volume 90.2 fL (80.0-100.0); Mean Platelet Volume 10.7 fL (9.4-12.4); Monocytes # (auto) 0.47 K/uL (0.11-0.59); Monocytes % (auto) 5.5 %; Neutrophils % (auto) 77.8 %; Platelet Count 172 K/uL (130-400); RDW Coefficient of Variation 12.7 % (11.5-14.5); RDW Standard Deviation 41.9 fL (36.4-46.3); Red Blood Count 3.97 M/uL (4.70-6.10); White Blood Count 8.62 K/ul (4.8-10.8)
[2022-04-14] MEDS: ICU ELECTROLYTE REPLACEMENT PROTOCOL SCH (06:20)
--- NOTE | 2022-04-14 07:28 | Critical Care Progress Note ---
Date of Service April 14, 2022 Assessment & Plan (1) Cardiac arrest: Plan: Reason Critically Ill: 61-year-old male presents to the ICU following cardiac arrest where he received CPR in field and ROSC achieved after approximately 20 minutes of being down. Not candidate for therapeutic hypothermia as he is now following commands on the ventilator. Neuro - Chemical dependency -Near daily fentanyl dependency -Frequent methamphetamine use -Discussed risks of chemical dependency, patient declines further evaluation and referral to clinical social work aide at this time. Cardiac - Possible cardiac arrest. -Likely accidental overdose of fentanyl leading to respriatory arrest, unclear if there was actual cardiac arrest -Cardiac cath completed, no indication for intervention. Respiratory - Acute hypoxic respiratory failureImproving -CTA negative for PE -Transition to Augemtin for 5 days total duration of therapy - Presumptive aspriation pneumonitis -Patient does have rib fractures -Continuous pulse ox monitoring -Biofire negative GI - Transaminitis: Improving -Suspect shock liver however will send acute hepatitis panel given chemical dependency/high risk behaviors RENAL/LYTES - Acute kidney injury: Resolved -Discontinue additional fluids discontinue Navarrete catheter - Foleydiscontinue ENDO - DM type II (uncontrolled)holding metformin, continue with sliding scale. May need to transition to insulin drip if hyperglycemia does not improve. No anion gap to suggest DKA -Hemoglobin A1c pending -ICU hyperglycemic protocol HEME - H&H stable, monitor routine CBCs ID - CT pulmonary LINES/IV ACCESS - Peripheral IVs, -Discontinue cooling catheter DVT PROPHYLAXIS - SCDs, subcu heparin Patient is stable for downgrade out of ICU. (2) Pulmonary edema: (3) Acute respiratory failure with hypoxia: (4) Acute hyperglycemia: (5) Diabetes mellitus type 2, uncontrolled: (6) DDD (degenerative disc disease), lumbar: (7) Rib fractures: (8) Chemical dependency: (9) Chemical dependency consultation declined: (10) Accidental fentanyl overdose: (11) Methamphetamine dependence, continuous: (12) Fentanyl dependence: Admission and Anticipated Discharge Date Admission Date: April 12, 2022 Subjective No over night events. Patient disclosed substance use. Reported near daily fentanyl nasal insufflation and frequent methamphetamine use again by nasal insufflation. Reports he has previously attempted to work with pain management as well as suboxone clinic. 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 Additionally he reported the suboxone treatments were costly compared to his current substance usage to manage his back pain symptoms. Prior to this event, he reported that he did not perform his normal process of creating a line of fentanyl to approximate a dose, and instead insufflated directly from his container. He immediately felt that he had overdosed and lost awareness after that. We discussed engaging mental health and clinical social work aide to attempt to modify high risk behaviors. He is not interested in discussing options for chemical dependancy at this time. Physical Exam Physical Exam: General: Alert. nontoxic. Wincing with deep inspirations and cough Skin: Warm, dry, Head: Atraumatic Ears, nose, mouth and throat: airway patent Cardiovascular: Normal peripheral perfusion Respiratory: no respiratory distress Gastrointestinal: Non distended Musculoskeletal: No deformity Results & Data Results & Data ([facility]) Vital Signs (Past 12 Hours) Vital Signs Temp Pulse Resp BP Pulse Ox O2 Del Method O2 Flow Rate 04/14/22 06:20 36.7 C 75 13 94 04/14/22 06:15 36.7 C 73 15 04/14/22 06:10 36.7 C 73 13 94 04/14/22 06:05 36.7 C 72 14 93 04/14/22 06:00 36.7 C 74 19 93 04/14/22 06:00 124/75 04/14/22 05:55 36.7 C 73 13 94 04/14/22 05:50 36.7 C 77 19 95 04/14/22 05:45 36.7 C 73 13 93 04/14/22 05:40 36.7 C 75 13 04/14/22 05:35 36.7 C 76 13 93 04/14/22 05:30 36.7 C 74 15 94 04/14/22 05:25 36.7 C 78 22 96 04/14/22 05:20 36.8 C 75 16 94 04/14/22 05:15 36.8 C 79 13 93 04/14/22 05:10 36.8 C 77 15 91 04/14/22 05:05 36.8 C 77 13 92 04/14/22 05:01 36.8 C 75 13 92 04/14/22 05:01 106/58 L 04/14/22 05:00 36.8 C 75 13 04/14/22 04:55 36.8 C 75 13 92 04/14/22 04:50 36.8 C 76 15 90 04/14/22 04:45 36.8 C 79 17 95 04/14/22 04:40 36.9 C 74 13 96 04/14/22 04:35 36.9 C 76 13 96 04/14/22 04:30 36.9 C 74 12 96 04/14/22 04:25 36.9 C 75 14 96 04/14/22 04:20 36.9 C 75 13 96 04/14/22 04:15 36.9 C 75 13 96 04/14/22 04:10 36.9 C 76 12 96 04/14/22 04:05 37.0 C 77 12 96 04/14/22 04:01 128/66 04/14/22 04:01 37.0 C 77 15 97 04/14/22 04:00 37.0 C 76 16 95 04/14/22 03:55 37.0 C 77 16 98 04/14/22 03:50 37.0 C 78 17 97 04/14/22 03:45 37.1 C 80 20 97 04/14/22 03:40 37.1 C 82 17 97 04/14/22 03:35 37.1 C 83 19 98 04/14/22 03:30 37.1 C 79 15 98 04/14/22 03:25 37.2 C 83 14 97 04/14/22 03:20 37.2 C 78 13 97 04/14/22 03:15 37.2 C 79 12 97 04/14/22 03:10 37.3 C 79 12 96 04/14/22 03:05 37.3 C 85 22 97 04/14/22 03:01 95/63 L 04/14/22 03:01 37.3 C 80 12 96 Oxymask 4 04/14/22 03:00 37.4 C 87 18 95 04/14/22 02:00 37.5 C 89 21 96 04/14/22 02:00 166/93 H 04/14/22 04:05 80 04/14/22 01:20 37.6 C H 91 H 21 96 04/14/22 01:15 37.6 C H 91 H 19 96 04/14/22 01:10 37.6 C H 94 H 19 96 04/14/22 01:05 37.6 C H 92 H 17 96 04/14/22 01:00 37.6 C H 90 16 94 04/14/22 01:00 152/75 H 04/14/22 00:55 37.6 C H 93 H 16 95 04/14/22 00:50 37.6 C H 95 H 18 96 04/14/22 00:45 37.6 C H 96 H 22 95 04/14/22 00:40 37.6 C H 96 H 19 96 04/14/22 00:35 37.6 C H 98 H 24 95 04/14/22 00:30 37.6 C H 94 H 17 96 04/14/22 00:25 37.6 C H 96 H 16 96 04/14/22 00:20 37.6 C H 93 H 17 96 04/14/22 00:15 37.6 C H 96 H 17 96 04/14/22 00:10 37.6 C H 96 H 17 96 04/14/22 00:05 37.7 C H 94 H 16 96 04/14/22 00:00 37.7 C H 95 H 18 95 04/14/22 00:00 140/74 04/13/22 23:55 37.7 C H 95 H 17 96 04/13/22 23:50 37.7 C H 96 H 21 97 04/13/22 23:45 37.8 C H 95 H 20 97 04/13/22 23:40 37.8 C H 95 H 17 97 04/13/22 23:35 37.8 C H 97 H 20 97 04/13/22 23:30 37.8 C H 97 H 23 92 04/13/22 23:25 37.8 C H 96 H 19 97 04/13/22 23:20 37.8 C H 98 H 21 97 04/13/22 23:15 37.8 C H 100 H 21 97 04/13/22 23:10 37.8 C H 98 H 20 97 04/13/22 23:05 37.8 C H 101 H 24 97 04/13/22 23:00 37.7 C H 99 H 23 95 04/13/22 23:00 162/76 H 04/13/22 22:55 37.7 C H 99 H 21 96 04/13/22 22:50 37.7 C H 101 H 23 96 02/27/23 22:45 37.7 C H 97 H 21 96 04/13/22 22:40 37.7 C H 94 H 19 96 04/13/22 22:35 37.7 C H 98 H 22 93 04/13/22 22:30 37.7 C H 97 H 28 H 95 04/13/22 22:25 37.7 C H 96 H 22 91 04/13/22 22:20 37.7 C H 93 H 22 97 04/13/22 22:15 37.7 C H 94 H 26 H 97 04/13/22 22:10 37.7 C H 89 17 97 04/13/22 22:05 37.7 C H 89 18 97 04/13/22 22:00 37.7 C H 90 18 95 04/13/22 22:00 135/75 04/13/22 21:55 37.7 C H 92 H 18 97 04/13/22 21:50 37.8 C H 92 H 19 97 04/13/22 21:45 37.8 C H 89 15 96 04/13/22 21:40 37.8 C H 90 16 97 04/13/22 21:35 37.8 C H 92 H 16 96 04/13/22 21:01 37.9 C H 96 H 16 94 04/13/22 21:01 164/76 H 04/13/22 21:00 37.9 C H 99 H 17 94 04/13/22 20:37 157/86 H 04/13/22 20:37 37.9 C H 96 H 21 93 04/13/22 20:00 38.0 C H 101 H 22 93 04/13/22 21:11 Oxymask 4 Critical Care Results & Data Vital Signs (Past 12 Hours) Vital Signs Temp Pulse Resp BP Pulse Ox O2 Del Method O2 Flow Rate 04/14/22 06:20 36.7 C 75 13 94 04/14/22 06:15 36.7 C 73 15 93 04/14/22 06:10 36.7 C 73 13 94 04/14/22 06:05 36.7 C 72 14 93 04/14/22 06:00 36.7 C 74 19 93 04/14/22 06:00 124/75 04/14/22 05:55 36.7 C 73 13 94 04/14/22 05:50 36.7 C 77 19 95 04/14/22 05:45 36.7 C 73 13 93 04/14/22 05:40 36.7 C 75 13 93 04/14/22 05:35 36.7 C 76 13 93 04/14/22 05:30 36.7 C 74 15 94 04/14/22 05:25 36.7 C 78 22 96 04/14/22 05:20 36.8 C 75 16 94 04/14/22 05:15 36.8 C 79 13 93 04/14/22 05:10 36.8 C 77 15 91 04/14/22 05:05 36.8 C 77 13 92 04/14/22 05:01 36.8 C 75 13 92 04/14/22 05:01 106/58 L 04/14/22 05:00 36.8 C 75 13 04/14/22 04:55 36.8 C 75 13 92 04/14/22 04:50 36.8 C 76 15 90 04/14/22 04:45 36.8 C 79 17 95 04/14/22 04:40 36.9 C 74 13 96 04/14/22 04:35 36.9 C 76 13 96 04/14/22 04:30 36.9 C 74 12 96 04/14/22 04:25 36.9 C 75 14 96 04/14/22 04:20 36.9 C 75 13 96 04/14/22 04:15 36.9 C 75 13 96 04/14/22 04:10 36.9 C 76 12 96 04/14/22 04:05 37.0 C 77 12 96 04/14/22 04:01 128/66 04/14/22 04:01 37.0 C 77 15 97 04/14/22 04:00 37.0 C 76 16 95 04/14/22 03:55 37.0 C 77 16 98 04/14/22 03:50 37.0 C 78 17 97 04/14/22 03:45 37.1 C 80 20 97 04/14/22 03:40 37.1 C 82 17 97 04/14/22 03:35 37.1 C 83 19 98 04/14/22 03:30 37.1 C 79 15 98 04/14/22 03:25 37.2 C 83 14 97 04/14/22 03:20 37.2 C 78 13 97 04/14/22 03:15 37.2 C 79 12 97 04/14/22 03:10 37.3 C 79 12 96 04/14/22 03:05 37.3 C 85 22 97 04/14/22 03:01 95/63 L 04/14/22 03:01 37.3 C 80 12 96 Oxymask 4 04/14/22 03:00 37.4 C 87 18 95 04/14/22 02:00 37.5 C 89 21 96 04/14/22 02:00 166/93 H 04/14/22 04:05 80 04/14/22 01:20 37.6 C H 91 H 21 96 04/14/22 01:15 37.6 C H 91 H 19 96 04/14/22 01:10 37.6 C H 94 H 19 96 04/14/22 01:05 37.6 C H 92 H 17 96 04/14/22 01:00 37.6 C H 90 16 94 04/14/22 01:00 152/75 H 04/14/22 00:55 37.6 C H 93 H 16 95 04/14/22 00:50 37.6 C H 95 H 18 96 04/14/22 00:45 37.6 C H 96 H 22 95 04/14/22 00:40 37.6 C H 96 H 19 96 04/14/22 00:35 37.6 C H 98 H 24 95 04/14/22 00:30 37.6 C H 94 H 17 96 04/14/22 00:25 37.6 C H 96 H 16 96 04/14/22 00:20 37.6 C H 93 H 17 96 04/14/22 00:15 37.6 C H 96 H 17 96 04/14/22 00:10 37.6 C H 96 H 17 96 04/14/22 00:05 37.7 C H 94 H 16 96 04/14/22 00:00 37.7 C H 95 H 18 95 04/14/22 00:00 140/74 04/13/22 23:55 37.7 C H 95 H 17 96 04/13/22 23:50 37.7 C H 96 H 21 97 04/13/22 23:45 37.8 C H 95 H 20 97 04/13/22 23:40 37.8 C H 95 H 17 97 04/13/22 23:35 37.8 C H 97 H 20 97 04/13/22 23:30 37.8 C H 97 H 23 92 04/13/22 23:25 37.8 C H 96 H 19 97 04/13/22 23:20 37.8 C H 98 H 21 97 04/13/22 23:15 37.8 C H 100 H 21 97 04/13/22 23:10 37.8 C H 98 H 20 97 04/13/22 23:05 37.8 C H 101 H 24 97 04/13/22 23:00 37.7 C H 99 H 23 95 04/13/22 23:00 162/76 H 04/13/22 22:55 37.7 C H 99 H 21 96 04/13/22 22:50 37.7 C H 101 H 23 96 04/13/22 22:45 37.7 C H 97 H 21 96 04/13/22 22:40 37.7 C H 94 H 19 96 04/13/22 22:35 37.7 C H 98 H 22 93 04/13/22 22:30 37.7 C H 97 H 28 H 95 04/13/22 22:25 37.7 C H 96 H 22 91 04/13/22 22:20 37.7 C H 93 H 22 97 04/13/22 22:15 37.7 C H 94 H 26 H 97 04/13/22 22:10 37.7 C H 89 17 97 04/13/22 22:05 37.7 C H 89 18 97 04/13/22 22:00 37.7 C H 90 18 95 04/13/22 22:00 135/75 04/13/22 21:55 37.7 C H 92 H 18 97 04/13/22 21:50 37.8 C H 92 H 19 97 04/13/22 21:45 37.8 C H 89 15 96 04/13/22 21:40 37.8 C H 90 16 97 04/13/22 21:35 37.8 C H 92 H 16 96 04/13/22 21:01 37.9 C H 96 H 16 94 04/13/22 21:01 164/76 H 04/13/22 21:00 37.9 C H 99 H 17 94 04/13/22 20:37 157/86 H 04/13/22 20:37 37.9 C H 96 H 21 93 04/13/22 21:11 Oxymask 4 Lab & Micro Results (Past 24 Hours) RBC 3.97 M/uL (4.70-6.10) L 04/14/22 WBC 8.62 K/ul (4.8-10.8) 04/14/22 Hgb 12.0 g/dl (14.0-18.0) L 04/14/22 Hct 35.8 % (42.0-52.0) L 04/14/22 MCV 90.2 fL (80.0-100.0) 04/14/22 MCH 30.2 pg (25.0-34.0) 04/14/22 MCHC 33.5 g/dL (32.0-36.0) 04/14/22 RDW Standard Deviation 41.9 fL (36.4-46.3) 04/14/22 RDW Coefficient of Variation 12.7 % (11.5-14.5) 04/14/22 Plt Count 172 K/uL (130-400) 04/14/22 MPV 10.7 fL (9.4-12.4) 04/14/22 Neutrophils (%) (Auto) 77.8 % 04/14/22 Lymphocytes (%) (Auto) 15.2 % 04/14/22 Monocytes # (Auto) 0.47 K/uL (0.11-0.59) 04/14/22 Eosinophils # (Auto) 0.09 K/uL (0-0.50) 04/14/22 Immature Granulocyte % (Auto) 0.2 % 04/14/22 Neutrophils # (Auto) 6.70 K/uL (1.40-6.50) H 04/14/22 Lymphocytes # (Auto) 1.31 K/uL (1.2-3.4) 04/14/22 Monocytes # (Auto) 0.47 K/uL (0.11-0.59) 04/14/22 Eosinophils # (Auto) 0.09 K/uL (0-0.50) 04/14/22 Basophils # (Auto) 0.03 K/uL (0-0.2) 04/14/22 Immature Granulocyte # (Auto) 0.02 K/uL (0.01-0.20) 3 Na 133 mmol/L (136-145) L 04/14/22 K 3.6 mmol/L (3.5-5.1) 04/14/22 Cl 100 mmol/L (98-107) 04/14/22 CO2 29 mmol/L (21-32) 04/14/22 Anion Gap 4 (3-11) 04/14/22 BUN 25 mg/dl (6-23) H 04/14/22 Creatinine 1.11 mg/dl (0.6-1.4) 04/14/22 Estimated GFR ( Amer) 83.2 ml/min 04/14/22 Estimated GFR (Non-Af Amer) 71.8 ml/min 04/14/22 BUN/Creatinine Ratio 22.5 (10-20) H 04/14/22 Glu 155 mg/dl (70-99(Fasting)) H 04/14/22 Ca 7.8 mg/dl (8.5-10.1) L 04/14/22 Phosphorus Level 3.7 mg/dl (2.5-4.9) 04/14/22 Total Bilirubin 0.6 mg/dl (0.2-1.0) 04/14/22 Direct Bilirubin 0.1 mg/dl (0-0.2) 04/14/22 AST 30 U/L (13-39) 04/14/22 ALT 35 U/L (7-52) 04/14/22 Alkaline Phosphatase 69 U/L (34-104) 04/14/22 TP 6.4 gm/dl (6.0-8.3) 04/14/22 Albumin 3.3 gm/dl (3.4-5.0) L 04/14/22 Globulin 3.4 gm/dl (2.5-4.0) 04/13/22 Albumin/Globulin Ratio 1.0 (0.9-2) 04/13/22 Mg 2.4 mg/dl (1.7-2.4) 04/14/22 05:25 Calcium Level 7.8 mg/dl (8.5-10.1) L 04/14/22 05:25 Microbiology 04/12/22 20:16 Aerobic Blood Culture - Preliminary Blood No growth in Aerobic bottle after 24 hours. Anaerobic Blood Culture - Preliminary No growth in Anaerobic bottle after 24 hours. 04/12/22 18:44 Aerobic Blood Culture - Preliminary Blood No growth in Aerobic bottle after 24 hours. Anaerobic Blood Culture - Preliminary No growth in Anaerobic bottle after 24 hours. 04/12/22 18:37 Urine Culture - Preliminary Urine,Indwelling Cath No growth - Less than 1,000 colonies/mL, Final report to follow. I & O Totals 24 Hours 04/13/22 04/14/22 04/15/22 06:59 06:59 06:59 Intake Total 222.498 / 532.686 5113.923 / 3481.923 1029.333 / 1029.333 Output Total 700 / 700 1550 / 1550 Balance -477.502 / -924.362 6184.923 / 9245.388 9554.333 / 1029.333 Cumulative 04/12/22 17:21 thru 04/14/22 08:17 Intake Total 4733.754 Output Total 2250 Balance 2483.754 RT Ventilator Mngmt (Last Documented) Ventilator Ordered Settings Ventilator Support Mode CPAP 04/13/22 13:40 Respiratory Rate 13 04/14/22 06:20 Ventilator Tidal Volume 500 04/13/22 11:58 Setting Minute Ventilation 6.5 04/13/22 13:40 Ventilator Positive Pressure 8 04/13/22 13:40 Support Setting Positive End Expiratory 5 04/13/22 13:40 Pressure Fraction of Inspired Oxygen 40 04/13/22 13:40 Machine Comment Placed on CPAP 8/04/13/22 13:40 Ventilator - PT Measurements Respiratory Rate 13 Exhaled Tidal Volume 555 Minute Ventilation 6.5 Peak Inspiratory Airway 15 Pressure Plateau Pressure 14 Respiratory Cycle Inspiratory: 1:1.4 Expiratory Ratio Inspiratory Phase Time 1.24 End-Tidal CO2 37 Static Lung Compliance 55.56 Dynamic Lung Compliance 55.50 Normal Static Lung Compliance 49.00 Patient Measurements Comment Patient extubated to 4L, SPO2 92% Coding Level of Care Code 14384 CRITICAL CARE 1ST 30-74M Diagnoses Cardiac arrest I46.9 Pulmonary edema J81.0 Chronicity: acute Acute respiratory failure with hypoxia J96.01 Acute hyperglycemia R73.9 Diabetes mellitus type 2, uncontrolled E11.65 DDD (degenerative disc disease), lumbar M51.36 Rib fractures S22.49XA Chemical dependency F19.20 Chemical dependency consultation declined Accidental fentanyl overdose T40.411A Methamphetamine dependence, continuous F15.20 Fentanyl dependence F11.20 (2) Pulmonary edema Chronicity: acute Qualified Code(s): J81.0 - Acute pulmonary edema
[2022-04-14] MEDS: POTASSIUM CHLORIDE CRTAB 20 MEQ TABCR PO SCH ×2 (07:48→11:27)
[2022-04-14] MEDS: KETOROLAC 30 MG/ML VIAL IV PRN ×2 (07:49→19:54)
[2022-04-14] MEDS: NORMOSOL-R 1,000 ML IV SCH (08:17)
[2022-04-14] MEDS: LANTUS PER UNIT CHARGE SQ SCH ×2 (08:20→19:50)
[2022-04-14] MEDS: LIDOCAINE 5% 1 PATCH TD SCH (08:28)
[2022-04-14] MEDS: HEPARIN SOD 5,000 UNIT/0.5 ML VIAL SQ SCH ×2 (08:28→20:02)
[2022-04-14] MEDS: PANTOprazole 40 MG TAB PO SCH (10:37)
--- NOTE | 2022-04-14 12:02 | Pharmacy Report ---
Pharmacy Glycemic Short Note 2 - Date of Service April 14, 2022 - Glycemic Short BSG Results (Last 24 hours): 04/13/22 04/13/22 04/13/22 14:04 15:46 19:49 Glucose 147 H POC Glucose 147 H 243 H 04/14/22 04/14/22 04/14/22 00:34 04:44 05:25 Glucose 155 H POC Glucose 324 H* 205 H 04/14/22 04/14/22 07:17 11:28 Glucose POC Glucose 162 H 205 H OUTPATIENT ANTIDIABETIC REGIMEN: * Lantus 30 units SQ daily * Novolog 22 unit SQ AC * metformin 500mg PO BID HbA1C: 11.8% ASSESSMENT: 04/14: * BSGs [phone]/dL the last 24h. Patient received 30 units of basal and 26 units of bolus insulin yesterday. * Extubated yesterday afternoon and tolerating a diet. * Novolog changed to ACHS 15/5 (severe stress scale). Titrating Lantus to 17 units BID today given fasting slightly above goal. 04/13: * Patient is a 61 year old male who presents after ROSC achieved following cardiac arrest in the field. History of DM2, non-compliant. Currently crit ically ill, intubated and sedated. Insulin infusion initiated for hyperglycemia in setting of critical illness. * BSGs [phone]/dL since admission last night. Insulin drip started ~ 0600 this AM and BSGs have declined rapidly. Pt also received Lantus 20 units X1 ~0300. * Remains NPO and on Zosyn. * Will transition to SQ insulin. Novolog q4 while NPO. Will add Lantus HS scale depending on BSG. PLAN FOR INPATIENT GLYCEMIC CONTROL: * Hold outpatient oral diabetes medications * Basal insulin * Lantus 17 units SQ BID * Bolus insulin * NovoLog per scale ACHS or Q4hrs while NPO * Goal Range: Low 110 mg/dL - High 140 mg/dL * Correction Factor: 15mg/dL/unit * Nutritional / Prandial insulin per carb ratio of 1 unit per 5 grams CHO consumed
--- NOTE | 2022-04-14 13:59 | Hospitalist Progress Note ---
Date of Service April 14, 2022 Assessment & Plan (1) Cardiac arrest with successful resuscitation: Plan: 61-year-old male with history of poorly controlled diabetes presents with out of hospital cardiac arrest. Patient was working with his son earlier in the day. He had an unwitnessed event and was found down, pulseless, cyanotic with agonal respirations. Unknown downtimeson reports that the most would be 40 minutes. Son immediately initiated CPR and EMS was called. ROSC attained. No shocks or medications delivered. -Cardiac/respiratory arrest could be from overdose of fentanyl given new information from the patient -Patient Initially intubated in the ER and placed on mechanical ventilation. Was said to be following commands before intubation, therapeutic hypothermia not initiated -CT head did not show any acute pathology -2 D ECHO did not show any wall motion abnormality -Cardiac acth showed clean coronaries -He has been extubated, he is awake and alert, saturating well on rrom air (2) Methamphetamine dependence, continuous: Plan: When he was liberated from the vent, he disclosed more information about drug use to the Wood Type Finisher " Patient disclosed substance use. Reported near daily fentanyl nasal insufflation and frequent methamphetamine use again by nasal insufflation. Reports he has previously attempted to work with pain management as well as suboxone clinic. 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 Additionally he reported the suboxone treatments were costly compared to his current substance usage to manage his back pain symptoms. Prior to this event, he reported that he did not perform his normal process of creating a line of fentanyl to approximate a dose, and instead insufflated directly from his container. He immediately felt that he had overdosed and lost awareness after that. We discussed engaging mental health and social services coordinator to attempt to modify high risk behaviors. He is not interested in discussing options for chemical dependancy at this time". Will give his some Naltrexone upon d/c (3) Acute respiratory failure with hypoxia: Plan: Now extubated patient saturating well on room air (4) Diabetes mellitus type 2, uncontrolled: Plan: patient with poorly controlled diabetes. Elevated glucose on admission,. Last hemoglobin A1c on 09/02/2020 = 12.2. - Son reports the patient does not take anything for his diabetes Repeat hemoglobin A1c (5) Rib fractures: Plan: Five rib fractures, presumably from CPR Continue PT (6) Essential hypertension: Plan: BP is under good control (7) Pulmonary edema: Plan: He was given a dose of lasix in the ED Continue to monitor (8) BPH (benign prostatic hypertrophy): (9) Fentanyl dependence: (10) Accidental fentanyl overdose: (11) Chemical dependency consultation declined: Plan Hopefully d/c in the next 24 -48 hrs Admission and Anticipated Discharge Date Admission Date: April 12, 2022 Review of Systems Review of Systems: unable to obtain Physical Exam Physical Exam: The patient is intubated, ventilated and sedated HEENT--PERRL, EOMI, mucous membranes and oropharynx mildly dry Neck--supple. No JVD. No bruits. Thyroid normal, trachea midline, no adenopathy. Heart--normal S1 and S2. No murmurs, rubs or gallops. Lungs--clear bilaterally, no respiratory distress, no accessory muscle use. Abdomen--normal bowel sounds and soft. Extremities--no cyanosis or clubbing. No edema. Dermatologic--normal skin turgor, normal color, no abnormal lymph nodes, no rash. Neurologic--Intuabted and dedated Rheumatologic--normal range of motion. Psychiatric--normal affect. Results & Data Results & Data ([facility]) Vital Signs (Past 12 Hours) Vital Signs Temp Pulse Resp BP Pulse Ox O2 Del Method O2 Flow Rate 04/14/22 13:04 Nasal Cannula 4 04/14/22 10:00 81 18 145/74 H 92 Nasal Cannula 4 04/14/22 08:00 Nasal Cannula 6 04/14/22 09:00 98.8 F 85 23 130/74 Nasal Cannula 6 04/14/22 08:00 98.4 F 93 H 21 139/76 87 L Nasal Cannula 6 04/14/22 07:56 98.4 F 89 21 148/67 H 88 L Nasal Cannula 6 04/14/22 07:00 98.2 F 73 15 136/75 94 Nasal Cannula 6 04/14/22 06:20 98.1 F 75 13 94 04/14/22 06:15 98.1 F 73 15 93 04/14/22 06:10 98.1 F 73 13 94 04/14/22 06:05 98.1 F 72 14 93 04/14/22 06:00 98.1 F 74 19 93 04/14/22 06:00 124/75 02 05:55 98.1 F 73 13 94 04/14/22 05:50 98.1 F 77 19 95 04/14/22 05:45 98.1 F 73 13 93 04/14/22 05:40 98.1 F 75 13 93 04/14/22 05:35 98.1 F 76 13 93 04/14/22 05:30 98.1 F 74 15 94 04/14/22 05:25 98.1 F 78 22 96 02 05:20 98.2 F 75 16 94 04/14/22 05:15 98.2 F 79 13 93 04/14/22 05:10 98.2 F 77 15 91 04/14/22 05:05 98.2 F 77 13 92 04/14/22 05:01 98.2 F 75 13 92 04/14/22 05:01 106/58 L 04/14/22 05:00 98.2 F 75 13 04/14/22 04:55 98.2 F 75 13 92 04/14/22 04:50 98.2 F 76 15 90 04/14/22 04:45 98.2 F 79 17 95 04/14/22 04:40 98.4 F 74 13 96 04/14/22 04:35 98.4 F 76 13 96 04/14/22 04:30 98.4 F 74 12 96 04/14/22 04:25 98.4 F 75 14 96 04/14/22 04:20 98.4 F 75 13 96 04/14/22 04:15 98.4 F 75 13 96 04/14/22 04:10 98.4 F 76 12 96 04/14/22 04:05 98.6 F 77 12 96 04/14/22 04:01 128/66 04/14/22 04:01 98.6 F 77 15 97 02 04:00 98.6 F 76 16 95 04/14/22 03:55 98.6 F 77 16 98 04/14/22 03:50 98.6 F 78 17 97 04/14/22 03:45 98.8 F 80 20 97 02 03:40 98.8 F 82 17 97 04/14/22 03:35 98.8 F 83 19 98 04/14/22 03:30 98.8 F 79 15 98 04/14/22 03:25 99.0 F 83 14 97 04/14/22 03:20 99.0 F 78 13 97 04/14/22 03:15 99.0 F 79 12 97 04/14/22 03:10 99.1 F 79 12 96 04/14/22 03:05 99.1 F 85 22 97 04/14/22 03:01 95/63 L 04/14/22 03:01 99.1 F 80 12 96 Oxymask 4 04/14/22 03:00 99.3 F 87 18 95 04/14/22 02:00 99.5 F 89 21 96 04/14/22 02:00 166/93 H 04/14/22 04:05 80 PG Care Time/CCT Total # of Minutes Spent Total Time Spent with Patient: Total time spent is greater than 50% in coordination of care (as documented) at patient's floor/unit and/or counseling patient: Coding Level of Care Code 17099 SUB INP/OBS CARE 2/35MIN Diagnoses Cardiac arrest with successful resuscitation I46.9 Methamphetamine dependence, continuous F15.20 Acute respiratory failure with hypoxia J96.01 Diabetes mellitus type 2, uncontrolled E11.65 Rib fractures S22.49XA Essential hypertension I10 Pulmonary edema J81.0 Chronicity: acute BPH (benign prostatic hypertrophy) N40.0 Fentanyl dependence F11.20 Accidental fentanyl overdose T40.411A Chemical dependency consultation declined Time Spent (min) 35 (7) Pulmonary edema Chronicity: acute Qualified Code(s): J81.0 - Acute pulmonary edema
[2022-04-14] MEDS: AMOXICILLIN/CLAVULANATE 875 MG TAB PO SCH (17:01)
[2022-04-15] MEDS: KETOROLAC 30 MG/ML VIAL IV PRN ×2 (04:16→20:24)
[2022-04-15 07:21] LABS: Basophils # (auto) 0.03 K/uL (0-0.2); Basophils % (auto) 0.5 %; Eosinophils # (auto) 0.33 K/uL (0-0.50); Eosinophils % (auto) 5.2 %; Hematocrit (blood only) 36.3 % (42.0-52.0); Hemoglobin 12.6 g/dl (14.0-18.0); Immature Granulocytes # (auto) 0.02 K/uL (0.01-0.20); Immature Granulocytes % (auto) 0.3 %; Lymphocytes # (auto) 0.96 K/uL (1.2-3.4); Lymphocytes % (auto) 15.1 %; Mean Corpuscular Hemoglobin 30.7 pg (25.0-34.0); Mean Corpuscular Hgb Conc 34.7 g/dL (32.0-36.0); Mean Corpuscular Volume 88.5 fL (80.0-100.0); Mean Platelet Volume 10.8 fL (9.4-12.4); Monocytes # (auto) 0.37 K/uL (0.11-0.59); Monocytes % (auto) 5.8 %; Neutrophils # (auto) 4.63 K/uL (1.40-6.50); Neutrophils % (auto) 73.1 %; Platelet Count 174 K/uL (130-400); RDW Coefficient of Variation 12.5 % (11.5-14.5); RDW Standard Deviation 40.7 fL (36.4-46.3); White Blood Count 6.34 K/ul (4.8-10.8)
[2022-04-15 07:27] LABS: BUN Creatinine Ratio 25.9 (10-20); Calcium 8.5 mg/dl (8.5-10.1); Creatinine Clr Calc Pharmacy 125.8 ml/min; Est GFR (African American) 109.8 ml/min; Est GFR (Non-African American) 94.7 ml/min; Magnesium 2.3 mg/dl (1.7-2.4); Phosphorus 3.3 mg/dl (2.5-4.9); Potassium 4.2 mmol/L (3.5-5.1)
[2022-04-15] MEDS: LANTUS PER UNIT CHARGE SQ SCH ×2 (08:34→20:12)
[2022-04-15] MEDS: AMOXICILLIN/CLAVULANATE 875 MG TAB PO SCH ×2 (08:35→18:00)
[2022-04-15] MEDS: INSULIN ASPART PER UNIT SC SCH ×4 (08:35→20:11)
[2022-04-15] MEDS: HEPARIN SOD 5,000 UNIT/0.5 ML VIAL SQ SCH ×2 (08:35→20:25)
[2022-04-15] MEDS: PANTOprazole 40 MG TAB PO SCH (08:35)
[2022-04-15] MEDS: LIDOCAINE 5% 1 PATCH TD SCH (08:35)
[2022-04-15] MEDS: oxyCODONE HCL IR 5 MG TAB (IMMEDIATE RELEASE) PO PRN ×2 (08:45→20:25)
[2022-04-15 09:27] LABS: HBSAG NON-REACTIVE (NON-REACTIVE); Hepatitis A Antibody IgM NON-REACTIVE (NON-REACTIVE); Hepatitis B Core Antibody IgM NON-REACTIVE (NON-REACTIVE)
[2022-04-15 09:38] LABS: 7-Aminoclonaz, Confirm NEGATIVE ng/mL (<25); Amphetamine Urine, Confirm NEGATIVE ng/mL (<250); Hydro-Alp Ur, GC/MS NEGATIVE ng/mL (<25); Hydroxyethylflurazepam, Conf NEGATIVE ng/mL (<50); Hydroxymidazolam Ur, GC/MS 643 ng/mL (<50); Hydroxytriazolam NEGATIVE ng/mL (<50); Lorazepam, Ur GC/MS 154 ng/mL (<50); Methamphetamine, Ur Confirm 1353 ng/mL (<250); Nordiazepam, Confirm NEGATIVE ng/mL (<50); Oxazepam Ur, GC/MS NEGATIVE ng/mL (<50); Temazepam, Confirm NEGATIVE ng/mL (<50)
--- NOTE | 2022-04-15 12:25 | Pharmacy Report ---
Pharmacy Glycemic Short Note 2 - Date of Service April 15, 2022 - Glycemic Short BSG Results (Last 24 hours): 04/14/22 04/14/22 04/14/22 16:33 16:34 16:41 Glucose POC Glucose 307 H* 192 H 173 H 04/14/22 04/14/22 04/15/22 16:42 19:14 06:43 Glucose 187 H POC Glucose 169 H 201 H 04/15/22 04/15/22 04/15/22 07:22 11:15 11:17 Glucose POC Glucose 185 H 301 H* 277 H OUTPATIENT ANTIDIABETIC REGIMEN: * Lantus 30 units SQ daily * Novolog 22 unit SQ AC * metformin 500mg PO BID HbA1C: 11.8% ASSESSMENT: 04/15: * BSGs [phone]/dL the last 24h. Patient received 34 units of basal and 47 units of bolus insulin yesterday. * Continues PO abx and tolerating a diet. * Titrate Lantus to 20 units BID. Given elevated prandial BSGs, will tighten Novolog parameters today. 04/14: * BSGs [phone]/dL the last 24h. Patient received 30 units of basal and 26 units of bolus insulin yesterday. * Extubated yesterday afternoon and tolerating a diet. * Novolog changed to ACHS 15/5 (severe stress scale). Titrating Lantus to 17 units BID today given fasting slightly above goal. 04/13: * Patient is a 61 year old male who presents after ROSC achieved following cardiac arrest in the field. History of DM2, non-compliant. Currently critically ill, intubated and sedated. Insulin infusion initiated for hyperglycemia in setting of critical illness. * BSGs [phone]/dL since admission last night. Insulin drip started ~ 0600 this AM and BSGs have declined rapidly. Pt also received Lantus 20 units X1 ~0300. * Remains NPO and on Zosyn. * Will transition to SQ insulin. Novolog q4 while NPO. Will add Lantus HS scale depending on BSG. PLAN FOR INPATIENT GLYCEMIC CONTROL: * Hold outpatient oral diabetes medications * Basal insulin * Lantus 20 units SQ BID * Bolus insulin * NovoLog per scale ACHS or Q4hrs while NPO * Goal Range: Low 110 mg/dL - High 140 mg/dL * Correction Factor: 12mg/dL/unit * Nutritional / Prandial insulin per carb ratio of 1 unit per 4.5 grams CHO consumed
--- NOTE | 2022-04-15 13:15 | Hospitalist Progress Note ---
Date of Service April 15, 2022 Assessment & Plan (1) Cardiac arrest with successful resuscitation: Plan: 61-year-old male with history of poorly controlled diabetes presents with out of hospital cardiac arrest. Patient was working with his son earlier in the day. He had an unwitnessed event and was found down, pulseless, cyanotic with agonal respirations. Unknown downtimeson reports that the most would be 40 minutes. Son immediately initiated CPR and EMS was called. ROSC attained. No shocks or medications delivered. -Cardiac/respiratory arrest could be from overdose of fentanyl given new information from the patient -Patient Initially intubated in the ER and placed on mechanical ventilation. Was said to be following commands before intubation, therapeutic hypothermia not initiated -CT head did not show any acute pathology -2 D ECHO did not show any wall motion abnormality -Cardiac acth showed clean coronaries -He has been extubated, he is awake and alert, saturating well on rrom air -Plan is for acute rehab (2) Methamphetamine dependence, continuous: Plan: When he was liberated from the vent, he disclosed more information about drug use to the Grill Chef " Patient disclosed substance use. Reported near daily fentanyl nasal insufflation and frequent methamphetamine use again by nasal insufflation. Reports he has previously attempted to work with pain management as well as suboxone clinic. 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 Additionally he reported the suboxone treatments were costly compared to his current substance usage to manage his back pain symptoms. Prior to this event, he reported that he did not perform his normal process of creating a line of fentanyl to approximate a dose, and instead insufflated directly from his container. He immediately felt that he had overdosed and lost awareness after that. We discussed engaging mental health and social group worker to attempt to modify high risk behaviors. He is not interested in discussing options for chemical dependancy at this time". Will give his some Naltrexone upon d/c if he stays up to 7-10 days drug free (3) Acute respiratory failure with hypoxia: Plan: Now extubated patient saturating well on room air (4) Diabetes mellitus type 2, uncontrolled: Plan: patient with poorly controlled diabetes. Elevated glucose on admission,. Last hemoglobin A1c on 09/02/2020 = 12.2. - Son reports the patient does not take anything for his diabetes Repeat hemoglobin A1c (5) Rib fractures: Plan: Five rib fractures, presumably from CPR Continue PT Needs acute rehab (6) Essential hypertension: Plan: BP is under good control (7) Pulmonary edema: Plan: He was given a dose of lasix in the ED Continue to monitor (8) BPH (benign prostatic hypertrophy): (9) Fentanyl dependence: (10) Accidental fentanyl overdose: (11) Chemical dependency consultation declined: Plan Hopefully d/c to rehab when accepted Admission and Anticipated Discharge Date Admission Date: April 12, 2022 Subjective patient seen and examined, still coughing up brownish sputum, and complaining of rib pains Review of Systems Review of Systems: All systems reviewed are negative, apart from the ones contained in the history. Physical Exam Physical Exam: The patient is awake and alert HEENT--PERRL, EOMI, mucous membranes and oropharynx mildly dry Neck--supple. No JVD. No bruits. Thyroid normal, trachea midline, no adenopathy. Heart--normal S1 and S2. No murmurs, rubs or gallops. Lungs--clear bilaterally, no respiratory distress, no accessory muscle use. Abdomen--normal bowel sounds and soft. Extremities--no cyanosis or clubbing. No edema. Dermatologic--normal skin turgor, normal color, no abnormal lymph nodes, no rash. Neurologic--normal Rheumatologic--normal range of motion. Psychiatric--normal affect. Results & Data Results & Data ([facility]) Vital Signs (Past 12 Hours) Vital Signs Temp Pulse Pulse Resp BP Pulse Ox O2 Del Method 04/15/22 12:44 98.1 F 88 18 170/78 H 93 Room Air 04/15/22 08:27 97.9 F 80 18 149/83 H 93 Room Air 04/15/22 07:00 77 04/15/22 03:59 77 20 169/83 H 95 Room Air PG Care Time/CCT Total # of Minutes Spent Total Time Spent with Patient: Total time spent is greater than 50% in coordination of care (as documented) at patient's floor/unit and/or counseling patient: Coding Level of Care Code 64474 SUB INP/OBS CARE 2/35MIN Diagnoses Cardiac arrest with successful resuscitation I46.9 Methamphetamine dependence, continuous F15.20 Acute respiratory failure with hypoxia J96.01 Diabetes mellitus type 2, uncontrolled E11.65 Rib fractures S22.49XA Essential hypertension I10 Pulmonary edema J81.0 Chronicity: acute BPH (benign prostatic hypertrophy) N40.0 Fentanyl dependence F11.20 Accidental fentanyl overdose T40.411A Chemical dependency consultation declined Time Spent (min) 35 (7) Pulmonary edema Chronicity: acute Qualified Code(s): J81.0 - Acute pulmonary edema
[2022-04-16] MEDS: oxyCODONE HCL IR 5 MG TAB (IMMEDIATE RELEASE) PO PRN ×3 (03:34→18:26)
[2022-04-16] MEDS: KETOROLAC 30 MG/ML VIAL IV PRN (03:35)
[2022-04-16 06:20] LABS: Hematocrit (blood only) 35.3 % (42.0-52.0); Hemoglobin 12.4 g/dl (14.0-18.0); Mean Corpuscular Hemoglobin 30.8 pg (25.0-34.0); Mean Corpuscular Hgb Conc 35.1 g/dL (32.0-36.0); Mean Corpuscular Volume 87.8 fL (80.0-100.0); Mean Platelet Volume 10.5 fL (9.4-12.4); Platelet Count 201 K/uL (130-400); RDW Coefficient of Variation 12.2 % (11.5-14.5); RDW Standard Deviation 39.8 fL (36.4-46.3); Red Blood Count 4.02 M/uL (4.70-6.10); White Blood Count 4.57 K/ul (4.8-10.8)
[2022-04-16 06:34] LABS: Calcium 8.5 mg/dl (8.5-10.1); Creatinine Clr Calc Pharmacy 133.8 ml/min; Est GFR (African American) 112.5 ml/min; Est GFR (Non-African American) 97.1 ml/min; Magnesium 2.1 mg/dl (1.7-2.4); Phosphorus 4.1 mg/dl (2.5-4.9); Potassium 4.3 mmol/L (3.5-5.1)
[2022-04-16] MEDS: AMOXICILLIN/CLAVULANATE 875 MG TAB PO SCH ×2 (08:45→17:29)
[2022-04-16] MEDS: HEPARIN SOD 5,000 UNIT/0.5 ML VIAL SQ SCH ×2 (08:45→19:38)
[2022-04-16] MEDS: LIDOCAINE 5% 1 PATCH TD SCH (08:46)
[2022-04-16] MEDS: PANTOprazole 40 MG TAB PO SCH (08:46)
[2022-04-16] MEDS: LANTUS PER UNIT CHARGE SQ SCH ×2 (09:00→19:44)
[2022-04-16] MEDS: INSULIN ASPART PER UNIT SC SCH ×4 (09:00→19:37)
--- NOTE | 2022-04-16 15:00 | CT Scan Report ---
CT chest diagnostic wo con CLINICAL HISTORY: cough, chest pain TECHNIQUE: Multidetector row helical CT of the chest was performed. Coronal and sagittal reformations were obtained. Automated dose lowering techniques and/or adjustment according to patient size were u tilized for this exam. CT DOSE: 751.47 mGy.cm Comparison: Comparison is made to CTA chest 04/12/2022 FINDINGS: Lungs and pleura: Groundglass and consolidative opacities are seen in the right upper lung. Groundgla ss opacities are also seen throughout the lungs. There is a small left pleural effusion with underlyi ng atelectasis. Heart and pericardium: Heart size is normal. No pericardial effusion. Vessels: Mild atherosclerotic changes in the aorta and coronary arteries. Mediastinum and brando: Scattered partially calcified lymph nodes are seen. Chest wall and lower neck: A few right chest wall soft tissue nodules are seen which may represent ly mph nodes measuring up to 12 x 10 mm in diameter. Fat stranding and skin thickening are seen. Gynecom astia is noted. Abdomen: Unremarkable. Bones: Degenerative changes in the thoracic spine. IMPRESSION: 1. Airspace and consolidative opacities compatible with pneumonia most prominent in the right upper lobe, decreased in conspicuity from prior exam. No mediastinal lymphadenopathy is seen. 2. Trace right pleural effusion. 3. Skin thickening and fat stranding in the right upper outer chest which may represent cellulitis, new from prior exam. Nodular soft tissue densities may represent reactive lymph nodes. ACT 112: Negative or not required by law. Electronically signed by: Ady Gong M.D. 04/16/2022 2:57 PM
--- NOTE | 2022-04-16 15:06 | Hospitalist Progress Note ---
Date of Service April 16, 2022 Assessment & Plan (1) Cardiac arrest with successful resuscitation: Plan: 61-year-old male with history of poorly controlled diabetes presents with out of hospital cardiac arrest. Patient was working with his son earlier in the day. He had an unwitnessed event and was found down, pulseless, cyanotic with agonal respirations. Unknown downtimeson reports that the most would be 40 minutes. Son immediately initiated CPR and EMS was called. ROSC attained. No shocks or medications delivered. -Cardiac/respiratory arrest could be from overdose of fentanyl given new information from the patient -Patient Initially intubated in the ER and placed on mechanical ventilation. Was said to be following commands before intubation, therapeutic hypothermia not initiated -CT head did not show any acute pathology -2 D ECHO did not show any wall motion abnormality -Cardiac cath showed clean coronaries -He has been extubated, he is awake and alert, saturating well on room air -Plan is for acute rehab, but he refused and said he wanted to be discharged home (2) Methamphetamine dependence, continuous: Plan: When he was liberated from the vent, he disclosed more information about drug use to the Emergency Manager " Patient disclosed substance use. Reported near daily fentanyl nasal insufflation and frequent methamphetamine use again by nasal insufflation. Reports he has previously attempted to work with pain management as well as suboxone clinic. 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 Additionally he reported the suboxone treatments were costly compared to his current substance usage to manage his back pain symptoms. Prior to this event, he reported that he did not perform his normal process of creating a line of fentanyl to approximate a dose, and instead insufflated directly from his container. He immediately felt that he had overdosed and lost awareness after that. We discussed engaging mental health and social services designee to attempt to modify high risk behaviors. He is not interested in discussing options for chemical dependancy at this time". Will give his some Naltrexone nasal spray upon d/c (3) Acute respiratory failure with hypoxia: Plan: Now extubated patient saturating well on room air (4) Cough: Plan: patient said he has been coughing up dark colored sputum, with some blood tinge Repeat CT chest today showed improving consolidation Will continue robitussin and empiric antibiotics (5) Diabetes mellitus type 2, uncontrolled: Plan: patient with poorly controlled diabetes. Elevated glucose on admission,. Last hemoglobin A1c on 09/02/2020 = 12.2. 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: (11) Accidental fentanyl overdose: (12) Chemical dependency consultation declined: Plan Hopefully d/c in the next 24 hrs, he is refusing rehab, but says his pain is not under good control Admission and Anticipated Discharge Date Admission Date: April 12, 2022 Subjective patient seen and examined, still coughing up brownish sputum, and complaining of rib pains, he declined rehab and wanted to be discharged home Review of Systems Review of Systems: All systems reviewed are negative, apart from the ones contained in the history. Physical Exam Physical Exam: The patient is awake and alert HEENT--PERRL, EOMI, mucous membranes and oropharynx mildly dry Neck--supple. No JVD. No bruits. Thyroid normal, trachea midline, no adenopathy. Heart--normal S1 and S2. No murmurs, rubs or gallops. Lungs--clear bilaterally, no respiratory distress, no accessory muscle use. Abdomen--normal bowel sounds and soft. Extremities--no cyanosis or clubbing. No edema. Dermatologic--normal skin turgor, normal color, no abnormal lymph nodes, no rash. Neurologic--normal Rheumatologic--normal range of motion. Psychiatric--normal affect. Results & Data Results & Data ([facility]) Vital Signs (Past 12 Hours) Vital Signs Temp Pulse Pulse Resp BP Pulse Ox O2 Del Method 04/16/22 11:24 98.2 F 77 18 144/74 H 95 Room Air 04/16/22 08:00 Room Air 04/16/22 07:40 98.2 F 78 18 145/86 H 96 Room Air 04/16/22 07:00 70 04/16/22 03:15 98.2 F 76 18 152/77 H 95 Room Air PG Care Time/CCT Total # of Minutes Spent Total Time Spent with Patient: Total time spent is greater than 50% in coordination of care (as documented) at patient's floor/unit and/or counseling patient: Coding Level of Care Code 71659 SUB INP/OBS CARE 2/35MIN Diagnoses Cardiac arrest with successful resuscitation I46.9 Methamphetamine dependence, continuous F15.20 Acute respiratory failure with hypoxia J96.01 Cough R05.9 Diabetes mellitus type 2, uncontrolled E11.65 Rib fractures S22.49XA Essential hypertension I10 Pulmonary edema J81.0 Chronicity: acute BPH (benign prostatic hypertrophy) N40.0 Fentanyl dependence F11.20 Accidental fentanyl overdose T40.411A Chemical dependency consultation declined Time Spent (min) 35 (8) Pulmonary edema Chronicity: acute Qualified Code(s): J81.0 - Acute pulmonary edema
[2022-04-16] MEDS: guaiFENesin/DEXTROM SYRUP 100MG/10MG 5ML UDC PO PRN (19:38)
[2022-04-17] MEDS: oxyCODONE HCL IR 5 MG TAB (IMMEDIATE RELEASE) PO PRN ×4 (01:53→20:39)
[2022-04-17] MEDS: guaiFENesin/DEXTROM SYRUP 100MG/10MG 5ML UDC PO PRN ×4 (01:56→20:38)
[2022-04-17] MEDS: CHLORASEPTIC 1.4% SOLN 180 ML BTL MT PRN ×2 (07:45→13:48)
[2022-04-17] MEDS: LANTUS PER UNIT CHARGE SQ SCH ×2 (08:23→20:40)
[2022-04-17] MEDS: INSULIN ASPART PER UNIT SC SCH ×4 (08:23→20:40)
[2022-04-17] MEDS: HEPARIN SOD 5,000 UNIT/0.5 ML VIAL SQ SCH ×2 (08:28→20:34)
[2022-04-17] MEDS: PANTOprazole 40 MG TAB PO SCH (08:29)
[2022-04-17] MEDS: AMOXICILLIN/CLAVULANATE 875 MG TAB PO SCH ×2 (08:29→17:17)
[2022-04-17] MEDS: LIDOCAINE 5% 1 PATCH TD SCH (08:30)
[2022-04-17 08:38] LABS: Hematocrit (blood only) 36.4 % (42.0-52.0); Hemoglobin 12.6 g/dl (14.0-18.0); Mean Corpuscular Hemoglobin 30.5 pg (25.0-34.0); Mean Corpuscular Hgb Conc 34.6 g/dL (32.0-36.0); Mean Corpuscular Volume 88.1 fL (80.0-100.0); Mean Platelet Volume 10.3 fL (9.4-12.4); Platelet Count 224 K/uL (130-400); RDW Coefficient of Variation 12.4 % (11.5-14.5); Red Blood Count 4.13 M/uL (4.70-6.10)
[2022-04-17 08:59] LABS: BUN Creatinine Ratio 24.1 (10-20); Creatinine Clr Calc Pharmacy 142.4 ml/min; Est GFR (African American) 113.1 ml/min; Est GFR (Non-African American) 97.6 ml/min; Phosphorus 4.1 mg/dl (2.5-4.9); Potassium 4.4 mmol/L (3.5-5.1)
--- NOTE | 2022-04-17 11:14 | Pharmacy Report ---
Pharmacy Glycemic Short Note 2 - Date of Service April 17, 2022 - Glycemic Short BSG Results (Last 24 hours): 04/16/22 04/16/22 04/17/22 16:15 19:37 07:14 Glucose POC Glucose 104 H 123 H 145 H 04/17/22 04/17/22 04/17/22 08:18 10:51 11:11 Glucose 241 H POC Glucose 174 H 140 H OUTPATIENT ANTIDIABETIC REGIMEN: * Lantus 30 units SQ daily * Novolog 22 unit SQ AC * metformin 500mg PO BID HbA1C: 11.8% ASSESSMENT: 04/17: * BSGs within goal range the last 24h ([phone]/dL). Patient received 40 units of basal and 36 units of bolus insulin yesterday. * Stressors stable, tolerating diet. * No change - continue Lantus 20 units BID and Novolog 01/18.5. 04/15: * BSGs [phone]/dL the last 24h. Patient received 34 units of basal and 47 units of bolus insulin yesterday. * Continues PO abx and tolerating a diet. * Titrate Lantus to 20 units BID. Given elevated prandial BSGs, will tighten Novolog parameters today. 04/14: * BSGs [phone]/dL the last 24h. Patient received 30 units of basal and 26 units of bolus insulin yesterday. * Extubated yesterday afternoon and tolerating a diet. * Novolog changed to ACHS 15/5 (severe stress scale). Titrating Lantus to 17 units BID today given fasting slightly above goal. 04/13: * Patient is a 61 year old male who presents after ROSC achieved following cardiac arrest in the field. History of DM2, non-compliant. Currently critically ill, intubated and sedated. Insulin infusion initiated for hyperglycemia in setting of critical illness. * BSGs [phone]/dL since admission last night. Insulin drip started ~ 0600 this AM and BSGs have declined rapidly. Pt also received Lantus 20 units X1 ~0300. * Remains NPO and on Zosyn. * Will transition to SQ insulin. Novolog q4 while NPO. Will add Lantus HS scale depending on BSG. PLAN FOR INPATIENT GLYCEMIC CONTROL: * Hold outpatient oral diabetes medications * Basal insulin * Lantus 20 units SQ BID * Bolus insulin * NovoLog per scale ACHS or Q4hrs while NPO * Goal Range: Low 110 mg/dL - High 140 mg/dL * Correction Factor: 12mg/dL/unit * Nutritional / Prandial insulin per carb ratio of 1 unit per 4.5 grams CHO consumed
--- NOTE | 2022-04-17 17:26 | Hospitalist Progress Note ---
Date of Service April 17, 2022 Assessment & Plan (1) Cardiac arrest with successful resuscitation: Plan: 61-year-old male with history of poorly controlled diabetes presents with out of hospital cardiac arrest. Patient was working with his son earlier in the day. He had an unwitnessed event and was found down, pulseless, cyanotic with agonal respirations. Unknown downtimeson reports that the most would be 40 minutes. Son immediately initiated CPR and EMS was called. ROSC attained. No shocks or medications delivered. -Cardiac/respiratory arrest could be from overdose of fentanyl given new information from the patient -Patient Initially intubated in the ER and placed on mechanical ventilation. Was said to be following commands before intubation, therapeutic hypothermia not initiated -CT head did not show any acute pathology -2 D ECHO did not show any wall motion abnormality -Cardiac cath showed clean coronaries -He has been extubated, he is awake and alert, saturating well on room air -Plan is for acute rehab, but he refused and said he wanted to be discharged home (2) Methamphetamine dependence, continuous: Plan: When he was liberated from the vent, he disclosed more information about drug use to the Warehouse Foreman " Patient disclosed substance use. Reported near daily fentanyl nasal insufflation and frequent methamphetamine use again by nasal insufflation. Reports he has previously attempted to work with pain management as well as suboxone clinic. 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 Additionally he reported the suboxone treatments were costly compared to his current substance usage to manage his back pain symptoms. Prior to this event, he reported that he did not perform his normal process of creating a line of fentanyl to approximate a dose, and instead insufflated directly from his container. He immediately felt that he had overdosed and lost awareness after that. We discussed engaging mental health and social security assessor to attempt to modify high risk behaviors. He is not interested in discussing options for chemical dependancy at this time". Will give his some Naltrexone nasal spray upon d/c (3) Acute respiratory failure with hypoxia: Plan: Now extubated patient saturating well on room air (4) Cough: Plan: patient said he has been coughing up dark colored sputum, with some blood tinge Repeat CT chest today showed improving consolidation Will continue robitussin and empiric antibiotics (5) Diabetes mellitus type 2, uncontrolled: Plan: patient with poorly controlled diabetes. Elevated glucose on admission,. Last hemoglobin A1c on 09/02/2020 = 12.2. 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: (11) Accidental fentanyl overdose: (12) Chemical dependency consultation declined: Plan Hopefully d/c in the next 24 hrs, he is refusing rehab, but says his pain is not under good control Admission and Anticipated Discharge Date Admission Date: April 12, 2022 Subjective Patient reports pain with coughing otherwise no fevers or chills Physical Exam Physical Exam: Head and ENT no thyroid enlargement trachea midline Cardiovascular S1-S2 are normal no S3 Lungs bilateral air entry fair no wheezing reproducible tenderness Abdomen soft nondistended positive bowel sounds no rebound tenderness Extremity shows trace edema Neurologically no focal deficits Skin shows no rash no cyanosis Results & Data Results & Data ([facility]) Vital Signs (Past 12 Hours) Vital Signs Temp Pulse Pulse Resp BP Pulse Ox O2 Del Method 04/17/22 15:41 36.8 C 83 18 171/79 H 95 Room Air 04/17/22 15:00 74 04/17/22 11:19 36.4 C L 80 18 132/77 97 Room Air 04/17/22 10:55 Room Air 04/17/22 07:36 36.6 C 77 18 146/90 H 94 Room Air PG Care Time/CCT Total # of Minutes Spent Total Time Spent with Patient: Total time spent is greater than 50% in coordination of care (as documented) at patient's floor/unit and/or counseling patient: Coding Level of Care Code 90632 SUB INP/OBS CARE 2/35MIN Diagnoses Cardiac arrest with successful resuscitation I46.9 Methamphetamine dependence, continuous F15.20 Acute respiratory failure with hypoxia J96.01 Cough R05.9 Diabetes mellitus type 2, uncontrolled E11.65 Rib fractures S22.49XA Essential hypertension I10 Pulmonary edema J81.0 Chronicity: acute BPH (benign prostatic hypertrophy) N40.0 Fentanyl dependence F11.20 Accidental fentanyl overdose T40.411A Chemical dependency consultation declined (8) Pulmonary edema Chronicity: acute Qualified Code(s): J81.0 - Acute pulmonary edema
[2022-04-18] MEDS: guaiFENesin/DEXTROM SYRUP 100MG/10MG 5ML UDC PO PRN ×4 (02:36→20:36)
[2022-04-18] MEDS: oxyCODONE HCL IR 5 MG TAB (IMMEDIATE RELEASE) PO PRN ×4 (02:36→20:38)
[2022-04-18] MEDS: CHLORASEPTIC 1.4% SOLN 180 ML BTL MT PRN ×3 (02:37→20:36)
[2022-04-18 06:54] LABS: Hematocrit (blood only) 38.4 % (42.0-52.0); Hemoglobin 13.2 g/dl (14.0-18.0); Mean Corpuscular Hemoglobin 30.3 pg (25.0-34.0); Mean Corpuscular Hgb Conc 34.4 g/dL (32.0-36.0); Mean Corpuscular Volume 88.1 fL (80.0-100.0); Platelet Count 258 K/uL (130-400); RDW Coefficient of Variation 12.5 % (11.5-14.5); RDW Standard Deviation 40.5 fL (36.4-46.3); Red Blood Count 4.36 M/uL (4.70-6.10); White Blood Count 4.88 K/ul (4.8-10.8)
[2022-04-18 08:14] LABS: Calcium 9.4 mg/dl (8.5-10.1); Potassium 4.6 mmol/L (3.5-5.1)
[2022-04-18 08:20] LABS: Creatinine Clr Calc Pharmacy 140.8 ml/min; Est GFR (African American) 114.3 ml/min; Est GFR (Non-African American) 98.6 ml/min; Phosphorus 4.7 mg/dl (2.5-4.9)
[2022-04-18] MEDS: INSULIN ASPART PER UNIT SC SCH ×4 (08:22→20:32)
[2022-04-18] MEDS: LANTUS PER UNIT CHARGE SQ SCH ×2 (08:23→20:33)
[2022-04-18] MEDS: PANTOprazole 40 MG TAB PO SCH (08:25)
[2022-04-18] MEDS: HEPARIN SOD 5,000 UNIT/0.5 ML VIAL SQ SCH ×2 (08:25→20:37)
[2022-04-18] MEDS: LIDOCAINE 5% 1 PATCH TD SCH (08:27)
--- NOTE | 2022-04-18 18:59 | Hospitalist Progress Note ---
Date of Service April 18, 2022 Assessment & Plan (1) Cardiac arrest with successful resuscitation: Plan: 61-year-old male with history of poorly controlled diabetes presents with out of hospital cardiac arrest. Patient was working with his son earlier in the day. He had an unwitnessed event and was found down, pulseless, cyanotic with agonal respirations. Unknown downtimeson reports that the most would be 40 minutes. Son immediately initiated CPR and EMS was called. ROSC attained. No shocks or medications delivered. -Cardiac/respiratory arrest could be from overdose of fentanyl given new information from the patient -Patient Initially intubated in the ER and placed on mechanical ventilation. Was said to be following commands before intubation, therapeutic hypothermia not initiated -CT head did not show any acute pathology -2 D ECHO did not show any wall motion abnormality -Cardiac cath showed clean coronaries -He has been extubated, he is awake and alert, saturating well on room air 3/4-patient has intermittent pleuritic type chest pain secondary to rib injury Continue as needed analgesics Patient has agreed to inpatient rehab now after multiple attempts We will seek case management assistance in placement (2) Methamphetamine dependence, continuous: Plan: When he was liberated from the vent, he disclosed more information about drug use to the Hydrodynamics Teacher " Patient disclosed substance use. Reported near daily fentanyl nasal insufflation and frequent methamphetamine use again by nasal insufflation. Reports he has previously attempted to work with pain management as well as suboxone clinic. 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 Additionally he reported the suboxone treatments were costly compared to his current substance usage to manage his back pain symptoms. Prior to this event, he reported that he did not perform his normal process of creating a line of fentanyl to approximate a dose, and instead insufflated directly from his container. He immediately felt that he had overdosed and lost awareness after that. We discussed engaging mental health and social professionals to attempt to modify high risk behaviors. He is not interested in discussing options for chemical dependancy at this time". Will give his some Naltrexone nasal spray upon d/c (3) Acute respiratory failure with hypoxia: Plan: Now extubated patient saturating well on room air (4) Cough: Plan: patient said he has been coughing up dark colored sputum, with some blood tinge Repeat CT chest today showed improving consolidation Will continue robitussin and empiric antibiotics (5) Diabetes mellitus type 2, uncontrolled: Plan: patient with poorly controlled diabetes. Elevated glucose on admission,. Last hemoglobin A1c on 09/02/2020 = 12.2. 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: (11) Accidental fentanyl overdose: (12) Chemical dependency consultation declined: Plan Hopefully d/c in the next 24 hrs, he is refusing rehab, but says his pain is not under good control Admission and Anticipated Discharge Date Admission Date: April 12, 2022 Subjective Patient reports pain with coughing otherwise no fevers or chills Patient is agreed to consider inpatient rehab now Physical Exam Physical Exam: Head and ENT no thyroid enlargement trachea midline Cardiovascular S1-S2 are normal no S3 Lungs bilateral air entry fair no wheezing reproducible tenderness Abdomen soft nondistended positive bowel sounds no rebound tenderness Extremity shows trace edema Neurologically no focal deficits Skin shows no rash no cyanosis Results & Data Results & Data ([facility]) Vital Signs (Past 12 Hours) Vital Signs Temp Pulse Pulse Resp BP Pulse Ox O2 Del Method 04/18/22 15:13 36.6 C 79 20 141/80 H 95 Room Air 04/18/22 15:59 79 04/18/22 11:43 36.5 C 88 18 140/87 95 Room Air 04/18/22 09:42 Room Air 04/18/22 07:54 36.4 C L 84 20 160/84 H 93 Room Air PG Care Time/CCT Total # of Minutes Spent Total Time Spent with Patient: Total time spent is greater than 50% in coordination of care (as documented) at patient's floor/unit and/or counseling patient: Coding Level of Care Code 26631 SUB INP/OBS CARE 2/35MIN Diagnoses Cardiac arrest with successful resuscitation I46.9 Methamphetamine dependence, continuous F15.20 Acute respiratory failure with hypoxia J96.01 Cough R05.9 Diabetes mellitus type 2, uncontrolled E11.65 Rib fractures S22.49XA Essential hypertension I10 Pulmonary edema J81.0 Chronicity: acute BPH (benign prostatic hypertrophy) N40.0 Fentanyl dependence F11.20 Accidental fentanyl overdose T40.411A Chemical dependency consultation declined (8) Pulmonary edema Chronicity: acute Qualified Code(s): J81.0 - Acute pulmonary edema
[2022-04-19] MEDS: oxyCODONE HCL IR 5 MG TAB (IMMEDIATE RELEASE) PO PRN ×4 (02:35→21:14)
[2022-04-19] MEDS: CHLORASEPTIC 1.4% SOLN 180 ML BTL MT PRN (02:36)
[2022-04-19] MEDS: guaiFENesin/DEXTROM SYRUP 100MG/10MG 5ML UDC PO PRN ×4 (02:36→21:14)
[2022-04-19 06:35] LABS: Hematocrit (blood only) 37.7 % (42.0-52.0); Hemoglobin 12.8 g/dl (14.0-18.0); Mean Corpuscular Hemoglobin 29.9 pg (25.0-34.0); Mean Corpuscular Volume 88.1 fL (80.0-100.0); Mean Platelet Volume 10.2 fL (9.4-12.4); Platelet Count 282 K/uL (130-400); RDW Coefficient of Variation 12.8 % (11.5-14.5); RDW Standard Deviation 40.8 fL (36.4-46.3); Red Blood Count 4.28 M/uL (4.70-6.10); White Blood Count 5.45 K/ul (4.8-10.8)
[2022-04-19 07:04] LABS: BUN Creatinine Ratio 23.1 (10-20); Calcium 9.2 mg/dl (8.5-10.1); Creatinine Clr Calc Pharmacy 141.8 ml/min; Est GFR (African American) 113.7 ml/min; Est GFR (Non-African American) 98.1 ml/min; Potassium 4.1 mmol/L (3.5-5.1)
[2022-04-19] MEDS: INSULIN ASPART PER UNIT SC SCH ×4 (08:30→20:32)
[2022-04-19] MEDS: LANTUS PER UNIT CHARGE SQ SCH ×2 (08:30→20:44)
[2022-04-19] MEDS: LIDOCAINE 5% 1 PATCH TD SCH (08:31)
[2022-04-19] MEDS: HEPARIN SOD 5,000 UNIT/0.5 ML VIAL SQ SCH ×2 (08:31→20:38)
[2022-04-19] MEDS: PANTOprazole 40 MG TAB PO SCH (08:31)
--- NOTE | 2022-04-19 17:36 | Hospitalist Progress Note ---
Date of Service April 19, 2022 Assessment & Plan (1) Cardiac arrest with successful resuscitation: Plan: 61-year-old male with history of poorly controlled diabetes presents with out of hospital cardiac arrest. Patient was working with his son earlier in the day. He had an unwitnessed event and was found down, pulseless, cyanotic with agonal respirations. Unknown downtimeson reports that the most would be 40 minutes. Son immediately initiated CPR and EMS was called. ROSC attained. No shocks or medications delivered. -Cardiac/respiratory arrest could be from overdose of fentanyl given new information from the patient -Patient Initially intubated in the ER and placed on mechanical ventilation. Was said to be following commands before intubation, therapeutic hypothermia not initiated -CT head did not show any acute pathology -2 D ECHO did not show any wall motion abnormality -Cardiac cath showed clean coronaries -He has been extubated, he is awake and alert, saturating well on room air /-patient has intermittent pleuritic type chest pain secondary to rib injury Continue as needed analgesics Patient has agreed to inpatient rehab now after multiple attempts We will seek case management assistance in placement 04/19-patient reports that his chest wall pain is slightly improved Patient agrees to inpatient rehab PT OT ordered Case management to assist with placement (2) Methamphetamine dependence, continuous: Plan: When he was liberated from the vent, he disclosed more information about drug use to the Command And Control Systems Integrator " Patient disclosed substance use. Reported near daily fentanyl nasal insufflation and frequent methamphetamine use again by nasal insufflation. Reports he has previously attempted to work with pain management as well as suboxone clinic. 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 Additionally he reported the suboxone treatments were costly compared to his current substance usage to manage his back pain symptoms. Prior to this event, he reported that he did not perform his normal process of creating a line of fentanyl to approximate a dose, and instead insufflated directly from his container. He immediately felt that he had overdosed and lost awareness after that. We discussed engaging mental health and psychiatric social worker supervisor to attempt to modify high risk behaviors. He is not interested in discussing options for chemical dependancy at this time". Will give his some Naltrexone nasal spray upon d/c (3) Acute respiratory failure with hypoxia: Plan: Now extubated patient saturating well on room air (4) Cough: Plan: patient said he has been coughing up dark colored sputum, with some blood tinge Repeat CT chest today showed improving consolidation Will continue robitussin and empiric antibiotics (5) Diabetes mellitus type 2, uncontrolled: Plan: patient with poorly controlled diabetes. Elevated glucose on admission,. Last hemoglobin A1c on 09/02/2020 = 12.2. 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: (11) Accidental fentanyl overdose: (12) Chemical dependency consultation declined: Plan Hopefully d/c in the next 24 hrs, he is refusing rehab, but says his pain is not under good control Admission and Anticipated Discharge Date Admission Date: April 12, 2022 Subjective Patient reports pain with coughing otherwise no fevers or chills Denies any fevers or chills Physical Exam Physical Exam: Head and ENT no thyroid enlargement trachea midline Cardiovascular S1-S2 are normal no S3 Lungs bilateral air entry fair no wheezing reproducible tenderness Abdomen soft nondistended positive bowel sounds no rebound tenderness Extremity shows trace edema Neurologically no focal deficits Skin shows no rash no cyanosis Results & Data Results & Data ([facility]) Vital Signs (Past 12 Hours) Vital Signs Temp Pulse Pulse Resp BP BP Pulse Ox 04/19/22 17:19 149/68 H 04/19/22 15:39 36.7 C 87 18 92/63 L 93 04/19/22 11:45 36.5 C 96 H 18 151/79 H 95 04/19/22 07:42 85 04/19/22 07:40 04/19/22 07:38 36.5 C 75 18 154/77 H 96 O2 Del Method 04/19/22 17:19 04/19/22 15:39 Room Air 04/19/22 11:45 Room Air 04/19/22 07:42 04/19/22 07:40 Room Air 04/19/22 07:38 Room Air PG Care Time/CCT Total # of Minutes Spent Total Time Spent with Patient: Total time spent is greater than 50% in coordination of care (as documented) at patient's floor/unit and/or counseling patient: Coding Level of Care Code 20761 SUB INP/OBS CARE 2/35MIN Diagnoses Cardiac arrest with successful resuscitation I46.9 Methamphetamine dependence, continuous F15.20 Acute respiratory failure with hypoxia J96.01 Cough R05.9 Diabetes mellitus type 2, uncontrolled E11.65 Rib fractures S22.49XA Essential hypertension I10 Pulmonary edema J81.0 Chronicity: acute BPH (benign prostatic hypertrophy) N40.0 Fentanyl dependence F11.20 Accidental fentanyl overdose T40.411A Chemical dependency consultation declined (8) Pulmonary edema Chronicity: acute Qualified Code(s): J81.0 - Acute pulmonary edema
[2022-04-20] MEDS: oxyCODONE HCL IR 5 MG TAB (IMMEDIATE RELEASE) PO PRN ×2 (04:01→10:27)
[2022-04-20] MEDS: guaiFENesin/DEXTROM SYRUP 100MG/10MG 5ML UDC PO PRN ×2 (04:01→10:31)
[2022-04-20 06:17] LABS: Hematocrit (blood only) 36.8 % (42.0-52.0); Hemoglobin 12.5 g/dl (14.0-18.0); Mean Corpuscular Hemoglobin 30.4 pg (25.0-34.0); Mean Corpuscular Volume 89.5 fL (80.0-100.0); Mean Platelet Volume 9.9 fL (9.4-12.4); Platelet Count 284 K/uL (130-400); RDW Coefficient of Variation 12.7 % (11.5-14.5); RDW Standard Deviation 41.3 fL (36.4-46.3); Red Blood Count 4.11 M/uL (4.70-6.10); White Blood Count 5.54 K/ul (4.8-10.8)
[2022-04-20 06:35] LABS: BUN Creatinine Ratio 19.8 (10-20); Est GFR (African American) 109.2 ml/min; Est GFR (Non-African American) 94.3 ml/min; Potassium 4.4 mmol/L (3.5-5.1)
[2022-04-20] MEDS: PANTOprazole 40 MG TAB PO SCH (08:25)
[2022-04-20] MEDS: LIDOCAINE 5% 1 PATCH TD SCH (08:26)
[2022-04-20] MEDS: HEPARIN SOD 5,000 UNIT/0.5 ML VIAL SQ SCH (08:26)
[2022-04-20] MEDS: LANTUS PER UNIT CHARGE SQ SCH (08:29)
[2022-04-20] MEDS: INSULIN ASPART PER UNIT SC SCH ×2 (08:29→12:10)
[2022-04-20 08:36] VITALS: PULSE 81; TEMP 98.6; O2SAT 94
--- NOTE | 2022-04-20 10:18 | Pharmacy Report ---
Pharmacy Glycemic Short Note 2 - Date of Service April 20, 2022 - Glycemic Short BSG Results (Last 24 hours): 04/19/22 04/19/22 04/19/22 11:19 16:20 20:26 Glucose POC Glucose 155 H 152 H 116 H 04/20/22 04/20/22 05:43 07:14 Glucose 120 H POC Glucose 110 H OUTPATIENT ANTIDIABETIC REGIMEN: * Lantus 30 units SQ daily * Novolog 22 unit SQ AC * metformin 500mg PO BID HbA1C: 11.8% ASSESSMENT: 04/20: * BSGs well controlled over last 24 hrs while tolerating a diet * 73 units SQ insulin given over last 24 hrs * Fasting BSG at goal with 36 units basal on board - will continue * Post-prandial BSGs at goal with current CF and CR - will continue 04/17: * BSGs within goal range the last 24h (401-610-745-140mg/dL). Patient received 40 units of basal and 36 units of bolus insulin yesterday. * Stressors stable, tolerating diet. * No change - continue Lantus 20 units BID and Novolog /4.5. 04/15: * BSGs [phone]/dL the last 24h. Patient received 34 units of basal and 47 units of bolus insulin yesterday. * Continues PO abx and tolerating a diet. * Titrate Lantus to 20 units BID. Given elevated prandial BSGs, will tighten Novolog parameters today. PLAN FOR INPATIENT GLYCEMIC CONTROL: * Hold outpatient oral diabetes medications (metformin) * Basal insulin * Lantus 218 units SQ BID * Bolus insulin * NovoLog per scale ACHS or Q4hrs while NPO * Goal Range: Low 110 mg/dL - High 140 mg/dL * Correction Factor: 12mg/dL/unit * Nutritional / Prandial insulin per carb ratio of 1 unit per 4.5 grams CHO consumed
[2022-04-20 11:29] VITALS: BP 92/63
--- NOTE | 2022-04-20 11:35 | Discharge Summary ---
Date of Service April 20, 2022 Admission HPI Per Admitting Provider Kingsley Harding is a 61-year-old male with history of poorly controlled diabetes presenting postcardiac arrest. Patient intubated and sedated during my encounter. History obtained through chart review, discussion with ER staff and discussion with patient's sons at bedside. 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 Son reports that patient was moving slowly today, but was overall in his usual state of health. The son drove to the other field and left the patient alone. When the son returned he found the patient laying in the field, unresponsive. Son states that he was blue in color and agonal breathing. No pulse was felt so his son started CPR and called 911. EMS arrived approximately 10 minutes later and continued CPR. AED was placed "no shock advised". ROSC attained in the field. Patient was intubated in the ER and placed on mechanical ventilation. Some hypoxia with saturations 62 to 64%. Ambu bag ventilation initiated for short time with improvement in saturation. Patient now on mechanical ventilation with SPO2 consistently in the 90s. Per report, patient was moving all extremities with equal strength prior to sedation. Movements seem to be purposeful, patient reaching for the endotracheal tube. ER course: Fentanyl 75 mcg IV +75 mcg IV +100 mcg IV + drip Lasix 40 mg IV Insulin 10 units IV Midazolam 2 mg IV + drip Principal Diagnosis Cardiac arrest, acute hypoxic respiratory failure, multiple right-sided rib fractures Discharge Exam General-alert and oriented x3, no fevers, no chills HEENT-head atraumatic and normocephalic, pupils equal and reactive to light, extraocular muscles intact Neck-no lymphadenopathy or thyromegaly, trachea midline Chest-clear to auscultation percussion. No rales wheezing or rhonchi Cardiac-regular rate and rhythm, normal S1 and S2 Abdomen-normal bowel sounds, nontender, no hepatosplenomegaly Musculoskeletal /extremities-no cyanosis, clubbing, or edema. Tender right lateral chest wall due to underlying rib fractures Neuro-cranial nerves II through XII intact, motor and sensory function within normal limits, strength symmetrical , no focal deficits Psych-normal affect, normal mood Discharge Data Allergies Allergy/AdvReac Type Severity Reaction Status Date / Time bee venom protein (honey bee) Allergy Severe ANAPHYLAXIS Verified 01/30/22 08:57 grape Allergy Severe Anaphylaxis Verified 01/30/22 08:57 Consultations 04/12/22 19:19 ED Decision to Admit Stat 04/12/22 19:20 ED Decision to Admit Stat 04/12/22 20:52 Consult Prototype Machine Operator Routine 04/13/22 08:52 Consult Cardiology Routine Procedures Performed Operation Date: 04/13/22 11:00 Actual Procedures s Cineradiography w/Routine Exam - Blayne Foy MD p Cath, Left with Cors and Vent - Blayne Foy MD Ordered Studies 04/12/22 18:00 CL Cath Imgs for PACS use only Stat CT angio chest PE protocol Stat CT cervical spine wo con Stat CT head/brain wo con Stat 04/12/22 18:02 CT abd pelvis IV con only Stat 04/13/22 10:26 CL Cath Imgs for PACS use only Routine 04/16/22 13:09 CT chest diagnostic wo con Routine Hospital Course (1) Cardiac arrest with successful resuscitation: 61-year-old male with history of poorly controlled diabetes presents with out of hospital cardiac arrest. Patient was working with his son earlier in the day. He had an unwitnessed event and was found down, pulseless, cyanotic with agonal respirations. Unknown downtimeson reports that the most would be 40 minutes. Son immediately initiated CPR and EMS was called. ROSC attained. No shocks or medications delivered. -Cardiac/respiratory arrest could be from overdose of fentanyl given new information from the patient -Patient Initially intubated in the ER and placed on mechanical ventilation. Was said to be following commands before intubation, therapeutic hypothermia not initiated -CT head did not show any acute pathology -2 D ECHO did not show any wall motion abnormality -Cardiac cath showed clean coronaries -He has been extubated, he is awake and alert, saturating well on room air 3/4-patient has intermittent pleuritic type chest pain secondary to rib injury Continue as needed analgesics Patient has agreed to inpatient rehab now after multiple attempts We will seek case management assistance in placement /5-patient reports that his chest wall pain is slightly improved Patient agrees to inpatient rehab PT OT ordered Case management to assist with placement 6-the patient refuses placement. He will be discharged to home. Chest x-ray findings are probably due to underlying pulmonary atelectasis from the multiple rib fractures. No evidence of pneumonia (2) Methamphetamine dependence, continuous: When he was liberated from the vent, he disclosed more information about drug use to the Prototype Machine Operator. Patient disclosed substance use. Reported near daily fentanyl nasal insufflation and frequent methamphetamine use again by nasal insufflation. Reports he has previously attempted to work with pain management as well as suboxone clinic. 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 Additionally he reported the suboxone treatments were costly compared to his current substance usage to manage his back pain symptoms. Prior to this event, he reported that he did not perform his normal process of creating a line of fentanyl to approximate a dose, and instead insufflated directly from his container. He immediately felt that he had overdosed and lost awareness after that. We discussed engaging mental health and child protective services social worker to attempt to modify high risk behaviors. He is not interested in discussing options for chemical dependancy at this time. (3) Acute respiratory failure with hypoxia: Now extubated and on room air. Resolved (4) Cough: Suspected from underlying pulmonary atelectasis related to the multiple right- sided rib fractures. No definite pneumonia with normal white count and no fever. CT chest report noted. He was treated while hospitalized with empiric antibiotics (5) Diabetes mellitus type 2, uncontrolled: patient with poorly controlled diabetes. Elevated glucose on admission. Last hemoglobin A1c on 09/02/2020 = 12.2. Son reports the patient does not take anything for his diabetes. Continue ADA diet and basal insulin. Sliding scale coverage as needed (6) Rib fractures: Five right-sided rib fractures rib fractures. Either from falling at home or from CPR. Supportive care. Pain control measures (7) Essential hypertension: Stable. Continue current medical management (8) Pulmonary edema: Resolved. Present on admission r (9) BPH (benign prostatic hypertrophy): No treatment needed at this time (10) Fentanyl dependence: Aware (11) Accidental fentanyl overdose: Possible. This could have resulted in respiratory arrest and subsequent cardiac arrest (12) Chemical dependency consultation declined: The patient has refused further treatment for his chemical dependency Plan Home today, April 20. Follow-up with PCP provider within 1 week is highly recommended Total Time Total Time Spent Total Time Spent (In Minutes): 40 minutes Discharge Plan Discharge Items Patient Disposition: Home - Self-Care Reason For Visit: S/P CARDIAC ARREST W ROSC Discharge Diagnosis: s/p cardiac arrest Activity: Per Instructions section Lifting: Gradually increase as tolerated Non-emergency contact: Primary Care Provider Call non-emergency contact if: you have any medication questions and your symptoms worsen Follow-up/Referrals: Getachew Weber III, CRNP [Primary Care Provider] - 04/27/22 4:00 pm Diet: Carb Consistent or DM2 and Heart Healthy Addtl Attending Provider Instructions: Please make appointment to follow up with your regular PCP Make appointment for outpatient drug rehab do not continue to abuse drugs Pending Studies at Discharge: No Stand-Alone Forms: My [facility], Smoking Cessation Medications and DC Order Prescriptions: New amoxicillin-pot clavulanate 875-125 mg Tablet 1 tab PO BIDM 5 Days Qty: 10 0RF ibuprofen 800 mg tablet 800 mg PO Q8H PRN (Reason: pain) Qty: 10 0RF pantoprazole [Protonix] 40 mg tablet,delayed release (DR/EC) 40 mg PO DAILY Qty: 10 0RF naloxone [Narcan] 4 mg/actuation spray,non-aerosol 1 spray intranasal ONCE Qty: 2 0RF Continued cyclobenzaprine 5 mg tablet 5 mg PO BID PRN (Reason: muscle spasm) Qty: 30 1RF Rx Instructions: 04/12/22 : UNABLE TO CONFIRM (DME) Wheeled Walker Misc See Rx Instructions .MEDSUPPLY Qty: 1 0RF Rx Instructions: As directed epinephrine 0.3 mg/0.3 mL auto-injector 0.3 mg IM DIRECTED PRN (Reason: Allergic Reaction) Qty: 2 0RF Rx Instructions: until response 04/12/22 : UNABLE TO CONFIRM (DME) OneTouch Verio test strips Strip See Rx Instructions .Route Qty: 100 2RF Rx Instructions: use to test blood glucose 3 times daily insulin aspart U-100 [Novolog FlexPen U-100 Insulin] 100 unit/mL (3 mL) insulin pen 22 unit SC AC Qty: 45 1RF Rx Instructions: PER PT "STOPPED TAKING THIS MED ABOUT A MONTH AGO". 04/12/22 : UNABLE TO CONFIRM Lantus Solostar U-100 Insulin 100 unit/mL (3 mL) insulin pen 30 unit SC QAM Qty: 45 1RF Rx Instructions: PER PT "STOPPED TAKING THIS MED ABOUT A MONTH AGO". 04/12/22 : UNABLE TO CONFIRM (DME) lancets [OneTouch Delica Lancets] 30 gauge misc See Rx Instructions .Route Qty: 100 2RF Rx Instructions: use to test blood glucose three times daily lisinopril 5 mg tablet 5 mg PO QAM Qty: 90 1RF Rx Instructions: PER PT "STOPPED TAKING THIS MED ABOUT A MONTH AGO". 04/12/22 : UNABLE TO CONFIRM metformin 500 mg tablet 500 mg PO BID Qty: 180 3RF Rx Instructions: PER PT "STOPPED TAKING THIS MED ABOUT A MONTH AGO". 04/12/22 : UNABLE TO CONFIRM (DME) pen needle, diabetic, safety 29 gauge x 1/2" needle See Rx Instructions .Route Qty: 100 2RF Rx Instructions: Use to adminiater insulin 5 times daily Discharge Orders: Discharge Order (Routine); Ordered 04/20/22 Ordered By: Kingsley Paris Admission Data Admit Date/Time: 04/12/22 19:53 Attending Provider: Kingsley Paris Admit Provider: Shira Freeman Primary Care Provider: Getachew Weber III Other Providers: Shira Freeman ; Cooper Serrano ; Paul Underwood Coding Level of Care Code 62877 INP/OBS DISCH >30 MIN Diagnoses Cardiac arrest with successful resuscitation I46.9 Methamphetamine dependence, continuous F15.20 Acute respiratory failure with hypoxia J96.01 Cough R05.9 Diabetes mellitus type 2, uncontrolled E11.65 Rib fractures S22.49XA Essential hypertension I10 Pulmonary edema J81.0 Chronicity: acute BPH (benign prostatic hypertrophy) N40.0 Fentanyl dependence F11.20 Accidental fentanyl overdose T40.411A Chemical dependency consultation declined
--- NOTE | 2022-04-20 11:48 | Discharge Summary ---
Date of Service April 20, 2022 Admission HPI Per Admitting Provider Kingsley Harding is a 61-year-old male with history of poorly controlled diabetes presenting postcardiac arrest. Patient intubated and sedated during my encounter. History obtained through chart review, discussion with ER staff and discussion with patient's sons at bedside. 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 Son reports that patient was moving slowly today, but was overall in his usual state of health. The son drove to the other field and left the patient alone. When the son returned he found the patient laying in the field, unresponsive. Son states that he was blue in color and agonal breathing. No pulse was felt so his son started CPR and called 911. EMS arrived approximately 10 minutes later and continued CPR. AED was placed "no shock advised". ROSC attained in the field. Patient was intubated in the ER and placed on mechanical ventilation. Some hypoxia with saturations 62 to 64%. Ambu bag ventilation initiated for short time with improvement in saturation. Patient now on mechanical ventilation with SPO2 consistently in the 90s. Per report, patient was moving all extremities with equal strength prior to sedation. Movements seem to be purposeful, patient reaching for the endotracheal tube. ER course: Fentanyl 75 mcg IV +75 mcg IV +100 mcg IV + drip Lasix 40 mg IV Insulin 10 units IV Midazolam 2 mg IV + drip Principal Diagnosis Cardiac arrest, acute hypoxic respiratory failure, multiple right rib fractures Discharge Data Allergies Allergy/AdvReac Type Severity Reaction Status Date / Time bee venom protein (honey bee) Allergy Severe ANAPHYLAXIS Verified 01/30/22 08:57 grape Allergy Severe Anaphylaxis Verified 01/30/22 08:57 Consultations 04/12/22 19:19 ED Decision to Admit Stat 04/12/22 19:20 ED Decision to Admit Stat 04/12/22 20:52 Consult Document Preparer Microfilming Routine 04/13/22 08:52 Consult Cardiology Routine Procedures Performed Operation Date: 04/13/22 11:00 Actual Procedures s Cineradiography w/Routine Exam - Blayne Foy MD p Cath, Left with Cors and Vent - Blayne Foy MD Ordered Studies 04/12/22 18:00 CL Cath Imgs for PACS use only Stat CT angio chest PE protocol Stat CT cervical spine wo con Stat CT head/brain wo con Stat 04/12/22 18:02 CT abd pelvis IV con only Stat 04/13/22 10:26 CL Cath Imgs for PACS use only Routine 04/16/22 13:09 CT chest diagnostic wo con Routine Total Time Total Time Spent Total Time Spent (In Minutes): 40 minutes Discharge Plan Discharge Items Patient Disposition: Home - Self-Care Reason For Visit: S/P CARDIAC ARREST W ROSC Discharge Diagnosis: s/p cardiac arrest Activity: Per Instructions section Lifting: Gradually increase as tolerated Non-emergency contact: Primary Care Provider Call non-emergency contact if: you have any medication questions and your symptoms worsen Follow-up/Referrals: Getachew Weber III, CRNP [Primary Care Provider] - 04/27/22 4:00 pm Diet: Carb Consistent or DM2 and Heart Healthy Addtl Attending Provider Instructions: Please make appointment to follow up with your regular PCP Make appointment for outpatient drug rehab do not continue to abuse drugs Pending Studies at Discharge: No Stand-Alone Forms: My [employer], Smoking Cessation Medications and DC Order Prescriptions: New ibuprofen 800 mg tablet 800 mg PO Q8H PRN (Reason: pain) Qty: 10 0RF pantoprazole [Protonix] 40 mg tablet,delayed release (DR/EC) 40 mg PO DAILY Qty: 10 0RF naloxone [Narcan] 4 mg/actuation spray,non-aerosol 1 spray intranasal ONCE Qty: 2 0RF Continued cyclobenzaprine 5 mg tablet 5 mg PO BID PRN (Reason: muscle spasm) Qty: 30 1RF Rx Instructions: 04/12/22 : UNABLE TO CONFIRM (DME) Wheeled Walker Misc See Rx Instructions .MEDSUPPLY Qty: 1 0RF Rx Instructions: As directed epinephrine 0.3 mg/0.3 mL auto-injector 0.3 mg IM DIRECTED PRN (Reason: Allergic Reaction) Qty: 2 0RF Rx Instructions: until response 04/12/22 : UNABLE TO CONFIRM (DME) OneTouch Verio test strips Strip See Rx Instructions .Route Qty: 100 2RF Rx Instructions: use to test blood glucose 3 times daily insulin aspart U-100 [Novolog FlexPen U-100 Insulin] 100 unit/mL (3 mL) insu emigdio pen 22 unit SC AC Qty: 45 1RF Rx Instructions: PER PT "STOPPED TAKING THIS MED ABOUT A MONTH AGO". 04/12/22 : UNABLE TO CONFIRM Lantus Solostar U-100 Insulin 100 unit/mL (3 mL) insulin pen 30 unit SC QAM Qty: 45 1RF Rx Instructions: PER PT "STOPPED TAKING THIS MED ABOUT A MONTH AGO". 04/12/22 : UNABLE TO CONFIRM (DME) lancets [OneTouch Delica Lancets] 30 gauge misc See Rx Instructions .Route Qty: 100 2RF Rx Instructions: use to test blood glucose three times daily lisinopril 5 mg tablet 5 mg PO QAM Qty: 90 1RF Rx Instructions: PER PT "STOPPED TAKING THIS MED ABOUT A MONTH AGO". 04/12/22 : UNABLE TO CONFIRM (DME) pen needle, diabetic, safety 29 gauge x 1/2" needle See Rx Instructions .Route Qty: 100 2RF Rx Instructions: Use to adminiater insulin 5 times daily metformin 500 mg tablet 500 mg PO BID Qty: 60 0RF Rx Instructions: PER PT "STOPPED TAKING THIS MED ABOUT A MONTH AGO". 04/12/22 : UNABLE TO CONFIRM Discharge Orders: Discharge Order (Routine); Ordered 04/20/22 Ordered By: Kingsley Paris Admission Data Admit Date/Time: 04/12/22 19:53 Attending Provider: Kingsley Paris Admit Provider: Shira Freeman Primary Care Provider: Getachew Weber III Other Providers: Shira Freeman ; Cooper Serrano ; Paul Underwood Other Interventions: Discharge Summary Assessment (RN) Last Done: 04/20/22 11:26 Coding Level of Care Code 99764 INP/OBS DISCH >30 MIN Diagnoses
--- NOTE | 2022-04-20 12:10 | Discharge Summary ---
Date of Service April 20, 2022 Admission HPI Per Admitting Provider Kingsley Harding is a 61-year-old male with history of poorly controlled diabetes presenting postcardiac arrest. Patient intubated and sedated during my encounter. History obtained through chart review, discussion with ER staff and discussion with patient's sons at bedside. 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 Son reports that patient was moving slowly today, but was overall in his usual state of health. The son drove to the other field and left the patient alone. When the son returned he found the patient laying in the field, unresponsive. Son states that he was blue in color and agonal breathing. No pulse was felt so his son started CPR and called 911. EMS arrived approximately 10 minutes later and continued CPR. AED was placed "no shock advised". ROSC attained in the field. Patient was intubated in the ER and placed on mechanical ventilation. Some hypoxia with saturations 62 to 64%. Ambu bag ventilation initiated for short time with improvement in saturation. Patient now on mechanical ventilation with SPO2 consistently in the 90s. Per report, patient was moving all extremities with equal strength prior to sedation. Movements seem to be purposeful, patient reaching for the endotracheal tube. ER course: Fentanyl 75 mcg IV +75 mcg IV +100 mcg IV + drip Lasix 40 mg IV Insulin 10 units IV Midazolam 2 mg IV + drip Principal Diagnosis Cardiac arrest, acute hypoxic respiratory failure, multiple right rib fractures Discharge Data Allergies Allergy/AdvReac Type Severity Reaction Status Date / Time bee venom protein (honey bee) Allergy Severe ANAPHYLAXIS Verified 01/30/22 08:57 grape Allergy Severe Anaphylaxis Verified 01/30/22 08:57 Consultations 04/12/22 19:19 ED Decision to Admit Stat 04/12/22 19:20 ED Decision to Admit Stat 04/12/22 20:52 Consult Dean Of Men Routine 04/13/22 08:52 Consult Cardiology Routine Procedures Performed Operation Date: 04/13/22 11:00 Actual Procedures s Cineradiography w/Routine Exam - Blayne Foy MD p Cath, Left with Cors and Vent - Blayne Foy MD Ordered Studies 04/12/22 18:00 CL Cath Imgs for PACS use only Stat CT angio chest PE protocol Stat CT cervical spine wo con Stat CT head/brain wo con Stat 04/12/22 18:02 CT abd pelvis IV con only Stat 04/13/22 10:26 CL Cath Imgs for PACS use only Routine 04/16/22 13:09 CT chest diagnostic wo con Routine Total Time Total Time Spent Total Time Spent (In Minutes): 40 minutes Discharge Plan Discharge Items Patient Disposition: Home - Self-Care Reason For Visit: S/P CARDIAC ARREST W ROSC Discharge Diagnosis: s/p cardiac arrest Activity: Per Instructions section Lifting: Gradually increase as tolerated Non-emergency contact: Primary Care Provider Call non-emergency contact if: you have any medication questions and your symptoms worsen Follow-up/Referrals: Getachew Weber III, CRNP [Primary Care Provider] - 04/27/22 4:00 pm Diet: Carb Consistent or DM2 and Heart Healthy Addtl Attending Provider Instructions: Please make appointment to follow up with your regular PCP Make appointment for outpatient drug rehab do not continue to abuse drugs Pending Studies at Discharge: No Stand-Alone Forms: My [employer], Smoking Cessation Medications and DC Order Prescriptions: New ibuprofen 800 mg tablet 800 mg PO Q8H PRN (Reason: pain) Qty: 10 0RF pantoprazole [Protonix] 40 mg tablet,delayed release (DR/EC) 40 mg PO DAILY Qty: 10 0RF naloxone [Narcan] 4 mg/actuation spray,non-aerosol 1 spray intranasal ONCE Qty: 2 0RF Continued cyclobenzaprine 5 mg tablet 5 mg PO BID PRN (Reason: muscle spasm) Qty: 30 1RF Rx Instructions: 04/12/22 : UNABLE TO CONFIRM (DME) Wheeled Walker Misc See Rx Instructions .MEDSUPPLY Qty: 1 0RF Rx Instructions: As directed epinephrine 0.3 mg/0.3 mL auto-injector 0.3 mg IM DIRECTED PRN (Reason: Allergic Reaction) Qty: 2 0RF Rx Instructions: until response 04/12/22 : UNABLE TO CONFIRM (DME) OneTouch Verio test strips Strip See Rx Instructions .Route Qty: 100 2RF Rx Instructions: use to test blood glucose 3 times daily (DME) lancets [OneTouch Delica Lancets] 30 gauge misc See Rx Instructions .Route Qty: 100 2RF Rx Instructions: use to test blood glucose three times daily lisinopril 5 mg tablet 5 mg PO QAM Qty: 90 1RF Rx Instructions: PER PT "STOPPED TAKING THIS MED ABOUT A MONTH AGO". 04/12/22 : UNABLE TO CONFIRM (DME) pen needle, diabetic, safety 29 gauge x 1/2" needle See Rx Instructions .Route Qty: 100 2RF Rx Instructions: Use to adminiater insulin 5 times daily metformin 500 mg tablet 500 mg PO BID Qty: 60 0RF Rx Instructions: PER PT "STOPPED TAKING THIS MED ABOUT A MONTH AGO". 04/12/22 : UNABLE TO CONFIRM Discontinued insulin aspart U-100 [Novolog FlexPen U-100 Insulin] 100 unit/mL (3 mL) insulin pen 22 unit SC AC Qty: 45 1RF Rx Instructions: PER PT "STOPPED TAKING THIS MED ABOUT A MONTH AGO". 04/12/22 : UNABLE TO CONFIRM Lantus Solostar U-100 Insulin 100 unit/mL (3 mL) insulin pen 30 unit SC QAM Qty: 45 1RF Rx Instructions: PER PT "STOPPED TAKING THIS MED ABOUT A MONTH AGO". 04/12/22 : UNABLE TO CONFIRM Discharge Orders: Discharge Order (Routine); Ordered 04/20/22 Ordered By: Kingsley Paris Admission Data Admit Date/Time: 04/12/22 19:53 Attending Provider: Kingsley Paris Admit Provider: Shira Freeman Primary Care Provider: Getachew Weber III Other Providers: Shira Freeman ; Cooper Serrano ; Paul Underwood Other Interventions: Discharge Summary Assessment (RN) Last Done: 04/20/22 11:26 Coding Level of Care Code 92072 INP/OBS DISCH >30 MIN Diagnoses
--- NOTE | 2022-04-20 12:45 | Discharge Summary ---
Date of Service April 20, 2022 Admission HPI Per Admitting Provider Kingsley Harding is a 61-year-old male with history of poorly controlled diabetes presenting postcardiac arrest. Patient intubated and sedated during my encounter. History obtained through chart review, discussion with ER staff and discussion with patient's sons at bedside. 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 Son reports that patient was moving slowly today, but was overall in his usual state of health. The son drove to the other field and left the patient alone. When the son returned he found the patient laying in the field, unresponsive. Son states that he was blue in color and agonal breathing. No pulse was felt so his son started CPR and called 911. EMS arrived approximately 10 minutes later and continued CPR. AED was placed "no shock advised". ROSC attained in the field. Patient was intubated in the ER and placed on mechanical ventilation. Some hypoxia with saturations 62 to 64%. Ambu bag ventilation initiated for short time with improvement in saturation. Patient now on mechanical ventilation with SPO2 consistently in the 90s. Per report, patient was moving all extremities with equal strength prior to sedation. Movements seem to be purposeful, patient reaching for the endotracheal tube. ER course: Fentanyl 75 mcg IV +75 mcg IV +100 mcg IV + drip Lasix 40 mg IV Insulin 10 units IV Midazolam 2 mg IV + drip Principal Diagnosis Cardiac arrest, acute hypoxic respiratory failure, multiple right rib fractures Discharge Data Allergies Allergy/AdvReac Type Severity Reaction Status Date / Time bee venom protein (honey bee) Allergy Severe ANAPHYLAXIS Verified 01/30/22 08:57 grape Allergy Severe Anaphylaxis Verified 01/30/22 08:57 Consultations 04/12/22 19:19 ED Decision to Admit Stat 04/12/22 19:20 ED Decision to Admit Stat 04/12/22 20:52 Consult Patent Legal Assistant Routine 04/13/22 08:52 Consult Cardiology Routine Procedures Performed Operation Date: 04/13/22 11:00 Actual Procedures s Cineradiography w/Routine Exam - Blayne Foy MD p Cath, Left with Cors and Vent - Blayne Foy MD Ordered Studies 04/12/22 18:00 CL Cath Imgs for PACS use only Stat CT angio chest PE protocol Stat CT cervical spine wo con Stat CT head/brain wo con Stat 04/12/22 18:02 CT abd pelvis IV con only Stat 04/13/22 10:26 CL Cath Imgs for PACS use only Routine 04/16/22 13:09 CT chest diagnostic wo con Routine Total Time Total Time Spent Total Time Spent (In Minutes): 40 minutes Discharge Plan Discharge Items Patient Disposition: Home - Self-Care Reason For Visit: S/P CARDIAC ARREST W ROSC Discharge Diagnosis: s/p cardiac arrest Activity: Per Instructions section Lifting: Gradually increase as tolerated Non-emergency contact: Primary Care Provider Call non-emergency contact if: you have any medication questions and your symptoms worsen Follow-up/Referrals: Getachew Weber III, CRNP [Primary Care Provider] - 04/27/22 4:00 pm Diet: Carb Consistent or DM2 and Heart Healthy Addtl Attending Provider Instructions: Please make appointment to follow up with your regular PCP Make appointment for outpatient drug rehab do not continue to abuse drugs Pending Studies at Discharge: No Stand-Alone Forms: My [employer] [place], Smoking Cessation Medications and DC Order Prescriptions: New pantoprazole [Protonix] 40 mg tablet,delayed release (DR/EC) 40 mg PO DAILY Qty: 10 0RF naloxone [Narcan] 4 mg/actuation spray,non-aerosol 1 spray intranasal ONCE Qty: 2 0RF oxycodone 5 mg tablet 5 mg PO Q6H PRN (Reason: pain) Qty: 14 0RF Continued cyclobenzaprine 5 mg tablet 5 mg PO BID PRN (Reason: muscle spasm) Qty: 30 1RF Rx Instructions: 04/12/22 : UNABLE TO CONFIRM (DME) Wheeled Walker Misc See Rx Instructions .MEDSUPPLY Qty: 1 0RF Rx Instructions: As directed epinephrine 0.3 mg/0.3 mL auto-injector 0.3 mg IM DIRECTED PRN (Reason: Allergic Reaction) Qty: 2 0RF Rx Instructions: until response 04/12/22 : UNABLE TO CONFIRM (DME) OneTouch Verio test strips Strip See Rx Instructions .Route Qty: 100 2RF Rx Instructions: use to test blood glucose 3 times daily (DME) lancets [OneTouch Delica Lancets] 30 gauge misc See Rx Instructions .Route Qty: 100 2RF Rx Instructions: use to test blood glucose three times daily lisinopril 5 mg tablet 5 mg PO QAM Qty: 90 1RF Rx Instructions: PER PT "STOPPED TAKING THIS MED ABOUT A MONTH AGO". 04/12/22 : UNABLE TO CONFIRM (DME) pen needle, diabetic, safety 29 gauge x 1/2" needle See Rx Instructions .Route Qty: 100 2RF Rx Instructions: Use to adminiater insulin 5 times daily metformin 500 mg tablet 500 mg PO BID Qty: 60 0RF Rx Instructions: PER PT "STOPPED TAKING THIS MED ABOUT A MONTH AGO". 04/12/22 : UNABLE TO CONFIRM Discontinued insulin aspart U-100 [Novolog FlexPen U-100 Insulin] 100 unit/mL (3 mL) insulin pen 22 unit SC AC Qty: 45 1RF Rx Instructions: PER PT "STOPPED TAKING THIS MED ABOUT A MONTH AGO". 04/12/22 : UNABLE TO CONFIRM Lantus Solostar U-100 Insulin 100 unit/mL (3 mL) insulin pen 30 unit SC QAM Qty: 45 1RF Rx Instructions: PER PT "STOPPED TAKING THIS MED ABOUT A MONTH AGO". 04/12/22 : UNABLE TO CONFIRM Discharge Orders: Discharge Order (Routine); Ordered 04/20/22 Ordered By: Kingsley Paris Admission Data Admit Date/Time: 04/12/22 19:53 Attending Provider: Kingsley Paris Admit Provider: Shira Freeman Primary Care Provider: Getachew Weber III Other Providers: Shira Freeman ; Cooper Serrano ; Paul Underwood Other Interventions: Discharge Summary Assessment (RN) Last Done: 04/20/22 11:26 Coding Level of Care Code 91778 INP/OBS DISCH >30 MIN Diagnoses
--- NOTE | 2022-04-20 12:55 | Discharge Summary ---
Date of Service April 20, 2022 Admission HPI Per Admitting Provider Kingsley Harding is a 61-year-old male with history of poorly controlled diabetes presenting postcardiac arrest. Patient intubated and sedated during my encounter. History obtained through chart review, discussion with ER staff and discussion with patient's sons at bedside. 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 Son reports that patient was moving slowly today, but was overall in his usual state of health. The son drove to the other field and left the patient alone. When the son returned he found the patient laying in the field, unresponsive. Son states that he was blue in color and agonal breathing. No pulse was felt so his son started CPR and called 911. EMS arrived approximately 10 minutes later and continued CPR. AED was placed "no shock advised". ROSC attained in the field. Patient was intubated in the ER and placed on mechanical ventilation. Some hypoxia with saturations 62 to 64%. Ambu bag ventilation initiated for short time with improvement in saturation. Patient now on mechanical ventilation with SPO2 consistently in the 90s. Per report, patient was moving all extremities with equal strength prior to sedation. Movements seem to be purposeful, patient reaching for the endotracheal tube. ER course: Fentanyl 75 mcg IV +75 mcg IV +100 mcg IV + drip Lasix 40 mg IV Insulin 10 units IV Midazolam 2 mg IV + drip Principal Diagnosis Cardiac arrest, acute hypoxic respiratory failure, multiple right rib fractures Discharge Data Allergies Allergy/AdvReac Type Severity Reaction Status Date / Time bee venom protein (honey bee) Allergy Severe ANAPHYLAXIS Verified 01/30/22 08:57 grape Allergy Severe Anaphylaxis Verified 01/30/22 08:57 Consultations 04/12/22 19:19 ED Decision to Admit Stat 04/12/22 19:20 ED Decision to Admit Stat 04/12/22 20:52 Consult Labor Specialist Routine 04/13/22 08:52 Consult Cardiology Routine Procedures Performed Operation Date: 04/13/22 11:00 Actual Procedures s Cineradiography w/Routine Exam - Blayne Foy MD p Cath, Left with Cors and Vent - Blayne Foy MD Ordered Studies 04/12/22 18:00 CL Cath Imgs for PACS use only Stat CT angio chest PE protocol Stat CT cervical spine wo con Stat CT head/brain wo con Stat 04/12/22 18:02 CT abd pelvis IV con only Stat 04/13/22 10:26 CL Cath Imgs for PACS use only Routine 04/16/22 13:09 CT chest diagnostic wo con Routine Total Time Total Time Spent Total Time Spent (In Minutes): 40 minutes Discharge Plan Discharge Items Patient Disposition: Home - Self-Care Reason For Visit: S/P CARDIAC ARREST W ROSC Discharge Diagnosis: s/p cardiac arrest Activity: Per Instructions section Lifting: Gradually increase as tolerated Non-emergency contact: Primary Care Provider Call non-emergency contact if: you have any medication questions and your symptoms worsen Follow-up/Referrals: Getachew Weber III, CRNP [Primary Care Provider] - 04/27/22 4:00 pm Diet: Carb Consistent or DM2 and Heart Healthy Addtl Attending Provider Instructions: Please make appointment to follow up with your regular PCP Make appointment for outpatient drug rehab do not continue to abuse drugs Pending Studies at Discharge: No Stand-Alone Forms: My [employer], Smoking Cessation Medications and DC Order Prescriptions: New oxycodone 5 mg tablet 5 mg PO Q6H PRN (Reason: pain) Qty: 14 0RF Continued cyclobenzaprine 5 mg tablet 5 mg PO BID PRN (Reason: muscle spasm) Qty: 30 1RF Rx Instructions: 04/12/22 : UNABLE TO CONFIRM (DME) Wheeled Walker Misc See Rx Instructions .MEDSUPPLY Qty: 1 0RF Rx Instructions: As directed epinephrine 0.3 mg/0.3 mL auto-injector 0.3 mg IM DIRECTED PRN (Reason: Allergic Reaction) Qty: 2 0RF Rx Instructions: until response 04/12/22 : UNABLE TO CONFIRM (DME) OneTouch Verio test strips Strip See Rx Instructions .Route Qty: 100 2RF Rx Instructions: use to test blood glucose 3 times daily (DME) lancets [OneTouch Delica Lancets] 30 gauge misc See Rx Instructions .Route Qty: 100 2RF Rx Instructions: use to test blood glucose three times daily lisinopril 5 mg tablet 5 mg PO QAM Qty: 90 1RF Rx Instructions: PER PT "STOPPED TAKING THIS MED ABOUT A MONTH AGO". 04/12/22 : UNABLE TO CONFIRM (DME) pen needle, diabetic, safety 29 gauge x 1/2" needle See Rx Instructions .Route Qty: 100 2RF Rx Instructions: Use to adminiater insulin 5 times daily metformin 500 mg tablet 500 mg PO BID Qty: 60 0RF Rx Instructions: PER PT "STOPPED TAKING THIS MED ABOUT A MONTH AGO". 04/12/22 : UNABLE TO CONFIRM Discontinued insulin aspart U-100 [Novolog FlexPen U-100 Insulin] 100 unit/mL (3 mL) insulin pen 22 unit SC AC Qty: 45 1RF Rx Instructions: PER PT "STOPPED TAKING THIS MED ABOUT A MONTH AGO". 04/12/22 : UNABLE TO CONFIRM Lantus Solostar U-100 Insulin 100 unit/mL (3 mL) insulin pen 30 unit SC QAM Qty: 45 1RF Rx Instructions: PER PT "STOPPED TAKING THIS MED ABOUT A MONTH AGO". 04/12/22 : UNABLE TO CONFIRM Discharge Orders: Discharge Order (Routine); Ordered 04/20/22 Ordered By: Kingsley Paris Admission Data Admit Date/Time: 04/12/22 19:53 Attending Provider: Kingsley Paris Admit Provider: Shira Freeman Primary Care Provider: Getachew Weber III Other Providers: Shira Freeman ; Cooper Serrano ; Paul Underwood Other Interventions: Discharge Summary Assessment (RN) Last Done: 04/20/22 11:26 Coding Level of Care Code 73048 INP/OBS DISCH >30 MIN Diagnoses
== END 2022-04-20 14:05 | disposition home or self-care (01) | DRG 917 ==
LOC: ED 17:51 → 1E 19:53 → SUATTDRO 19:53 → 1E 21:00 → 2E 04-14 13:00